=== PATIENT | male | born 1935 | race Caucasian/White ===

== ENCOUNTER 2015-12-16 10:50 | Inpatient (IN) | payer MEDICAID, OTHER ==
[~2015-12-16] VITALS: Ht 180.3 cm; Wt 59.9 kg
[~2015-12-16 10:50] MED LIST: CLIN1CAP5 PO
[2015-12-16 10:58] VITALS: BP 134/89; PULSE 86; RESP 24; O2SAT 100
[2015-12-16 11:06] VITALS: BP 144/80; PULSE 86; RESP 24; O2SAT 100
--- NOTE | 2015-12-16 11:24 | PD ---
HPI Chief Complaint: General Weakness Time Seen by Provider: 11:24 Travel History International Travel<30 days: No Contact w/Intl Traveler<30days: No Traveled to known affect area: No History of Present Illness HPI 80-year-old male coming in by EMS from his home. Patient was found covered in urine and feces reportedly sitting his home for the last 5 days. Patient is known to live on his own. He appears extremely cachectic and has obviously been malnourished for some time. Patient complains of no pain, nausea , vomiting, or headache. Patient is alert and oriented, although lethargic. Patient is allergic to ibuprofen, lidocaine, Novocain, and sodium pentothal. PFSH Past Medical History Medical History: Denies Significant Hx Past Surgical History Abdominal Surgery: Yes (ABD - SHRAPNEL) Social History Alcohol Use: No Tobacco Use: No Substance Use: No Allergies-Medications (Allergen,Severity, Reaction): Coded Allergies: Ibuprofen (Verified Allergy, Mild, 12/16/15) Lidocaine (Verified Allergy, Mild, 12/16/15) Novocain (Verified Allergy, Mild, 12/16/15) Uncoded Allergies: SODIUM PENTATHAL (Allergy, Severe, 11/19/09) Reported Meds & Prescriptions Reported Meds & Active Scripts Active No Active Prescriptions or Reported Medications Review of Systems ROS negative x 10: except as stated in HPI General / Constitutional: No: Fever, Chills Eyes: No: Visual changes HENT: No: Headaches, Sore Throat, Congestion Cardiovascular: Positive: Dyspnea on exertion, Edema (patient has 2-3+ pitting edema bilaterally.), No: Chest Pain or Discomfort, Palpitations, Irregular Rhythm, Tachycardia, Diaphoresis Respiratory: No: Cough, Shortness of Breath Gastrointestinal: No: Nausea, Vomiting, Diarrhea, Abdominal Pain Genitourinary: Positive: Dysuria, Incontinence Musculoskeletal: No: Pain Skin: No Rash Neurologic: No: Weakness Psychiatric: No: Depression Endocrine: No: Polydipsia Hematologic/Lymphatic: No: Easy Bruising Physical Exam Narrative GENERAL: Patient appears weak, cachectic, but in no acute distress. SKIN: Warm and dry. Normal color, atrophic with poor turgor HEAD: Atraumatic. Normocephalic. EYES: Pupils equal and round. No scleral icterus. No injection or drainage. ENT: No nasal bleeding or discharge. Mucous membranes pink. Dry. Pharynx is clear. Airway is patent. Patient has a hoarse voice. NECK: Trachea midline. Supple and nontender. CARDIOVASCULAR: Regular rate and rhythm. No murmurs gallops or rubs. RESPIRATORY: No accessory muscle use. Clear to auscultation. Breath sounds equal bilaterally. GASTROINTESTINAL: Abdomen soft, non-tender, nondistended. Hepatic and splenic margins not palpable. MUSCULOSKELETAL: Extremities without clubbing, cyanosis, 2-3+ pitting edema bilaterally in the lower extremities. No obvious deformities. NEUROLOGICAL: Awake and alert. No obvious cranial nerve deficits. Motor grossly within normal limits. 4 out of 5 muscle strength in the arms and legs. Normal speech. PSYCHIATRIC: Appropriate mood and affect; insight and judgment normal. Data Data Last Documented VS Vital Signs Date Time Temp Pulse Resp B/P Pulse Ox O2 Delivery O2 Flow Rate FiO2 12/16/15 12:29 98 12/16/15 12:29 86 24 143/63 Orders Electrocardiogram (12/16/15 11:24) Complete Blood Count With Diff (12/16/15 11:24) Comprehensive Metabolic Panel (12/16/15 11:24) Magnesium (Mg) (12/16/15 11:24) Ckmb (Isoenzyme) Profile (12/16/15 11:24) Troponin I (12/16/15 11:24) Act Partial Throm Time (Ptt) (12/16/15 11:24) Prothrombin Time / Inr (Pt) (12/16/15 11:24) Urinalysis - C+S If Indicated (12/16/15 11:24) Chest, Single Ap (12/16/15 11:24) Ecg Monitoring (12/16/15 11:24) Iv Access Insert/Monitor (12/16/15 11:24) Oximetry (12/16/15 11:24) Sodium Chloride 0.9% Flush (Ns Flush) (12/16/15 11:30) Sodium Chlorid 0.9% 500 Ml Inj (Ns 500 M (12/16/15 11:30) Urinary Catheter Insert/Apply (12/16/15 11:24) Ct Brain W/O Iv Contrast(Rout) (12/16/15 11:45) Place In Observation (12/16/15 ) Vital Signs (Adult) Q4H (12/16/15 14:06) Activity Oob With Assistance (12/16/15 14:06) Diet Regular Basic (12/16/15 Dinner) Sodium Chloride 0.9% Flush (Ns Flush) (12/16/15 14:15) Sodium Chloride 0.9% Flush (Ns Flush) (12/16/15 21:00) Ondansetron Inj (Zofran Inj) (12/16/15 14:15) Basic Metabolic Panel (Bmp) (12/17/15 06:00) Comprehensive Metabolic Panel (12/17/15 06:00) Scd Bilateral/Knee High BROOKE.QSHIFT (12/16/15 14:06) Enrrique Bilateral/Knee High BROOKE.QSHIFT (12/16/15 14:06) Naloxone Inj (Narcan Inj) (12/16/15 14:15) Chest, Pa & Lat (12/16/15 ) Admit Order (Ed Use Only) (12/16/15 14:12) Labs Laboratory Tests Test 12/16/15 12/16/15 11:44 12:17 White Blood Count 15.3 TH/MM3 Red Blood Count 3.94 MIL/MM3 Hemoglobin 13.1 GM/DL Hematocrit 37.8 % Mean Corpuscular Volume 95.9 FL Mean Corpuscular Hemoglobin 33.4 PG Mean Corpuscular Hemoglobin 34.8 % Concent Red Cell Distribution Width 14.2 % Platelet Count 162 TH/MM3 Mean Platelet Volume 10.9 FL Neutrophils (%) (Auto) 93.7 % Lymphocytes (%) (Auto) 2.3 % Monocytes (%) (Auto) 3.9 % Eosinophils (%) (Auto) 0.0 % Basophils (%) (Auto) 0.1 % Neutrophils # (Auto) 14.3 TH/MM3 Lymphocytes # (Auto) 0.3 TH/MM3 Monocytes # (Auto) 0.6 TH/MM3 Eosinophils # (Auto) 0.0 TH/MM3 Basophils # (Auto) 0.0 TH/MM3 CBC Comment DIFF FINAL Differential Comment Prothrombin Time 12.2 SEC Prothromb Time International 1.2 RATIO Ratio Activated Partial 24.1 SEC Thromboplast Time Sodium Level 130 MEQ/L Potassium Level 5.0 MEQ/L Chloride Level 92 MEQ/L Carbon Dioxide Level 26.5 MEQ/L Anion Gap 12 MEQ/L Blood Urea Nitrogen 59 MG/DL Creatinine 1.17 MG/DL Estimat Glomerular Filtration 60 ML/MIN Rate Random Glucose 116 MG/DL Calcium Level 8.6 MG/DL Magnesium Level 2.5 MG/DL Total Bilirubin 0.8 MG/DL Aspartate Amino Transf 15 U/L (AST/SGOT) Alanine Aminotransferase 15 U/L (ALT/SGPT) Alkaline Phosphatase 83 U/L Total Creatine Kinase 33 U/L Troponin I LESS THAN 0.02 NG/ML Total Protein 6.5 GM/DL Albumin 3.0 GM/DL Urine Color YELLOW Urine Turbidity HAZY Urine pH 5.0 Urine Specific [place] 1.022 Urine Protein TRACE mg/dL Urine Glucose (UA) NEG mg/dL Urine Ketones NEG mg/dL Urine Occult Blood LARGE Urine Nitrite NEG Urine Bilirubin NEG Urine Urobilinogen 2.0 MG/DL Urine Leukocyte Esterase NEG Urine RBC 38 /hpf Urine WBC 5 /hpf Urine Squamous Epithelial <1 /hpf Cells Urine Hyaline Casts 13 /lpf Urine Mucus FEW /lpf Microscopic Urinalysis Comment CULT NOT INDICATED MDM Medical Decision Making Medical Screen Exam Complete: Yes Emergency Medical Condition: Yes Differential Diagnosis Severe malnutrition. Dehydration. Possible stroke. Narrative Course Patient is evaluated felt to be medically stable at time of exam. Labs ordered including CBC, CMP, magnesium, cardiac panel, urinalysis. CT of the head and chest x-ray is ordered. Mena catheter is placed. Labs come back showing mild leukocytosis, dehydration, hyponatremia, and low albumin. Patient is given 1000 mL normal saline IV. Patient is discussed with Dr. Flores who recommends admission for dehydration and failure to thrive. Call placed to the hospitalist. Patient discussed with Dr. Zambrano for admission. Diagnosis Primary Impression: DEHYDRATION Additional Impression: Failure to thrive in adult Admitting Information Admitting Physician Requests: Admit Scripts No Active Prescriptions or Reported Meds Condition: Stable Nura Orr Dec 16, 2015 11:24
[2015-12-16] MEDS ORDERED: SODIUM CHLORID 0.9% 500 ML INJ 500 ML IV ONE (11:30)
[2015-12-16] MEDS ORDERED: SODIUM CHLORIDE 0.9% FLUSH 5 ML FLUSH IVF PRN (11:30)
[2015-12-16 12:02] LABS: AUTOMATED NEUTROPHIL # 14.3 TH/MM3 (1.8-7.7); BASOPHIL % 0.1 % (0.0-2.0); HEMATOCRIT 37.8 % (39.0-51.0); HEMO FLAGS DIFF FINAL; LYMPH % 2.3 % (9.0-44.0); LYMPHOCYTE # 0.3 TH/MM3 (1.0-4.8); MEAN CELL VOLUME 95.9 FL (80.0-100.0); MEAN CORPUSCULAR HEMOGLOBIN 33.4 PG (27.0-34.0); MEAN CORPUSCULAR HGB CONC 34.8 % (32.0-36.0); MONO % 3.9 % (0.0-8.0); NEUT % 93.7 % (16.0-70.0); PLATELET COUNT 162 TH/MM3 (150-450); RED BLOOD COUNT 3.94 MIL/MM3 (4.50-5.90); RED CELL DISTRIBUTION WIDTH 14.2 % (11.6-17.2); WHITE BLOOD COUNT 15.3 TH/MM3 (4.0-11.0)
[2015-12-16 12:12] LABS: INTERNATIONAL NORMALIZED RATIO 1.2 RATIO; PROTHROMBIN TIME - PATIENT 12.2 SEC (9.8-11.4)
[2015-12-16 12:13] LABS: APTT (PATIENT) 24.1 SEC (22.6-28.8)
--- NOTE | 2015-12-16 12:18 | RADRPT ---
EXAM DATE/TIME: 12/16/2015 11:54 [facility] COMPARISON: No previous studies available for comparison. INDICATIONS : Palpitations, short of breath MEDICAL HISTORY : unobtainable SURGICAL HISTORY : unobtainable ENCOUNTER: Initial ACUITY: 1 day PAIN SCORE: Non-responsive. LOCATION: Bilateral chest FINDINGS: A single view of the chest demonstrates hyperinflation which can be seen with COPD. No infiltrates a re seen, however there is right apical density. Heart is normal in size. The mediastinal contours are unremarkable. Osseous structures are intact. CONCLUSION: Hyperinflation which can be seen with COPD. Right apical density, PA and lateral views are recommende d when patient is stable. Lam Tucker MD on December 16, 2015 at 12:13 Board Certified Radiologist. This report was verified electronically.
[2015-12-16 12:29] VITALS: BP 143/63; PULSE 86; RESP 24; O2SAT 98
[2015-12-16 12:39] LABS: ALKALINE PHOSPHATASE 83 U/L (45-117); ALT (GPT) 15 U/L (12-78); ANION GAP 12 MEQ/L (5-15); AST (GOT) 15 U/L (15-37); BICARBONATE 26.5 MEQ/L (21.0-32.0); BLOOD UREA NITROGEN 59 MG/DL (7-18); CHLORIDE 92 MEQ/L (98-107); GLOMERULAR FILTRATION RATE 60 ML/MIN (>89); MAGNESIUM 2.5 MG/DL (1.5-2.5); SODIUM (NA) 130 MEQ/L (136-145); TOTAL BILIRUBIN ADULT 0.8 MG/DL (0.2-1.0)
[2015-12-16 12:46] LABS: CREATINE KINASE 33 U/L (39-308)
[2015-12-16 12:57] LABS: BLOOD, URINE LARGE (NEG); COMMENT (UR) CULT NOT INDICATED; CULTURE IF INDICATED CULT NOT INDICATED; GLUCOSE,URINE NEG (NEG); HYALINE CAST, URINE 13 /lpf (RARE); KETONE, URINE NEG (NEG); MUCUS URINE FEW /lpf (OCC); NITRITE,URINE NEG (NEG); SQUAMOUS EPITHELIAL CELL URINE <1 /hpf (0-5); URINE COLOR YELLOW (YELLW/STRAW)
--- NOTE | 2015-12-16 13:20 | RADRPT ---
EXAM DATE/TIME: 12/16/2015 12:45 [facility] COMPARISON: No previous studies available for comparison. INDICATIONS : Found lethargic today,severe weakness. RADIATION DOSE: 56.35 CTDIvol (mGy) MEDICAL HISTORY : None SURGICAL HISTORY : Shrapnel removed from abdomen ENCOUNTER: Initial ACUITY: 1 day PAIN SCALE: Non-responsive LOCATION: cranial TECHNIQUE: Multiple contiguous axial images were obtained of the head. Using automated exposure control and adj ustment of the mA and/or kV according to patient size, radiation dose was kept as low as reasonably a chievable to obtain optimal diagnostic quality images. FINDINGS: CEREBRUM: Scattered areas of low attenuation seen throughout the white matter. The ventricles are normal for ag e. No evidence of midline shift, mass lesion, hemorrhage or acute infarction. No extra-axial fluid collections are seen. POSTERIOR FOSSA: The cerebellum and brainstem are intact. The 4th ventricle is midline. The cerebellopontine angle i s unremarkable. EXTRACRANIAL: The visualized portion of the orbits is intact. SKULL: The calvaria is intact. No evidence of skull fracture. CONCLUSION: Nonspecific white matter changes. No acute intracranial abnormality. Lam Tucker MD on December 16, 2015 at 13:14 Board Certified Radiologist. This report was verified electronically.
[2015-12-16] MEDS ORDERED: NALOXONE HCL 0.4 MG/ML AMP IV PRN (14:15)
[2015-12-16] MEDS ORDERED: SODIUM CHLORIDE 0.9% FLUSH 5 ML FLUSH FLUSH PRN (14:15)
[2015-12-16] MEDS ORDERED: ACETAMINOPHEN/HYDROcodone 325 MG/5 MG TAB PO PRN (15:15)
[2015-12-16] MEDS ORDERED: BISACODYL 10 MG SUPP PR PRN (15:15)
[2015-12-16] MEDS ORDERED: ACETAMINOPHEN 325 MG TAB PO PRN (15:15)
--- NOTE | 2015-12-16 15:36 | HHI.HP ---
HPI Service [facility] Primary Care Physician No Primary Care Physician Admission Diagnosis Dehydration/Failure to thrive Diagnoses: Chief Complaint: dehydration, failure to thrive Travel History International Travel<30 Days: No Contact w/Intl Traveler <30 Da: No Traveled to Known Affected Are: No History of Present Illness 80-year-old male with no known past medical history presents via EMS after being found covered in urine/feces, complaining of generalized weakness and dysphagia. The patient is very soft spoken, difficult to understand, however is awake, alert, oriented. The patient states that he has felt very weak and has not been able to get out of his chair for several days. He was found covered in urine/feces. Patient reports he has had difficulty swallowing, states it has been going on for "quite a while". He reports very minimal oral intake. Denies abdominal pain, nausea, vomiting. He has not seen a doctor in several years, and has never seen a buttonhole maker for his dysphagia. He lives alone. He states he does have a living brother named Perfecto Dixon however he has not spoken to him in over 2 weeks. Other than feeling weak and with dysphagia, the patient denies any other medical complaints. He denies any fever/chills, lightheadedness, dizziness, chest pain, shortness of breath, or urinary complaints. Review of Systems Constitutional: DENIES: Diaphoretic episodes, Fever, Chills, Dizziness Endocrine: DENIES: Polydipsia, Polyuria, Polyphagia Eyes: DENIES: Blurred vision, Vision loss, Double Vision Ears, nose, mouth, throat: DENIES: Throat pain, Hoarseness, Odynophagia Respiratory: DENIES: Cough, Shortness of breath Gastrointestinal: COMPLAINS OF: Difficulty Swallowing, DENIES: Abdominal pain , Constipation, Diarrhea, Nausea, Vomiting Genitourinary: DENIES: Urinary frequency, Urgency, Dysuria Musculoskeletal: DENIES: Back pain, Neck pain Integumentary: DENIES: Abnormal pigmentation, Pruritus, Rash Hematologic/lymphatic: DENIES: Bruising, Lymphadenopathy Immunologic/allergic: DENIES: Eczema, Urticaria Neurologic: DENIES: Abnormal gait, Headache, Localized weakness Psychiatric: DENIES: Anxiety, Confusion, Depression Past Family Social History Past Medical History No known past medical history Past Surgical History 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 Allergies: Coded Allergies: Ibuprofen (Verified Allergy, Mild, 12/16/15) Lidocaine (Verified Allergy, Mild, 12/16/15) Novocain (Verified Allergy, Mild, 12/16/15) Uncoded Allergies: SODIUM PENTATHAL (Allergy, Severe, 11/19/09) Active Ordered Medications Current Medications Medications (Trade) Dose Ordered Sig/Atul Route Start Time Stop Time Status Last Admin (NS Flush) 2 ml UNSCH PRN FLUSH 12/16/15 14:15 (NS Flush) 2 ml BID FLUSH 12/16/15 21:00 (Zofran Inj) 4 mg Q6H PRN IVP 12/16/15 14:15 (Narcan Inj) 0.4 mg UNSCH PRN IV 12/16/15 14:15 Family History Review, patient unaware of any significant family history Social History Lives alone Denies tobacco, alcohol, or illicit drug use Has 2 brothers, one , one living named Perfecto Dixon Physical Exam Vital Signs Vital Signs Date Time Temp Pulse Resp B/P Pulse Ox O2 Delivery O2 Flow Rate FiO2 12/16/15 12:29 98 12/16/15 12:29 86 24 143/63 98 12/16/15 11:06 86 24 144/80 100 12/16/15 10:58 86 24 134/89 100 Physical Exam GENERAL: Severely cachectic unkempt bearded elderly male patient in [facility]. Very soft spoken, difficult to understand. SKIN: Warm and dry. No rash. HEAD: Normocephalic. Atraumatic. Bitemporal wasting noted. EYES: Pupils equal and round. No scleral icterus. No injection or drainage. ENT: No nasal bleeding or discharge. Mucous membranes pink and moist. NECK: Supple. Trachea midline. No JVD. CARDIOVASCULAR: Regular rate and rhythm. S1, S2 noted. No murmur appreciated. RESPIRATORY: No accessory muscle use. Clear to auscultation. Breath sounds equal bilaterally. GASTROINTESTINAL: Abdomen soft, non-tender, nondistended. Normoactive bowel sounds x4. MUSCULOSKELETAL: No obvious deformities. Bilateral lower extremities with 3+ pitting edema and overlying erythema bilaterally. NEUROLOGICAL: Awake and alert. No obvious cranial nerve deficits. Motor grossly within normal limits. Generalized weakness. Normal speech. PSYCHIATRIC: Appropriate mood and affect; insight and judgment normal. Laboratory Laboratory Tests Test 12/16/15 12/16/15 11:44 12:17 White Blood Count 15.3 Red Blood Count 3.94 Hemoglobin 13.1 Hematocrit 37.8 Mean Corpuscular Volume 95.9 Mean Corpuscular Hemoglobin 33.4 Mean Corpuscular Hemoglobin 34.8 Concent Red Cell Distribution Width 14.2 Platelet Count 162 Mean Platelet Volume 10.9 Neutrophils (%) (Auto) 93.7 Lymphocytes (%) (Auto) 2.3 Monocytes (%) (Auto) 3.9 Eosinophils (%) (Auto) 0.0 Basophils (%) (Auto) 0.1 Neutrophils # (Auto) 14.3 Lymphocytes # (Auto) 0.3 Monocytes # (Auto) 0.6 Eosinophils # (Auto) 0.0 Basophils # (Auto) 0.0 CBC Comment DIFF FINAL Differential Comment Prothrombin Time 12.2 Prothromb Time International 1.2 Ratio Activated Partial 24.1 Thromboplast Time Sodium Level 130 Potassium Level 5.0 Chloride Level 92 Carbon Dioxide Level 26.5 Anion Gap 12 Blood Urea Nitrogen 59 Creatinine 1.17 Estimat Glomerular Filtration 60 Rate Random Glucose 116 Calcium Level 8.6 Magnesium Level 2.5 Total Bilirubin 0.8 Aspartate Amino Transf 15 (AST/SGOT) Alanine Aminotransferase 15 (ALT/SGPT) Alkaline Phosphatase 83 Total Creatine Kinase 33 Troponin I LESS THAN 0.02 Total Protein 6.5 Albumin 3.0 Urine Color YELLOW Urine Turbidity HAZY Urine pH 5.0 Urine Specific [place] 1.022 Urine Protein TRACE Urine Glucose (UA) NEG Urine Ketones NEG Urine Occult Blood LARGE Urine Nitrite NEG Urine Bilirubin NEG Urine Urobilinogen 2.0 Urine Leukocyte Esterase NEG Urine RBC 38 Urine WBC 5 Urine Squamous Epithelial <1 Cells Urine Hyaline Casts 13 Urine Mucus FEW Microscopic Urinalysis Comment CULT NOT INDICATED Result Diagram: 12/16/15 1144 12/16/15 1144 Imaging Last Impressions Head CT 12/16/15 1145 Signed Impressions: Service Date/Time: Wednesday, December 16, 2015 12:45 - CONCLUSION: Nonspecific white matter changes. No acute intracranial abnormality. Lam Tucker MD Chest X-Ray 12/16/15 1124 Signed Impressions: Service Date/Time: Wednesday, December 16, 2015 11:54 - CONCLUSION: Hyperinflation which can be seen with COPD. Right apical density, PA and lateral views are recommended when patient is stable. Lam Tucker MD Assessment and Plan Problem List: (1) Failure to thrive in adult ICD Code: R62.7 Status: Acute (2) Malnutrition ICD Code: E46 Status: Acute (3) Bilateral lower leg cellulitis ICD Code: L03.116 Status: Acute (4) Hyponatremia ICD Code: E87.1 Status: Acute Assessment and Plan 80-year-old male with no known past medical history presents via EMS after being found covered in urine/feces, complaining of generalized weakness and dysphagia. Dysphagia: resulting in severe malnutrition and weight loss (previously documented weight 73kg in June 2014, now 37kg). Swallow eval with ST. Consult GI. Supportive treatment with IVF with D5 1/2 NS +KCl. Severe Protein Calorie Malnutrition/Failure to Thrive: possibly worsened by dysphagia above. BMI 11. Swallow Eval with ST. Consulted GI and Bead Inspector. Generalized Weakness: likely secondary to severe malnutrition and chronic deconditioning. Consult PT/OT. Bilateral Lower Extremity Cellulitis/Edema: + leukocytosis, WBC 15K, afebrile, not septic, however b/l lower extremities with edema/erythema. Start on IV Rocephin. Monitor for improvement. Elevate lower extremities. Hyponatremia: Na 130. Likely secondary to dehydration/malnutrition. Continue on IVF. Monitor BMP. Right Apical Density: seen on AP CXR. Check PA/Lateral CXR. DVT Prophylaxis: Lovenox Case management to assist with discharge planning. The patient reports he has a living brother named "Perfecto Dixon". Code Status DNR Discussed Condition With Patient, [employer]ECT[employer]ER Written by Jalyn Sargent, acting as scribe for Dr. Wright on 12/16/15 at 15: 34. Physician Certification 2 Midnight Certification Type: Admission for Inpatient Services Order for Inpatient Services The services are ordered in accordance with Medicare regulations or non- Medicare payer requirements, as applicable. In the case of services not specified as inpatient-only, they are appropriately provided as inpatient services in accordance with the 2-midnight benchmark. Estimated LOS (days): 3 days is the estimated time the patient will need to remain in the hospital, assuming treatment plan goals are met and no additional complications. Post-Hospital Plan: SNF Medical Decision Making MDM Remarks The documentation accurately reflects the work performed [id number] by me on 12/16/15 at 15:43. Jalyn Sargent PA-C Dec 16, 2015 15:36 Kendra Wright MD Dec 16, 2015 15:43
[2015-12-16] MEDS ORDERED: D5-1/2 NS + KCL 20 MEQ INJ 1,000 ML IV SCH (16:00)
--- NOTE | 2015-12-16 16:02 | RADRPT ---
EXAM DATE/TIME: 12/16/2015 14:54 [facility] COMPARISON: No previous studies available for comparison. INDICATIONS : Evaluate for infiltrates. MEDICAL HISTORY : Unobtainable. SURGICAL HISTORY : Unobtainable. ENCOUNTER: Subsequent ACUITY: 1 day PAIN SCORE: Non-responsive. LOCATION: chest FINDINGS: The cardiac silhouette is normal in transverse diameter. There is prominence of the aortic knob is wi th calcification characteristic of atherosclerotic vascular disease. The lungs are hyperinflated. The lungs are free of acute parenchymal opacity. No effusions are identified. 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 CONCLUSION: 1. Findings of COPD. No acute cardiopulmonary disease. Bryant Damon MD on December 16, 2015 at 15:57 Board Certified Radiologist. This report was verified electronically.
[2015-12-16 16:12] VITALS: BP 135/60; PULSE 84; RESP 18; TEMP 97.6; O2SAT 100
[2015-12-16] MEDS: cefTRIAXone INJ 1,000 MG in SODIUM CHLORIDE 0.9% INJ 100 ML IV SCH (17:01)
[2015-12-16] MEDS: ENOXAPARIN SODIUM 40 MG/0.4 ML SYRINGE SQ SCH (17:01)
[2015-12-16] MEDS: DEXT 5%-NACL 0.9% 1000 ML INJ 1,000 ML IV SCH (17:01)
[2015-12-16] MEDS: DOCUSATE SODIUM 100 MG CAP PO SCH (20:30)
[2015-12-16] MEDS: SODIUM CHLORIDE 0.9% FLUSH 5 ML FLUSH FLUSH SCH (21:00)
[2015-12-16] MEDS ORDERED: SODIUM CHLORIDE 0.9% FLUSH 5 ML FLUSH FLUSH SCH (21:00)
[2015-12-16 21:13] VITALS: BP 107/60; PULSE 94; RESP 20; TEMP 97.9; O2SAT 94
[2015-12-16 23:31] VITALS: BP 102/54; PULSE 97; RESP 18; TEMP 97.9; O2SAT 94
[2015-12-17] MEDS: DEXT 5%-NACL 0.9% 1000 ML INJ 1,000 ML IV SCH ×2 (03:18→11:53)
[2015-12-17] MEDS: SODIUM CHLORIDE 0.9% FLUSH 5 ML FLUSH FLUSH SCH ×2 (08:23→21:00)
[2015-12-17] MEDS: DOCUSATE SODIUM 100 MG CAP PO SCH ×2 (08:24→21:00)
[2015-12-17 08:48] VITALS: BP 103/60; PULSE 69; RESP 18; TEMP 97.8; O2SAT 95
--- NOTE | 2015-12-17 11:07 | HHI.PR ---
Subjective Remarks Follow-up for failure to thrive and dysphagia. The patient complains of feeling cold. He has some pain in his swollen ankles. He states he wants some water to drink because his mouth is dry. He continues to complain of generalized weakness. Per RN, speech therapy states the patient should remain nothing by mouth. The patient wants to get stronger so that he can go home. He understands that if he does not eat he could . However, he does not want any GI procedures at this time, but states he will think about it. He is agreeable to talk with palliative care. He denies any low mood. Objective Vitals Vital Signs Date Time Temp Pulse Resp B/P Pulse Ox O2 Delivery O2 Flow Rate FiO2 12/17/15 08:48 97.8 69 18 103/60 95 12/17/15 00:26 Nasal Cannula 2.00 12/16/15 23:31 97.9 97 18 102/54 94 12/16/15 21:13 97.9 94 20 107/60 94 12/16/15 20:15 Nasal Cannula 2.00 12/16/15 16:15 Nasal Cannula 2.00 12/16/15 16:12 97.6 84 18 135/60 100 12/16/15 12:29 98 12/16/15 12:29 86 24 143/63 98 12/16/15 11:06 86 24 144/80 100 Result Diagram: 12/16/15 1144 12/16/15 1144 Imaging Last Impressions Head CT 12/16/15 1145 Signed Impressions: Service Date/Time: Wednesday, December 16, 2015 12:45 - CONCLUSION: Nonspecific white matter changes. No acute intracranial abnormality. Lam Tucker MD Chest X-Ray 12/16/15 1124 Signed Impressions: Service Date/Time: Wednesday, December 16, 2015 11:54 - CONCLUSION: Hyperinflation which can be seen with COPD. Right apical density, PA and lateral views are recommended when patient is stable. Lam Tucker MD Objective Remarks GENERAL: Well-developed poorly nourished cachectic, unkempt appearing elderly male. In no acute distress. SKIN: Warm and dry. No lesions noted. HEENT: Normocephalic. Bitemporal wasting. Pupils equal and round. Mucous membranes dry. CARDIOVASCULAR: Regular rate and rhythm. No murmur appreciated. RESPIRATORY: No accessory muscle use. Clear to auscultation. Breath sounds equal bilaterally. GASTROINTESTINAL: Abdomen soft, non-tender, nondistended. Bowel sounds x4. MUSCULOSKELETAL: No obvious deformities. No clubbing or cyanosis. 3+ pitting edema bilaterally with some mild overlying erythema. NEUROLOGICAL: Awake and alert. No focal neurological deficits. Moves upper and lower extremities spontaneously. Quiet but normal speech. PSYCHIATRIC: Appropriate mood and affect; insight and judgment normal. A/P Problem List: (1) Failure to thrive in adult ICD Code: R62.7 Status: Acute (2) Malnutrition ICD Code: E46 Status: Acute (3) Bilateral lower leg cellulitis ICD Code: L03.116 Status: Acute (4) Hyponatremia ICD Code: E87.1 Status: Acute Assessment and Plan 80-year-old male with no known past medical history presents via EMS after being found covered in urine/feces, complaining of generalized weakness and dysphagia. Dysphagia: resulting in severe malnutrition and weight loss (previously documented weight 73kg in June 2014, now 37kg). Nothing by mouth. Swallow eval with ST. Consulted GI. Supportive treatment with IVF with D5 1/2 NS +KCl. Severe Protein Calorie Malnutrition/Failure to Thrive: possibly worsened by dysphagia above. BMI 11. Swallow Eval with ST. Consulted GI and Water [employer] Systems Supervisor. Patient wants to improve but refusing any GI procedures, agreeable for palliative care consultation to assist with goals of care. Generalized Weakness: likely secondary to severe malnutrition and chronic deconditioning. Consulted PT/OT. Bilateral Lower Extremity Cellulitis/Edema: + leukocytosis, WBC 15K. Afebrile overnight. Vital signs not indicative of sepsis. Bilateral lower extremities with edema/erythema. Started on IV Rocephin. Monitor for improvement. Follow- up CBC. Elevate lower extremities. Hyponatremia: Na 130. Likely secondary to dehydration/malnutrition. Continue on IVF. Follow-up BMP. Right Apical Density: seen on AP CXR with PA lateral chest x-ray recommended by radiology. Checked PA/Lateral CXR which showed findings of COPD with no acute cardiopulmonary disease. DVT Prophylaxis: Lovenox Written by Joey De Guzman, acting as scribe for Dr. Wright on 12/17/15 at 11:07. Discharge Planning Disposition pending clinical course. Case management to assist with discharge planning. The patient reports he has a living brother named "Perfecto Dixon". Attending Statement The documentation accurately reflects the work performed [id number] by me on 12/17/15 at 11:07. Joey De Guzman Dec 17, 2015 11:07 Kendra Wright MD Dec 17, 2015 16:14
[2015-12-17 13:11] LABS: AUTOMATED NEUTROPHIL # 13.7 TH/MM3 (1.8-7.7); BASOPHIL % 0.1 % (0.0-2.0); HEMATOCRIT 39.7 % (39.0-51.0); HEMO FLAGS DIFF FINAL; LYMPH % 2.6 % (9.0-44.0); LYMPHOCYTE # 0.4 TH/MM3 (1.0-4.8); MEAN CELL VOLUME 96.6 FL (80.0-100.0); MEAN CORPUSCULAR HEMOGLOBIN 32.3 PG (27.0-34.0); MEAN CORPUSCULAR HGB CONC 33.4 % (32.0-36.0); MONO % 3.3 % (0.0-8.0); PLATELET COUNT 102 TH/MM3 (150-450); RED CELL DISTRIBUTION WIDTH 13.7 % (11.6-17.2); WHITE BLOOD COUNT 14.6 TH/MM3 (4.0-11.0)
[2015-12-17 13:27] VITALS: BP 107/54; PULSE 68; RESP 20; TEMP 97.5; O2SAT 95
[2015-12-17 13:45] LABS: ALKALINE PHOSPHATASE 66 U/L (45-117); ALT (GPT) 11 U/L (12-78); ANION GAP 4 MEQ/L (5-15); AST (GOT) 20 U/L (15-37); BLOOD UREA NITROGEN 34 MG/DL (7-18); CHLORIDE 100 MEQ/L (98-107); GLOMERULAR FILTRATION RATE 125 ML/MIN (>89); POTASSIUM 4.2 MEQ/L (3.5-5.1); SODIUM (NA) 136 MEQ/L (136-145); TOTAL BILIRUBIN ADULT 0.5 MG/DL (0.2-1.0)
--- NOTE | 2015-12-17 13:57 | EKG ---
Date Performed: 12/16/2015 Time Performed: 14:57:46 PTAGE: 80 years EKG: Baseline artifact present Sinus rhythm POSSIBLE LEFT ATRIAL ENLARGEMENT NONSPECIFIC T-WAVE ABNORMALITY BORDERLINE ECG No significant change from prior electrocardiogram. PREVIOUS TRACING : 11/18/2009 23.39 DOCTOR: Kenroy Bee Interpretating Date/Time 12/17/2015 13:56:40
--- NOTE | 2015-12-17 13:58 | PD.CONS ---
HPI History of Present Illness This is a 80 year old who was brought to the ER for severe generalized weakness and dysphagia after being found in feces/urine. The patient is a poor historian , but states that he has been having eating for several months. He reports that this is both with liquids and solids. He is not able to say if they are getting caught in a particular area, but states that they will just not go down. He occasional has nausea, but no vomiting or abdominal pain. He reports that this has been going on for several months and has progressively been getting worse- to the point that he is only getting a small amount of liquids down. He has lost a significant amount of weight, but is not able to quantify this. He has never had this evaluated and has never had an EGD. He was evaluated by Speech Therapy, but was unable to complete swallow sequence. He did have laryngeal elevation, but did not complete a swallow. They recommended that he remain NPO with GI Consult for possible achalasia. 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 (Lelia Walsh) Coded Allergies: Ibuprofen (Verified Allergy, Mild, 12/16/15) Lidocaine (Verified Allergy, Mild, 12/16/15) Novocain (Verified Allergy, Mild, 12/16/15) Uncoded Allergies: SODIUM PENTATHAL (Allergy, Severe, 11/19/09) Medications Allergies Coded Allergies Type Severity Reaction Last Updated Verified Ibuprofen Allergy Mild 12/16/15 Yes Lidocaine Allergy Mild 12/16/15 Yes Novocain Allergy Mild 12/16/15 Yes Uncoded Allergies Type Severity Reaction Last Updated Verified SODIUM PENTATHAL Allergy Severe 11/19/09 Active Scripts Medications Dose Route/Sig Days Date Category No Active Prescriptions or Reported Medications Rx Family History Patient unaware of any significant family history Social History Lives alone Denies tobacco, alcohol, or illicit drug use Has 2 brothers, one , one living named Perfecto Dixon (Lelia Walsh) Review of Systems Constitutional: COMPLAINS OF: Fatigue, Weight loss, Change in appetite Cardiovascular: COMPLAINS OF: Lower Extremity Edema, DENIES: Chest pain Gastrointestinal: COMPLAINS OF: Nausea, Difficulty Swallowing, Anorexia, DENIES: Abdominal pain, Black stools, Bloody stools, Constipation, Diarrhea, Vomiting, Heartburn, Hematemesis Integumentary: DENIES: Rash Hematologic/lymphatic: DENIES: Bruising Neurologic: DENIES: Headache Psychiatric: DENIES: Confusion (JillianLelia Ha MARIA ISABEL) GI Exam Vitals I&O Vital Signs Date Time Temp Pulse Resp B/P Pulse Ox O2 Delivery O2 Flow Rate FiO2 12/17/15 13:27 97.5 68 20 107/54 95 12/17/15 08:48 97.8 69 18 103/60 95 12/17/15 08:40 Nasal Cannula 2.00 12/17/15 00:26 Nasal Cannula 2.00 12/16/15 23:31 97.9 97 18 102/54 94 12/16/15 21:13 97.9 94 20 107/60 94 12/16/15 20:15 Nasal Cannula 2.00 12/16/15 16:15 Nasal Cannula 2.00 12/16/15 16:12 97.6 84 18 135/60 100 I/O 12/16/15 12/16/15 12/16/15 12/17/15 12/17/15 12/17/15 07:00 15:00 23:00 07:00 15:00 23:00 Output Total 275 ml Balance -275 ml Output Urine Total 275 ml Imaging Last Impressions Head CT 12/16/15 1145 Signed Impressions: Service Date/Time: Wednesday, December 16, 2015 12:45 - CONCLUSION: Nonspecific white matter changes. No acute intracranial abnormality. Lam Tucker MD Chest X-Ray 12/16/15 1124 Signed Impressions: Service Date/Time: Wednesday, December 16, 2015 11:54 - CONCLUSION: Hyperinflation which can be seen with COPD. Right apical density, PA and lateral views are recommended when patient is stable. Lam Tucker MD Laboratory Test 12/17/15 12:55 White Blood Count 14.6 TH/MM3 Red Blood Count 4.10 MIL/MM3 Hemoglobin 13.2 GM/DL Hematocrit 39.7 % Mean Corpuscular Volume 96.6 FL Mean Corpuscular Hemoglobin 32.3 PG Mean Corpuscular Hemoglobin 33.4 % Concent Red Cell Distribution Width 13.7 % Platelet Count 102 TH/MM3 Mean Platelet Volume 9.5 FL Neutrophils (%) (Auto) 94.0 % Lymphocytes (%) (Auto) 2.6 % Monocytes (%) (Auto) 3.3 % Eosinophils (%) (Auto) 0.0 % Basophils (%) (Auto) 0.1 % Neutrophils # (Auto) 13.7 TH/MM3 Lymphocytes # (Auto) 0.4 TH/MM3 Monocytes # (Auto) 0.5 TH/MM3 Eosinophils # (Auto) 0.0 TH/MM3 Basophils # (Auto) 0.0 TH/MM3 CBC Comment DIFF FINAL Differential Comment Physical Examination GEN: Cachectic, malnourished appearing HEENT: Normocephalic; atraumatic; no jaundice. CHEST: CTA CARDIAC: RRR ABDOMEN: Soft, nondistended, nontender; no hepatosplenomegaly; bowel sounds are present in all four quadrants. EXTREMITIES: BLE 2-3+ edema with erythema SKIN: Normal; no rash; no jaundice. DRILL HAND: Lethargic, follows commands (Lelia Walsh) Assessment and Plan Plan ASSESSMENT: - Dysphagia, FTT, Dehydration. Pt reports difficulty swallowing both liquids/ solids for several months and reports significant weight loss, although he is poor historian and cannot quantify amount of weight lost. He has never had this evaluated and has never had an EGD. S/P evaluation by Speech Therapy, but was unable to complete swallow sequence. He did have laryngeal elevation, but did not complete a swallow. They recommended that he remain NPO with GI Consult for possible achalasia. Will get Barium Swallow today and then decide if he needs EGD with Botox vs. EGD with PEG tube placement- d/w patient. - Malnutrition. NPO for now, ? need for PEG - BLE edema/erythema, ? COPD, hyponatremia per primary - Leukocytosis, WBC 14.6. CXR right apical density per primary. PLAN: - NPO - Barium Swallow today - Cont. ST - Cont. IVF - Supportive care - Further recommendations to follow based on results of barium swallow- Likely will need EGD ? PEG, ? Botox injections - Pt seen and examined by Dr. Allen and myself and this note is written on his behalf (Lelia Walsh) Physician Comments Pt was seen and examined. He can not swallow so we can not do barium swallow He is severely malnourished He needs EGD with PEG tube placement (Jessy Allen MD) Lelai Walsh DECKHAND CLAM DREDGE Dec 17, 2015 13:58 Jessy Allen MD Dec 17, 2015 18:24
[2015-12-17 15:00] VITALS: BP 103/52; PULSE 82; RESP 12; TEMP 98.4; O2SAT 100
--- NOTE | 2015-12-17 15:24 | PD.CONS ---
Consult Service Palliative Care Consult Requested By Radha SETHI . Primary Care Physician No Primary Care Physician Reason for Consultation a. To assist with evaluation and management of symptoms including: Swallowing dysfunction, weakness b. To assist medical decision maker(s) with: better understanding of current medical conditions; weighing benefits/burdens of medical treatment options; making medical treatment decisions. HPI History of Present Illness Mr. Dixon is an 80-year-old male who presented to [place] ED on 12/16/15 via EMS from his home after being found covered in urine and feces. The patient was lethargic, oriented to person and place. Very soft spoken and difficult to understand. He complained of generalized weakness and dysphasia. Complained of general weakness and dysphasia stating he had been very weak and was unable to get out of his chair for several days. The patient also reported the he had been having difficulty swallowing for "quite a while" which made it difficult to eat/drink. Patient reported he had not seen a doctor in several years and had never been evaluated by gastroenterology for his dysphasia. Denied abdominal pain, nausea, vomiting. The patient had no other medical complaints other than weakness and dysphasia. He denied any recent history of fever, chills, lightheadedness, chest pain, shortness of breath or urinary complaints. Additional diagnostic findings in the ED include: * Vital signs: Pulse 86, respirations 24, BP 134/89, oxygen saturation 100% on room air, temperature 97.6 * WBC: 15.3, hemoglobin 13.1, hematocrit 37.8, platelets 162, neutrophils 93.7% * PT: 12.2, INR 1.2, APTT 24.1 * Sodium: 1:30, potassium 5.0, chloride 92, carbon dioxide 26.5, glucose 116, calcium 8.6, magnesium 2.5 * BUN: 59, creatinine 1.17, GFR 60 * Total bilirubin: 0.8, AST 15, ALT 15 * Alkaline phosphatase: 83 * Total creatine kinase: 33 * Troponin: <0.02 * Total protein: 6.5, albumin 3.0 * Urinalysis: Hazy urine with large amount of occult blood, urine RBC and mucus. Culture not indicated. * Chest x-ray PA & LAT: Findings of COPD, no acute cardiopulmonary disease * Head CT: Nonspecific white matter changes, no acute intracranial abnormality * EKG: Sinus rhythm, possible left atrial enlargement, nonspecific T-wave abnormality. Mr. Dixon was admitted for further evaluation and medical management of dysphasia, adult failure to thrive, leukocytosis and dehydration. The patient was seen for swallow evaluation but was unable to complete the swallow sequence. Per speech, patient has laryngeal elevation but does not complete a swallow. Patient will remain NPO at this time. Gastroenterology was consulted for possible achalasia. The patient reported having progressively worsening dysphasia, both liquids and solids, for several months. He stated he had lost a significant amount of weight is unable to quantify. Gastroenterology made recommendations for a barium swallow. Further recommendations to follow pending barium swallow, possibly EGD with Botox versus EGD with PEG tube placement. Palliative Care was consulted to assist with symptom management and to discuss with the patient/family the benefits and burdens of his current illnesses and the options regarding future care. . Function/Cognitive Trajectory Mr. Dixon awake, alert and oriented but very soft spoken and difficult to understand. He is a poor historian. The patient is not and has no children. He states he has 1 brother, Pablo Dixon. but was unable to provide any contact information. The patient states he began to have difficulty swallowing several months ago and has lost a great deal of weight because of that. He was unable to quantify his weight loss. He states he has been very weak, but has no other complaints. . Review of Systems ROS Limitations: Clinical Condition (weak, lethargic), Poor Historian Constitutional: COMPLAINS OF: Fatigue, Weight loss (Previously documented weight 73kg in June 2014, now 37kg.), Chills, Dizziness, Change in appetite ( Decreased appetite), Night Sweats, Pain (BLE), Generalized weakness, Sleep problems Endocrine: COMPLAINS OF: Heat/cold intolerance Eyes: DENIES: Eye inflammation Ears, nose, mouth, throat: DENIES: Vertigo, Epistaxis Respiratory: DENIES: Cough Cardiovascular: COMPLAINS OF: Lower Extremity Edema (BLE) Gastrointestinal: COMPLAINS OF: Nausea, Difficulty Swallowing, Anorexia Genitourinary: DENIES: Hematuria Musculoskeletal: COMPLAINS OF: Back pain (chronic back pain) Neurologic: DENIES: Headache, Seizures Psychiatric: DENIES: Hallucinations, Suicidal Ideation, Homicidal Ideation Past Family Social History Coded Allergies: Ibuprofen (Verified Allergy, Mild, 12/16/15) Lidocaine (Verified Allergy, Mild, 12/16/15) Novocain (Verified Allergy, Mild, 12/16/15) Uncoded Allergies: SODIUM PENTATHAL (Allergy, Severe, 11/19/09) Past Medical History Questionable TIA in 2009 Chronic back pain History of asthma . . 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 Current Medications Medications (Trade) Dose Ordered Sig/Atul Route Start Time Stop Time Status Last Admin (Zofran Inj) 4 mg Q6H PRN IVP 12/16/15 14:15 (Narcan Inj) 0.4 mg UNSCH PRN IV 12/16/15 14:15 (NS Flush) 2 ml UNSCH PRN FLUSH 12/16/15 15:15 (NS Flush) 2 ml BID FLUSH 12/16/15 21:00 (Dulcolax Supp) 10 mg DAILY PRN [place] 12/16/15 15:15 (Colace) 100 mg Q12H PO 12/16/15 21:00 (Milk Of Magnesia Liq) 30 ml Q12H PRN PO 12/16/15 15:15 (Lovenox Inj) 40 mg Q24H SQ 12/16/15 16:00 12/16/15 17:01 (Tylenol) 650 mg Q6H PRN PO 12/16/15 15:15 ([place] 5-325 Mg) 1 tab Q4H PRN PO 12/16/15 15:15 Morphine Sulfate 2 mg 2 mg Q3H PRN IV 12/16/15 15:15 Dextrose/Sodium Chloride 1,000 ml @ 100 mls/hr Q10H IV 12/16/15 15:15 12/17/15 11:53 (Rocephin Inj/NS Inj) 100 ml @ 200 mls/hr Q24H IV 12/16/15 16:00 12/16/15 17:01 Family History Patient is unaware of any significant family history, no known familial history of stroke or heart disease. Substance Use Tobacco: Patient denies Alcohol:Patient denies Prescription med abuse:Patient denies Illicits:Patient denies . Psychosocial History Patient lives alone. He has 2 brothersone brother is and 1 brother, named Perfecto Dixon, is living. The patient is not and has no children. He was involved in the [employer] business. . . Spiritual/Cultural Factors None Living Will: Never completed Health Care Surrogate: Never completed Durable Power of Slasher Tender Helper: Never completed Health Care Surrogate(s): NA . Documented care wishes: No documented care wished have been completed. . Today's verbally stated goals: Patient's goals are unclear at this time. He verbalizes understanding that he needs to be able to tolerate oral nutrition to sustain life, but he states he does not want to have any procedures done. Patient will consider medical treatment options. . Family/friends goals: No family present, contact information unavailable. . Ethical and Legal Issues Per [place] statutes, in the absence of written advanced directives healthcare proxy decision making would fall to the patient's brother Pablo Dixon. Pablo Dixon's contact information is not available, patient unable to provide. Patient states he does not have any one else he wishes to designate as his healthcare surrogate. Physical Exam Vital Signs Date Time Temp Pulse Resp B/P Pulse Ox O2 Delivery O2 Flow Rate FiO2 12/17/15 13:27 97.5 68 20 107/54 95 12/17/15 08:48 97.8 69 18 103/60 95 12/17/15 08:40 Nasal Cannula 2.00 12/17/15 00:26 Nasal Cannula 2.00 12/16/15 23:31 97.9 97 18 102/54 94 12/16/15 21:13 97.9 94 20 107/60 94 12/16/15 20:15 Nasal Cannula 2.00 12/16/15 16:15 Nasal Cannula 2.00 12/16/15 16:12 97.6 84 18 135/60 100 . Exam CONSTITUTIONAL/GENERAL: This is a cachectic elderly male patient, in no apparent distress. TUBES/LINES/DRAINS: PIV 1, Mena SKIN: No jaundice, rashes, or lesions. Skin temperature appropriate. Not diaphoretic. HEAD: Atraumatic. Normocephalic. EYES: Pupils equal and round and reactive. Extraocular motions intact. No scleral icterus. No injection or drainage. Fundi not examined. ENT: Hearing grossly normal. Nose without bleeding or purulent drainage. Poor dentition NECK: Trachea midline. Supple, nontender. No palpable thyroid enlargement or nodularity. CARDIOVASCULAR: Regular rate and rhythm.. No JVD. Peripheral pulses symmetric. RESPIRATORY/CHEST: Symmetric, unlabored respirations. Breath sounds diminished bilaterally. No wheezes, rales, or rhonchi. GASTROINTESTINAL: Abdomen soft, non-tender, nondistended. No hepato-splenomegaly , or palpable masses. No guarding. Bowel sounds present. GENITOURINARY: Without palpable bladder distension. Mena catheter in place, draining nga urine MUSCULOSKELETAL: Extremities without clubbing or cyanosis. BLE with erythema, 2 3+ edema. LYMPHATICS: No palpable cervical or supraclavicular adenopathy. NEUROLOGICAL: Awake, lethargic. Answering questions. Oriented to person and place. Moves all extremities. PSYCHIATRIC: No obvious anxiety/depression. no apparent hallucinations or other psychotic thought process. . Diagnostic Tests Laboratory Laboratory Tests Test 12/16/15 12/16/15 12/17/15 11:44 12:17 12:55 White Blood Count 15.3 TH/MM3 14.6 TH/MM3 (4.0-11.0) (4.0-11.0) Red Blood Count 3.94 MIL/MM3 4.10 MIL/MM3 (4.50-5.90) (4.50-5.90) Hemoglobin 13.1 GM/DL 13.2 GM/DL (13.0-17.0) (13.0-17.0) Hematocrit 37.8 % 39.7 % (39.0-51.0) (39.0-51.0) Mean Corpuscular Volume 95.9 FL 96.6 FL (80.0-100.0) (80.0-100.0) Mean Corpuscular Hemoglobin 33.4 PG 32.3 PG (27.0-34.0) (27.0-34.0) Mean Corpuscular Hemoglobin 34.8 % 33.4 % Concent (32.0-36.0) (32.0-36.0) Red Cell Distribution Width 14.2 % 13.7 % (11.6-17.2) (11.6-17.2) Platelet Count 162 TH/MM3 102 TH/MM3 (150-450) (150-450) Mean Platelet Volume 10.9 FL 9.5 FL (7.0-11.0) (7.0-11.0) Neutrophils (%) (Auto) 93.7 % 94.0 % (16.0-70.0) (16.0-70.0) Lymphocytes (%) (Auto) 2.3 % 2.6 % (9.0-44.0) (9.0-44.0) Monocytes (%) (Auto) 3.9 % (0.0-8.0) 3.3 % (0.0-8.0) Eosinophils (%) (Auto) 0.0 % (0.0-4.0) 0.0 % (0.0-4.0) Basophils (%) (Auto) 0.1 % (0.0-2.0) 0.1 % (0.0-2.0) Neutrophils # (Auto) 14.3 TH/MM3 13.7 TH/MM3 (1.8-7.7) (1.8-7.7) Lymphocytes # (Auto) 0.3 TH/MM3 0.4 TH/MM3 (1.0-4.8) (1.0-4.8) Monocytes # (Auto) 0.6 TH/MM3 0.5 TH/MM3 (0-0.9) (0-0.9) Eosinophils # (Auto) 0.0 TH/MM3 0.0 TH/MM3 (0-0.4) (0-0.4) Basophils # (Auto) 0.0 TH/MM3 0.0 TH/MM3 (0-0.2) (0-0.2) CBC Comment DIFF FINAL DIFF FINAL Differential Comment Prothrombin Time 12.2 SEC (9.8-11.4) Prothromb Time International 1.2 RATIO Ratio Activated Partial 24.1 SEC Thromboplast Time (22.6-28.8) Sodium Level 130 MEQ/L 136 MEQ/L (136-145) (136-145) Potassium Level 5.0 MEQ/L 4.2 MEQ/L (3.5-5.1) (3.5-5.1) Chloride Level 92 MEQ/L 100 MEQ/L (98-107) (98-107) Carbon Dioxide Level 26.5 MEQ/L 32.0 MEQ/L (21.0-32.0) (21.0-32.0) Anion Gap 12 MEQ/L (5-15) 4 MEQ/L (5-15) Blood Urea Nitrogen 59 MG/DL (7-18) 34 MG/DL (7-18) Creatinine 1.17 MG/DL 0.62 MG/DL (0.60-1.30) (0.60-1.30) Estimat Glomerular Filtration 60 ML/MIN (>89) 125 ML/MIN Rate (>89) Random Glucose 116 MG/DL 112 MG/DL (74-106) (74-106) Calcium Level 8.6 MG/DL 8.4 MG/DL (8.5-10.1) (8.5-10.1) Magnesium Level 2.5 MG/DL (1.5-2.5) Total Bilirubin 0.8 MG/DL 0.5 MG/DL (0.2-1.0) (0.2-1.0) Aspartate Amino Transf 15 U/L (15-37) 20 U/L (15-37) (AST/SGOT) Alanine Aminotransferase 15 U/L (12-78) 11 U/L (12-78) (ALT/SGPT) Alkaline Phosphatase 83 U/L (45-117) 66 U/L (45-117) Total Creatine Kinase 33 U/L (39-308) Troponin I LESS THAN 0.02 NG/ML (0.02-0.05) Total Protein 6.5 GM/DL 5.3 GM/DL (6.4-8.2) (6.4-8.2) Albumin 3.0 GM/DL 2.2 GM/DL (3.4-5.0) (3.4-5.0) Urine Color YELLOW (YELLW/STRAW) Urine Turbidity HAZY (CLEAR) Urine pH 5.0 (5.0-8.5) Urine Specific [place] 1.022 (1.002-1.035) Urine Protein TRACE mg/dL (NEG-TRACE) Urine Glucose (UA) NEG mg/dL (NEG) Urine Ketones NEG mg/dL (NEG) Urine Occult Blood LARGE (NEG) Urine Nitrite NEG (NEG) Urine Bilirubin NEG (NEG) Urine Urobilinogen 2.0 MG/DL (LESS THAN 2.0) Urine Leukocyte Esterase NEG (NEG) Urine RBC 38 /hpf (0-3) Urine WBC 5 /hpf (0-5) Urine Squamous Epithelial <1 /hpf (0-5) Cells Urine Hyaline Casts 13 /lpf (RARE) Urine Mucus FEW /lpf (OCC) Microscopic Urinalysis Comment CULT NOT INDICATED . Result Diagram: 12/17/15 1255 12/17/15 1255 Patient/Family Conference Present at Family Conference: Met with patient in room F69. No family present, no contact information available at this time. . . Family Conference Location: Bedside Issues Discussed: * Palliative care role, purpose, approach * Additional medical, psychosocial, and spiritual history * Patients general health, functional status, and cognitive changes in the months leading up to the current hospitalization * Patient/family understanding of the current medical problems * Patient/family understanding of prognosis * Patients goals of care as best understood from advance directives and/or conversations and/or values * Current medical treatment options and benefits/burdens of those options * Likely scenarios comparing ongoing aggressive care with a transition to comfort measures only * Questions answered to the best of my ability * Palliative care contact information provided . Assessment and Plan Disease Oriented Problem List: (1) Failure to thrive in adult (2) Hyponatremia (3) Malnutrition (4) Bilateral lower leg cellulitis Symptom Scale: (1) Swallowing dysfunction 0-10 Scale: Unable to quantify Comment: Barium swallow ordered for today. (2) Weakness Comment: Physical therapy has been consulted. Pertinent Non-Medical Issues Psychosocial: Information obtained from patient who is a poor historian. Patient lives alone. He has 2 brothersone brother is and 1 brother, named Perfecto Dixon, is living. The patient is not and has no children. He was involved in the [employer] business. Spiritual: None Legal: Per [place] statutes, in the absence of written advanced directives healthcare proxy decision making would fall to the patient's brother Pablo Dixon. Pablo Dixon's contact information is not available, patient unable to provide. Patient states he does not have any one else he wishes to designate as his healthcare surrogate and his brother can serve as his HCP if necessary. Ethical issues impacting care: None at this time. . Important Contacts Perfecto Dixon, brother: No contact information available at this time. . Prognosis Patient is an 80-year-old male patient who presented to [place] after being found in his home covered in urine and feces. He was admitted with dehydration , failure to thrive, dysphasia and bilateral lower extremity cellulitis. The patient reports he has had progressively worsening dysphagia which has impaired his ability to eat/drink, resulting in severe weakness and weight loss. Previously documented weight 73kg in June 2014, now 37kg. Current BMI: 11.4. Patient is a poor historian and unable to provide a complete medical history. No family is present, no contact information available. Patient's goals are unclear at this time. He verbalizes understanding that he needs to be able to tolerate oral nutrition to sustain life, but he states he does not want to have any procedures done. Given the patient's current medical conditions in conjunction with his advanced age and nonexistent support network, his overall prognosis is likely poor. . Code Status: No Code Plan * NO CODEDNR * Decision-making: Per [place] statutes, in the absence of written advanced directives healthcare proxy decision making would fall to the patient's brother Pablo Dixon. Pablo Dixon's contact information is not available, patient unable to provide. Patient states he does not have any one else he wishes to designate as his healthcare surrogate and his brother can serve as his HCP if necessary. * Goals: Patient's goals are unclear at this time. He verbalizes understanding that he needs to be able to tolerate oral nutrition to sustain life, but he states he does not want to have any procedures done. Patient will consider medical treatment options. Other than NO CODEDNR, goals remain aggressive at this time. * WILL ATTEMPT TO LOCATE PATIENT'S BROTHER, PABLO DIXON. The patient states his brother lives somewhere in [place] but was unable to say where. He states he and his brother don't get along well, they see each other once yearly. * Symptom managementswallowing dysfunction: Patient was seen by ST for swallow evaluation, but he was unable to complete the swallow sequence. Per speech, patient has laryngeal elevation but does not complete a swallow. Patient will remain NPO at this time. Gastroenterology was consulted for possible achalasia. Gastroenterology made recommendations for a barium swallow. Further recommendations to follow pending barium swallow, possibly EGD with Botox versus EGD with PEG tube placement. No further recommendations at this time. * Palliative care contact information left with patient on his bedside table. * Palliative care will continue to follow this patient throughout his hospitalization to establish trust, assist with symptom management and clarification of medical treatment goals. . Thank you for the opportunity to participate in the care of Mr. Dixon. Klaudia Mario Dec 17, 2015 15:24
[2015-12-17] MEDS: ENOXAPARIN SODIUM 40 MG/0.4 ML SYRINGE SQ SCH (16:46)
[2015-12-17] MEDS: cefTRIAXone INJ 1,000 MG in SODIUM CHLORIDE 0.9% INJ 100 ML IV SCH (16:46)
[2015-12-17 19:45] VITALS: BP 100/58; PULSE 83; RESP 18; TEMP 96.2; O2SAT 100
[2015-12-18] VITALS (7 sets, daily range): BP systolic 83–105; BP diastolic 47–57; PULSE 60–92; RESP 12–20; TEMP 96.1–98.7; O2SAT 96–100
[2015-12-18] MEDS: DEXT 5%-NACL 0.9% 1000 ML INJ 1,000 ML IV SCH ×3 (04:37→20:30)
[2015-12-18] MEDS: SODIUM CHLORIDE 0.9% FLUSH 5 ML FLUSH FLUSH SCH ×2 (09:00→20:30)
[2015-12-18] MEDS: DOCUSATE SODIUM 100 MG CAP PO SCH ×2 (09:00→20:30)
--- NOTE | 2015-12-18 10:09 | HHI.HCSW ---
Director Call Center Sales Visit [place] Service Issues Mr. Dixon current has capacity to make his own decisions, however he has no other friends/family to designate as a health care decision maker for if/when he loses capacity to make his own decisions. He DOES NOT have contact information for only brother. Requested accurints report to attempt to locate brother and obtain contact information; looking for brother, Perfecto Dixon, last known in the [place] area, possibly around age 70-80. . Follow Up Visit Palliative care will continue to follow throughout hospitalization. SW will follow as needed for emotional and social support. Lizett Sneed, TUBE MILL OPERATOR Dec 18, 2015 10:09
--- NOTE | 2015-12-18 12:45 | HHI.HCPN ---
Reason for visit a. To assist with evaluation and management of symptoms including: Swallowing dysfunction, weakness, pain b. To assist medical decision maker(s) with: better understanding of current medical conditions; weighing benefits/burdens of medical treatment options; making medical treatment decisions. (Klaudia Mario) Subjective/Interval History Mr. Dixon was seen and assessed in room F69. He is more awake and alert today, oriented to person and place. He remains lethargic and extremely weak - requiring assistance to reposition his left leg. He is answering questions and following commands at this time. Mr. Dixon c/o pain in his buttocks and heals rated "10 out of 10" but was unable/unwilling to describe pain. [place] and morphine are available PRN for pain, but the patient is refusing. Patient remains on IV antibiotics, ceftriaxone, for BLE cellulitis. Bilateral lower extremities with +2 to +3 pitting edema and erythema. WBC trending downward, 14.6 yesterday 12/17/15. Afebrile. Patient remains NPO due to his dysphagia. Oral mucous membranes dry. Patient complaining that no one will give him a drink. He remembered and referenced our conversation yesterday regarding gastroenterology's recommendations for diagnostic testing (barium swallow vs. EGD with Botox vs. EGD with PEG placement ) and the need for fluids/nutrition to sustain life. After discussing each procedure with the patient and the risks/benefit, the patient reluctantly states "I guess I gotta do that or , huh." He then states he just wants to be able to have a drink and eat. Collaborated with nurse, Ann Marie, consents were signed. Forwarded from initial Palliative consultation completed on 12/17/15 by Klaudia NICOLAS Mr. Dixon is an 80-year-old male who presented to [place] ED on 12/16/15 via EMS from his home after being found covered in urine and feces. The patient was lethargic, oriented to person and place. Very soft spoken and difficult to understand. He complained of general weakness and dysphasia stating he had been very weak and was unable to get out of his chair for several days. The patient also reported the he had been having difficulty swallowing for "quite a while" which made it difficult to eat/drink. Patient reported he had not seen a doctor in several years and had never been evaluated by gastroenterology for his dysphasia. Denied abdominal pain, nausea, vomiting. The patient had no other medical complaints other than weakness and dysphasia. He denied any recent history of fever, chills, lightheadedness, chest pain, shortness of breath or urinary complaints. Additional diagnostic findings in the ED include: * Vital signs: Pulse 86, respirations 24, BP 134/89, oxygen saturation 100% on room air, temperature 97.6 * WBC: 15.3, hemoglobin 13.1, hematocrit 37.8, platelets 162, neutrophils 93.7% * PT: 12.2, INR 1.2, APTT 24.1 * Sodium: 1:30, potassium 5.0, chloride 92, carbon dioxide 26.5, glucose 116, calcium 8.6, magnesium 2.5 * BUN: 59, creatinine 1.17, GFR 60 * Total bilirubin: 0.8, AST 15, ALT 15 * Alkaline phosphatase: 83 * Total creatine kinase: 33 * Troponin: <0.02 * Total protein: 6.5, albumin 3.0 * Urinalysis: Hazy urine with large amount of occult blood, urine RBC and mucus. Culture not indicated. * Chest x-ray PA & LAT: Findings of COPD, no acute cardiopulmonary disease * Head CT: Nonspecific white matter changes, no acute intracranial abnormality * EKG: Sinus rhythm, possible left atrial enlargement, nonspecific T-wave abnormality. Mr. Dixon was admitted for further evaluation and medical management of dysphasia, adult failure to thrive, leukocytosis and dehydration. The patient was seen for swallow evaluation but was unable to complete the swallow sequence. Per speech, patient has laryngeal elevation but does not complete a swallow. Patient will remain NPO at this time. Gastroenterology was consulted for possible achalasia. The patient reported having progressively worsening dysphasia, both liquids and solids, for several months. He stated he had lost a significant amount of weight is unable to quantify. Gastroenterology made recommendations for a barium swallow. Further recommendations to follow pending barium swallow, possibly EGD with Botox versus EGD with PEG tube placement. Palliative Care was consulted to assist with symptom management and to discuss with the patient/family the benefits and burdens of his current illnesses and the options regarding future care. . Family/friend interactions No family/friend present. No contact information available. . (Klaudia Mario) Advance Directives Living Will: Never completed Health Care Surrogate: Never completed Durable Power of Vice President Of Academic Affairs: Never completed (Klaudia Mario) Advance Directive Specifics Health Care Surrogate(s): NA . Documented care wishes: No documented care wished have been completed. . Significant change in goals: He remembered and referenced our conversation yesterday regarding gastroenterology's recommendations for diagnostic testing (barium swallow vs. EGD with Botox vs. EGD with PEG placement) and the need for fluids/nutrition to sustain life. After discussing each procedure with the patient and the risks/ benefit, the patient reluctantly states "I guess I gotta do that or , huh." He then states he just wants to be able to have a drink and eat. Collaborated with nurse, Ann Marie, consents were signed. . (Klaudia Mario) Objective Vital Signs Date Time Temp Pulse Resp B/P Pulse Ox O2 Delivery O2 Flow Rate FiO2 12/18/15 07:25 97.5 87 18 95/53 99 12/18/15 05:30 96.1 92 20 100/56 100 12/18/15 00:10 96.5 92 18 92/51 100 12/17/15 20:00 Nasal Cannula 2.00 12/17/15 20:00 Nasal Cannula 2.00 12/17/15 19:45 96.2 83 18 100/58 100 12/17/15 15:00 98.4 82 12 103/52 100 12/17/15 13:27 97.5 68 20 107/54 95 . Physical Exam CONSTITUTIONAL/GENERAL: This is a cachectic elderly male patient, in no apparent distress. TUBES/LINES/DRAINS: PIV 1, Mena SKIN: No jaundice, rashes, or lesions. Skin temperature appropriate. Not diaphoretic. HEAD: Atraumatic. Normocephalic. EYES: Pupils equal and round and reactive. No scleral icterus. No injection or drainage. Fundi not examined. ENT: Mucous membranes dry. Hearing grossly normal. Nose without bleeding or purulent drainage. Poor dentition NECK: Trachea midline. Supple, nontender. No palpable thyroid enlargement or nodularity. CARDIOVASCULAR: Regular rate and rhythm.. No JVD. Peripheral pulses symmetric. RESPIRATORY/CHEST: Symmetric, unlabored respirations. Breath sounds diminished bilaterally. No wheezes, rales, or rhonchi. GASTROINTESTINAL: Abdomen soft, non-tender, nondistended. No hepato-splenomegaly , or palpable masses. No guarding. Bowel sounds present. GENITOURINARY: Without palpable bladder distension. Mena catheter in place, draining nga urine MUSCULOSKELETAL: Extremities without clubbing or cyanosis. Bilateral lower extremities with +2 to +3 pitting edema and erythema. LYMPHATICS: No palpable cervical or supraclavicular adenopathy. NEUROLOGICAL: Awake, lethargic. Answering questions. Oriented to person and place. Moves all extremities. PSYCHIATRIC: Flat affect. No obvious anxiety/depression. No apparent hallucinations or other psychotic thought process. . (Klaudia Mario) Diagnostic Tests Laboratory Laboratory Tests Test 12/16/15 12/16/15 12/17/15 11:44 12:17 12:55 White Blood Count 15.3 TH/MM3 14.6 TH/MM3 (4.0-11.0) (4.0-11.0) Red Blood Count 3.94 MIL/MM3 4.10 MIL/MM3 (4.50-5.90) (4.50-5.90) Hemoglobin 13.1 GM/DL 13.2 GM/DL (13.0-17.0) (13.0-17.0) Hematocrit 37.8 % 39.7 % (39.0-51.0) (39.0-51.0) Mean Corpuscular Volume 95.9 FL 96.6 FL (80.0-100.0) (80.0-100.0) Mean Corpuscular Hemoglobin 33.4 PG 32.3 PG (27.0-34.0) (27.0-34.0) Mean Corpuscular Hemoglobin 34.8 % 33.4 % Concent (32.0-36.0) (32.0-36.0) Red Cell Distribution Width 14.2 % 13.7 % (11.6-17.2) (11.6-17.2) Platelet Count 162 TH/MM3 102 TH/MM3 (150-450) (150-450) Mean Platelet Volume 10.9 FL 9.5 FL (7.0-11.0) (7.0-11.0) Neutrophils (%) (Auto) 93.7 % 94.0 % (16.0-70.0) (16.0-70.0) Lymphocytes (%) (Auto) 2.3 % 2.6 % (9.0-44.0) (9.0-44.0) Monocytes (%) (Auto) 3.9 % (0.0-8.0) 3.3 % (0.0-8.0) Eosinophils (%) (Auto) 0.0 % (0.0-4.0) 0.0 % (0.0-4.0) Basophils (%) (Auto) 0.1 % (0.0-2.0) 0.1 % (0.0-2.0) Neutrophils # (Auto) 14.3 TH/MM3 13.7 TH/MM3 (1.8-7.7) (1.8-7.7) Lymphocytes # (Auto) 0.3 TH/MM3 0.4 TH/MM3 (1.0-4.8) (1.0-4.8) Monocytes # (Auto) 0.6 TH/MM3 0.5 TH/MM3 (0-0.9) (0-0.9) Eosinophils # (Auto) 0.0 TH/MM3 0.0 TH/MM3 (0-0.4) (0-0.4) Basophils # (Auto) 0.0 TH/MM3 0.0 TH/MM3 (0-0.2) (0-0.2) CBC Comment DIFF FINAL DIFF FINAL Differential Comment Prothrombin Time 12.2 SEC (9.8-11.4) Prothromb Time International 1.2 RATIO Ratio Activated Partial 24.1 SEC Thromboplast Time (22.6-28.8) Sodium Level 130 MEQ/L 136 MEQ/L (136-145) (136-145) Potassium Level 5.0 MEQ/L 4.2 MEQ/L (3.5-5.1) (3.5-5.1) Chloride Level 92 MEQ/L 100 MEQ/L (98-107) (98-107) Carbon Dioxide Level 26.5 MEQ/L 32.0 MEQ/L (21.0-32.0) (21.0-32.0) Anion Gap 12 MEQ/L (5-15) 4 MEQ/L (5-15) Blood Urea Nitrogen 59 MG/DL (7-18) 34 MG/DL (7-18) Creatinine 1.17 MG/DL 0.62 MG/DL (0.60-1.30) (0.60-1.30) Estimat Glomerular Filtration 60 ML/MIN (>89) 125 ML/MIN Rate (>89) Random Glucose 116 MG/DL 112 MG/DL (74-106) (74-106) Calcium Level 8.6 MG/DL 8.4 MG/DL (8.5-10.1) (8.5-10.1) Magnesium Level 2.5 MG/DL (1.5-2.5) Total Bilirubin 0.8 MG/DL 0.5 MG/DL (0.2-1.0) (0.2-1.0) Aspartate Amino Transf 15 U/L (15-37) 20 U/L (15-37) (AST/SGOT) Alanine Aminotransferase 15 U/L (12-78) 11 U/L (12-78) (ALT/SGPT) Alkaline Phosphatase 83 U/L (45-117) 66 U/L (45-117) Total Creatine Kinase 33 U/L (39-308) Troponin I LESS THAN 0.02 NG/ML (0.02-0.05) Total Protein 6.5 GM/DL 5.3 GM/DL (6.4-8.2) (6.4-8.2) Albumin 3.0 GM/DL 2.2 GM/DL (3.4-5.0) (3.4-5.0) Urine Color YELLOW (YELLW/STRAW) Urine Turbidity HAZY (CLEAR) Urine pH 5.0 (5.0-8.5) Urine Specific [place] 1.022 (1.002-1.035) Urine Protein TRACE mg/dL (NEG-TRACE) Urine Glucose (UA) NEG mg/dL (NEG) Urine Ketones NEG mg/dL (NEG) Urine Occult Blood LARGE (NEG) Urine Nitrite NEG (NEG) Urine Bilirubin NEG (NEG) Urine Urobilinogen 2.0 MG/DL (LESS THAN 2.0) Urine Leukocyte Esterase NEG (NEG) Urine RBC 38 /hpf (0-3) Urine WBC 5 /hpf (0-5) Urine Squamous Epithelial <1 /hpf (0-5) Cells Urine Hyaline Casts 13 /lpf (RARE) Urine Mucus FEW /lpf (OCC) Microscopic Urinalysis Comment CULT NOT INDICATED . (Klaudia aMrio) Result Diagram: 12/17/15 1255 12/17/15 1255 Imaging Last Impressions Head CT 12/16/15 1145 Signed Impressions: Service Date/Time: Wednesday, December 16, 2015 12:45 - CONCLUSION: Nonspecific white matter changes. No acute intracranial abnormality. Lam Tucker MD Chest X-Ray 12/16/15 1124 Signed Impressions: Service Date/Time: Wednesday, December 16, 2015 11:54 - CONCLUSION: Hyperinflation which can be seen with COPD. Right apical density, PA and lateral views are recommended when patient is stable. Lam Tucker MD . (Klaudia Mario) Assessment and Plan Disease Oriented Problem List: (1) Failure to thrive in adult (2) Hyponatremia (3) Malnutrition (4) Bilateral lower leg cellulitis Symptom Scale: (1) Swallowing dysfunction 0-10 Scale: Unable to quantify Comment: Patient remains NPO due to his continued dysphagia.gastroenterology was consulted and recommendations were made for diagnostic testing (barium swallow vs. EGD with Botox vs. EGD with PEG placement). . (2) Weakness Comment: Physical therapy has been consulted. (3) Pain Comment: Patient complaining of pain in his buttocks and heals rated "10 out of 10" but was unable/unwilling to describe pain. [place] and morphine are available PRN for pain, but the patient is refusing. Pertinent Non-Medical Issues Psychosocial: Information obtained from patient who is a poor historian. Patient was born in [place], he lives alone. He has 2 brothersone brother is and 1 brother, named Perfecto Dixon, is living. The patient is not and has no children. He was involved in the [employer] business. Spiritual: None Legal: Per [place] statutes, in the absence of written advanced directives healthcare proxy decision making would fall to the patient's brother Pablo Dixon. Pablo Dixon's contact information is not available, patient unable to provide. Patient states he does not have any one else he wishes to designate as his healthcare surrogate and his brother can serve as his HCP if necessary. Ethical issues impacting care: None at this time. . Important Contacts Perfecto Dixon (Theo), brother: No contact information available at this time. . Prognosis Patient is an 80-year-old male patient who presented to [place] after being found in his home covered in urine and feces. He was admitted with dehydration , failure to thrive, dysphasia and bilateral lower extremity cellulitis. The patient reports he has had progressively worsening dysphagia which has impaired his ability to eat/drink, resulting in severe weakness and weight loss. Previously documented weight 73kg in June 2014, now 37kg. Current BMI: 11.4. Patient is a poor historian and unable to provide a complete medical history. No family is present, no contact information available. Patient's goals are unclear at this time. He verbalizes understanding that he needs to be able to tolerate oral nutrition to sustain life, but he states he does not want to have any procedures done. Given the patient's current medical conditions in conjunction with his advanced age and nonexistent support network, his overall prognosis is likely poor. . Code Status: No Code Plan * NO CODEDNR * Decision-making: Per [place] statutes, in the absence of written advanced directives healthcare proxy decision making would fall to the patient's brother Perfecto Dixon (Theo). Pablo Dixon's contact information is not available, patient unable to provide. Patient states he does not have any one else he wishes to designate as his healthcare surrogate and his brother can serve as his HCP if necessary. * Goals: Other than NO CODEDNR, goals remain aggressive at this time. Pt. remembered and referenced our conversation yesterday r/t GI's recommendations for diagnostic testing (barium swallow vs. EGD with Botox vs. EGD with PEG placement) and the need for fluids/nutrition to sustain life. After discussing each procedure with the patient and the risks/benefit, the patient reluctantly states "I guess I gotta do that or , huh." He then states he just wants to be able to have a drink and eat. * [facility] report requested on patient's brother, Otf Dixon (Theo). The patient states his brother lives somewhere in [place] but was unable to say where. He states he and his brother don't get along well, they see each other once yearly. * Patient states he has a friend locally who found him and called EMS, but he couldn't/wouldn't provide his friends name or contact information. * Symptom managementswallowing dysfunction: Patient was seen by ST for swallow evaluation, but he was unable to complete the swallow sequence. Per speech, patient has laryngeal elevation but does not complete a swallow. Patient will remain NPO at this time. Gastroenterology was consulted for possible achalasia. Gastroenterology made recommendations for a barium swallow. Further recommendations to follow pending barium swallow, possibly EGD with Botox versus EGD with PEG tube placement. No further recommendations at this time. * Symptom managementpain: c/o pain in his buttocks and heals rated "10 out of 10" but was unable/unwilling to describe pain. [place] and morphine are available PRN for pain, but the patient is refusing. Encouraged patient to move in bed, lie on his side. Position changes q 2 hours. Palliative care will continue to monitor PRN requirements and make recommendations as appropriate. * Palliative care contact information left with patient on his bedside table. * Palliative care will continue to follow this patient throughout his hospitalization to establish trust, assist with symptom management and clarification of medical treatment goals. . . (Klaudia Mario) Attestation To help prompt me to consider important information that might be impacting today's encounter and assessment, information from prior notes written by myself or my colleagues may have been "brought forward" into today's note. My signature on this note, however, is an attestation that I personally performed the exam, history, and/or decision-making noted today, and, unless otherwise indicated, the interactions with patient, family, and staff as well as the review of records all occurred today. I also attest that the listed assessment and stated plan reflect my best clinical judgment today based on the combination of historical information, prior notes, and today's exam/ interactions. When time spent is documented, it refers only to time spent today by the signer, or if indicated, combined time spent today by collaborating physician/nurse practitioner. . (Klaudia Mario) Collaborating MD Comments Chart reviewed. Patient discussed with palliative care LEAD SECTION SUPERVISOR. Above note reviewed and I concur. . (Winston Velazquez MD) Klaudia Mario Dec 18, 2015 12:41 Winston Velazquez MD Jan 28, 2016 14:35
--- NOTE | 2015-12-18 13:12 | HHI.PR ---
Subjective Remarks Follow-up for failure to thrive and dysphasia. The patient complains of pain in his back side and bilateral lower extremities. He doesn't really like pain medicine, but does want to try some. He continues to say that his ultimate goal is to get stronger so that one day he can go back home. He is willing to have an EGD so that he can possibly swallow again to get some nutrition. He will be agreeable for a PEG tube as long as it is not a permanent thing. Objective Vitals Vital Signs Date Time Temp Pulse Resp B/P Pulse Ox O2 Delivery O2 Flow Rate FiO2 12/18/15 12:32 98.7 60 12 83/47 100 12/18/15 07:25 97.5 87 18 95/53 99 12/18/15 05:30 96.1 92 20 100/56 100 12/18/15 00:10 96.5 92 18 92/51 100 12/17/15 20:00 Nasal Cannula 2.00 12/17/15 20:00 Nasal Cannula 2.00 12/17/15 19:45 96.2 83 18 100/58 100 12/17/15 15:00 98.4 82 12 103/52 100 12/17/15 13:27 97.5 68 20 107/54 95 I/O 12/17/15 12/17/15 12/17/15 12/18/15 12/18/15 12/18/15 07:00 15:00 23:00 07:00 15:00 23:00 Intake Total 630 ml Output Total 275 ml Balance -275 ml 630 ml Intake IV Total 630 ml Output Urine Total 275 ml Result Diagram: 12/17/15 1255 12/17/15 1255 Imaging Last Impressions Head CT 12/16/15 1145 Signed Impressions: Service Date/Time: Wednesday, December 16, 2015 12:45 - CONCLUSION: Nonspecific white matter changes. No acute intracranial abnormality. Lam Tucker MD Chest X-Ray 12/16/15 1124 Signed Impressions: Service Date/Time: Wednesday, December 16, 2015 11:54 - CONCLUSION: Hyperinflation which can be seen with COPD. Right apical density, PA and lateral views are recommended when patient is stable. Lam Tucker MD Objective Remarks GENERAL: Well-developed poorly nourished cachectic, unkempt appearing elderly male. In no acute distress. SKIN: Warm and dry. No lesions noted. HEENT: Normocephalic. Bitemporal wasting. Pupils equal and round. Mucous membranes dry. CARDIOVASCULAR: Regular rate and rhythm. No murmur appreciated. RESPIRATORY: No accessory muscle use. Clear to auscultation. Breath sounds equal bilaterally. GASTROINTESTINAL: Abdomen soft, non-tender, nondistended. Bowel sounds x4. Scaphoid abdomen. MUSCULOSKELETAL: No obvious deformities. No clubbing or cyanosis. 3+ pitting edema bilaterally with some mild overlying erythema. NEUROLOGICAL: Awake and alert. No focal neurological deficits. Moves upper and lower extremities spontaneously. Normal speech. PSYCHIATRIC: Appropriate mood and affect; insight and judgment normal. A/P Problem List: (1) Failure to thrive in adult ICD Code: R62.7 Status: Acute (2) Malnutrition ICD Code: E46 Status: Acute (3) Bilateral lower leg cellulitis ICD Code: L03.116 Status: Acute (4) Hyponatremia ICD Code: E87.1 Status: Acute Assessment and Plan 80-year-old male with no known past medical history presents via EMS after being found covered in urine/feces, complaining of generalized weakness and dysphagia. Dysphagia: resulting in severe malnutrition and weight loss (previously documented weight 73kg in June 2014, now 37kg). Evaluated by speech therapy, Nothing by mouth. Consulted GI, EGD with PEG tube if patient consents. Supportive treatment with IVF with D5 1/2 NS +KCl. Severe Protein Calorie Malnutrition/Failure to Thrive: Secondary to dysphagia above. BMI 11. Consulted GI and Punch Molder, recommends PEG. Patient wants to improve but apprehensive about any GI procedures. Palliative care consulted to assist with goals of care. IV MVI. Generalized Weakness: likely secondary to severe malnutrition and chronic deconditioning. Consulted PT/OT. Case management consulted. Bilateral Lower Extremity Cellulitis/Edema: + leukocytosis, WBC 15K. Afebrile. Vital signs not indicative of sepsis. Bilateral lower extremities with edema/ erythema. Started on IV Rocephin. Monitor for improvement. Follow-up CBC. Elevate lower extremities. I morphine as needed for pain control. Hyponatremia: Na 130. Improved 136 with IVF. Likely secondary to dehydration/ malnutrition. Resolved, monitor BMP. Right Apical Density: seen on AP CXR with PA lateral chest x-ray recommended by radiology. Checked PA/Lateral CXR which showed findings of COPD with no acute cardiopulmonary disease. DVT Prophylaxis: Lovenox Written by Joey De Guzman, acting as scribe for Dr. Breaux on 12/18/15 at 13:12. Discharge Planning Disposition pending clinical course. Case management to assist with discharge planning. The patient reports he has a living brother named "Perfecto Dixon". Attending Statement The documentation accurately reflects the work performed [id number] by me on 12/18/15 at 13:12. Joey De Guzman Dec 18, 2015 1:12 pm Allyson Breaux DO Dec 18, 2015 3:27 pm
[2015-12-18] MEDS ORDERED: ePHEDrine/NS 50 MG/5 ML SYR IV ONE (14:52)
[2015-12-18] MEDS ORDERED: PROPOFOL 200 MG/20 ML AMP IV ONE (14:52)
[2015-12-18] MEDS ORDERED: PHENYLEPH/NS 1000 MCG/10 ML SYR IV ONE (14:52)
[2015-12-18] MEDS ORDERED: MULTIVITAMIN INJ 10 ML, FOLIC ACID INJ 1 MG in SODIUM CHLORID 0.9% 500 ML INJ 500 ML IV SCH (15:00)
[2015-12-18] MEDS: ENOXAPARIN SODIUM 40 MG/0.4 ML SYRINGE SQ SCH (16:51)
[2015-12-18] MEDS: cefTRIAXone INJ 1,000 MG in SODIUM CHLORIDE 0.9% INJ 100 ML IV SCH (20:25)
[2015-12-18] MEDS: MORPHINE SULFATE 4 MG/ML INJ IV PRN (20:51)
[2015-12-19] VITALS (8 sets, daily range): BP systolic 94–113; BP diastolic 50–77; PULSE 72–84; RESP 12–20; TEMP 95.4–97.8; O2SAT 93–100
[2015-12-19] MEDS: DEXT 5%-NACL 0.9% 1000 ML INJ 1,000 ML IV SCH ×2 (02:33→15:59)
[2015-12-19 06:29] LABS: AUTOMATED NEUTROPHIL # 8.3 TH/MM3 (1.8-7.7); BASOPHIL % 0.1 % (0.0-2.0); EOSINOPHIL % 0.1 % (0.0-4.0); HEMATOCRIT 34.1 % (39.0-51.0); LYMPH % 4.8 % (9.0-44.0); LYMPHOCYTE # 0.4 TH/MM3 (1.0-4.8); MEAN CELL VOLUME 96.9 FL (80.0-100.0); MEAN CORPUSCULAR HEMOGLOBIN 33.1 PG (27.0-34.0); MEAN CORPUSCULAR HGB CONC 34.1 % (32.0-36.0); MONO % 4.2 % (0.0-8.0); NEUT % 90.8 % (16.0-70.0); PLATELET COUNT 78 TH/MM3 (150-450); RED BLOOD COUNT 3.52 MIL/MM3 (4.50-5.90); RED CELL DISTRIBUTION WIDTH 14.1 % (11.6-17.2); WHITE BLOOD COUNT 9.1 TH/MM3 (4.0-11.0)
[2015-12-19 06:31] LABS: HEMO FLAGS AUTO DIFF
[2015-12-19 06:52] LABS: BICARBONATE 31.2 MEQ/L (21.0-32.0); POTASSIUM 3.4 MEQ/L (3.5-5.1)
[2015-12-19 07:06] LABS: SCAN/DIFF AUTO DIFF CONFIRMED
--- NOTE | 2015-12-19 08:39 | HHI.PR ---
Subjective Remarks Follow-up for failure to thrive and dysphasia. The patient had an EGD with PEG tube placement yesterday. He complains of some abdominal discomfort since having PEG tube placed, 10/14 in severity. He states that he hasn't tried anything for pain yet. Objective Vitals Vital Signs Date Time Temp Pulse Resp B/P Pulse Ox O2 Delivery O2 Flow Rate FiO2 12/19/15 07:46 97.5 72 18 106/77 98 12/19/15 07:00 Nasal Cannula 2.00 12/19/15 04:02 97.6 84 18 102/59 100 12/19/15 00:27 97.8 78 18 100/56 93 12/18/15 20:15 97.6 85 18 105/57 96 12/18/15 20:00 Nasal Cannula 2.00 12/18/15 16:51 97.6 80 17 96/55 99 12/18/15 15:27 81 16 98/54 100 12/18/15 15:20 80 16 97/56 100 12/18/15 15:15 97.4 81 16 102/58 100 12/18/15 13:38 98.7 60 16 83/47 100 12/18/15 13:37 Nasal Cannula 2.00 12/18/15 12:32 98.7 60 12 83/47 100 I/O 12/18/15 12/18/15 12/18/15 12/19/15 12/19/15 12/19/15 07:00 15:00 23:00 07:00 15:00 23:00 Intake Total 630 ml 600 ml 2409 ml Output Total 800 ml 250 ml Balance 630 ml -200 ml 2409 ml -250 ml Intake IV Total 630 ml 600 ml 1909 ml Other 500 ml Output Urine Total 800 ml 250 ml Result Diagram: 12/19/15 0554 12/19/15 0554 Imaging Last Impressions Head CT 12/16/15 1145 Signed Impressions: Service Date/Time: Wednesday, December 16, 2015 12:45 - CONCLUSION: Nonspecific white matter changes. No acute intracranial abnormality. Lam Tucker MD Chest X-Ray 12/16/15 1124 Signed Impressions: Service Date/Time: Wednesday, December 16, 2015 11:54 - CONCLUSION: Hyperinflation which can be seen with COPD. Right apical density, PA and lateral views are recommended when patient is stable. Lam Tucker MD Objective Remarks GENERAL: Well-developed poorly nourished cachectic, unkempt appearing elderly male. In no acute distress. SKIN: Warm and dry. No lesions noted. HEENT: Normocephalic. Bitemporal wasting. Pupils equal and round. Mucous membranes dry. CARDIOVASCULAR: Regular rate and rhythm. No murmur appreciated. RESPIRATORY: No accessory muscle use. Clear to auscultation. Breath sounds equal bilaterally. GASTROINTESTINAL: Abdomen soft, non-tender, nondistended. Bowel sounds x4. Scaphoid abdomen. MUSCULOSKELETAL: No obvious deformities. No clubbing or cyanosis. 3+ pitting edema bilaterally with some mild overlying erythema. NEUROLOGICAL: Awake and alert. No focal neurological deficits. Moves upper and lower extremities spontaneously. Normal speech. PSYCHIATRIC: Appropriate mood and affect; insight and judgment normal. Procedures 12/18/15 EGD with dilation and PEG tube placement A/P Problem List: (1) Failure to thrive in adult ICD Code: R62.7 Status: Acute (2) Malnutrition ICD Code: E46 Status: Acute (3) Bilateral lower leg cellulitis ICD Code: L03.116 Status: Acute (4) Hyponatremia ICD Code: E87.1 Status: Acute Assessment and Plan 80-year-old male with no known past medical history presents via EMS after being found covered in urine/feces, complaining of generalized weakness and dysphagia. Dysphagia: resulting in severe malnutrition and weight loss (previously documented weight 73kg in June 2014, now 37kg). Evaluated by speech therapy, Nothing by mouth, await reevaluation after EGD with dilation. Consulted GI, performed EGD with PEG tube placement. Supportive treatment with IVF with D5 1/ 2 NS +KCl. MVI and B complex. Start tube feedings per dietitian and GI recommendations. Severe Protein Calorie Malnutrition/Failure to Thrive: Secondary to dysphagia above. BMI 11. Palliative care consulted to assist with goals of care. Replace electrolytes as needed, potassium replacement today. Generalized Weakness: likely secondary to severe malnutrition and chronic deconditioning. Consulted PT/OT, recommends SNF. Case management consulted. Bilateral Lower Extremity Cellulitis/Edema: Bilateral lower extremities with edema/erythema. Started on empiric IV Rocephin. Leukocytosis has resolved. Patient has remained afebrile. Vital signs not indicative of sepsis. Monitor for improvement. Elevate lower extremities. IV morphine as needed for pain control. Hyponatremia: Na 130. Improved to 136 with IVF. Likely secondary to dehydration/malnutrition. Resolved, monitor BMP. Right Apical Density: seen on AP CXR with PA lateral chest x-ray recommended by radiology. Checked PA/Lateral CXR which showed findings of COPD with no acute cardiopulmonary disease. DVT Prophylaxis: Lovenox Written by Joey De Guzman, acting as scribe for Dr. Breaux on 12/19/15 at 8:30. Discharge Planning Disposition pending clinical course. Case management to assist with discharge planning. The patient would benefit from SNF for DC. Attending Statement The documentation accurately reflects the work performed [id number] by me on 12/19/15 at 08:30. Joey De Guzman Dec 19, 2015 8:39 am Allyson Breaux DO Dec 19, 2015 1:33 pm
[2015-12-19] MEDS: DOCUSATE SODIUM 100 MG CAP PO SCH ×2 (09:00→21:11)
[2015-12-19] MEDS: SODIUM CHLORIDE 0.9% FLUSH 5 ML FLUSH FLUSH SCH ×2 (09:00→21:00)
[2015-12-19] MEDS ORDERED: POTASSIUM CHLORIDE 20 MEQ PWD PACKET TUBE ONE (10:00)
[2015-12-19] MEDS: MORPHINE SULFATE 4 MG/ML INJ IV PRN (10:10)
[2015-12-19] MEDS: VITAMIN B CMPLX/VITC/FOLIC AC CAP TUBE SCH (10:10)
--- NOTE | 2015-12-19 10:24 | HHI.GIFU ---
Subjective Remarks Resting in bed. C/O vague abdominal pain, states he has had for quite some time. No n/v. Objective Vitals I&O Vital Signs Date Time Temp Pulse Resp B/P Pulse Ox O2 Delivery O2 Flow Rate FiO2 12/19/15 07:46 97.5 72 18 106/77 98 12/19/15 07:00 Nasal Cannula 2.00 12/19/15 04:02 97.6 84 18 102/59 100 12/19/15 00:27 97.8 78 18 100/56 93 12/18/15 20:15 97.6 85 18 105/57 96 12/18/15 20:00 Nasal Cannula 2.00 12/18/15 16:51 97.6 80 17 96/55 99 12/18/15 15:27 81 16 98/54 100 12/18/15 15:20 80 16 97/56 100 12/18/15 15:15 97.4 81 16 102/58 100 12/18/15 13:38 98.7 60 16 83/47 100 12/18/15 13:37 Nasal Cannula 2.00 12/18/15 12:32 98.7 60 12 83/47 100 I/O 12/18/15 12/18/15 12/18/15 12/19/15 12/19/15 12/19/15 07:00 15:00 23:00 07:00 15:00 23:00 Intake Total 630 ml 600 ml 2409 ml Output Total 800 ml 250 ml Balance 630 ml -200 ml 2409 ml -250 ml Intake IV Total 630 ml 600 ml 1909 ml Other 500 ml Output Urine Total 800 ml 250 ml Laboratory Laboratory Tests Test 12/19/15 05:54 White Blood Count 9.1 Red Blood Count 3.52 Hemoglobin 11.6 Hematocrit 34.1 Mean Corpuscular Volume 96.9 Mean Corpuscular Hemoglobin 33.1 Mean Corpuscular Hemoglobin 34.1 Concent Red Cell Distribution Width 14.1 Platelet Count 78 Mean Platelet Volume 9.2 Neutrophils (%) (Auto) 90.8 Lymphocytes (%) (Auto) 4.8 Monocytes (%) (Auto) 4.2 Eosinophils (%) (Auto) 0.1 Basophils (%) (Auto) 0.1 Neutrophils # (Auto) 8.3 Lymphocytes # (Auto) 0.4 Monocytes # (Auto) 0.4 Eosinophils # (Auto) 0.0 Basophils # (Auto) 0.0 CBC Comment AUTO DIFF Differential Comment AUTO DIFF CONFIRMED Sodium Level 145 Potassium Level 3.4 Chloride Level 110 Carbon Dioxide Level 31.2 Anion Gap 4 Blood Urea Nitrogen 14 Creatinine 0.41 Estimat Glomerular Filtration 201 Rate Random Glucose 100 Calcium Level 8.2 Imaging Last Impressions Head CT 12/16/15 1145 Signed Impressions: Service Date/Time: Wednesday, December 16, 2015 12:45 - CONCLUSION: Nonspecific white matter changes. No acute intracranial abnormality. Lam Tucker MD Chest X-Ray 12/16/15 1124 Signed Impressions: Service Date/Time: Wednesday, December 16, 2015 11:54 - CONCLUSION: Hyperinflation which can be seen with COPD. Right apical density, PA and lateral views are recommended when patient is stable. Lam Tucker MD Physical Exam GEN: Cachectic, malnourished appearing HEENT: Normocephalic; atraumatic; no jaundice. CHEST: CTA CARDIAC: RRR ABDOMEN: Soft, nondistended, mild diffuse tenderness, no hepatosplenomegaly; bowel sounds are present in all four quadrants. EXTREMITIES: BLE 2-3+ edema with erythema SKIN: Normal; no rash; no jaundice. PSYCHOPAEDIC NURSE: Lethargic, follows commands Assessment and Plan Plan ASSESSMENT: - Dysphagia, FTT, Dehydration. Pt reports difficulty swallowing both liquids/ solids for several months and reports significant weight loss, although he is poor historian and cannot quantify amount of weight lost. He has never had this evaluated and has never had an EGD. evaluation by Speech Therapy, but was unable to complete swallow sequence. He did have laryngeal elevation, but did not complete a swallow. They recommended that he remain NPO with GI Consult for possible achalasia. Unable to do Barium swallow secondary to pt not swallowing. S/P EGD with PEG tube placement (12/18/15). ST just evaluated pt- puree diet with nectar thick liquids. - Malnutrition. Transmission Rebuilder states high risk for refeeding syndrome, recommends Theragran M daily, Vitamin B complex, Jevity 1.5 at 20cc/hr x 24 hours then increase by 10cc/hr q8h to GR 45cc/hr. - Abdominal pain. Pt c/o vague abdominal pain for some time. Given his weight loss/FTT, will get CT scan to rule out obvious malignancy - Density right lung, copd. - BLE edema/erythema, ? COPD, hyponatremia per primary - Leukocytosis, WBC 14.6. CXR right apical density per primary. PLAN: - Jevity 1.5 at 20cc/hr x 24 hours, then increase by 10cc/hr q8h to GR 45cc/hr - Puree diet with nectar thick liquids - Theragran M - CT scan abdomen and pelvis/thorax with contrast - Cont. IVF - Supportive care - Further recommendations to follow based on results of above - Pt seen and examined by Dr. Allen and myself and this note is written on his behalf Lelia Walsh Dec 19, 2015 10:24
[2015-12-19] MEDS ORDERED: DIATRIZOATE MEGLUM/DIATRIZOATE SOD 9 ML CUP PO ONE (11:00)
[2015-12-19] MEDS: MULTIVITAMIN INJ 10 ML, FOLIC ACID INJ 1 MG in SODIUM CHLORID 0.9% 500 ML INJ 500 ML IV SCH (12:16)
[2015-12-19] MEDS: MULTIVITAMINS/MINERALS THERAPEUTIC TAB GT SCH (12:16)
[2015-12-19] MEDS ORDERED: IOHEXOL 350 MG/ML 10 ML VIAL (for RAD DIAG) IV ONE (15:27)
[2015-12-19] MEDS: ENOXAPARIN SODIUM 40 MG/0.4 ML SYRINGE SQ SCH (15:59)
[2015-12-19] MEDS: cefTRIAXone INJ 1,000 MG in SODIUM CHLORIDE 0.9% INJ 100 ML IV SCH (15:59)
--- NOTE | 2015-12-19 15:59 | RADRPT ---
EXAM DATE/TIME: 12/19/2015 15:10 [facility] COMPARISON: No previous studies available for comparison. INDICATIONS : Abnormal weight loss IV CONTRAST: 77 cc Omnipaque 350 (iohexol) IV ; Cumulative dose for multiple exams. ORAL CONTRAST: Prescribed oral contrast ingested. RADIATION DOSE: 6.61 CTDIvol (mGy) ; Combined studies - Thorax/Abdomen/Pelvis MEDICAL HISTORY : None SURGICAL HISTORY : None. ENCOUNTER: Initial ACUITY: 3 days PAIN SCALE: 0/10 LOCATION: Bilateral abdomen TECHNIQUE: Volumetric scanning of the abdomen and pelvis was performed. Using automated exposure control and ad justment of the mA and/or kV according to patient size, radiation dose was kept as low as reasonably achievable to obtain optimal diagnostic quality images. FINDINGS: LOWER LUNGS: Moderate-sized bilateral pleural effusions with concomitant atelectatic changes. LIVER: Homogeneous density without lesion. There is no dilation of the biliary tree. No calcified gallston es. SPLEEN: Normal size without lesion. PANCREAS: Within normal limits. KIDNEYS: Normal in size and shape. There is no mass, stone or hydronephrosis. ADRENAL GLANDS: Within normal limits. VASCULAR: There is no aortic aneurysm. BOWEL/MESENTERY: Mild air and fluid distention of the small bowel and colon characteristic of a hypodynamic ileus. The re is a small amount of abdominal ascites and generalized edema throughout the mesentery. Gastrostomy tube is seen in the gastric lumen. ABDOMINAL WALL: Generalized anasarca in the visualized subcutaneous soft tissues of the abdomen and pelvis. RETROPERITONEUM: There is no lymphadenopathy. BLADDER: Decompressed with a Mena catheter. REPRODUCTIVE: Benign-appearing prostatic calcifications.. INGUINAL: There is no lymphadenopathy or hernia. MUSCULOSKELETAL: Degenerative changes in the thoracolumbar spine. Otherwise intact. CONCLUSION: 1. Bilateral pleural effusions with a small amount of abdominal ascites, generalized anasarca and vicente ma in the mesenteric leaves characteristic of right heart insufficiency. 2. Mild air and fluid distention of the small bowel and colon characteristic of a hypodynamic ileus. No obstruction. Dandy Jett MD on December 19, 2015 at 15:47 Board Certified Radiologist. This report was verified electronically.
--- NOTE | 2015-12-19 16:03 | RADRPT ---
EXAM DATE/TIME: 12/19/2015 15:10 [facility] COMPARISON: CHEST PA & LAT, December 16, 2015, 14:54. INDICATIONS : Abnormal weight loss and abnormal chest x-ray IV CONTRAST: 77 cc Omnipaque 350 (iohexol) IV ; Cumulative dose for multiple exams. RADIATION DOSE: 6.61 CTDIvol (mGy) ; Combined studies - Thorax/Abdomen/Pelvis MEDICAL HISTORY : None SURGICAL HISTORY : None. ENCOUNTER: Initial ACUITY: 3 days PAIN SCALE: 0/10 LOCATION: Bilateral chest TECHNIQUE: Volumetric scanning of the chest was performed. Using automated exposure control and adjustment of t he mA and/or kV according to patient size, radiation dose was kept as low as reasonably achievable to obtain optimal diagnostic quality images. FINDINGS: LUNGS: Bibasilar atelectatic changes PLEURA: Moderate-sized bilateral pleural effusions. MEDIASTINUM: The heart and great vessels demonstrate no acute abnormality. There is no mediastinal or hilar lymph adenopathy. Dense atherosclerotic calcification of the coronary arteries. Some calcification of the a ortic root. AXILLAE: Within normal limits. No lymphadenopathy. SKELETAL: Degenerative changes of the dorsal spine. MISCELLANEOUS: Small amount of abdominal ascites and generalized anasarca/mesenteric edema. CONCLUSION: 1. Bilateral pleural effusions with common atelectatic changes, small amount of abdominal ascites and mesenteric edema characteristic of right heart insufficiency/volume overload. 2. Atherosclerotic calcification of the coronary arteries. Dandy Jett MD on December 19, 2015 at 15:54 Board Certified Radiologist. This report was verified electronically.
[2015-12-20 04:22] VITALS: BP 95/51; PULSE 85; RESP 16; TEMP 95.9; O2SAT 98
[2015-12-20 08:00] VITALS: BP 99/54; PULSE 84; RESP 18; TEMP 97; O2SAT 99
[2015-12-20 08:30] VITALS: O2SAT 96
[2015-12-20] MEDS: SODIUM CHLORIDE 0.9% FLUSH 5 ML FLUSH FLUSH SCH ×2 (09:12→20:40)
[2015-12-20] MEDS: VITAMIN B CMPLX/VITC/FOLIC AC CAP TUBE SCH (09:13)
[2015-12-20] MEDS: DOCUSATE SODIUM 100 MG CAP PO SCH (09:13)
[2015-12-20] MEDS: MULTIVITAMINS/MINERALS THERAPEUTIC TAB GT SCH (09:13)
--- NOTE | 2015-12-20 11:24 | HHI.PR ---
Subjective Remarks Follow up for failure to thrive and dysphagia. Patient is status post EGD with PEG placement. He is currently tolerating tube feed well. He is also tolerating some oral feeding. Denies any fever or chills. He does complain of pain but does not use morphine much. Objective Vitals Vital Signs Date Time Temp Pulse Resp B/P Pulse Ox O2 Delivery O2 Flow Rate FiO2 12/20/15 08:30 96 Nasal Cannula 2.00 12/20/15 08:00 97.0 84 18 99/54 99 12/20/15 04:22 95.9 85 16 95/51 98 12/20/15 00:45 Nasal Cannula 2.00 12/19/15 23:44 95.4 81 16 113/59 99 12/19/15 20:17 95.6 83 16 110/57 98 12/19/15 18:30 Nasal Cannula 2.00 12/19/15 15:00 97.5 83 20 95/52 100 12/19/15 14:14 96.5 78 12 94/50 100 12/19/15 12:00 97.5 78 20 105/71 97 I/O 12/19/15 12/19/15 12/19/15 12/20/15 12/20/15 12/20/15 06:59 14:59 22:59 06:59 14:59 22:59 Intake Total 1150 ml 1080 ml 0 ml Output Total 250 ml 800 ml 200 ml 450 ml Balance -250 ml 350 ml 880 ml -450 ml Intake Oral 10 ml 0 ml 0 ml IV Total 600 ml 871 ml Tube Feeding 20 ml 209 ml Tube Irrigant 40 ml Other 480 ml Output Urine Total 250 ml 800 ml 200 ml 450 ml # Bowel Movements 0 0 Result Diagram: 12/19/15 0554 12/19/15 0554 Imaging Last Impressions Chest CT 12/19/15 0000 Signed Impressions: Service Date/Time: Saturday, December 19, 2015 15:10 - CONCLUSION: 1. 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 2. Atherosclerotic calcification of the coronary arteries. Dandy Jett MD Abdomen/Pelvis CT 12/19/15 0000 Signed Impressions: Service Date/Time: Saturday, December 19, 2015 15:10 - CONCLUSION: 1. Bilateral pleural effusions with a small amount of abdominal ascites, generalized anasarca and edema in the mesenteric leaves characteristic of right heart insufficiency. 2. Mild air and fluid distention of the small bowel and colon characteristic of a hypodynamic ileus. No obstruction. Dandy Jett MD Head CT 12/16/15 1145 Signed Impressions: Service Date/Time: Wednesday, December 16, 2015 12:45 - CONCLUSION: Nonspecific white matter changes. No acute intracranial abnormality. Lam Tucker MD Chest X-Ray 12/16/15 1124 Signed Impressions: Service Date/Time: Wednesday, December 16, 2015 11:54 - CONCLUSION: Hyperinflation which can be seen with COPD. Right apical density, PA and lateral views are recommended when patient is stable. Lam Tukcer MD Objective Remarks GENERAL: Alert, appears lethargic, NAD. SKIN: Warm and dry. HEAD: Normocephalic. EYES: No scleral icterus. No injection or drainage. NECK: Supple, trachea midline. No JVD or lymphadenopathy. CARDIOVASCULAR: Regular rate and rhythm without murmurs, gallops, or rubs. RESPIRATORY: Breath sounds equal bilaterally. No accessory muscle use. GASTROINTESTINAL: Abdomen soft, non-tender, nondistended. MUSCULOSKELETAL: No cyanosis, or edema. BACK: Nontender without obvious deformity. No CVA tenderness. Procedures 12/18/15 EGD with dilation and PEG tube placement A/P Problem List: (1) Failure to thrive in adult ICD Code: R62.7 Status: Acute (2) Malnutrition ICD Code: E46 Status: Acute (3) Bilateral lower leg cellulitis ICD Code: L03.116 Status: Acute (4) Hyponatremia ICD Code: E87.1 Status: Acute Assessment and Plan 80-year-old male with no known past medical history presents via EMS after being found covered in urine/feces, complaining of generalized weakness and dysphagia. Dysphagia: resulting in severe malnutrition and weight loss (previously documented weight 73kg in June 2014, now 37kg). Evaluated by speech therapy, Nothing by mouth, await reevaluation after EGD with dilation. Consulted GI, performed EGD with PEG tube placement. Supportive treatment with IVF with D5 1/ 2 NS +KCl. MVI and B complex. Continue tube feedings per dietitian and GI recommendations. Severe Protein Calorie Malnutrition/Failure to Thrive: Secondary to dysphagia above. BMI 11. Palliative care consulted to assist with goals of care. Replace electrolytes as needed, potassium replaced on 12/19/2015. Generalized Weakness: likely secondary to severe malnutrition and chronic deconditioning. Consulted PT/OT, recommends SNF. Case management consulted. Bilateral Lower Extremity Cellulitis/Edema: Bilateral lower extremities with edema/erythema. Started on empiric IV Rocephin. Leukocytosis has resolved. Patient has remained afebrile. Vital signs not indicative of sepsis. Monitor for improvement. Elevate lower extremities. IV morphine as needed for pain control. Hyponatremia: Na 130. Improved to 136 with IVF. Likely secondary to dehydration/malnutrition. Resolved, monitor BMP. Right Apical Density: seen on AP CXR with PA lateral chest x-ray recommended by radiology. Checked PA/Lateral CXR which showed findings of COPD with no acute cardiopulmonary disease. DVT Prophylaxis: LoveAllyson Sykes DO Dec 20, 2015 11:24 am
[2015-12-20 12:00] VITALS: BP 107/56; PULSE 89; RESP 18; TEMP 98.9; O2SAT 99
[2015-12-20] MEDS: MULTIVITAMIN INJ 10 ML, FOLIC ACID INJ 1 MG in SODIUM CHLORID 0.9% 500 ML INJ 500 ML IV SCH (12:13)
[2015-12-20] MEDS: ENOXAPARIN SODIUM 40 MG/0.4 ML SYRINGE SQ SCH (14:50)
[2015-12-20] MEDS: cefTRIAXone INJ 1,000 MG in SODIUM CHLORIDE 0.9% INJ 100 ML IV SCH (14:50)
[2015-12-20] MEDS: MAGNESIUM HYDROXIDE SUSP 30 ML CUP PO PRN (14:50)
[2015-12-20 16:00] VITALS: BP 116/66; PULSE 91; RESP 18; TEMP 96.6; O2SAT 100
[2015-12-20 20:00] VITALS: BP 117/57; PULSE 95; RESP 18; TEMP 97.3; O2SAT 99
[2015-12-21] VITALS (7 sets, daily range): BP systolic 100–130; BP diastolic 56–69; PULSE 88–98; RESP 18; TEMP 95.6–98.4; O2SAT 96–98
[2015-12-21] MEDS: VITAMIN B CMPLX/VITC/FOLIC AC CAP TUBE SCH (08:27)
[2015-12-21] MEDS: SODIUM CHLORIDE 0.9% FLUSH 5 ML FLUSH FLUSH SCH ×2 (08:27→20:15)
[2015-12-21] MEDS: MULTIVITAMINS LIQUID 5 ML UDC PO SCH (08:27)
--- NOTE | 2015-12-21 11:55 | HHI.PR ---
Subjective Remarks Follow up for failure to thrive and dysphagia. Patient is doing better. He was able to eat scrambled eggs and grits today. He is tolerating tube feed through PEG tube well. No fever, chills, diarrhea. Clinical Research Physician's is at bedside. Objective Vitals Vital Signs Date Time Temp Pulse Resp B/P Pulse Ox O2 Delivery O2 Flow Rate FiO2 12/21/15 09:51 Nasal Cannula 2.00 21 12/21/15 09:11 97 21 12/21/15 04:00 96.7 88 18 109/58 98 12/21/15 00:00 95.6 91 18 100/56 98 12/20/15 20:00 97.3 95 18 117/57 99 12/20/15 20:00 Nasal Cannula 2.00 12/20/15 16:50 Nasal Cannula 2.00 12/20/15 16:00 96.6 91 18 116/66 100 12/20/15 12:00 98.9 89 18 107/56 99 I/O 12/20/15 12/20/15 12/20/15 12/21/15 12/21/15 12/21/15 07:00 15:00 23:00 07:00 15:00 23:00 Intake Total 0 ml 1178 ml 260 ml 281 ml Output Total 450 ml 275 ml 0 ml 375 ml Balance -450 ml 903 ml 260 ml -94 ml Intake Oral 0 ml 600 ml IV Total 290 ml Tube Feeding 288 ml 160 ml 181 ml Other 100 ml 100 ml Output Urine Total 450 ml 275 ml 375 ml Tube Feeding Residual Discard 0 ml # Bowel Movements 0 1 2 3 Result Diagram: 12/19/15 0554 12/19/15 0554 Imaging Last Impressions Chest CT 12/19/15 0000 Signed Impressions: Service Date/Time: Saturday, December 19, 2015 15:10 - CONCLUSION: 1. 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 2. Atherosclerotic calcification of the coronary arteries. Dandy Jett MD Abdomen/Pelvis CT 12/19/15 0000 Signed Impressions: Service Date/Time: Saturday, December 19, 2015 15:10 - CONCLUSION: 1. Bilateral pleural effusions with a small amount of abdominal ascites, generalized anasarca and edema in the mesenteric leaves characteristic of right heart insufficiency. 2. Mild air and fluid distention of the small bowel and colon characteristic of a hypodynamic ileus. No obstruction. Dandy Jett MD Head CT 12/16/15 1145 Signed Impressions: Service Date/Time: Wednesday, December 16, 2015 12:45 - CONCLUSION: Nonspecific white matter changes. No acute intracranial abnormality. Lam Tucker MD Chest X-Ray 12/16/15 1124 Signed Impressions: Service Date/Time: Wednesday, December 16, 2015 11:54 - CONCLUSION: Hyperinflation which can be seen with COPD. Right apical density, PA and lateral views are recommended when patient is stable. Lam Tucker MD Objective Remarks GENERAL: Alert, appears lethargic, NAD. SKIN: Warm and dry. HEAD: Normocephalic. EYES: No scleral icterus. No injection or drainage. NECK: Supple, trachea midline. No JVD or lymphadenopathy. CARDIOVASCULAR: Regular rate and rhythm without murmurs, gallops, or rubs. RESPIRATORY: Breath sounds equal bilaterally. No accessory muscle use. GASTROINTESTINAL: Abdomen soft, non-tender, nondistended. MUSCULOSKELETAL: No cyanosis, or edema. BACK: Nontender without obvious deformity. No CVA tenderness. Procedures 12/18/15 EGD with dilation and PEG tube placement A/P Problem List: (1) Failure to thrive in adult ICD Code: R62.7 Status: Acute (2) Malnutrition ICD Code: E46 Status: Acute (3) Bilateral lower leg cellulitis ICD Code: L03.116 Status: Acute (4) Hyponatremia ICD Code: E87.1 Status: Acute Assessment and Plan 80-year-old male with no known past medical history presents via EMS after being found covered in urine/feces, complaining of generalized weakness and dysphagia. Dysphagia: resulting in severe malnutrition and weight loss (previously documented weight 73kg in June 2014, now 37kg). Evaluated by speech therapy, Nothing by mouth, await reevaluation after EGD with dilation. Consulted GI, performed EGD with PEG tube placement. Supportive treatment with IVF with D5 1/ 2 NS +KCl. MVI and B complex. Continue tube feedings per dietitian and GI recommendations. - Will ask speech therapy to evaluate and possibly recommend slightly advanced diet. Severe Protein Calorie Malnutrition/Failure to Thrive: Secondary to dysphagia above. BMI 11. Palliative care consulted to assist with goals of care. Replace electrolytes as needed, potassium replaced on 12/19/2015. Generalized Weakness: likely secondary to severe malnutrition and chronic deconditioning. Consulted PT/OT, recommends SNF. Case management consulted. Bilateral Lower Extremity Cellulitis/Edema: Bilateral lower extremities with edema/erythema. Started on empiric IV Rocephin. Leukocytosis has resolved. Patient has remained afebrile. Vital signs not indicative of sepsis. Monitor for improvement. Elevate lower extremities. IV morphine as needed for pain control. Hyponatremia: Na 130. Improved to 136 --> 145 with IVF. Likely secondary to dehydration/malnutrition. Resolved, monitor BMP. Right Apical Density: seen on AP CXR with PA lateral chest x-ray recommended by radiology. Checked PA/Lateral CXR which showed findings of COPD with no acute cardiopulmonary disease. DVT Prophylaxis: LoveAllyson Sykes DO Dec 21, 2015 11:55 am
[2015-12-21] MEDS: MULTIVITAMIN INJ 10 ML, FOLIC ACID INJ 1 MG in SODIUM CHLORID 0.9% 500 ML INJ 500 ML IV SCH (12:40)
[2015-12-21] MEDS: ENOXAPARIN SODIUM 40 MG/0.4 ML SYRINGE SQ SCH (16:15)
[2015-12-21] MEDS: cefTRIAXone INJ 1,000 MG in SODIUM CHLORIDE 0.9% INJ 100 ML IV SCH (16:15)
[2015-12-22 00:38] VITALS: BP 106/54; PULSE 91; RESP 18; TEMP 98.6; O2SAT 94
[2015-12-22 04:15] VITALS: BP 105/57; PULSE 83; RESP 18; TEMP 97.5; O2SAT 95
[2015-12-22 08:00] VITALS: BP 123/62; PULSE 91; RESP 16; TEMP 96.4; O2SAT 95
[2015-12-22] MEDS: MULTIVITAMINS LIQUID 5 ML UDC PO SCH (08:57)
[2015-12-22] MEDS: VITAMIN B CMPLX/VITC/FOLIC AC CAP TUBE SCH (08:57)
[2015-12-22] MEDS: SODIUM CHLORIDE 0.9% FLUSH 5 ML FLUSH FLUSH SCH ×2 (09:00→20:25)
--- NOTE | 2015-12-22 10:47 | HHI.HCPN ---
[employer] report found potential match for patient's brother, Perfecto Dixon [phone]. I was able to speak with Perfecto and he reports he will be at the hospital within an hour or so. Requests to speak with palliative care SW and palliative care MACHINE FEATHEREDGER AND REDUCER if able for medical update. Lizett Sneed [employer]AL WORK[employer], [employer] BU[employer]ER Dec 22, 2015 10:47
[2015-12-22 12:00] VITALS: BP 128/63; PULSE 95; RESP 20; TEMP 97.5; O2SAT 97
--- NOTE | 2015-12-22 12:03 | HHI.GIFU ---
Subjective Remarks Resting in bed. States MVI makes him nauseous, but no vomiting or abdominal pain. Still with poor appetite, although tolerating TF and diet. Objective Vitals I&O Vital Signs Date Time Temp Pulse Resp B/P Pulse Ox O2 Delivery O2 Flow Rate FiO2 12/22/15 08:00 96.4 91 16 123/62 95 12/22/15 04:15 97.5 83 18 105/57 95 12/22/15 00:38 98.6 91 18 106/54 94 12/21/15 20:03 98.4 95 18 130/56 98 12/21/15 20:00 Room Air 12/21/15 16:00 97.5 98 18 126/58 96 12/21/15 12:00 97.5 91 18 128/69 97 I/O 12/21/15 12/21/15 12/21/15 12/22/15 12/22/15 12/22/15 06:59 14:59 22:59 06:59 14:59 22:59 Intake Total 541 ml 864 ml 250 ml 856 ml Output Total 375 ml 350 ml Balance 166 ml 514 ml 250 ml 856 ml Intake Oral 600 ml 250 ml IV Total 75 ml Tube Feeding 341 ml 189 ml 656 ml Other 200 ml 200 ml Output Urine Total 375 ml 350 ml # Voids 3 # Bowel Movements 3 2 0 Imaging Last Impressions Chest CT 12/19/15 0000 Signed Impressions: Service Date/Time: Saturday, December 19, 2015 15:10 - CONCLUSION: 1. 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 2. Atherosclerotic calcification of the coronary arteries. Dandy Jett MD Abdomen/Pelvis CT 12/19/15 0000 Signed Impressions: Service Date/Time: Saturday, December 19, 2015 15:10 - CONCLUSION: 1. Bilateral pleural effusions with a small amount of abdominal ascites, generalized anasarca and edema in the mesenteric leaves characteristic of right heart insufficiency. 2. Mild air and fluid distention of the small bowel and colon characteristic of a hypodynamic ileus. No obstruction. Dandy Jett MD Head CT 12/16/15 1145 Signed Impressions: Service Date/Time: Wednesday, December 16, 2015 12:45 - CONCLUSION: Nonspecific white matter changes. No acute intracranial abnormality. Lam Tucker MD Chest X-Ray 12/16/15 1124 Signed Impressions: Service Date/Time: Wednesday, December 16, 2015 11:54 - CONCLUSION: Hyperinflation which can be seen with COPD. Right apical density, PA and lateral views are recommended when patient is stable. Lam Tucker MD Physical Exam GEN: Cachectic, malnourished appearing HEENT: Normocephalic; atraumatic; no jaundice. CHEST: CTA CARDIAC: RRR ABDOMEN: Soft, nondistended, mild diffuse tenderness, no hepatosplenomegaly; bowel sounds are present in all four quadrants. Mild ascites EXTREMITIES: BLE 2-3+ edema with erythema SKIN: Normal; no rash; no jaundice. ETL INFORMATICA ARCHITECT: Lethargic, follows commands Assessment and Plan Plan ASSESSMENT: - Dysphagia, FTT, Dehydration. Pt reports difficulty swallowing both liquids/ solids for several months and reports significant weight loss, although he is poor historian and cannot quantify amount of weight lost. S/P EGD with PEG tube placement (12/18/15). ST just evaluated pt- puree diet with nectar thick liquids- tolerating this, although still with poor appetite.. - Malnutrition. Jevity 1.5 GR 45cc/hr. - Abdominal pain. Pt c/o vague abdominal pain for some time. Given his weight loss/FTT, CT unremarkable. No abdominal pain. - Density right lung, copd. BLE edema/erythema, per primary PLAN: - Jevity 1.5 at 45cc/hr - Puree diet with nectar thick liquids - Cont. ST - D/C Theragran M - GI will sign off, please reconsult as needed - Pt seen and examined by Dr. Varghese and myself and this note is written on his behalf Lelia Walsh Dec 22, 2015 12:03 Lelia Walsh Dec 22, 2015 12:03
[2015-12-22] MEDS: MULTIVITAMIN INJ 10 ML, FOLIC ACID INJ 1 MG in SODIUM CHLORID 0.9% 500 ML INJ 500 ML IV SCH (12:51)
--- NOTE | 2015-12-22 14:53 | HHI.PR ---
Subjective Remarks Follow up visit for dysphagia and failure to thrive. Pt. continues to have poor PO intake. States he has n/v with multivitamins. Currently on Jevity 1.5 continues rate of 45ml/hr. Minimal mobility, c/o pain and back discomfort. Denies fevers, chills, SOB/ Dyspnea. Objective Vitals Vital Signs Date Time Temp Pulse Resp B/P Pulse Ox O2 Delivery O2 Flow Rate FiO2 12/22/15 12:00 97.5 95 20 128/63 97 12/22/15 08:00 96.4 91 16 123/62 95 12/22/15 04:15 97.5 83 18 105/57 95 12/22/15 00:38 98.6 91 18 106/54 94 12/21/15 20:03 98.4 95 18 130/56 98 12/21/15 20:00 Room Air 12/21/15 16:00 97.5 98 18 126/58 96 I/O 12/21/15 12/21/15 12/21/15 12/22/15 12/22/15 12/22/15 07:00 15:00 23:00 07:00 15:00 23:00 Intake Total 281 ml 864 ml 250 ml 856 ml Output Total 375 ml 350 ml Balance -94 ml 514 ml 250 ml 856 ml Intake Oral 600 ml 250 ml IV Total 75 ml Tube Feeding 181 ml 189 ml 656 ml Other 100 ml 200 ml Output Urine Total 375 ml 350 ml # Voids 3 # Bowel Movements 3 2 0 Result Diagram: 12/19/15 0554 12/19/15 0554 Imaging Last Impressions Chest CT 12/19/15 0000 Signed Impressions: Service Date/Time: Saturday, December 19, 2015 15:10 - CONCLUSION: 1. 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 2. Atherosclerotic calcification of the coronary arteries. Dandy Jett MD Abdomen/Pelvis CT 12/19/15 0000 Signed Impressions: Service Date/Time: Saturday, December 19, 2015 15:10 - CONCLUSION: 1. Bilateral pleural effusions with a small amount of abdominal ascites, generalized anasarca and edema in the mesenteric leaves characteristic of right heart insufficiency. 2. Mild air and fluid distention of the small bowel and colon characteristic of a hypodynamic ileus. No obstruction. Dandy Jett MD Head CT 12/16/15 1145 Signed Impressions: Service Date/Time: Wednesday, December 16, 2015 12:45 - CONCLUSION: Nonspecific white matter changes. No acute intracranial abnormality. Lam Tucker MD Chest X-Ray 12/16/15 1124 Signed Impressions: Service Date/Time: Wednesday, December 16, 2015 11:54 - CONCLUSION: Hyperinflation which can be seen with COPD. Right apical density, PA and lateral views are recommended when patient is stable. Lam Tucker MD Objective Remarks GENERAL: Alert, cachectic, NAD. SKIN: Warm and dry. HEAD: Normocephalic. EYES: No scleral icterus. No injection or drainage. NECK: Supple, trachea midline. No JVD or lymphadenopathy. CARDIOVASCULAR: Regular rate and rhythm without murmurs, gallops, or rubs. RESPIRATORY: Breath sounds equal bilaterally. No accessory muscle use. Diminished bases. Fair-good effort. GASTROINTESTINAL: Abdomen soft, non-tender, nondistended. PEG in place. Mena draining nga yellow clear urine. MUSCULOSKELETAL: No cyanosis, or edema. BACK: Nontender without obvious deformity. No CVA tenderness. NEUROLOGICAL: Awake, alert. BARBER weakly. Follow commands. No focal deficit. Procedures 12/18/15 EGD with dilation and PEG tube placement Urinary Catheter: Yes Assessment to: Continue Mena insert reason: Prolonged Immobilization A/P Problem List: (1) Failure to thrive in adult ICD Code: R62.7 Status: Acute (2) Malnutrition ICD Code: E46 Status: Acute (3) Bilateral lower leg cellulitis ICD Code: L03.116 Status: Acute (4) Hyponatremia ICD Code: E87.1 Status: Acute Assessment and Plan 80-year-old male with no known past medical history presents via EMS after being found covered in urine/feces, complaining of generalized weakness and dysphagia. Dysphagia: resulting in severe malnutrition and weight loss (previously documented weight 73kg in June 2014, now 37kg). Evaluated by speech therapy, Nothing by mouth, await reevaluation after EGD with dilation. Consulted GI, performed EGD with PEG tube placement. Supportive treatment with IVF with D5 1/ 2 NS +KCl. MVI and B complex. Continue tube feedings per dietitian and GI recommendations. 12/22/15 - speech therapy following. Diet puree with nectar thickened liquids. GI recommends DC multivit as pt. is not tolerating. Cont with TF Jevity 1.5 45ml/hr. Severe Protein Calorie Malnutrition/Failure to Thrive: Secondary to dysphagia above. BMI 11. Palliative care consulted to assist with goals of care. Replace electrolytes as needed, potassium replaced on 12/19/2015. Palliative with have family meeting with next of kin - brother? Generalized Weakness: likely secondary to severe malnutrition and chronic deconditioning. Consulted PT/OT, recommends SNF. Case management consulted. Awaiting placement. Bilateral Lower Extremity Cellulitis/Edema: Bilateral lower extremities with edema/erythema. Started on empiric IV Rocephin. Leukocytosis has resolved. Patient has remained afebrile. Vital signs not indicative of sepsis. Monitor for improvement. Elevate lower extremities. IV morphine as needed for pain control. Hyponatremia: Na 130. Improved to 136 --> 145 with IVF. Likely secondary to dehydration/malnutrition. Resolved, monitor BMP. Right Apical Density: seen on AP CXR with PA lateral chest x-ray recommended by radiology. Checked PA/Lateral CXR which showed findings of COPD with no acute cardiopulmonary disease. DVT Prophylaxis: Allyson Le DO Dec 22, 2015 14:53
[2015-12-22 16:00] VITALS: BP 116/61; PULSE 94; RESP 20; TEMP 96.4; O2SAT 96
[2015-12-22] MEDS: ENOXAPARIN SODIUM 40 MG/0.4 ML SYRINGE SQ SCH (17:28)
[2015-12-22] MEDS: cefTRIAXone INJ 1,000 MG in SODIUM CHLORIDE 0.9% INJ 100 ML IV SCH (17:29)
--- NOTE | 2015-12-22 17:37 | HHI.HCPN ---
Reason for visit a. To assist with evaluation and management of symptoms including: Malnutrition, weakness, pain b. To assist medical decision maker(s) with: better understanding of current medical conditions; weighing benefits/burdens of medical treatment options; making medical treatment decisions. . (Klaudia Mario) Subjective/Interval History Patient seen and assessed and 1414. Alert and oriented 3. Appears more alert today than on previous visit. Continues to have poor nutritional intake s/p EGD with dilatation and PEG tube placement on 12/18/15. Pathology pending. Speech continues to follow this patient and recommendations have been made for pured diet and nectar consistency thickened liquids. Patient tolerating artificial nutrition via tube feeding, Jevity 1.5 at 40 mL's per hour. Patient reporting MVI make him nauseated and the food is "no good." Denies vomiting/ abdominal pain. Forwarded from initial Palliative consultation completed on 12/17/15 by Klaudia NICOLAS Mr. Dixon is an 80-year-old male who presented to [place] ED on 12/16/15 via EMS from his home after being found covered in urine and feces. The patient was lethargic, oriented to person and place. Very soft spoken and difficult to understand. He complained of general weakness and dysphasia stating he had been very weak and was unable to get out of his chair for several days. The patient also reported the he had been having difficulty swallowing for "quite a while" which made it difficult to eat/drink. Patient reported he had not seen a doctor in several years and had never been evaluated by gastroenterology for his dysphasia. Denied abdominal pain, nausea, vomiting. The patient had no other medical complaints other than weakness and dysphasia. He denied any recent history of fever, chills, lightheadedness, chest pain, shortness of breath or urinary complaints. Additional diagnostic findings in the ED include: * Vital signs: Pulse 86, respirations 24, BP 134/89, oxygen saturation 100% on room air, temperature 97.6 * WBC: 15.3, hemoglobin 13.1, hematocrit 37.8, platelets 162, neutrophils 93.7% * PT: 12.2, INR 1.2, APTT 24.1 * Sodium: 1:30, potassium 5.0, chloride 92, carbon dioxide 26.5, glucose 116, calcium 8.6, magnesium 2.5 * BUN: 59, creatinine 1.17, GFR 60 * Total bilirubin: 0.8, AST 15, ALT 15 * Alkaline phosphatase: 83 * Total creatine kinase: 33 * Troponin: <0.02 * Total protein: 6.5, albumin 3.0 * Urinalysis: Hazy urine with large amount of occult blood, urine RBC and mucus. Culture not indicated. * Chest x-ray PA & LAT: Findings of COPD, no acute cardiopulmonary disease * Head CT: Nonspecific white matter changes, no acute intracranial abnormality * EKG: Sinus rhythm, possible left atrial enlargement, nonspecific T-wave abnormality. Mr. Dixon was admitted for further evaluation and medical management of dysphasia, adult failure to thrive, leukocytosis and dehydration. The patient was seen for swallow evaluation but was unable to complete the swallow sequence. Per speech, patient has laryngeal elevation but does not complete a swallow. Patient will remain NPO at this time. Gastroenterology was consulted for possible achalasia. The patient reported having progressively worsening dysphasia, both liquids and solids, for several months. He stated he had lost a significant amount of weight is unable to quantify. Gastroenterology made recommendations for a barium swallow. Further recommendations to follow pending barium swallow, possibly EGD with Botox versus EGD with PEG tube placement. Palliative Care was consulted to assist with symptom management and to discuss with the patient/family the benefits and burdens of his current illnesses and the options regarding future care. . Family/friend interactions Met with patient's brother Otf Dixon who is able to provide additional psychosocial history. Also, present Palliative Care COMMUNICATIONS EXECUTIVE. The patient has completed the health care surrogate form identifying his brother, Otf Dixon , as his healthcare surrogate decision maker. Patient's brother verbalizes willingness to act in this role if/when necessary. . (Klaudia Mario) Advance Directives Living Will: Never completed Health Care Surrogate: Copy in medical record Durable Power of Manager Strategic Sourcing: Never completed (Klaudia Mario) Advance Directive Specifics Date completed: 12/22/15 . Health Care Surrogate(s): The patient has completed the health care surrogate form identifying his brother , Otf Dixon, as his healthcare surrogate decision maker. Patient's brother verbalizes willingness to act in this role if/when necessary. . Documented care wishes: No documented care wished have been completed. . (Klaudai Mario) Objective Vital Signs Date Time Temp Pulse Resp B/P Pulse Ox O2 Delivery O2 Flow Rate FiO2 12/22/15 15:10 Room Air 12/22/15 12:00 97.5 95 20 128/63 97 12/22/15 08:00 96.4 91 16 123/62 95 12/22/15 04:15 97.5 83 18 105/57 95 12/22/15 00:38 98.6 91 18 106/54 94 12/21/15 20:03 98.4 95 18 130/56 98 12/21/15 20:00 Room Air Intake & Output 12/22/15 12/22/15 07:00 19:00 Intake Total 1106 ml Balance 1106 ml Intake Oral 250 ml Tube Feeding 656 ml Other 200 ml # Voids 3 # Bowel Movements 0 . Physical Exam CONSTITUTIONAL/GENERAL: This is a cachectic elderly male patient, in no apparent distress. TUBES/LINES/DRAINS: PIV 1, Mena SKIN: No jaundice, rashes, or lesions. Skin temperature appropriate. Not diaphoretic. HEAD: Atraumatic. Normocephalic. EYES: Pupils equal and round and reactive. No scleral icterus. No injection or drainage. Fundi not examined. ENT: Mucous membranes dry. Hearing grossly normal. Nose without bleeding or purulent drainage. Poor dentition NECK: Trachea midline. Supple, nontender. No palpable thyroid enlargement or nodularity. CARDIOVASCULAR: Regular rate and rhythm.. No JVD. Peripheral pulses symmetric. RESPIRATORY/CHEST: Symmetric, unlabored respirations. Breath sounds diminished bilaterally. No wheezes, rales, or rhonchi. GASTROINTESTINAL: Abdomen soft, non-tender, nondistended. No hepato-splenomegaly , or palpable masses. No guarding. Bowel sounds present. GENITOURINARY: Without palpable bladder distension. Mena catheter in place, cloudy tea colored urine MUSCULOSKELETAL: Extremities without clubbing or cyanosis. Bilateral lower extremities with +2 to +3 pitting edema. LYMPHATICS: No palpable cervical or supraclavicular adenopathy. NEUROLOGICAL: Awake. Alert and oriented 3. Answering questions, following commands. Cognitively sharp. Moves all extremities. PSYCHIATRIC: No obvious anxiety/depression. No apparent hallucinations or other psychotic thought process. . (Klaudia Mario) Diagnostic Tests Result Diagram: 12/19/15 0554 12/19/15 0554 Imaging Last Impressions Chest CT 12/19/15 0000 Signed Impressions: Service Date/Time: Saturday, December 19, 2015 15:10 - CONCLUSION: 1. 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 2. Atherosclerotic calcification of the coronary arteries. Dandy Jett MD Abdomen/Pelvis CT 12/19/15 0000 Signed Impressions: Service Date/Time: Saturday, December 19, 2015 15:10 - CONCLUSION: 1. Bilateral pleural effusions with a small amount of abdominal ascites, generalized anasarca and edema in the mesenteric leaves characteristic of right heart insufficiency. 2. Mild air and fluid distention of the small bowel and colon characteristic of a hypodynamic ileus. No obstruction. Dandy Jett MD Head CT 12/16/15 1145 Signed Impressions: Service Date/Time: Wednesday, December 16, 2015 12:45 - CONCLUSION: Nonspecific white matter changes. No acute intracranial abnormality. Lam Tucker MD Chest X-Ray 12/16/15 1124 Signed Impressions: Service Date/Time: Wednesday, December 16, 2015 11:54 - CONCLUSION: Hyperinflation which can be seen with COPD. Right apical density, PA and lateral views are recommended when patient is stable. Lam Tucker MD . Procedures 12/19/15: EGD with dilatation and PEG tube placement . (Klaudia Mario) Assessment and Plan Disease Oriented Problem List: (1) Failure to thrive in adult (2) Hyponatremia (3) Malnutrition (4) Bilateral lower leg cellulitis Symptom Scale: (1) Swallowing dysfunction 0-10 Scale: Unable to quantify Comment: Patient remains NPO due to his continued dysphagia.gastroenterology was consulted and recommendations were made for diagnostic testing (barium swallow vs. EGD with Botox vs. EGD with PEG placement). . (2) Weakness Comment: Physical therapy has been consulted. (3) Pain Comment: Patient complaining of pain in his buttocks and heals rated "10 out of 10" but was unable/unwilling to describe pain. [place] and morphine are available PRN for pain, but the patient is refusing. Pertinent Non-Medical Issues Psychosocial: Information obtained from patient who is a poor historian. Patient was born in [place], he lives alone. He has 2 brothersone brother is and 1 brother, named Perfecto Dixon, is living. The patient is not and has no children. He was involved in the [employer] business. Spiritual: None Legal: Per [place] statutes, in the absence of written advanced directives healthcare proxy decision making would fall to the patient's brother Pablo Dixon. Pablo Dixon's contact information is not available, patient unable to provide. Patient states he does not have any one else he wishes to designate as his healthcare surrogate and his brother can serve as his HCP if necessary. Ethical issues impacting care: None at this time. . Important Contacts Perfecto Dixon (Theo), brother: No contact information available at this time. . Prognosis Patient is an 80-year-old male patient who presented to [place] after being found in his home covered in urine and feces. He was admitted with dehydration , failure to thrive, dysphasia and bilateral lower extremity cellulitis. The patient reports he has had progressively worsening dysphagia which has impaired his ability to eat/drink, resulting in severe weakness and weight loss. Previously documented weight 73kg in June 2014, now 37kg. Current BMI: 11.4. Patient is a poor historian and unable to provide a complete medical history. No family is present, no contact information available. Patient's goals are unclear at this time. He verbalizes understanding that he needs to be able to tolerate oral nutrition to sustain life, but he states he does not want to have any procedures done. Given the patient's current medical conditions in conjunction with his advanced age and nonexistent support network, his overall prognosis is likely poor. . Code Status: No Code Plan * NO CODEDNR * Decision-making: Patient is currently capacitated The patient has completed the health care surrogate form identifying his brother, Otf Dixon, as his healthcare surrogate decision maker on 12/22/15. Patient's brother verbalizes willingness to act in this role if/when necessary. Copy of HCS form placed in patient's chart and faxed to HIM to be scanned into the patient's EMR. * Goals: Other than NO CODEDNR, goals remain aggressive at this time. * Symptom managementmalnutrition: Continues to have poor nutritional intake s/ p EGD with dilatation and PEG tube placement on 12/18/15. Pathology pending. Speech continues to follow this patient and recommendations have been made for pured diet and nectar consistency thickened liquids. Patient tolerating artificial nutrition via tube feeding, Jevity 1.5 at 40 mL's per hour. Patient reporting MVI make him nauseated and the food is "no good." Recent albumin of 2.2. BMI: 15.8 * Symptom managementpain: c/o pain in his buttocks and heals rated "10 out of 10" but was unable/unwilling to describe pain. Morphine available PRN for pain, but the patient is refusing. Encouraged patient to move in bed, lie on his side. Position changes q 2 hours. Palliative care will continue to monitor PRN requirements and make recommendations as appropriate. * Palliative care contact information left with patient on his bedside table. * Palliative care will continue to follow this patient throughout his hospitalization to establish trust, assist with symptom management and clarification of medical treatment goals. . . (Klaudia Mario) Collaborating MD Comments Patient was discussed with DRESSMAKER OR TAILOR. Agreeable to assessment and plan. (Josiah Rowan MD) Klaudia Mario Dec 22, 2015 17:36 Josiah Rowan MD Dec 24, 2015 09:54
[2015-12-22] MEDS: ONDANSETRON HCL 4 MG/2 ML VIAL IVP PRN (20:24)
[2015-12-22 20:47] VITALS: BP 115/56; PULSE 91; RESP 18; TEMP 99; O2SAT 94
[2015-12-23] VITALS (8 sets, daily range): BP systolic 101–117; BP diastolic 55–60; PULSE 82–95; RESP 12–20; TEMP 96.1–97.2; O2SAT 95–97
[2015-12-23] MEDS: VITAMIN B CMPLX/VITC/FOLIC AC CAP TUBE SCH (08:03)
[2015-12-23] MEDS: SODIUM CHLORIDE 0.9% FLUSH 5 ML FLUSH FLUSH SCH ×2 (08:03→21:00)
[2015-12-23] MEDS: MULTIVITAMIN INJ 10 ML, FOLIC ACID INJ 1 MG in SODIUM CHLORID 0.9% 500 ML INJ 500 ML IV SCH (10:49)
[2015-12-23] MEDS: cefTRIAXone INJ 1,000 MG in SODIUM CHLORIDE 0.9% INJ 100 ML IV SCH (15:23)
[2015-12-23] MEDS: ENOXAPARIN SODIUM 40 MG/0.4 ML SYRINGE SQ SCH (15:23)
--- NOTE | 2015-12-23 16:40 | HHI.PR ---
Subjective Remarks Follow up visit for dysphagia and failure to thrive. Pt. have have poor PO intake. States he is unable to eat solid food. Currently on Jevity 1.5 continues rate of 45ml/hr. Minimal mobility, c/o pain and back discomfort due to immobility. Denies fevers, chills, SOB/ Dyspnea, n/v/d. Objective Vitals Vital Signs Date Time Temp Pulse Resp B/P Pulse Ox O2 Delivery O2 Flow Rate FiO2 12/23/15 10:06 96.4 95 12 101/58 95 12/23/15 07:34 96.1 88 12 107/58 95 12/23/15 04:23 Room Air 12/23/15 04:23 96.1 89 18 117/60 97 12/23/15 00:13 96.4 82 16 114/59 95 12/23/15 00:13 Room Air 12/22/15 20:47 Room Air 12/22/15 20:47 99.0 91 18 115/56 94 I/O 12/22/15 12/22/15 12/22/15 12/23/15 12/23/15 12/23/15 07:00 15:00 23:00 07:00 15:00 23:00 Intake Total 856 ml 600 ml 656 ml 321 ml Output Total 650 ml 2 ml Balance 856 ml -50 ml 654 ml 321 ml Intake Oral 600 ml 240 ml Tube Feeding 656 ml 366 ml 321 ml Tube Irrigant 50 ml Other 200 ml Output Urine Total 650 ml 2 ml # Bowel Movements 0 0 Result Diagram: 12/19/15 0554 12/19/15 0554 Objective Remarks GENERAL: Alert, cachectic, NAD. SKIN: Warm and dry. HEAD: Normocephalic. EYES: No scleral icterus. No injection or drainage. NECK: Supple, trachea midline. No JVD or lymphadenopathy. CARDIOVASCULAR: Regular rate and rhythm without murmurs, gallops, or rubs. RESPIRATORY: Breath sounds equal bilaterally. No accessory muscle use. Diminished bases. Fair-good effort. GASTROINTESTINAL: Abdomen soft, non-tender, nondistended. PEG in place. Mena draining nga yellow clear urine. MUSCULOSKELETAL: No cyanosis, or edema. BACK: Nontender without obvious deformity. No CVA tenderness. NEUROLOGICAL: Awake, alert. BARBER weakly. Follow commands. No focal deficit. Procedures 12/18/15 EGD with dilation and PEG tube placement Urinary Catheter: Yes Mena insert reason: Prolonged Immobilization A/P Problem List: (1) Failure to thrive in adult ICD Code: R62.7 Status: Acute (2) Malnutrition ICD Code: E46 Status: Acute (3) Bilateral lower leg cellulitis ICD Code: L03.116 Status: Acute (4) Hyponatremia ICD Code: E87.1 Status: Resolved Assessment and Plan 80-year-old male with no known past medical history presents via EMS after being found covered in urine/feces, complaining of generalized weakness and dysphagia. Dysphagia: resulting in severe malnutrition and weight loss (previously documented weight 73kg in June 2014, now 37kg). Evaluated by speech therapy, Nothing by mouth, await reevaluation after EGD with dilation. Consulted GI, performed EGD with PEG tube placement. Supportive treatment with IVF with D5 1/ 2 NS +KCl. MVI and B complex. Continue tube feedings per dietitian and GI recommendations. - speech therapy following. Diet puree with nectar thickened liquids. GI recommends DC multivit as pt. is not tolerating. Cont with TF Jevity 1.5 45ml/ hr. Enc PO intake. Severe Protein Calorie Malnutrition/Failure to Thrive: Secondary to dysphagia above. BMI 11. Palliative care consulted to assist with goals of care. Replace electrolytes as needed, potassium replaced on 12/19/2015. Palliative with have family meeting with next of kin - brother? Generalized Weakness: likely secondary to severe malnutrition and chronic deconditioning. Consulted PT/OT, recommends SNF. Case management consulted. Awaiting placement. Bilateral Lower Extremity Cellulitis/Edema: Bilateral lower extremities with edema/erythema. Started on empiric IV Rocephin. Leukocytosis has resolved. Patient has remained afebrile. Vital signs not indicative of sepsis. Monitor for improvement. Elevate lower extremities. IV morphine as needed for pain control. Hyponatremia: Na 130. Improved to 136 --> 145 with IVF. Likely secondary to dehydration/malnutrition. Resolved, monitor BMP. Right Apical Density: seen on AP CXR with PA lateral chest x-ray recommended by radiology. Checked PA/Lateral CXR which showed findings of COPD with no acute cardiopulmonary disease. DVT Prophylaxis: Allyson Le DO Dec 23, 2015 16:40
[2015-12-24] VITALS: BP 107/58; PULSE 89; RESP 20; TEMP 97.7; O2SAT 94
[2015-12-24 08:00] VITALS: BP_SYST 109; BP_SYST 128; BP_DIAS 54; BP_DIAS 72; PULSE 89; PULSE 92; RESP 14; RESP 20; TEMP 97; TEMP 97.4; O2SAT 94; O2SAT 96
[2015-12-24] MEDS: VITAMIN B CMPLX/VITC/FOLIC AC CAP TUBE SCH (08:32)
[2015-12-24] MEDS: SODIUM CHLORIDE 0.9% FLUSH 5 ML FLUSH FLUSH SCH ×2 (08:32→20:13)
--- NOTE | 2015-12-24 09:19 | HHI.PR ---
Subjective Remarks Follow up for Failure to thrive, dysphagia. Mr. Dixon complains of back pain. He also does not like it when medications are mixed in his food. Objective Vitals Vital Signs Date Time Temp Pulse Resp B/P Pulse Ox O2 Delivery O2 Flow Rate FiO2 12/24/15 08:00 97.4 92 14 128/72 96 12/24/15 08:00 97.0 89 20 109/54 94 12/24/15 00:00 97.7 89 20 107/58 94 12/24/15 00:00 Room Air 12/23/15 20:10 97.2 84 20 107/55 95 12/23/15 20:10 Room Air 12/23/15 18:00 96.3 104/58 12/23/15 17:00 Room Air 12/23/15 16:30 86 20 12/23/15 12:00 97.1 89 16 111/59 95 12/23/15 10:06 96.4 95 12 101/58 95 I/O 12/23/15 12/23/15 12/23/15 12/24/15 12/24/15 12/24/15 07:00 15:00 23:00 07:00 15:00 23:00 Intake Total 321 ml 539 ml 646 ml Balance 321 ml 539 ml 646 ml Tube Feeding 321 ml 489 ml 596 ml Tube Irrigant 50 ml 50 ml Objective Remarks GENERAL: Alert, cachectic, NAD. SKIN: Warm and dry. HEAD: Normocephalic. EYES: No scleral icterus. No injection or drainage. NECK: Supple, trachea midline. No JVD or lymphadenopathy. CARDIOVASCULAR: Regular rate and rhythm without murmurs, gallops, or rubs. RESPIRATORY: Breath sounds equal bilaterally. No accessory muscle use. Diminished bases. Fair-good effort. GASTROINTESTINAL: Abdomen soft, non-tender, nondistended. PEG in place. Mena draining nga yellow clear urine. MUSCULOSKELETAL: No cyanosis, or edema. BACK: Nontender without obvious deformity. No CVA tenderness. NEUROLOGICAL: Awake, alert. BRABER weakly. Follow commands. No focal deficit. Procedures 12/18/15 EGD with dilation and PEG tube placement A/P Problem List: (1) Failure to thrive in adult ICD Code: R62.7 Status: Acute (2) Malnutrition ICD Code: E46 Status: Acute (3) Bilateral lower leg cellulitis ICD Code: L03.116 Status: Acute (4) Hyponatremia ICD Code: E87.1 Status: Resolved Assessment and Plan 80-year-old male with no known past medical history presents via EMS after being found covered in urine/feces, complaining of generalized weakness and dysphagia. Dysphagia: resulting in severe malnutrition and weight loss (previously documented weight 73kg in June 2014, now 37kg). Evaluated by speech therapy, Nothing by mouth, await reevaluation after EGD with dilation. Consulted GI, performed EGD with PEG tube placement. Supportive treatment with IVF with D5 1/ 2 NS +KCl. MVI and B complex. Continue tube feedings per dietitian and GI recommendations. - speech therapy following. Diet puree with nectar thickened liquids. Cont with TF Jevity 1.5 45ml/hr. Enc PO intake. Severe Protein Calorie Malnutrition/Failure to Thrive: Secondary to dysphagia above. BMI 11. Palliative care consulted to assist with goals of care. Replace electrolytes as needed, potassium replaced on 12/19/2015. Palliative is following. Generalized Weakness: likely secondary to severe malnutrition and chronic deconditioning. Consulted PT/OT, recommends SNF. Case management consulted. Awaiting placement. Bilateral Lower Extremity Cellulitis/Edema: Bilateral lower extremities with edema/erythema. Started on empiric IV Rocephin. Leukocytosis has resolved. Patient has remained afebrile. Vital signs not indicative of sepsis. Monitor for improvement. Elevate lower extremities. IV morphine as needed for pain control. Hyponatremia: Na 130. Improved to 136 --> 145 with IVF. Likely secondary to dehydration/malnutrition. Resolved, monitor BMP. Right Apical Density: seen on AP CXR with PA lateral chest x-ray recommended by radiology. Checked PA/Lateral CXR which showed findings of COPD with no acute cardiopulmonary disease. DVT Prophylaxis: Allyson Le DO Dec 24, 2015 9:19 am
[2015-12-24] MEDS: ONDANSETRON HCL 4 MG/2 ML VIAL IVP PRN (09:56)
[2015-12-24] MEDS: ACETAMINOPHEN 650 MG/20.3 ML UDC PO SCH ×3 (11:09→23:00)
[2015-12-24 12:00] VITALS: BP_SYST 109; BP_SYST 94; BP_DIAS 53; BP_DIAS 56; PULSE 84; PULSE 90; RESP 15; RESP 20; TEMP 97.8; O2SAT 96; O2SAT 98
[2015-12-24 16:00] VITALS: BP 98/56; PULSE 91; RESP 20; TEMP 96.4; O2SAT 95
[2015-12-24] MEDS: ENOXAPARIN SODIUM 40 MG/0.4 ML SYRINGE SQ SCH (16:18)
[2015-12-24] MEDS: cefTRIAXone INJ 1,000 MG in SODIUM CHLORIDE 0.9% INJ 100 ML IV SCH (16:18)
[2015-12-24 17:00] VITALS: BP 98/56; PULSE 91; RESP 20; TEMP 96.4; O2SAT 95
[2015-12-24 18:45] VITALS: BP 96/50; PULSE 86; RESP 20; TEMP 97; O2SAT 95
[2015-12-24] MEDS ORDERED: SIMETHICONE SUSP DROPS 40 MG/0.6 ML 30 ML BTL PO PRN (19:00)
[2015-12-25 01:05] VITALS: BP 98/50; PULSE 81; RESP 18; TEMP 96; O2SAT 95
[2015-12-25] MEDS: ACETAMINOPHEN 650 MG/20.3 ML UDC PO SCH ×4 (05:00→23:00)
[2015-12-25 06:13] VITALS: BP 106/56; PULSE 88; RESP 18; TEMP 96.9; O2SAT 94
[2015-12-25 07:30] VITALS: BP 106/56; PULSE 84; RESP 20; TEMP 98; O2SAT 95
[2015-12-25] MEDS: SODIUM CHLORIDE 0.9% FLUSH 5 ML FLUSH FLUSH SCH ×2 (10:40→21:00)
[2015-12-25 12:45] VITALS: BP 132/82; PULSE 94; RESP 20; TEMP 99.2; O2SAT 98
[2015-12-25] MEDS: MORPHINE SULFATE 4 MG/ML INJ IV PRN (13:33)
--- NOTE | 2015-12-25 15:44 | HHI.HCPN ---
Reason for visit a. To assist with evaluation and management of symptoms including: Malnutrition, weakness, pain b. To assist medical decision maker(s) with: better understanding of current medical conditions; weighing benefits/burdens of medical treatment options; making medical treatment decisions. . Subjective/Interval History Patient seen and assessed and 1414. Alert and oriented 3. Reporting continued back pain. PRN morphine, 2 mg IV every 3 hours, is ordered for pain. Patient has utilized 1 dose in the past 24 hours. Patient refused scheduled acetaminophen earlier today. Continues to have poor nutritional intake s/p EGD with dilatation and PEG tube placement on 12/18/15, recent nutritional intake <30%. Speech continues to follow this patient and recommendations have been made for pured diet and honey consistency thickened liquids. The patient was encouraged to use ordered medication PRN for intermittent nausea. Verbalizing frustration that he remains so weak, realizing he will likely need to go to SNF/rehab upon discharge before returning home. Case management notes indicate there is no payor source for rehabilitation, [facility] has evaluated the patient for Medicaid which is pending. Forwarded from initial Palliative consultation completed on 12/17/15 by Klaudia NICOLAS Mr. Dixon is an 80-year-old male who presented to [place] ED on 12/16/15 via EMS from his home after being found covered in urine and feces. The patient was lethargic, oriented to person and place. Very soft spoken and difficult to understand. He complained of general weakness and dysphasia stating he had been very weak and was unable to get out of his chair for several days. The patient also reported the he had been having difficulty swallowing for "quite a while" which made it difficult to eat/drink. Patient reported he had not seen a doctor in several years and had never been evaluated by gastroenterology for his dysphasia. Denied abdominal pain, nausea, vomiting. The patient had no other medical complaints other than weakness and dysphasia. He denied any recent history of fever, chills, lightheadedness, chest pain, shortness of breath or urinary complaints. Additional diagnostic findings in the ED include: * Vital signs: Pulse 86, respirations 24, BP 134/89, oxygen saturation 100% on room air, temperature 97.6 * WBC: 15.3, hemoglobin 13.1, hematocrit 37.8, platelets 162, neutrophils 93.7% * PT: 12.2, INR 1.2, APTT 24.1 * Sodium: 1:30, potassium 5.0, chloride 92, carbon dioxide 26.5, glucose 116, calcium 8.6, magnesium 2.5 * BUN: 59, creatinine 1.17, GFR 60 * Total bilirubin: 0.8, AST 15, ALT 15 * Alkaline phosphatase: 83 * Total creatine kinase: 33 * Troponin: <0.02 * Total protein: 6.5, albumin 3.0 * Urinalysis: Hazy urine with large amount of occult blood, urine RBC and mucus. Culture not indicated. * Chest x-ray PA & LAT: Findings of COPD, no acute cardiopulmonary disease * Head CT: Nonspecific white matter changes, no acute intracranial abnormality * EKG: Sinus rhythm, possible left atrial enlargement, nonspecific T-wave abnormality. Mr. Dixon was admitted for further evaluation and medical management of dysphasia, adult failure to thrive, leukocytosis and dehydration. The patient was seen for swallow evaluation but was unable to complete the swallow sequence. Per speech, patient has laryngeal elevation but does not complete a swallow. Patient will remain NPO at this time. Gastroenterology was consulted for possible achalasia. The patient reported having progressively worsening dysphasia, both liquids and solids, for several months. He stated he had lost a significant amount of weight is unable to quantify. Gastroenterology made recommendations for a barium swallow. Further recommendations to follow pending barium swallow, possibly EGD with Botox versus EGD with PEG tube placement. Palliative Care was consulted to assist with symptom management and to discuss with the patient/family the benefits and burdens of his current illnesses and the options regarding future care. . Family/friend interactions No family/friends present. Advance Directives Living Will: Never completed Health Care Surrogate: Copy in medical record Durable Power of Proposal Editor: Never completed Advance Directive Specifics Date completed: 12/22/15 . Health Care Surrogate(s): The patient has completed the health care surrogate form identifying his brother , Otf Dixon, as his healthcare surrogate decision maker. Patient's brother verbalizes willingness to act in this role if/when necessary. . Documented care wishes: No documented care wished have been completed. . Significant change in goals: Patient verbalizing understanding he will need rehabilitation before being able to return home. Goals or aggressive. . Objective Vital Signs Date Time Temp Pulse Resp B/P Pulse Ox O2 Delivery O2 Flow Rate FiO2 12/25/15 12:45 99.2 94 20 132/82 98 12/25/15 08:00 Room Air 12/25/15 07:30 98.0 84 20 106/56 95 12/25/15 06:13 96.9 88 18 106/56 94 12/25/15 01:05 96.0 81 18 98/50 95 12/24/15 18:45 97.0 86 20 96/50 95 12/24/15 17:00 96.4 91 20 98/56 95 12/24/15 16:00 96.4 91 20 98/56 95 Intake & Output 12/25/15 12/25/15 07:00 19:00 Output Total 550 ml 300 ml Balance -550 ml -300 ml Output Urine Total 550 ml 300 ml # Bowel Movements 0 0 Physical Exam CONSTITUTIONAL/GENERAL: This is a cachectic elderly male patient, in no apparent distress. TUBES/LINES/DRAINS: PIV 1, Mena SKIN: No jaundice, rashes, or lesions. Skin temperature appropriate. Not diaphoretic. HEAD: Atraumatic. Normocephalic. EYES: Pupils equal and round and reactive. No scleral icterus. No injection or drainage. Fundi not examined. ENT: Mucous membranes dry. Hearing grossly normal. Nose without bleeding or purulent drainage. Poor dentition NECK: Trachea midline. Supple, nontender. No palpable thyroid enlargement or nodularity. CARDIOVASCULAR: Regular rate and rhythm.. No JVD. Peripheral pulses symmetric. RESPIRATORY/CHEST: Symmetric, unlabored respirations.. No wheezes, rales, or rhonchi. GASTROINTESTINAL: Abdomen soft, non-tender, nondistended. No hepato-splenomegaly , or palpable masses. No guarding. Bowel sounds present. GENITOURINARY: Without palpable bladder distension. Mena catheter in place, draining clear yellow urine MUSCULOSKELETAL: Extremities without clubbing or cyanosis. Decreased bilateral lower extremity edema, currently trace to +1. LYMPHATICS: No palpable cervical or supraclavicular adenopathy. NEUROLOGICAL: Awake. Alert and oriented 3. Answering questions, following commands. Cognitively sharp. Moves all extremities. PSYCHIATRIC: No obvious anxiety/depression. No apparent hallucinations or other psychotic thought process. . Diagnostic Tests Imaging Last Impressions Chest CT 12/19/15 0000 Signed Impressions: Service Date/Time: Saturday, December 19, 2015 15:10 - CONCLUSION: 1. 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 2. Atherosclerotic calcification of the coronary arteries. Dandy Jett MD Abdomen/Pelvis CT 12/19/15 0000 Signed Impressions: Service Date/Time: Saturday, December 19, 2015 15:10 - CONCLUSION: 1. Bilateral pleural effusions with a small amount of abdominal ascites, generalized anasarca and edema in the mesenteric leaves characteristic of right heart insufficiency. 2. Mild air and fluid distention of the small bowel and colon characteristic of a hypodynamic ileus. No obstruction. Dandy Jett MD Head CT 12/16/15 1145 Signed Impressions: Service Date/Time: Wednesday, December 16, 2015 12:45 - CONCLUSION: Nonspecific white matter changes. No acute intracranial abnormality. Lam Tucker MD Chest X-Ray 12/16/15 1124 Signed Impressions: Service Date/Time: Wednesday, December 16, 2015 11:54 - CONCLUSION: Hyperinflation which can be seen with COPD. Right apical density, PA and lateral views are recommended when patient is stable. Lam Tucker MD . Procedures 12/19/15: EGD with dilatation and PEG tube placement . Assessment and Plan Disease Oriented Problem List: (1) Failure to thrive in adult (2) Hyponatremia (3) Malnutrition (4) Bilateral lower leg cellulitis Symptom Scale: (1) Swallowing dysfunction 0-10 Scale: Unable to quantify Comment: Patient remains NPO due to his continued dysphagia.gastroenterology was consulted and recommendations were made for diagnostic testing (barium swallow vs. EGD with Botox vs. EGD with PEG placement). . (2) Weakness Comment: Physical therapy has been consulted. (3) Pain Comment: Patient complaining of pain in his buttocks and heals rated "10 out of 10" but was unable/unwilling to describe pain. [place] and morphine are available PRN for pain, but the patient is refusing. Pertinent Non-Medical Issues Psychosocial: Information obtained from patient who is a poor historian. Patient was born in [place], he lives alone. He has 2 brothersone brother is and 1 brother, named Perfecto Dixon, is living. The patient is not and has no children. He was involved in the [employer] business. Spiritual: None Legal: Per [place] statutes, in the absence of written advanced directives healthcare proxy decision making would fall to the patient's brother Pablo Dixon. Pablo Dixon's contact information is not available, patient unable to provide. Patient states he does not have any one else he wishes to designate as his healthcare surrogate and his brother can serve as his HCP if necessary. Ethical issues impacting care: None at this time. . Important Contacts Perfecto Dixon (Theo), brother: No contact information available at this time. . Prognosis Patient is an 80-year-old male patient who presented to [place] [facility] after being found in his home covered in urine and feces. He was admitted with dehydration , failure to thrive, dysphasia and bilateral lower extremity cellulitis. The patient reports he has had progressively worsening dysphagia which has impaired his ability to eat/drink, resulting in severe weakness and weight loss. Previously documented weight 73kg in June 2014, now 37kg. Current BMI: 11.4. Patient is a poor historian and unable to provide a complete medical history. No family is present, no contact information available. Patient's goals are unclear at this time. He verbalizes understanding that he needs to be able to tolerate oral nutrition to sustain life, but he states he does not want to have any procedures done. Given the patient's current medical conditions in conjunction with his advanced age and nonexistent support network, his overall prognosis is likely poor. . Code Status: No Code Plan * NO CODEDNR * Decision-making: Patient is currently capacitated The patient has completed the health care surrogate form identifying his brother, Otf Dixon, as his healthcare surrogate decision maker on 12/22/15. Patient's brother verbalizes willingness to act in this role if/when necessary. Copy of HCS form placed in patient's chart and faxed to HIM to be scanned into the patient's EMR. * Goals: Patient verbalizing understanding he will need to go to SNF/Rehab before returning home. Other than NO CODEDNR, goals remain aggressive at this time. * Symptom managementmalnutrition: Continues to have poor nutritional intake s/ p EGD with dilatation and PEG tube placement on 12/18/15, he sent nutritional intake <30%. Speech continues to follow this patient and recommendations have been made for pured diet and honey consistency thickened liquids. Pathology showing severe acute esophagitis; negative for intestinal metaplasia, dysplasia or malignancy; negative for fungal organisms * Symptom managementpain: c/o pain in his buttocks and heals rated "10 out of 10" but was unable/unwilling to describe pain. Morphine available PRN for pain, sparingly used. One dose in the past 24 hours. Encouraged patient to move in bed, lie on his side. Position changes q 2 hours. Palliative care will continue to monitor PRN requirements and make recommendations as appropriate. * Discharge to SNF pending education resource. Case management notes indicate [facility] has evaluated the patient for Medicaid, Medicaid pending. * Palliative care will continue to follow this patient throughout his hospitalization to establish trust, assist with symptom management and clarification of medical treatment goals. . . Attestation To help prompt me to consider important information that might be impacting today's encounter and assessment, information from prior notes written by myself or my colleagues may have been "brought forward" into today's note. My signature on this note, however, is an attestation that I personally performed the exam, history, and/or decision-making noted today, and, unless otherwise indicated, the interactions with patient, family, and staff as well as the review of records all occurred today. I also attest that the listed assessment and stated plan reflect my best clinical judgment today based on the combination of historical information, prior notes, and today's exam/ interactions. When time spent is documented, it refers only to time spent today by the signer, or if indicated, combined time spent today by collaborating physician/nurse practitioner. Klaudia Mario Dec 25, 2015 15:43
[2015-12-25 16:00] VITALS: BP 97/56; PULSE 94; RESP 20; TEMP 98.6; O2SAT 95
[2015-12-25] MEDS: ENOXAPARIN SODIUM 40 MG/0.4 ML SYRINGE SQ SCH (16:41)
[2015-12-25] MEDS: cefTRIAXone INJ 1,000 MG in SODIUM CHLORIDE 0.9% INJ 100 ML IV SCH (16:41)
[2015-12-25] MEDS: MAGNESIUM HYDROXIDE SUSP 30 ML CUP PO PRN (17:34)
--- NOTE | 2015-12-25 18:37 | HHI.PR ---
Subjective Remarks Follow up for failure to thrive, dysphagia. Mr. Dixon complains of pain around the buttock area. He is tolerating oral food little bit - but not enough to stop tube feed. No fever, chills. Objective Vitals Vital Signs Date Time Temp Pulse Resp B/P Pulse Ox O2 Delivery O2 Flow Rate FiO2 12/25/15 12:45 99.2 94 20 132/82 98 12/25/15 08:00 Room Air 12/25/15 07:30 98.0 84 20 106/56 95 12/25/15 06:13 96.9 88 18 106/56 94 12/25/15 01:05 96.0 81 18 98/50 95 12/24/15 18:45 97.0 86 20 96/50 95 I/O 12/24/15 12/24/15 12/24/15 12/25/15 12/25/15 12/25/15 07:00 15:00 23:00 07:00 15:00 23:00 Intake Total 646 ml 120 ml Output Total 900 ml 550 ml 300 ml Balance 646 ml -780 ml -550 ml -300 ml Intake Oral 120 ml Tube Feeding 596 ml Tube Irrigant 50 ml Output Urine Total 900 ml 550 ml 300 ml # Bowel Movements 0 0 0 Imaging Last Impressions Chest CT 12/19/15 0000 Signed Impressions: Service Date/Time: Saturday, December 19, 2015 15:10 - CONCLUSION: 1. 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 2. Atherosclerotic calcification of the coronary arteries. Dandy Jett MD Abdomen/Pelvis CT 12/19/15 0000 Signed Impressions: Service Date/Time: Saturday, December 19, 2015 15:10 - CONCLUSION: 1. Bilateral pleural effusions with a small amount of abdominal ascites, generalized anasarca and edema in the mesenteric leaves characteristic of right heart insufficiency. 2. Mild air and fluid distention of the small bowel and colon characteristic of a hypodynamic ileus. No obstruction. Dandy Jett MD Head CT 12/16/15 1145 Signed Impressions: Service Date/Time: Wednesday, December 16, 2015 12:45 - CONCLUSION: Nonspecific white matter changes. No acute intracranial abnormality. Lam Tucker MD Chest X-Ray 12/16/15 1124 Signed Impressions: Service Date/Time: Wednesday, December 16, 2015 11:54 - CONCLUSION: Hyperinflation which can be seen with COPD. Right apical density, PA and lateral views are recommended when patient is stable. Lam Tucker MD Objective Remarks GENERAL: Alert, cachectic, NAD. SKIN: Warm and dry. HEAD: Normocephalic. EYES: No scleral icterus. No injection or drainage. NECK: Supple, trachea midline. No JVD or lymphadenopathy. CARDIOVASCULAR: Regular rate and rhythm without murmurs, gallops, or rubs. RESPIRATORY: Breath sounds equal bilaterally. No accessory muscle use. Diminished bases. Fair-good effort. GASTROINTESTINAL: Abdomen soft, non-tender, nondistended. PEG in place. Mena draining nga yellow clear urine. MUSCULOSKELETAL: No cyanosis, or edema. BACK: Nontender without obvious deformity. No CVA tenderness. NEUROLOGICAL: Awake, alert. BARBER weakly. Follow commands. No focal deficit. Procedures 12/18/15 EGD with dilation and PEG tube placement A/P Problem List: (1) Failure to thrive in adult ICD Code: R62.7 Status: Acute (2) Malnutrition ICD Code: E46 Status: Acute (3) Bilateral lower leg cellulitis ICD Code: L03.116 Status: Acute (4) Hyponatremia ICD Code: E87.1 Status: Resolved Assessment and Plan 80-year-old male with no known past medical history presents via EMS after being found covered in urine/feces, complaining of generalized weakness and dysphagia. Dysphagia: resulting in severe malnutrition and weight loss (previously documented weight 73kg in June 2014, now 37kg). Evaluated by speech therapy, Nothing by mouth, await reevaluation after EGD with dilation. Consulted GI, performed EGD with PEG tube placement. Continue tube feedings per dietitian and GI recommendations. - speech therapy following. Diet puree with nectar thickened liquids. Cont with TF Jevity 1.5 45ml/hr. - 200cc free water flush TID. Severe Protein Calorie Malnutrition/Failure to Thrive: Secondary to dysphagia above. BMI 11. Palliative care consulted to assist with goals of care. Replace electrolytes as needed, potassium replaced on 12/19/2015. Palliative is following. Generalized Weakness: likely secondary to severe malnutrition and chronic deconditioning. Consulted PT/OT, recommends SNF. Case management consulted. Awaiting placement. Bilateral Lower Extremity Cellulitis/Edema: Bilateral lower extremities with edema/erythema. Started on empiric IV Rocephin. Leukocytosis has resolved. Patient has remained afebrile. Vital signs not indicative of sepsis. Monitor for improvement. Elevate lower extremities. IV morphine as needed for pain control. Hyponatremia: Na 130. Improved to 136 --> 145 with IVF. Likely secondary to dehydration/malnutrition. Resolved, monitor BMP. Right Apical Density: seen on AP CXR with PA lateral chest x-ray recommended by radiology. Checked PA/Lateral CXR which showed findings of COPD with no acute cardiopulmonary disease. DVT Prophylaxis: Lovenox Discharge: Due to lack of insurance (patient never applied for medicare), placement is difficult and not determined. Allyson Breaux DO Dec 25, 2015 6:37 pm
[2015-12-25 19:45] VITALS: BP 104/57; PULSE 89; RESP 20; TEMP 98.1; O2SAT 95
[2015-12-26] VITALS: BP 98/53; PULSE 87; RESP 18; TEMP 97.2; O2SAT 96
[2015-12-26 04:00] VITALS: BP 102/53; PULSE 80; RESP 18; TEMP 96.7; O2SAT 96
[2015-12-26] MEDS: ACETAMINOPHEN 650 MG/20.3 ML UDC PO SCH ×4 (04:19→23:00)
[2015-12-26 07:30] VITALS: BP 96/52; PULSE 86; RESP 20; TEMP 98.8; O2SAT 95
[2015-12-26 07:55] LABS: AUTOMATED NEUTROPHIL # 6.7 TH/MM3 (1.8-7.7); BASOPHIL # 0.1 TH/MM3 (0-0.2); BASOPHIL % 1.7 % (0.0-2.0); EOSINOPHIL # 0.2 TH/MM3 (0-0.4); EOSINOPHIL % 2.5 % (0.0-4.0); HEMATOCRIT 31.9 % (39.0-51.0); HEMO FLAGS DIFF FINAL; LYMPH % 6.3 % (9.0-44.0); LYMPHOCYTE # 0.5 TH/MM3 (1.0-4.8); MEAN CELL VOLUME 97.5 FL (80.0-100.0); MEAN CORPUSCULAR HEMOGLOBIN 32.8 PG (27.0-34.0); MEAN CORPUSCULAR HGB CONC 33.7 % (32.0-36.0); MONO % 4.3 % (0.0-8.0); NEUT % 85.2 % (16.0-70.0); PLATELET COUNT 179 TH/MM3 (150-450); RED BLOOD COUNT 3.27 MIL/MM3 (4.50-5.90); RED CELL DISTRIBUTION WIDTH 14.2 % (11.6-17.2); WHITE BLOOD COUNT 7.9 TH/MM3 (4.0-11.0)
[2015-12-26] MEDS: SODIUM CHLORIDE 0.9% FLUSH 5 ML FLUSH FLUSH SCH ×2 (07:55→21:00)
[2015-12-26 08:42] LABS: BICARBONATE 33.7 MEQ/L (21.0-32.0); POTASSIUM 4.4 MEQ/L (3.5-5.1)
--- NOTE | 2015-12-26 10:39 | HHI.PR ---
Subjective Remarks Frail male in bed, very pleasant. Says he was eating today but not much . Says he feels weak. Did not sit in the chair yet. No fever or chills. No pain. Has nausea on/off. no diarrhea. Tolerates feedings. Objective Vitals Vital Signs Date Time Temp Pulse Resp B/P Pulse Ox O2 Delivery O2 Flow Rate FiO2 12/26/15 07:30 98.8 86 20 96/52 95 12/26/15 04:00 96.7 80 18 102/53 96 12/26/15 00:00 97.2 87 18 98/53 96 12/25/15 20:10 Room Air 12/25/15 19:45 98.1 89 20 104/57 95 12/25/15 16:00 98.6 94 20 97/56 95 12/25/15 12:45 99.2 94 20 132/82 98 I/O 12/25/15 12/25/15 12/25/15 12/26/15 12/26/15 12/26/15 06:59 14:59 22:59 06:59 14:59 22:59 Intake Total 480 ml 180 ml Output Total 550 ml 1300 ml 250 ml 1300 ml Balance -550 ml -820 ml -70 ml -1300 ml Intake Oral 480 ml 180 ml Output Urine Total 550 ml 1300 ml 250 ml 1300 ml Stool Total 0 ml # Bowel Movements 0 0 Result Diagram: 12/26/15 0612 12/26/15 0612 Imaging Last Impressions Chest CT 12/19/15 0000 Signed Impressions: Service Date/Time: Saturday, December 19, 2015 15:10 - CONCLUSION: 1. 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 2. Atherosclerotic calcification of the coronary arteries. Dandy Jett MD Abdomen/Pelvis CT 12/19/15 0000 Signed Impressions: Service Date/Time: Saturday, December 19, 2015 15:10 - CONCLUSION: 1. Bilateral pleural effusions with a small amount of abdominal ascites, generalized anasarca and edema in the mesenteric leaves characteristic of right heart insufficiency. 2. Mild air and fluid distention of the small bowel and colon characteristic of a hypodynamic ileus. No obstruction. Dandy Jett MD Head CT 12/16/15 1145 Signed Impressions: Service Date/Time: Wednesday, December 16, 2015 12:45 - CONCLUSION: Nonspecific white matter changes. No acute intracranial abnormality. Lam Tucker MD Chest X-Ray 12/16/15 1124 Signed Impressions: Service Date/Time: Wednesday, December 16, 2015 11:54 - CONCLUSION: Hyperinflation which can be seen with COPD. Right apical density, PA and lateral views are recommended when patient is stable. Lam Tucker MD Objective Remarks GENERAL: Alert, elderly male, cachectic, NAD. SKIN: Warm and dry. HEAD: Bitemporal waisting. Normocephalic. EYES: No scleral icterus. No injection or drainage. NECK: Supple, trachea midline. No JVD or lymphadenopathy. CARDIOVASCULAR: Regular rate and rhythm without murmurs, gallops, or rubs. RESPIRATORY: Breath sounds equal bilaterally. No accessory muscle use. Diminished bases. Fair-good effort. GASTROINTESTINAL: Abdomen soft, non-tender, nondistended. PEG in place. Mena draining nga yellow clear urine. MUSCULOSKELETAL: No cyanosis, or edema. BACK: Nontender without obvious deformity. No CVA tenderness. NEUROLOGICAL: Awake, alert. BARBER weakly. Follow commands. No focal deficit. Procedures 12/18/15 EGD with dilation and PEG tube placement A/P Problem List: (1) Failure to thrive in adult ICD Code: R62.7 Status: Acute (2) Malnutrition ICD Code: E46 Status: Acute (3) Bilateral lower leg cellulitis ICD Code: L03.116 Status: Acute (4) Hyponatremia ICD Code: E87.1 Status: Resolved Assessment and Plan 80-year-old male with no known past medical history presents via EMS after being found covered in urine/feces, complaining of generalized weakness and dysphagia. Dysphagia: resulting in severe malnutrition and weight loss (previously documented weight 73kg in June 2014, now 37kg). Evaluated by speech therapy, Nothing by mouth, await reevaluation after EGD with dilation. Consulted GI, performed EGD with PEG tube placement. Continue tube feedings per dietitian and GI recommendations. - speech therapy following. Diet puree with nectar thickened liquids. Cont with TF Jevity 1.5 45ml/hr. - 200cc free water flush TID. Severe Protein Calorie Malnutrition/Failure to Thrive: Secondary to dysphagia above. BMI 11. Palliative care consulted to assist with goals of care. Replace electrolytes as needed, potassium replaced on 12/19/2015. Palliative is following. Generalized Weakness: likely secondary to severe malnutrition and chronic deconditioning. Consulted PT/OT, recommends SNF. Case management consulted. Awaiting placement. Bilateral Lower Extremity Cellulitis/Edema: Bilateral lower extremities with edema/erythema. Started on empiric IV Rocephin. Leukocytosis has resolved. Patient has remained afebrile. Vital signs not indicative of sepsis. Monitor for improvement. Elevate lower extremities. IV morphine as needed for pain control. Hyponatremia: Na 130. Improved to 136 --> 145 with IVF. Likely secondary to dehydration/malnutrition. Resolved, monitor BMP. Right Apical Density: seen on AP CXR with PA lateral chest x-ray recommended by radiology. Checked PA/Lateral CXR which showed findings of COPD with no acute cardiopulmonary disease. DVT Prophylaxis: Lovenox Discharge: Due to lack of insurance (patient never applied for medicare), placement is difficult and not determined. Pending Medicaid. DC to SNF when payor source, per CM arrangement. Loren Campbell MD Dec 26, 2015 10:39
[2015-12-26 13:15] VITALS: BP 115/57; PULSE 95; RESP 20; TEMP 99; O2SAT 95
[2015-12-26 16:00] VITALS: BP 125/65; PULSE 101; RESP 20; TEMP 99.6; O2SAT 95
[2015-12-26] MEDS: cefTRIAXone INJ 1,000 MG in SODIUM CHLORIDE 0.9% INJ 100 ML IV SCH (16:57)
[2015-12-26] MEDS: ENOXAPARIN SODIUM 40 MG/0.4 ML SYRINGE SQ SCH (16:57)
[2015-12-26 20:40] VITALS: BP 118/58; PULSE 95; RESP 18; TEMP 96.8; O2SAT 95
[2015-12-27] VITALS: BP 96/54; PULSE 88; RESP 18; TEMP 96.9; O2SAT 96
[2015-12-27 04:45] VITALS: BP 100/56; PULSE 87; RESP 18; TEMP 98; O2SAT 98
[2015-12-27] MEDS: ACETAMINOPHEN 650 MG/20.3 ML UDC PO SCH ×4 (05:00→23:00)
[2015-12-27] MEDS: MORPHINE SULFATE 4 MG/ML INJ IV PRN ×2 (05:10→16:43)
[2015-12-27 08:00] VITALS: BP 111/57; PULSE 78; RESP 18; TEMP 96; O2SAT 97
[2015-12-27] MEDS: SODIUM CHLORIDE 0.9% FLUSH 5 ML FLUSH FLUSH SCH ×2 (09:22→20:32)
[2015-12-27 12:00] VITALS: BP 113/56; PULSE 56; RESP 18; TEMP 97.8; O2SAT 96
--- NOTE | 2015-12-27 14:27 | HHI.PR ---
Subjective Remarks Patient complains of left shoulder pain, says he has chronic left shoulder pain on/off. He denies any cp, sob. He also complaints of hip pain. He is positioning in the bed. No fever or chills/ Says she is not much hungry. No n/v/d/c. Tolerates feedings. Objective Vitals Vital Signs Date Time Temp Pulse Resp B/P Pulse Ox O2 Delivery O2 Flow Rate FiO2 12/27/15 12:00 97.8 56 18 113/56 96 12/27/15 09:22 Room Air 12/27/15 08:00 96.0 78 18 111/57 97 12/27/15 04:45 98.0 87 18 100/56 98 12/27/15 00:00 Room Air 12/27/15 00:00 96.9 88 18 96/54 96 12/26/15 20:40 96.8 95 18 118/58 95 12/26/15 19:30 Room Air 12/26/15 16:00 99.6 101 20 125/65 95 I/O 12/26/15 12/26/15 12/26/15 12/27/15 12/27/15 12/27/15 07:00 15:00 23:00 07:00 15:00 23:00 Intake Total 720 ml 616 ml 343 ml Output Total 1300 ml 1000 ml 1000 ml 2000 ml Balance -1300 ml -280 ml -384 ml -1657 ml Intake Oral 720 ml 360 ml 0 ml Tube Feeding 136 ml 283 ml Tube Irrigant 120 ml 60 ml Output Urine Total 1300 ml 1000 ml 1000 ml 2000 ml # Bowel Movements 0 1 1 Result Diagram: 12/26/1512 12/26/1512 Imaging Last Impressions Chest CT 12/19/15 0000 Signed Impressions: Service Date/Time: Saturday, December 19, 2015 15:10 - CONCLUSION: 1. 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 2. Atherosclerotic calcification of the coronary arteries. Dandy Jett MD Abdomen/Pelvis CT 12/19/15 0000 Signed Impressions: Service Date/Time: Saturday, December 19, 2015 15:10 - CONCLUSION: 1. Bilateral pleural effusions with a small amount of abdominal ascites, generalized anasarca and edema in the mesenteric leaves characteristic of right heart insufficiency. 2. Mild air and fluid distention of the small bowel and colon characteristic of a hypodynamic ileus. No obstruction. Dandy Jett MD Head CT 12/16/15 1145 Signed Impressions: Service Date/Time: Wednesday, December 16, 2015 12:45 - CONCLUSION: Nonspecific white matter changes. No acute intracranial abnormality. Lam Tucker MD Chest X-Ray 12/16/15 1124 Signed Impressions: Service Date/Time: Wednesday, December 16, 2015 11:54 - CONCLUSION: Hyperinflation which can be seen with COPD. Right apical density, PA and lateral views are recommended when patient is stable. Lam Tucker MD Objective Remarks GENERAL: Alert, elderly male, cachectic, NAD. SKIN: Warm and dry. HEAD: Bitemporal waisting. Normocephalic. EYES: No scleral icterus. No injection or drainage. NECK: Supple, trachea midline. No JVD or lymphadenopathy. CARDIOVASCULAR: Regular rate and rhythm without murmurs, gallops, or rubs. RESPIRATORY: Breath sounds equal bilaterally. No accessory muscle use. Diminished bases. Fair-good effort. GASTROINTESTINAL: Abdomen soft, non-tender, nondistended. PEG in place. Mena draining nga yellow clear urine. MUSCULOSKELETAL: No cyanosis, or edema. BACK: Nontender without obvious deformity. No CVA tenderness. NEUROLOGICAL: Awake, alert. BARBER weakly. Follow commands. No focal deficit. Procedures 12/18/15 EGD with dilation and PEG tube placement A/P Problem List: (1) Failure to thrive in adult ICD Code: R62.7 Status: Acute (2) Malnutrition ICD Code: E46 Status: Acute (3) Bilateral lower leg cellulitis ICD Code: L03.116 Status: Acute (4) Hyponatremia ICD Code: E87.1 Status: Resolved Assessment and Plan 80-year-old male with no known past medical history presents via EMS after being found covered in urine/feces, complaining of generalized weakness and dysphagia. Dysphagia: resulting in severe malnutrition and weight loss (previously documented weight 73kg in June 2014, now 37kg). Evaluated by speech therapy, Nothing by mouth, await reevaluation after EGD with dilation. Consulted GI, performed EGD with PEG tube placement. Continue tube feedings per dietitian and GI recommendations. - speech therapy following. Diet puree with nectar thickened liquids. Cont with TF Jevity 1.5 45ml/hr. - 200cc free water flush TID. Severe Protein Calorie Malnutrition/Failure to Thrive: Secondary to dysphagia above. BMI 11. Palliative care consulted to assist with goals of care. Replace electrolytes as needed, potassium replaced on 12/19/2015. Palliative is following. Generalized Weakness: likely secondary to severe malnutrition and chronic deconditioning. Consulted PT/OT, recommends SNF. Case management consulted. Awaiting placement. Bilateral Lower Extremity Cellulitis/Edema: Bilateral lower extremities with edema/erythema. Started on empiric IV Rocephin. Leukocytosis has resolved. Patient has remained afebrile. Vital signs not indicative of sepsis. Monitor for improvement. Elevate lower extremities. IV morphine as needed for pain control. Hyponatremia: Na 130. Improved to 136 --> 145 with IVF. Likely secondary to dehydration/malnutrition. Resolved, monitor BMP. Right Apical Density: seen on AP CXR with PA lateral chest x-ray recommended by radiology. Checked PA/Lateral CXR which showed findings of COPD with no acute cardiopulmonary disease. Stage IV pressure ulcers, present on admission on coccyx and right ischium. Discussed with Reji from wound care. WAVE specialty bed. Wound care: wet to dry dressing BiD to coccyx and bilateral ischium. Left shoulder pain: will give norco. X ray no fractures. Muscle spasm: will check electrolytes, will start flexeril. DVT Prophylaxis: Lovenox Discharge: Due to lack of insurance (patient never applied for medicare), placement is difficult and not determined. Pending Medicaid. DC to SNF when payor source, per CM arrangement. Loren Campbell MD Dec 27, 2015 14:27
[2015-12-27 16:00] VITALS: BP 115/56; PULSE 91; RESP 18; TEMP 98; O2SAT 94
[2015-12-27] MEDS: ENOXAPARIN SODIUM 40 MG/0.4 ML SYRINGE SQ SCH (16:42)
[2015-12-27] MEDS: cefTRIAXone INJ 1,000 MG in SODIUM CHLORIDE 0.9% INJ 100 ML IV SCH (16:42)
[2015-12-27] MEDS ORDERED: ACETAMINOPHEN/HYDROcodone 325 MG/5 MG TAB PO PRN (17:30)
[2015-12-27] MEDS ORDERED: CALCIUM CARBONATE 500 MG CHEWABLE TAB CHEW PRN (17:30)
[2015-12-27] MEDS ORDERED: SIMETHICONE 80 MG CHEWABLE TAB CHEW ONE (17:30)
[2015-12-27] MEDS ORDERED: CALCIUM CARBONATE 500 MG CHEWABLE TAB CHEW ONE (17:30)
[2015-12-27 20:00] VITALS: BP 115/56; PULSE 94; RESP 18; TEMP 96.5; O2SAT 96
--- NOTE | 2015-12-27 20:38 | RADRPT ---
EXAM DATE/TIME: 12/27/2015 20:14 [facility] COMPARISON: No previous studies available for comparison. INDICATIONS : Left shoulder pain. No known injury. MEDICAL HISTORY : None. SURGICAL HISTORY : None. ENCOUNTER: Initial ACUITY: 1 day PAIN SCORE: 2/10 LOCATION: Left Shoulder. FINDINGS: Two view examination of the left shoulder demonstrates no evidence of fracture or dislocation. The g lenohumeral and acromioclavicular joints are maintained. Bony mineralization is normal. CONCLUSION: Unremarkable limited examination of the left shoulder. Miguel Blanchard MD on December 27, 2015 at 20:36 Board Certified Radiologist. This report was verified electronically.
[2015-12-27] MEDS ORDERED: CYCLOBENZAPRINE HCL 10 MG TAB PO ONE (22:15)
[2015-12-27] MEDS ORDERED: CYCLOBENZAPRINE HCL 10 MG TAB PO PRN (22:15)
[2015-12-27] MEDS ORDERED: PILL SPLITTER OTHER PRN (22:15)
[2015-12-28] VITALS: BP 104/50; PULSE 83; RESP 18; TEMP 96.3; O2SAT 95
[2015-12-28 04:00] VITALS: BP 104/51; PULSE 78; RESP 18; TEMP 96.2; O2SAT 95
[2015-12-28] MEDS: ACETAMINOPHEN 650 MG/20.3 ML UDC PO SCH ×4 (05:00→23:00)
[2015-12-28 07:16] LABS: AUTOMATED NEUTROPHIL # 6.1 TH/MM3 (1.8-7.7); BASOPHIL % 0.3 % (0.0-2.0); EOSINOPHIL # 0.2 TH/MM3 (0-0.4); EOSINOPHIL % 2.9 % (0.0-4.0); HEMATOCRIT 31.5 % (39.0-51.0); HEMO FLAGS DIFF FINAL; LYMPH % 8.7 % (9.0-44.0); LYMPHOCYTE # 0.6 TH/MM3 (1.0-4.8); MEAN CELL VOLUME 98.2 FL (80.0-100.0); MEAN CORPUSCULAR HEMOGLOBIN 32.8 PG (27.0-34.0); MEAN CORPUSCULAR HGB CONC 33.4 % (32.0-36.0); MONO % 4.9 % (0.0-8.0); NEUT % 83.2 % (16.0-70.0); PLATELET COUNT 272 TH/MM3 (150-450); RED BLOOD COUNT 3.21 MIL/MM3 (4.50-5.90); RED CELL DISTRIBUTION WIDTH 14.4 % (11.6-17.2); WHITE BLOOD COUNT 7.3 TH/MM3 (4.0-11.0)
[2015-12-28 08:00] VITALS: BP 117/55; PULSE 88; RESP 20; TEMP 97.9; O2SAT 96
[2015-12-28 08:00] LABS: BICARBONATE 36.5 MEQ/L (21.0-32.0); MAGNESIUM 2.1 MG/DL (1.5-2.5); POTASSIUM 4.4 MEQ/L (3.5-5.1)
[2015-12-28] MEDS: SODIUM CHLORIDE 0.9% FLUSH 5 ML FLUSH FLUSH SCH ×2 (08:37→21:00)
[2015-12-28 12:00] VITALS: BP 105/52; PULSE 89; RESP 20; TEMP 96.7; O2SAT 97
--- NOTE | 2015-12-28 15:04 | HHI.PR ---
Subjective Remarks Says he feels much better today. He got the air mattress, and also says pain is controlled by meds. No much appettie, he is not taking much PO. says he has gas. Add simethicone. Objective Vitals Vital Signs Date Time Temp Pulse Resp B/P Pulse Ox O2 Delivery O2 Flow Rate FiO2 12/28/15 12:00 96.7 89 20 105/52 97 12/28/15 08:37 Nasal Cannula 3.00 12/28/15 08:00 97.9 88 20 117/55 96 12/28/15 04:00 96.2 78 18 104/51 95 12/28/15 00:00 96.3 83 18 104/50 95 12/28/15 00:00 Room Air 12/27/15 20:25 Room Air 12/27/15 20:00 96.5 94 18 115/56 96 12/27/15 16:00 98.0 91 18 115/56 94 I/O 12/27/15 12/27/15 12/27/15 12/28/15 12/28/15 12/28/15 06:59 14:59 22:59 06:59 14:59 22:59 Intake Total 343 ml 720 ml 361 ml Output Total 2000 ml 1200 ml 550 ml 1300 ml Balance -1657 ml -480 ml -189 ml -1300 ml Intake Oral 0 ml 720 ml 120 ml Tube Feeding 283 ml 181 ml Tube Irrigant 60 ml 60 ml Output Urine Total 2000 ml 1200 ml 550 ml 1300 ml # Bowel Movements 1 1 Result Diagram: 12/28/15 0620 12/28/15 0620 Imaging Last Impressions Shoulder X-Ray 12/27/15 0000 Signed Impressions: Service Date/Time: Sunday, December 27, 2015 20:14 - CONCLUSION: Unremarkable limited examination of the left shoulder. Miguel Blanchard MD Chest CT 12/19/15 0000 Signed Impressions: Service Date/Time: Saturday, December 19, 2015 15:10 - CONCLUSION: 1. 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 2. Atherosclerotic calcification of the coronary arteries. Dandy Jett MD Abdomen/Pelvis CT 12/19/15 0000 Signed Impressions: Service Date/Time: Saturday, December 19, 2015 15:10 - CONCLUSION: 1. Bilateral pleural effusions with a small amount of abdominal ascites, generalized anasarca and edema in the mesenteric leaves characteristic of right heart insufficiency. 2. Mild air and fluid distention of the small bowel and colon characteristic of a hypodynamic ileus. No obstruction. Dandy Jett MD Head CT 12/16/15 1145 Signed Impressions: Service Date/Time: Wednesday, December 16, 2015 12:45 - CONCLUSION: Nonspecific white matter changes. No acute intracranial abnormality. Lam Tucker MD Chest X-Ray 12/16/15 1124 Signed Impressions: Service Date/Time: Wednesday, December 16, 2015 11:54 - CONCLUSION: Hyperinflation which can be seen with COPD. Right apical density, PA and lateral views are recommended when patient is stable. Lam Tucker MD Objective Remarks GENERAL: Alert, elderly male, cachectic, NAD. SKIN: Warm and dry. HEAD: Bitemporal waisting. Normocephalic. EYES: No scleral icterus. No injection or drainage. NECK: Supple, trachea midline. No JVD or lymphadenopathy. CARDIOVASCULAR: Regular rate and rhythm without murmurs, gallops, or rubs. RESPIRATORY: Breath sounds equal bilaterally. No accessory muscle use. Diminished bases. Fair-good effort. GASTROINTESTINAL: Abdomen soft, non-tender, nondistended. PEG in place. Mena draining nga yellow clear urine. MUSCULOSKELETAL: No cyanosis, or edema. BACK: Nontender without obvious deformity. No CVA tenderness. NEUROLOGICAL: Awake, alert. BARBER weakly. Follow commands. No focal deficit. Procedures 12/18/15 EGD with dilation and PEG tube placement A/P Problem List: (1) Failure to thrive in adult ICD Code: R62.7 Status: Acute (2) Malnutrition ICD Code: E46 Status: Acute (3) Bilateral lower leg cellulitis ICD Code: L03.116 Status: Acute (4) Hyponatremia ICD Code: E87.1 Status: Resolved Assessment and Plan 80-year-old male with no known past medical history presents via EMS after being found covered in urine/feces, complaining of generalized weakness and dysphagia. Dysphagia: resulting in severe malnutrition and weight loss (previously documented weight 73kg in June 2014, now 37kg). Evaluated by speech therapy, Nothing by mouth, await reevaluation after EGD with dilation. Consulted GI, performed EGD with PEG tube placement. Continue tube feedings per dietitian and GI recommendations. - speech therapy following. Diet puree with nectar thickened liquids. Cont with TF Jevity 1.5 45ml/hr. - 200cc free water flush TID. Severe Protein Calorie Malnutrition/Failure to Thrive: Secondary to dysphagia above. BMI 11. Palliative care consulted to assist with goals of care. Replace electrolytes as needed, potassium replaced on 12/19/2015. Palliative is following. Generalized Weakness: likely secondary to severe malnutrition and chronic deconditioning. Consulted PT/OT, recommends SNF. Case management consulted. Awaiting placement. Bilateral Lower Extremity Cellulitis/Edema: Bilateral lower extremities with edema/erythema. Started on empiric IV Rocephin. Leukocytosis has resolved. Patient has remained afebrile. Vital signs not indicative of sepsis. Monitor for improvement. Elevate lower extremities. IV morphine as needed for pain control. Hyponatremia: Na 130. Improved to 136 --> 145 with IVF. Likely secondary to dehydration/malnutrition. Resolved, monitor BMP. Right Apical Density: seen on AP CXR with PA lateral chest x-ray recommended by radiology. Checked PA/Lateral CXR which showed findings of COPD with no acute cardiopulmonary disease. Stage IV pressure ulcers, present on admission on coccyx and right ischium. Discussed with Reji from wound care. WAVE specialty bed. Wound care: wet to dry dressing BiD to coccyx and bilateral ischium. Left shoulder pain: will give norco. X ray no fractures. Muscle spasm: Electrolytes normal. Continue flexeril. DVT Prophylaxis: Lovenox Discharge: Due to lack of insurance (patient never applied for medicare), placement is difficult and not determined. Pending Medicaid. DC to SNF when payor source, per CM arrangement. Loren Campbell MD Dec 28, 2015 15:04
[2015-12-28] MEDS: ENOXAPARIN SODIUM 40 MG/0.4 ML SYRINGE SQ SCH (15:52)
[2015-12-28] MEDS: cefTRIAXone INJ 1,000 MG in SODIUM CHLORIDE 0.9% INJ 100 ML IV SCH (15:52)
[2015-12-28] MEDS: SIMETHICONE 80 MG CHEWABLE TAB CHEW PRN (15:59)
[2015-12-28 16:00] VITALS: BP 115/58; PULSE 89; RESP 20; TEMP 97.4; O2SAT 96
[2015-12-28 20:00] VITALS: BP 98/49; PULSE 90; RESP 18; TEMP 96.9; O2SAT 97
[2015-12-29] VITALS (7 sets, daily range): BP systolic 102–113; BP diastolic 53–58; PULSE 75–91; RESP 16–18; TEMP 95.6–97.7; O2SAT 94–98
[2015-12-29] MEDS: ACETAMINOPHEN 650 MG/20.3 ML UDC PO SCH (05:00)
[2015-12-29] MEDS: SODIUM CHLORIDE 0.9% FLUSH 5 ML FLUSH FLUSH SCH ×2 (08:01→21:26)
--- NOTE | 2015-12-29 13:24 | HHI.PR ---
Subjective Remarks Says he is eating more and appetite is coming back. He thinks tube feedings are not helping much. Denies cp, sob, n/v/d/c. says he feels improved today, however he is still very weak. Pain is controlled by meds. Objective Vitals Vital Signs Date Time Temp Pulse Resp B/P Pulse Ox O2 Delivery O2 Flow Rate FiO2 12/29/15 08:20 Room Air 12/29/15 08:00 97.2 86 18 107/55 97 12/29/15 04:00 96.6 86 17 106/58 96 12/29/15 00:00 97.0 86 18 111/56 94 12/28/15 21:15 Room Air 12/28/15 20:00 96.9 90 18 98/49 97 12/28/15 16:00 97.4 89 20 115/58 96 I/O 12/28/15 12/28/15 12/28/15 12/29/15 12/29/15 12/29/15 07:00 15:00 23:00 07:00 15:00 23:00 Intake Total 960 ml 1231 ml 575 ml Output Total 1300 ml 1050 ml 1100 ml 1750 ml Balance -1300 ml -90 ml 131 ml -1175 ml Intake Oral 960 ml 280 ml 200 ml Tube Feeding 891 ml 315 ml Tube Irrigant 60 ml 60 ml Output Urine Total 1300 ml 1050 ml 1100 ml 1750 ml # Bowel Movements 1 1 Result Diagram: 12/28/15 0620 12/28/15 0620 Imaging Last Impressions Shoulder X-Ray 12/27/15 0000 Signed Impressions: Service Date/Time: Sunday, December 27, 2015 20:14 - CONCLUSION: Unremarkable limited examination of the left shoulder. Miguel Blanchard MD Chest CT 12/19/15 0000 Signed Impressions: Service Date/Time: Saturday, December 19, 2015 15:10 - CONCLUSION: 1. 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 2. Atherosclerotic calcification of the coronary arteries. Dandy Jett MD Abdomen/Pelvis CT 12/19/15 0000 Signed Impressions: Service Date/Time: Saturday, December 19, 2015 15:10 - CONCLUSION: 1. Bilateral pleural effusions with a small amount of abdominal ascites, generalized anasarca and edema in the mesenteric leaves characteristic of right heart insufficiency. 2. Mild air and fluid distention of the small bowel and colon characteristic of a hypodynamic ileus. No obstruction. Dandy Jett MD Head CT 12/16/15 1145 Signed Impressions: Service Date/Time: Wednesday, December 16, 2015 12:45 - CONCLUSION: Nonspecific white matter changes. No acute intracranial abnormality. Lam Tucker MD Chest X-Ray 12/16/15 1124 Signed Impressions: Service Date/Time: Wednesday, December 16, 2015 11:54 - CONCLUSION: Hyperinflation which can be seen with COPD. Right apical density, PA and lateral views are recommended when patient is stable. Lam Tucker MD Objective Remarks GENERAL: Alert, elderly male, cachectic, NAD. SKIN: Warm and dry. HEAD: Bitemporal waisting. Normocephalic. EYES: No scleral icterus. No injection or drainage. NECK: Supple, trachea midline. No JVD or lymphadenopathy. CARDIOVASCULAR: Regular rate and rhythm without murmurs, gallops, or rubs. RESPIRATORY: Breath sounds equal bilaterally. No accessory muscle use. Diminished bases. Fair-good effort. GASTROINTESTINAL: Abdomen soft, non-tender, nondistended. PEG in place. Mena draining nga yellow clear urine. MUSCULOSKELETAL: No cyanosis, or edema. BACK: Nontender without obvious deformity. No CVA tenderness. NEUROLOGICAL: Awake, alert. BARBER weakly. Follow commands. No focal deficit. Procedures 12/18/15 EGD with dilation and PEG tube placement A/P Problem List: (1) Failure to thrive in adult ICD Code: R62.7 Status: Acute (2) Malnutrition ICD Code: E46 Status: Acute (3) Bilateral lower leg cellulitis ICD Code: L03.116 Status: Acute (4) Hyponatremia ICD Code: E87.1 Status: Resolved Assessment and Plan 80-year-old male with no known past medical history presents via EMS after being found covered in urine/feces, complaining of generalized weakness and dysphagia. Dysphagia: resulting in severe malnutrition and weight loss (previously documented weight 73kg in June 2014, now 37kg). Evaluated by speech therapy, Nothing by mouth, await reevaluation after EGD with dilation. Consulted GI, performed EGD with PEG tube placement. Continue tube feedings per dietitian and GI recommendations. - speech therapy following. Diet puree with nectar thickened liquids. Cont with TF Jevity 1.5 45ml/hr. - 200cc free water flush TID. Severe Protein Calorie Malnutrition/Failure to Thrive: Secondary to dysphagia above. BMI 11. Palliative care consulted to assist with goals of care. Replace electrolytes as needed, potassium replaced on 12/19/2015. Palliative is following. Generalized Weakness: likely secondary to severe malnutrition and chronic deconditioning. Consulted PT/OT, recommends SNF. Case management consulted. Awaiting placement. Bilateral Lower Extremity Cellulitis/Edema: Bilateral lower extremities with edema/erythema. Started on empiric IV Rocephin. Leukocytosis has resolved. Patient has remained afebrile. Vital signs not indicative of sepsis. Monitor for improvement. Elevate lower extremities. IV morphine as needed for pain control. Hyponatremia: Na 130. Improved to 136 --> 145 with IVF. Likely secondary to dehydration/malnutrition. Resolved, monitor BMP. Right Apical Density: seen on AP CXR with PA lateral chest x-ray recommended by radiology. Checked PA/Lateral CXR which showed findings of COPD with no acute cardiopulmonary disease. Stage IV pressure ulcers, present on admission on coccyx and right ischium. Discussed with Reji from wound care. WAVE specialty bed. Wound care: wet to dry dressing BiD to coccyx and bilateral ischium. Left shoulder pain: will give norco. X ray no fractures. Muscle spasm: Electrolytes normal. Continue flexeril. DVT Prophylaxis: Lovenox Discharge: Due to lack of insurance (patient never applied for medicare), placement is difficult and not determined. Pending Medicaid. DC to SNF when payor source, per CM arrangement. Loren Campbell MD Dec 29, 2015 13:24
[2015-12-29] MEDS: ENOXAPARIN SODIUM 40 MG/0.4 ML SYRINGE SQ SCH (14:34)
[2015-12-29] MEDS: cefTRIAXone INJ 1,000 MG in SODIUM CHLORIDE 0.9% INJ 100 ML IV SCH (14:35)
[2015-12-30] VITALS (7 sets, daily range): BP systolic 93–111; BP diastolic 53–64; PULSE 81–97; RESP 16–18; TEMP 96–98; O2SAT 96–98
[2015-12-30] MEDS: SODIUM CHLORIDE 0.9% FLUSH 5 ML FLUSH FLUSH SCH ×2 (10:15→21:00)
[2015-12-30] MEDS: ENOXAPARIN SODIUM 40 MG/0.4 ML SYRINGE SQ SCH (15:31)
[2015-12-30] MEDS: cefTRIAXone INJ 1,000 MG in SODIUM CHLORIDE 0.9% INJ 100 ML IV SCH (15:31)
--- NOTE | 2015-12-30 18:56 | HHI.PR ---
Subjective Remarks Feels improved. Bed is comfortable. Not eating much. Denies fever or chills. Objective Vitals Vital Signs Date Time Temp Pulse Resp B/P Pulse Ox O2 Delivery O2 Flow Rate FiO2 12/30/15 16:46 98 Room Air 12/30/15 16:30 98.0 92 18 111/54 97 12/30/15 11:15 97.1 83 16 111/59 98 12/30/15 07:30 97.5 82 16 106/64 98 12/30/15 03:00 96.0 83 18 109/53 97 12/30/15 01:15 97.3 97 18 93/59 96 12/29/15 20:40 95.6 91 18 106/53 96 12/29/15 20:00 Room Air I/O 12/29/15 12/29/15 12/29/15 12/30/15 12/30/15 12/30/15 07:00 15:00 23:00 07:00 15:00 23:00 Intake Total 575 ml 840 ml 240 ml 650 ml Output Total 1750 ml 1600 ml 850 ml Balance -1175 ml -760 ml -610 ml 650 ml Intake Oral 200 ml 840 ml 240 ml Tube Feeding 315 ml 450 ml Tube Irrigant 60 ml Other 200 ml Output Urine Total 1750 ml 1600 ml 850 ml # Bowel Movements 1 2 Result Diagram: 12/28/15 0620 12/28/15 0620 Imaging Last Impressions Shoulder X-Ray 12/27/15 0000 Signed Impressions: Service Date/Time: Sunday, December 27, 2015 20:14 - CONCLUSION: Unremarkable limited examination of the left shoulder. Miguel Blanchard MD Chest CT 12/19/15 0000 Signed Impressions: Service Date/Time: Saturday, December 19, 2015 15:10 - CONCLUSION: 1. 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 2. Atherosclerotic calcification of the coronary arteries. Dandy Jett MD Abdomen/Pelvis CT 12/19/15 0000 Signed Impressions: Service Date/Time: Saturday, December 19, 2015 15:10 - CONCLUSION: 1. Bilateral pleural effusions with a small amount of abdominal ascites, generalized anasarca and edema in the mesenteric leaves characteristic of right heart insufficiency. 2. Mild air and fluid distention of the small bowel and colon characteristic of a hypodynamic ileus. No obstruction. Dandy Jett MD Head CT 12/16/15 1145 Signed Impressions: Service Date/Time: Wednesday, December 16, 2015 12:45 - CONCLUSION: Nonspecific white matter changes. No acute intracranial abnormality. Lam Tucker MD Chest X-Ray 12/16/15 1124 Signed Impressions: Service Date/Time: Wednesday, December 16, 2015 11:54 - CONCLUSION: Hyperinflation which can be seen with COPD. Right apical density, PA and lateral views are recommended when patient is stable. Lam Tucker MD Objective Remarks GENERAL: Alert, elderly male, cachectic, NAD. SKIN: Warm and dry. HEAD: Bitemporal waisting. Normocephalic. EYES: No scleral icterus. No injection or drainage. NECK: Supple, trachea midline. No JVD or lymphadenopathy. CARDIOVASCULAR: Regular rate and rhythm without murmurs, gallops, or rubs. RESPIRATORY: Breath sounds equal bilaterally. No accessory muscle use. Diminished bases. Fair-good effort. GASTROINTESTINAL: Abdomen soft, non-tender, nondistended. PEG in place. Mena draining nga yellow clear urine. MUSCULOSKELETAL: No cyanosis, or edema. BACK: Nontender without obvious deformity. No CVA tenderness. NEUROLOGICAL: Awake, alert. BARBER weakly. Follow commands. No focal deficit. Procedures 12/18/15 EGD with dilation and PEG tube placement A/P Problem List: (1) Failure to thrive in adult ICD Code: R62.7 Status: Acute (2) Malnutrition ICD Code: E46 Status: Acute (3) Bilateral lower leg cellulitis ICD Code: L03.116 Status: Acute (4) Hyponatremia ICD Code: E87.1 Status: Resolved Assessment and Plan 80-year-old male with no known past medical history presents via EMS after being found covered in urine/feces, complaining of generalized weakness and dysphagia. Dysphagia: resulting in severe malnutrition and weight loss (previously documented weight 73kg in June 2014, now 37kg). Evaluated by speech therapy, Nothing by mouth, await reevaluation after EGD with dilation. Consulted GI, performed EGD with PEG tube placement. Continue tube feedings per dietitian and GI recommendations. - speech therapy following. Diet puree with nectar thickened liquids. Cont with TF Jevity 1.5 45ml/hr. - 200cc free water flush TID. Severe Protein Calorie Malnutrition/Failure to Thrive: Secondary to dysphagia above. BMI 11 on admission. Palliative care consulted to assist with goals of care. Replace electrolytes as needed, potassium replaced on 12/19/2015. Palliative is following. Has PEG and is on tube feeds, improving. Generalized Weakness: likely secondary to severe malnutrition and chronic deconditioning. Consulted PT/OT, recommends SNF. Case management consulted. Awaiting placement. Bilateral Lower Extremity Cellulitis/Edema: Bilateral lower extremities with edema/erythema. Started on empiric IV Rocephin. Leukocytosis has resolved. Patient has remained afebrile. Vital signs not indicative of sepsis. Monitor for improvement. Elevate lower extremities. IV morphine as needed for pain control. Hyponatremia: Na 130. Improved to 136 --> 145 with IVF. Likely secondary to dehydration/malnutrition. Resolved, monitor BMP. Right Apical Density: seen on AP CXR with PA lateral chest x-ray recommended by radiology. Checked PA/Lateral CXR which showed findings of COPD with no acute cardiopulmonary disease. Stage IV pressure ulcers, present on admission on coccyx and right ischium. Discussed with Reji from wound care. WAVE specialty bed. Wound care: wet to dry dressing BiD to coccyx and bilateral ischium. Left shoulder pain: will give norco. X ray no fractures. Muscle spasm: Electrolytes normal. Continue flexeril. DVT Prophylaxis: Lovenox Discharge: Due to lack of insurance (patient never applied for medicare), placement is difficult and not determined. Pending Medicaid. DC to SNF when payor source, per CM arrangement. Loren Campbell MD Dec 30, 2015 18:56
[2015-12-31 03:25] VITALS: BP 111/58; PULSE 86; RESP 18; TEMP 96; O2SAT 99
[2015-12-31 08:00] VITALS: BP 133/61; PULSE 77; RESP 18; TEMP 95.4; O2SAT 96
[2015-12-31] MEDS: MAGNESIUM HYDROXIDE SUSP 30 ML CUP PO PRN (09:18)
[2015-12-31] MEDS: SODIUM CHLORIDE 0.9% FLUSH 5 ML FLUSH FLUSH SCH ×2 (09:44→20:48)
[2015-12-31 12:00] VITALS: BP 104/57; PULSE 95; RESP 20; TEMP 97.8; O2SAT 97
[2015-12-31 15:21] VITALS: BP 105/51; PULSE 94; RESP 18; TEMP 97.4; O2SAT 97
--- NOTE | 2015-12-31 15:29 | HHI.PR ---
Subjective Remarks in the bed. Says he feels improved today. Feel sweak, Sasy he had PT. ADiscussed with the PT service patient александр monica for soft chair, wound nurses consulted for recommendations of ernst. Objective Vitals Vital Signs Date Time Temp Pulse Resp B/P Pulse Ox O2 Delivery O2 Flow Rate FiO2 12/31/15 15:21 97.4 94 18 105/51 97 12/31/15 12:32 Room Air 12/31/15 08:00 95.4 77 18 133/61 96 12/31/15 03:25 96.0 86 18 111/58 99 12/30/15 23:30 96.1 87 18 108/57 97 12/30/15 20:30 97.3 81 18 110/62 97 12/30/15 20:00 Room Air 21 12/30/15 16:46 98 Room Air 12/30/15 16:30 98.0 92 18 111/54 97 I/O 12/30/15 12/30/15 12/30/15 12/31/15 12/31/15 12/31/15 07:00 15:00 23:00 07:00 15:00 23:00 Intake Total 240 ml 750 ml 1038 ml Output Total 850 ml 300 ml 650 ml 1300 ml Balance -610 ml 450 ml 388 ml -1300 ml Intake Oral 240 ml 100 ml 240 ml Tube Feeding 450 ml 598 ml Other 200 ml 200 ml Output Urine Total 850 ml 300 ml 650 ml 1300 ml # Bowel Movements 2 1 2 1 Result Diagram: 12/28/15 0620 12/28/15 0620 Imaging Last Impressions Shoulder X-Ray 12/27/15 0000 Signed Impressions: Service Date/Time: Sunday, December 27, 2015 20:14 - CONCLUSION: Unremarkable limited examination of the left shoulder. Miguel Blanchard MD Chest CT 12/19/15 0000 Signed Impressions: Service Date/Time: Saturday, December 19, 2015 15:10 - CONCLUSION: 1. 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 2. Atherosclerotic calcification of the coronary arteries. Dandy Jett MD Abdomen/Pelvis CT 12/19/15 0000 Signed Impressions: Service Date/Time: Saturday, December 19, 2015 15:10 - CONCLUSION: 1. Bilateral pleural effusions with a small amount of abdominal ascites, generalized anasarca and edema in the mesenteric leaves characteristic of right heart insufficiency. 2. Mild air and fluid distention of the small bowel and colon characteristic of a hypodynamic ileus. No obstruction. Dandy Jett MD Head CT 12/16/15 1145 Signed Impressions: Service Date/Time: Wednesday, December 16, 2015 12:45 - CONCLUSION: Nonspecific white matter changes. No acute intracranial abnormality. Lam Tucker MD Chest X-Ray 12/16/15 1124 Signed Impressions: Service Date/Time: Wednesday, December 16, 2015 11:54 - CONCLUSION: Hyperinflation which can be seen with COPD. Right apical density, PA and lateral views are recommended when patient is stable. Lam Tucker MD Objective Remarks GENERAL: Alert, elderly male, cachectic, NAD. SKIN: Warm and dry. HEAD: Bitemporal waisting. Normocephalic. EYES: No scleral icterus. No injection or drainage. NECK: Supple, trachea midline. No JVD or lymphadenopathy. CARDIOVASCULAR: Regular rate and rhythm without murmurs, gallops, or rubs. RESPIRATORY: Breath sounds equal bilaterally. No accessory muscle use. Diminished bases. Fair-good effort. GASTROINTESTINAL: Abdomen soft, non-tender, nondistended. PEG in place. Mena draining nga yellow clear urine. MUSCULOSKELETAL: No cyanosis, or edema. BACK: Nontender without obvious deformity. No CVA tenderness. NEUROLOGICAL: Awake, alert. BARBER weakly. Follow commands. No focal deficit. Procedures 12/18/15 EGD with dilation and PEG tube placement A/P Problem List: (1) Failure to thrive in adult ICD Code: R62.7 Status: Acute (2) Malnutrition ICD Code: E46 Status: Acute (3) Bilateral lower leg cellulitis ICD Code: L03.116 Status: Acute (4) Hyponatremia ICD Code: E87.1 Status: Resolved Assessment and Plan 80-year-old male with no known past medical history presents via EMS after being found covered in urine/feces, complaining of generalized weakness and dysphagia. Dysphagia: resulting in severe malnutrition and weight loss (previously documented weight 73kg in June 2014, now 37kg). Evaluated by speech therapy, Nothing by mouth, await reevaluation after EGD with dilation. Consulted GI, performed EGD with PEG tube placement. Continue tube feedings per dietitian and GI recommendations. - speech therapy following. Diet puree with nectar thickened liquids. Cont with TF Jevity 1.5 45ml/hr. - 200cc free water flush TID. Severe Protein Calorie Malnutrition/Failure to Thrive: Secondary to dysphagia above. BMI 11 on admission. Palliative care consulted to assist with goals of care. Replace electrolytes as needed, potassium replaced on 12/19/2015. Palliative is following. Has PEG and is on tube feeds, improving. Generalized Weakness: likely secondary to severe malnutrition and chronic deconditioning. Consulted PT/OT, recommends SNF. Case management consulted. Awaiting placement. Bilateral Lower Extremity Cellulitis/Edema: Bilateral lower extremities with edema/erythema. Started on empiric IV Rocephin. Leukocytosis has resolved. Patient has remained afebrile. Vital signs not indicative of sepsis. Monitor for improvement. Elevate lower extremities. IV morphine as needed for pain control. Hyponatremia: Na 130. Improved to 136 --> 145 with IVF. Likely secondary to dehydration/malnutrition. Resolved, monitor BMP. Right Apical Density: seen on AP CXR with PA lateral chest x-ray recommended by radiology. Checked PA/Lateral CXR which showed findings of COPD with no acute cardiopulmonary disease. Stage IV pressure ulcers, present on admission on coccyx and right ischium. Discussed with Reji from wound care. WAVE specialty bed. Wound care: wet to dry dressing BiD to coccyx and bilateral ischium. Left shoulder pain: will give norco. X ray no fractures. Muscle spasm: Electrolytes normal. Continue flexeril. DVT Prophylaxis: Lovenox Discharge: Due to lack of insurance (patient never applied for medicare), placement is difficult and not determined. Pending Medicaid. DC to SNF when payor source, per CM arrangement. Loren Campbell MD Dec 31, 2015 15:29
[2015-12-31] MEDS: cefTRIAXone INJ 1,000 MG in SODIUM CHLORIDE 0.9% INJ 100 ML IV SCH (16:13)
[2015-12-31] MEDS: ENOXAPARIN SODIUM 40 MG/0.4 ML SYRINGE SQ SCH (16:13)
[2015-12-31] MEDS: SODIUM CHLORIDE 0.9% FLUSH 5 ML FLUSH FLUSH PRN (16:14)
--- NOTE | 2015-12-31 18:09 | HHI.HCPN ---
Reason for visit a. To assist with evaluation and management of symptoms including: Malnutrition, weakness, pain b. To assist medical decision maker(s) with: better understanding of current medical conditions; weighing benefits/burdens of medical treatment options; making medical treatment decisions. . (Klaudia Mario) Subjective/Interval History Patient seen and assessed and 1414. Alert and oriented 3. Having continued fatigue and weaknesslikely secondary to severe malnutrition and chronic debilitation. Patient states, "I have help to get out of be, but i can only take a step or two and my needs start to wobble." He continues to verbalize aggressive goals stating he wants therapy and he wants to regain some strength. However, today the patient sated he didn't know if he would ever get to go back to his home again. PT/OT following this patient. Patient reporting intermittent pain that is moderate to severe in his back and buttocks. PRN [place] and morphine are available for pain, none utilized in the past 24 hours. Appetite improving s/p EGD with dilatation and PEG tube placement on 12/18/15, recent nutritional intake approximately 75% Speech continues to follow this patient who remains on a pured diet with honey consistency thickened liquids. LBM: 12/31/15 Case management notes indicate there is no payor source for SNF. Patient does not have medicare. He states he worked in the [employer] and did not pay and the system. Patient is Medicaid pending for SNF placement. Forwarded from initial Palliative consultation completed on 12/17/15 by Klaudia NICOLAS Mr. Dixon is an 80-year-old male who presented to [facility] ED on 12/16/15 via EMS from his home after being found covered in urine and feces. The patient was lethargic, oriented to person and place. Very soft spoken and difficult to understand. He complained of general weakness and dysphasia stating he had been very weak and was unable to get out of his chair for several days. The patient also reported the he had been having difficulty swallowing for "quite a while" which made it difficult to eat/drink. Patient reported he had not seen a doctor in several years and had never been evaluated by gastroenterology for his dysphasia. Denied abdominal pain, nausea, vomiting. The patient had no other medical complaints other than weakness and dysphasia. He denied any recent history of fever, chills, lightheadedness, chest pain, shortness of breath or urinary complaints. Additional diagnostic findings in the ED include: * Vital signs: Pulse 86, respirations 24, BP 134/89, oxygen saturation 100% on room air, temperature 97.6 * WBC: 15.3, hemoglobin 13.1, hematocrit 37.8, platelets 162, neutrophils 93.7% * PT: 12.2, INR 1.2, APTT 24.1 * Sodium: 1:30, potassium 5.0, chloride 92, carbon dioxide 26.5, glucose 116, calcium 8.6, magnesium 2.5 * BUN: 59, creatinine 1.17, GFR 60 * Total bilirubin: 0.8, AST 15, ALT 15 * Alkaline phosphatase: 83 * Total creatine kinase: 33 * Troponin: <0.02 * Total protein: 6.5, albumin 3.0 * Urinalysis: Hazy urine with large amount of occult blood, urine RBC and mucus. Culture not indicated. * Chest x-ray PA & LAT: Findings of COPD, no acute cardiopulmonary disease * Head CT: Nonspecific white matter changes, no acute intracranial abnormality * EKG: Sinus rhythm, possible left atrial enlargement, nonspecific T-wave abnormality. Mr. Dixon was admitted for further evaluation and medical management of dysphasia, adult failure to thrive, leukocytosis and dehydration. The patient was seen for swallow evaluation but was unable to complete the swallow sequence. Per speech, patient has laryngeal elevation but does not complete a swallow. Patient will remain NPO at this time. Gastroenterology was consulted for possible achalasia. The patient reported having progressively worsening dysphasia, both liquids and solids, for several months. He stated he had lost a significant amount of weight is unable to quantify. Gastroenterology made recommendations for a barium swallow. Further recommendations to follow pending barium swallow, possibly EGD with Botox versus EGD with PEG tube placement. Palliative Care was consulted to assist with symptom management and to discuss with the patient/family the benefits and burdens of his current illnesses and the options regarding future care. . (Klaudia Mario) Advance Directives Living Will: Never completed Health Care Surrogate: Copy in medical record Durable Power of Store Gift Wrap Associate: Never completed (Klaudia Mario) Advance Directive Specifics Date completed: 12/22/15 . Health Care Surrogate(s): The patient has completed the health care surrogate form identifying his brother , Otf Dixon, as his healthcare surrogate decision maker. Patient's brother verbalizes willingness to act in this role if/when necessary. . Documented care wishes: No documented care wished have been completed. . (Klaudia Mario) Objective Vital Signs Date Time Temp Pulse Resp B/P Pulse Ox O2 Delivery O2 Flow Rate FiO2 12/31/15 15:21 97.4 94 18 105/51 97 12/31/15 12:32 Room Air 12/31/15 08:00 95.4 77 18 133/61 96 12/31/15 03:25 96.0 86 18 111/58 99 12/30/15 23:30 96.1 87 18 108/57 97 12/30/15 20:30 97.3 81 18 110/62 97 12/30/15 20:00 Room Air 21 Intake & Output 12/31/15 12/31/15 06:59 18:59 Intake Total 1138 ml 559 ml Output Total 950 ml 1300 ml Balance 188 ml -741 ml Intake Oral 340 ml IV Total 100 ml Tube Feeding 598 ml 459 ml Other 200 ml Output Urine Total 950 ml 1300 ml # Bowel Movements 3 1 . Physical Exam CONSTITUTIONAL/GENERAL: This is a cachectic elderly male patient, in no apparent distress. TUBES/LINES/DRAINS: PIV 1 SKIN: No jaundice, rashes, or lesions. Skin temperature appropriate. Not diaphoretic. HEAD: Atraumatic. Normocephalic. EYES: Pupils equal and round and reactive. No scleral icterus. ENT: Hearing grossly normal. Nose without bleeding or purulent drainage. Poor dentition NECK: Trachea midline. Supple, nontender. No palpable thyroid enlargement or nodularity. CARDIOVASCULAR: Regular rate and rhythm.. No JVD. Peripheral pulses symmetric. RESPIRATORY/CHEST: Symmetric, unlabored respirations.. No wheezes, rales, or rhonchi. GASTROINTESTINAL: Abdomen soft, non-tender, nondistended. No hepato-splenomegaly , or palpable masses. No guarding. Bowel sounds present. LBM: 12/31/15 GENITOURINARY: Without palpable bladder distension. MUSCULOSKELETAL: Extremities without clubbing or cyanosis. Temporal wasting LYMPHATICS: No palpable cervical or supraclavicular adenopathy. NEUROLOGICAL: Awake. Alert and oriented 3. Answering questions, following commands. Cognitively sharp. Moves all extremities. PSYCHIATRIC: No obvious anxiety/depression. No apparent hallucinations or other psychotic thought process. . (Klaudia Mario) Diagnostic Tests Result Diagram: 12/28/1520 12/28/15619 Imaging Last Impressions Shoulder X-Ray 12/27/15 0000 Signed Impressions: Service Date/Time: Sunday, December 27, 2015 20:14 - CONCLUSION: Unremarkable limited examination of the left shoulder. Miguel Blanchard MD Chest CT 12/19/15 0000 Signed Impressions: Service Date/Time: Saturday, December 19, 2015 15:10 - CONCLUSION: 1. 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 2. Atherosclerotic calcification of the coronary arteries. Dandy Jett MD Abdomen/Pelvis CT 12/19/15 0000 Signed Impressions: Service Date/Time: Saturday, December 19, 2015 15:10 - CONCLUSION: 1. Bilateral pleural effusions with a small amount of abdominal ascites, generalized anasarca and edema in the mesenteric leaves characteristic of right heart insufficiency. 2. Mild air and fluid distention of the small bowel and colon characteristic of a hypodynamic ileus. No obstruction. Dandy Jett MD Head CT 12/16/15 1145 Signed Impressions: Service Date/Time: Wednesday, December 16, 2015 12:45 - CONCLUSION: Nonspecific white matter changes. No acute intracranial abnormality. Lam Tucker MD Chest X-Ray 12/16/15 1124 Signed Impressions: Service Date/Time: Wednesday, December 16, 2015 11:54 - CONCLUSION: Hyperinflation which can be seen with COPD. Right apical density, PA and lateral views are recommended when patient is stable. Lam Tucker MD . Procedures 12/19/15: EGD with dilatation and PEG tube placement . (Klaudia Mario) Assessment and Plan Disease Oriented Problem List: (1) Failure to thrive in adult (2) Hyponatremia (3) Malnutrition (4) Bilateral lower leg cellulitis Symptom Scale: (1) Weakness Comment: PT/OT following this patient. Having continued weaknesslikely secondary to severe malnutrition and chronic debilitation. Patient states, "I have help to get out of be, but i can only take a step or two and my needs start to wobble." (2) Pain Comment: Reporting continued moderate to severe pain in back and buttocks. PRN [place] and morphine are available, none utilized in the past 24 hours. Encouraged patient to move in bed, lie on his side. Position changes q 2 hours. Palliative care will continue to monitor PRN requirements and make recommendations as appropriate. (3) Malnutrition Comment: Appetite improving s/p EGD with dilatation and PEG tube placement on 12/18/15, resent intake approximately 75%. Speech continues to follow this patient and recommendations have been made for pured diet and honey consistency thickened liquids. Pertinent Non-Medical Issues Psychosocial: Information obtained from patient who is a poor historian. Patient was born in [place], he lives alone. He has 2 brothersone brother is and 1 brother, named Perfecto Dixon, is living. The patient is not and has no children. He was involved in the [employer] business. Spiritual: None Legal: Per [place] statutes, in the absence of written advanced directives healthcare proxy decision making would fall to the patient's brother Pablo Dixon. Pablo Dixon's contact information is not available, patient unable to provide. Patient states he does not have any one else he wishes to designate as his healthcare surrogate and his brother can serve as his HCP if necessary. Ethical issues impacting care: None at this time. . Important Contacts Perfecto Dixon (Theo), brother: No contact information available at this time. . Prognosis Patient is an 80-year-old male patient who presented to [facility] after being found in his home covered in urine and feces. He was admitted with dehydration , failure to thrive, dysphasia and bilateral lower extremity cellulitis. The patient reports he has had progressively worsening dysphagia which has impaired his ability to eat/drink, resulting in severe weakness and weight loss. Previously documented weight 73kg in June 2014, now 37kg. Current BMI: 11.4. Patient is a poor historian and unable to provide a complete medical history. No family is present, no contact information available. Patient's goals are unclear at this time. He verbalizes understanding that he needs to be able to tolerate oral nutrition to sustain life, but he states he does not want to have any procedures done. Given the patient's current medical conditions in conjunction with his advanced age and nonexistent support network, his overall prognosis is likely poor. . Code Status: No Code Plan * NO CODEDNR * Decision-making: Patient is currently capacitated The patient has completed the health care surrogate form identifying his brother, Otf Dixon, as his healthcare surrogate decision maker on 12/22/15. Patient's brother verbalizes willingness to act in this role if/when necessary. Copy of HCS form placed in patient's chart and faxed to HIM to be scanned into the patient's EMR. * Goals: Pt continues to verbalize aggressive goals stating he wants therapy and he wants to regain some strength. However, today the patient sated he didn' t know if he would ever get to go back to his home again. Other than NO CODEDNR , goals remain aggressive at this time. * Symptom managementmalnutrition: Appetite improving s/p EGD with dilatation and PEG tube placement on 12/18/15, resent intake approximately 75%. Speech continues to follow this patient and recommendations have been made for pured diet and honey consistency thickened liquids. Pathology showing severe acute esophagitis; negative for intestinal metaplasia, dysplasia or malignancy; negative for fungal organisms * Symptom managementpain: Reporting continued moderate to severe pain in back and buttocks. PRN [place] and morphine are available, none utilized in the past 24 hours. Encouraged patient to move in bed, lie on his side. Position changes q 2 hours. Palliative care will continue to monitor PRN requirements and make recommendations as appropriate. * Case management notes indicate there is no payor source for SNF. Patient does not have medicare. He states he worked in the [employer] and did not pay and the system. Patient is Medicaid pending for SNF placement. * Palliative care will continue to follow this patient throughout his hospitalization to establish trust, assist with symptom management and clarification of medical treatment goals. . . (Klaudia Mario) Attestation To help prompt me to consider important information that might be impacting today's encounter and assessment, information from prior notes written by myself or my colleagues may have been "brought forward" into today's note. My signature on this note, however, is an attestation that I personally performed the exam, history, and/or decision-making noted today, and, unless otherwise indicated, the interactions with patient, family, and staff as well as the review of records all occurred today. I also attest that the listed assessment and stated plan reflect my best clinical judgment today based on the combination of historical information, prior notes, and today's exam/ interactions. When time spent is documented, it refers only to time spent today by the signer, or if indicated, combined time spent today by collaborating physician/nurse practitioner. . (Klaudia Mario) Collaborating MD Comments Chart reviewed. Case discussed with palliative care [employer] P[employer]ENGER [employer]. Above note reviewed and I concur. . (Winston Velazquez MD) Klaudia Mario Dec 31, 2015 18:09 Winston Velazquez MD Jan 29, 2016 16:57
[2015-12-31 20:15] VITALS: BP 104/52; PULSE 89; RESP 18; TEMP 98; O2SAT 94
[2015-12-31 23:39] VITALS: BP 120/60; PULSE 85; RESP 20; TEMP 96.3; O2SAT 97
[2016-01-01 04:30] VITALS: BP 127/56; PULSE 86; RESP 18; TEMP 97.2; O2SAT 98
[2016-01-01 08:00] VITALS: BP 112/55; PULSE 78; RESP 20; TEMP 96.7; O2SAT 98
[2016-01-01] MEDS: SODIUM CHLORIDE 0.9% FLUSH 5 ML FLUSH FLUSH SCH ×2 (08:54→21:00)
[2016-01-01 12:00] VITALS: BP 107/58; PULSE 91; RESP 18; TEMP 97.4; O2SAT 98
--- NOTE | 2016-01-01 13:18 | HHI.PR ---
Subjective Remarks Complains of some pain in his back. No sob or chest pain. No n/v/d/c. Had a BM last night. Denies fevers or chills. Objective Vitals Vital Signs Date Time Temp Pulse Resp B/P Pulse Ox O2 Delivery O2 Flow Rate FiO2 01/01/16 12:00 97.4 91 18 107/58 98 01/01/16 12:00 Room Air 01/01/16 08:20 Room Air 01/01/16 08:00 96.7 78 20 112/55 98 01/01/16 04:30 97.2 86 18 127/56 98 12/31/15 23:39 96.3 85 20 120/60 97 12/31/15 20:15 98.0 89 18 104/52 94 12/31/15 20:00 Room Air 12/31/15 15:21 97.4 94 18 105/51 97 I/O 12/31/15 12/31/15 12/31/15 01/01/16 01/01/16 01/01/16 07:00 15:00 23:00 07:00 15:00 23:00 Intake Total 1038 ml 480 ml 1364 ml 340 ml Output Total 650 ml 1300 ml 1600 ml 1600 ml Balance 388 ml -820 ml -236 ml -1260 ml Intake Oral 240 ml 480 ml 340 ml IV Total 345 ml Tube Feeding 598 ml 679 ml 340 ml Other 200 ml Output Urine Total 650 ml 1300 ml 1600 ml 1600 ml # Bowel Movements 2 1 2 Result Diagram: 12/28/15 0620 12/28/15 0620 Imaging Last Impressions Shoulder X-Ray 12/27/15 0000 Signed Impressions: Service Date/Time: Sunday, December 27, 2015 20:14 - CONCLUSION: Unremarkable limited examination of the left shoulder. Miguel Blanchard MD Chest CT 12/19/15 0000 Signed Impressions: Service Date/Time: Saturday, December 19, 2015 15:10 - CONCLUSION: 1. 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 2. Atherosclerotic calcification of the coronary arteries. Dandy Jett MD Abdomen/Pelvis CT 12/19/15 0000 Signed Impressions: Service Date/Time: Saturday, December 19, 2015 15:10 - CONCLUSION: 1. Bilateral pleural effusions with a small amount of abdominal ascites, generalized anasarca and edema in the mesenteric leaves characteristic of right heart insufficiency. 2. Mild air and fluid distention of the small bowel and colon characteristic of a hypodynamic ileus. No obstruction. Dandy Jett MD Head CT 12/16/15 1145 Signed Impressions: Service Date/Time: Wednesday, December 16, 2015 12:45 - CONCLUSION: Nonspecific white matter changes. No acute intracranial abnormality. Lam Tucker MD Chest X-Ray 12/16/15 1124 Signed Impressions: Service Date/Time: Wednesday, December 16, 2015 11:54 - CONCLUSION: Hyperinflation which can be seen with COPD. Right apical density, PA and lateral views are recommended when patient is stable. Lam Tucker MD Objective Remarks GENERAL: Alert, elderly male, cachectic, NAD. SKIN: Warm and dry. HEAD: Bitemporal waisting. Normocephalic. EYES: No scleral icterus. No injection or drainage. NECK: Supple, trachea midline. No JVD or lymphadenopathy. CARDIOVASCULAR: Regular rate and rhythm without murmurs, gallops, or rubs. RESPIRATORY: Breath sounds equal bilaterally. No accessory muscle use. Diminished bases. Fair-good effort. GASTROINTESTINAL: Abdomen soft, non-tender, nondistended. PEG in place. Mena draining nga yellow clear urine. MUSCULOSKELETAL: No cyanosis, or edema. BACK: Nontender without obvious deformity. No CVA tenderness. NEUROLOGICAL: Awake, alert. BARBER weakly. Follow commands. No focal deficit. Procedures 12/18/15 EGD with dilation and PEG tube placement A/P Problem List: (1) Failure to thrive in adult ICD Code: R62.7 Status: Acute (2) Malnutrition ICD Code: E46 Status: Acute (3) Bilateral lower leg cellulitis ICD Code: L03.116 Status: Acute (4) Hyponatremia ICD Code: E87.1 Status: Resolved Assessment and Plan 80-year-old male with no known past medical history presents via EMS after being found covered in urine/feces, complaining of generalized weakness and dysphagia. Dysphagia: resulting in severe malnutrition and weight loss (previously documented weight 73kg in June 2014, now 37kg). Evaluated by speech therapy, Nothing by mouth, await reevaluation after EGD with dilation. Consulted GI, performed EGD with PEG tube placement. Continue tube feedings per dietitian and GI recommendations. - speech therapy following. Diet puree with nectar thickened liquids. Cont with TF Jevity 1.5 45ml/hr. - 200cc free water flush TID. Severe Protein Calorie Malnutrition/Failure to Thrive: Secondary to dysphagia above. BMI 11 on admission. Palliative care consulted to assist with goals of care. Replace electrolytes as needed, potassium replaced on 12/19/2015. Palliative is following. Has PEG and is on tube feeds, improving. Generalized Weakness: likely secondary to severe malnutrition and chronic deconditioning. Consulted PT/OT, recommends SNF. Case management consulted. Awaiting placement. Bilateral Lower Extremity Cellulitis/Edema: Bilateral lower extremities with edema/erythema. Started on empiric IV Rocephin. Leukocytosis has resolved. Patient has remained afebrile. Vital signs not indicative of sepsis. Monitor for improvement. Elevate lower extremities. IV morphine as needed for pain control. Hyponatremia: Na 130. Improved to 136 --> 145 with IVF. Likely secondary to dehydration/malnutrition. Resolved, monitor BMP. Right Apical Density: seen on AP CXR with PA lateral chest x-ray recommended by radiology. Checked PA/Lateral CXR which showed findings of COPD with no acute cardiopulmonary disease. Stage IV pressure ulcers, present on admission on coccyx and right ischium. Discussed with Reji from wound care. WAVE specialty bed. Wound care: wet to dry dressing BiD to coccyx and bilateral ischium. Left shoulder pain: will give norco. X ray no fractures. Muscle spasm: Electrolytes normal. Continue flexeril. DVT Prophylaxis: Lovenox Discharge: Due to lack of insurance (patient never applied for medicare), placement is difficult and not determined. Pending Medicaid. DC to SNF when payor source, per CM arrangement. Loren Campbell MD Jan 01, 2016 13:17
[2016-01-01] MEDS: CYCLOBENZAPRINE HCL 10 MG TAB PO SCH ×2 (14:05→22:00)
[2016-01-01 16:00] VITALS: BP 103/52; PULSE 91; RESP 18; TEMP 97; O2SAT 97
[2016-01-01] MEDS: cefTRIAXone INJ 1,000 MG in SODIUM CHLORIDE 0.9% INJ 100 ML IV SCH (18:02)
[2016-01-01] MEDS: ENOXAPARIN SODIUM 40 MG/0.4 ML SYRINGE SQ SCH (18:06)
[2016-01-01 20:00] VITALS: BP 105/56; PULSE 86; RESP 20; TEMP 97.3; O2SAT 97
[2016-01-02] VITALS: BP 111/59; PULSE 90; RESP 20; TEMP 97.4; O2SAT 98
[2016-01-02 04:00] VITALS: BP 95/52; PULSE 84; RESP 20; TEMP 97.6; O2SAT 98
[2016-01-02] MEDS: CYCLOBENZAPRINE HCL 10 MG TAB PO SCH ×3 (05:49→20:42)
[2016-01-02 08:48] VITALS: BP 111/56; PULSE 89; RESP 18; TEMP 96.8; O2SAT 98
[2016-01-02] MEDS: SODIUM CHLORIDE 0.9% FLUSH 5 ML FLUSH FLUSH SCH ×2 (09:22→20:42)
[2016-01-02 12:24] VITALS: BP 120/56; PULSE 92; RESP 18; TEMP 97.3; O2SAT 98
--- NOTE | 2016-01-02 15:02 | HHI.PR ---
Subjective Remarks Eating well. No pain, says he feels much better. Says he had a BM . No n/v/d/c. Says he has pain at the sacral wounds only. Objective Vitals Vital Signs Date Time Temp Pulse Resp B/P Pulse Ox O2 Delivery O2 Flow Rate FiO2 01/02/16 12:24 97.3 92 18 120/56 98 01/02/16 12:00 Room Air 01/02/16 08:48 96.8 89 18 111/56 98 01/02/16 08:10 Room Air 01/02/16 04:00 97.6 84 20 95/52 98 01/02/16 00:00 97.4 90 20 111/59 98 01/01/16 20:00 97.3 86 20 105/56 97 01/01/16 20:00 Room Air 01/01/16 16:00 97.0 91 18 103/52 97 I/O 01/01/16 01/01/16 01/01/16 01/02/16 01/02/16 01/02/16 07:00 15:00 23:00 07:00 15:00 23:00 Intake Total 340 ml 480 ml 360 ml 360 ml Output Total 1600 ml 1000 ml Balance -1260 ml -520 ml 360 ml 360 ml Intake Oral 480 ml IV Total 360 ml Tube Feeding 340 ml 360 ml Output Urine Total 1600 ml 1000 ml # Bowel Movements 2 1 Imaging Last Impressions Shoulder X-Ray 12/27/15 0000 Signed Impressions: Service Date/Time: Sunday, December 27, 2015 20:14 - CONCLUSION: Unremarkable limited examination of the left shoulder. Miguel Blanchard MD Chest CT 12/19/15 0000 Signed Impressions: Service Date/Time: Saturday, December 19, 2015 15:10 - CONCLUSION: 1. 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 2. Atherosclerotic calcification of the coronary arteries. Dandy Jett MD Abdomen/Pelvis CT 12/19/15 0000 Signed Impressions: Service Date/Time: Saturday, December 19, 2015 15:10 - CONCLUSION: 1. Bilateral pleural effusions with a small amount of abdominal ascites, generalized anasarca and edema in the mesenteric leaves characteristic of right heart insufficiency. 2. Mild air and fluid distention of the small bowel and colon characteristic of a hypodynamic ileus. No obstruction. Dandy Jett MD Head CT 12/16/15 1145 Signed Impressions: Service Date/Time: Wednesday, December 16, 2015 12:45 - CONCLUSION: Nonspecific white matter changes. No acute intracranial abnormality. Lam Tucker MD Chest X-Ray 12/16/15 1124 Signed Impressions: Service Date/Time: Wednesday, December 16, 2015 11:54 - CONCLUSION: Hyperinflation which can be seen with COPD. Right apical density, PA and lateral views are recommended when patient is stable. Lam Tucker MD Objective Remarks GENERAL: Alert, elderly male, cachectic, NAD. SKIN: Warm and dry. HEAD: Bitemporal waisting. Normocephalic. EYES: No scleral icterus. No injection or drainage. NECK: Supple, trachea midline. No JVD or lymphadenopathy. CARDIOVASCULAR: Regular rate and rhythm without murmurs, gallops, or rubs. RESPIRATORY: Breath sounds equal bilaterally. No accessory muscle use. Diminished bases. Fair-good effort. GASTROINTESTINAL: Abdomen soft, non-tender, nondistended. PEG in place. Mena draining nga yellow clear urine. MUSCULOSKELETAL: No cyanosis, or edema. BACK: Nontender without obvious deformity. No CVA tenderness. NEUROLOGICAL: Awake, alert. BARBER weakly. Follow commands. No focal deficit. Procedures 12/18/15 EGD with dilation and PEG tube placement A/P Problem List: (1) Failure to thrive in adult ICD Code: R62.7 Status: Acute (2) Malnutrition ICD Code: E46 Status: Acute (3) Bilateral lower leg cellulitis ICD Code: L03.116 Status: Acute (4) Hyponatremia ICD Code: E87.1 Status: Resolved Assessment and Plan 80-year-old male with no known past medical history presents via EMS after being found covered in urine/feces, complaining of generalized weakness and dysphagia. Dysphagia: resulting in severe malnutrition and weight loss (previously documented weight 73kg in June 2014, and with 37kg on admission). Evaluated by speech therapy, Nothing by mouth, await reevaluation after EGD with dilation. Consulted GI, performed EGD with PEG tube placement. Continue tube feedings per dietitian and GI recommendations. - speech therapy following. Diet puree with nectar thickened liquids. Cont with TF Jevity 1.5 45ml/hr with tray. - 200cc free water flush TID. Severe Protein Calorie Malnutrition/Failure to Thrive: Secondary to dysphagia above. BMI 11 on admission. Palliative care consulted to assist with goals of care. Replace electrolytes as needed, potassium replaced on 12/19/2015. Palliative is following. Has PEG and is on tube feeds, improving. Generalized Weakness: likely secondary to severe malnutrition and chronic deconditioning. Consulted PT/OT, recommends SNF. Case management consulted. Awaiting placement. Bilateral Lower Extremity Cellulitis/Edema: Bilateral lower extremities with edema/erythema. Started on empiric IV Rocephin. Leukocytosis has resolved. Patient has remained afebrile. Vital signs not indicative of sepsis. Monitor for improvement. Elevate lower extremities. IV morphine as needed for pain control. Hyponatremia: Na 130. Improved to 136 --> 145 with IVF. Likely secondary to dehydration/malnutrition. Resolved, monitor BMP. Right Apical Density: seen on AP CXR with PA lateral chest x-ray recommended by radiology. Checked PA/Lateral CXR which showed findings of COPD with no acute cardiopulmonary disease. Stage IV pressure ulcers, present on admission on coccyx and right ischium. Discussed with Oanh from wound care. WAVE specialty bed. Wound care: wet to dry dressing BiD to coccyx and bilateral ischium. Doesn't recommends patient sitting in the chair. Left shoulder pain: will give norco. X ray no fractures. Muscle spasm: Electrolytes normal. Continue flexeril. DVT Prophylaxis: Lovenox Discharge: Due to lack of insurance (patient never applied for medicare), placement is difficult and not determined. Pending Medicaid. DC to SNF when payor source, per CM arrangement. Loren Campbell MD Jan 02, 2016 15:02
[2016-01-02 16:04] VITALS: BP 109/55; PULSE 98; RESP 18; TEMP 96.1; O2SAT 98
[2016-01-02] MEDS: ENOXAPARIN SODIUM 40 MG/0.4 ML SYRINGE SQ SCH (16:52)
[2016-01-02] MEDS: cefTRIAXone INJ 1,000 MG in SODIUM CHLORIDE 0.9% INJ 100 ML IV SCH (16:52)
[2016-01-02 20:00] VITALS: BP 107/55; PULSE 98; RESP 18; TEMP 96.5; O2SAT 98
[2016-01-03] VITALS (7 sets, daily range): BP systolic 96–110; BP diastolic 48–61; PULSE 64–97; RESP 18–20; TEMP 96–96.7; O2SAT 97–100
[2016-01-03] MEDS: CYCLOBENZAPRINE HCL 10 MG TAB PO SCH ×3 (04:54→22:20)
[2016-01-03] MEDS: SODIUM CHLORIDE 0.9% FLUSH 5 ML FLUSH FLUSH SCH ×2 (08:23→22:20)
--- NOTE | 2016-01-03 13:04 | HHI.PR ---
Subjective Remarks Says she feels better today. Says sacral wownds are bothering him, dressings chaged. no fever or chills. Eating much better. Objective Vitals Vital Signs Date Time Temp Pulse Resp B/P Pulse Ox O2 Delivery O2 Flow Rate FiO2 01/03/16 09:00 98 Room Air 01/03/16 08:00 96.0 92 18 103/61 100 01/03/16 04:00 96.0 80 18 110/58 97 01/03/16 00:00 96.5 64 18 102/52 98 01/02/16 20:00 96.5 98 18 107/55 98 01/02/16 16:04 96.1 98 18 109/55 98 I/O 01/02/16 01/02/16 01/02/16 01/03/16 01/03/16 01/03/16 07:00 15:00 23:00 07:00 15:00 23:00 Intake Total 360 ml 720 ml 120 ml 520 ml Output Total 1250 ml 400.0 ml 1200 ml Balance 360 ml -530 ml -280.0 ml 520 ml -1200 ml Intake Oral 720 ml 120 ml Tube Feeding 360 ml 320 ml Other 200 ml Output Urine Total 1250 ml 400 ml 1200 ml Tube Feeding Residual Discard 0 ml Imaging Last Impressions Shoulder X-Ray 12/27/15 0000 Signed Impressions: Service Date/Time: Sunday, December 27, 2015 20:14 - CONCLUSION: Unremarkable limited examination of the left shoulder. Miguel Blanchard MD Chest CT 12/19/15 0000 Signed Impressions: Service Date/Time: Saturday, December 19, 2015 15:10 - CONCLUSION: 1. 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 2. Atherosclerotic calcification of the coronary arteries. Dandy Jett MD Abdomen/Pelvis CT 12/19/15 0000 Signed Impressions: Service Date/Time: Saturday, December 19, 2015 15:10 - CONCLUSION: 1. Bilateral pleural effusions with a small amount of abdominal ascites, generalized anasarca and edema in the mesenteric leaves characteristic of right heart insufficiency. 2. Mild air and fluid distention of the small bowel and colon characteristic of a hypodynamic ileus. No obstruction. Dandy Jett MD Head CT 12/16/15 1145 Signed Impressions: Service Date/Time: Wednesday, December 16, 2015 12:45 - CONCLUSION: Nonspecific white matter changes. No acute intracranial abnormality. Lam Tucker MD Chest X-Ray 12/16/15 1124 Signed Impressions: Service Date/Time: Wednesday, December 16, 2015 11:54 - CONCLUSION: Hyperinflation which can be seen with COPD. Right apical density, PA and lateral views are recommended when patient is stable. Lam Tucker MD Objective Remarks GENERAL: Alert, elderly male, cachectic, NAD. SKIN: Warm and dry. HEAD: Bitemporal waisting. Normocephalic. EYES: No scleral icterus. No injection or drainage. NECK: Supple, trachea midline. No JVD or lymphadenopathy. CARDIOVASCULAR: Regular rate and rhythm without murmurs, gallops, or rubs. RESPIRATORY: Breath sounds equal bilaterally. No accessory muscle use. Diminished bases. Fair-good effort. GASTROINTESTINAL: Abdomen soft, non-tender, nondistended. PEG in place. Mena draining nga yellow clear urine. MUSCULOSKELETAL: No cyanosis, or edema. BACK: Nontender without obvious deformity. No CVA tenderness. NEUROLOGICAL: Awake, alert. BARBER weakly. Follow commands. No focal deficit. Procedures 12/18/15 EGD with dilation and PEG tube placement A/P Problem List: (1) Failure to thrive in adult ICD Code: R62.7 Status: Acute (2) Malnutrition ICD Code: E46 Status: Acute (3) Bilateral lower leg cellulitis ICD Code: L03.116 Status: Acute (4) Hyponatremia ICD Code: E87.1 Status: Resolved Assessment and Plan 80-year-old male with no known past medical history presents via EMS after being found covered in urine/feces, complaining of generalized weakness and dysphagia. Dysphagia: resulting in severe malnutrition and weight loss (previously documented weight 73kg in June 2014, and with 37kg on admission). Evaluated by speech therapy, Nothing by mouth, await reevaluation after EGD with dilation. Consulted GI, performed EGD with PEG tube placement. Continue tube feedings per dietitian and GI recommendations. - speech therapy following. Diet puree with nectar thickened liquids. Cont with TF Jevity 1.5 45ml/hr with tray. - 200cc free water flush TID. Severe Protein Calorie Malnutrition/Failure to Thrive: Secondary to dysphagia above. BMI 11 on admission. Palliative care consulted to assist with goals of care. Replace electrolytes as needed, potassium replaced on 12/19/2015. Palliative is following. Has PEG and is on tube feeds, improving. Generalized Weakness: likely secondary to severe malnutrition and chronic deconditioning. Consulted PT/OT, recommends SNF. Case management consulted. Awaiting placement. Bilateral Lower Extremity Cellulitis/Edema: Bilateral lower extremities with edema/erythema. Started on empiric IV Rocephin. Leukocytosis has resolved. Patient has remained afebrile. Vital signs not indicative of sepsis. Monitor for improvement. Elevate lower extremities. IV morphine as needed for pain control. Hyponatremia: Na 130. Improved to 136 --> 145 with IVF. Likely secondary to dehydration/malnutrition. Resolved, monitor BMP. Right Apical Density: seen on AP CXR with PA lateral chest x-ray recommended by radiology. Checked PA/Lateral CXR which showed findings of COPD with no acute cardiopulmonary disease. Stage IV pressure ulcers, present on admission on coccyx and right ischium. Discussed with Oanh from wound care. WAVE specialty bed. Wound care: wet to dry dressing BiD to coccyx and bilateral ischium. Doesn't recommends patient sitting in the chair. Left shoulder pain: will give norco. X ray no fractures. Muscle spasm: Electrolytes normal. Continue flexeril. DVT Prophylaxis: Lovenox Discharge: Due to lack of insurance (patient never applied for medicare), placement is difficult and not determined. Pending Medicaid. DC to SNF when payor source, per CM arrangement. Loren Campbell MD Jan 03, 2016 13:04
[2016-01-03] MEDS: ENOXAPARIN SODIUM 40 MG/0.4 ML SYRINGE SQ SCH (17:50)
[2016-01-03] MEDS: cefTRIAXone INJ 1,000 MG in SODIUM CHLORIDE 0.9% INJ 100 ML IV SCH (17:50)
[2016-01-04 04:00] VITALS: BP 95/46; PULSE 87; RESP 20; TEMP 96.1; O2SAT 98
[2016-01-04] MEDS: CYCLOBENZAPRINE HCL 10 MG TAB PO SCH ×3 (05:27→21:45)
[2016-01-04 08:00] VITALS: BP 101/55; PULSE 87; RESP 18; TEMP 96.5; O2SAT 98
--- NOTE | 2016-01-04 10:09 | HHI.PR ---
Subjective Remarks No pain at this time. Says he feels better. No n/v/d/c. No compalints at this time. Objective Vitals Vital Signs Date Time Temp Pulse Resp B/P Pulse Ox O2 Delivery O2 Flow Rate FiO2 01/04/16 04:00 96.1 87 20 95/46 98 01/03/16 23:49 96.7 85 20 96/48 99 01/03/16 20:00 96.6 97 20 108/57 98 01/03/16 20:00 Room Air 21 01/03/16 16:00 96.1 91 18 106/56 98 01/03/16 12:00 96.1 96 18 100/51 99 I/O 01/03/16 01/03/16 01/03/16 01/04/16 01/04/16 01/04/16 07:00 15:00 23:00 07:00 15:00 23:00 Intake Total 520 ml 1160 ml 845 ml 385 ml Output Total 1575 ml 400 ml 350 ml Balance 520 ml -415 ml 445 ml 35 ml Intake Oral 480 ml 120 ml 50 ml Tube Feeding 320 ml 480 ml 625 ml 285 ml Other 200 ml 200 ml 100 ml 50 ml Output Urine Total 1575 ml 400 ml 350 ml # Bowel Movements 1 1 2 Imaging Last Impressions Shoulder X-Ray 12/27/15 0000 Signed Impressions: Service Date/Time: Sunday, December 27, 2015 20:14 - CONCLUSION: Unremarkable limited examination of the left shoulder. Miguel Blanchard MD Chest CT 12/19/15 0000 Signed Impressions: Service Date/Time: Saturday, December 19, 2015 15:10 - CONCLUSION: 1. 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 2. Atherosclerotic calcification of the coronary arteries. Dandy Jett MD Abdomen/Pelvis CT 12/19/15 0000 Signed Impressions: Service Date/Time: Saturday, December 19, 2015 15:10 - CONCLUSION: 1. Bilateral pleural effusions with a small amount of abdominal ascites, generalized anasarca and edema in the mesenteric leaves characteristic of right heart insufficiency. 2. Mild air and fluid distention of the small bowel and colon characteristic of a hypodynamic ileus. No obstruction. Dandy Jett MD Head CT 12/16/15 1145 Signed Impressions: Service Date/Time: Wednesday, December 16, 2015 12:45 - CONCLUSION: Nonspecific white matter changes. No acute intracranial abnormality. Lam Tucker MD Chest X-Ray 12/16/15 1124 Signed Impressions: Service Date/Time: Wednesday, December 16, 2015 11:54 - CONCLUSION: Hyperinflation which can be seen with COPD. Right apical density, PA and lateral views are recommended when patient is stable. Lam Tucker MD Objective Remarks GENERAL: Alert, elderly male, cachectic, NAD. SKIN: Warm and dry. HEAD: Bitemporal waisting. Normocephalic. EYES: No scleral icterus. No injection or drainage. NECK: Supple, trachea midline. No JVD or lymphadenopathy. CARDIOVASCULAR: Regular rate and rhythm without murmurs, gallops, or rubs. RESPIRATORY: Breath sounds equal bilaterally. No accessory muscle use. Diminished bases. Fair-good effort. GASTROINTESTINAL: Abdomen soft, non-tender, nondistended. PEG in place. Mena draining nga yellow clear urine. MUSCULOSKELETAL: No cyanosis, or edema. BACK: Nontender without obvious deformity. No CVA tenderness. NEUROLOGICAL: Awake, alert. BARBER weakly. Follow commands. No focal deficit. Procedures 12/18/15 EGD with dilation and PEG tube placement A/P Problem List: (1) Failure to thrive in adult ICD Code: R62.7 Status: Acute (2) Malnutrition ICD Code: E46 Status: Acute (3) Bilateral lower leg cellulitis ICD Code: L03.116 Status: Acute (4) Hyponatremia ICD Code: E87.1 Status: Resolved Assessment and Plan 80-year-old male with no known past medical history presents via EMS after being found covered in urine/feces, complaining of generalized weakness and dysphagia. Dysphagia: resulting in severe malnutrition and weight loss (previously documented weight 73kg in June 2014, and with 37kg on admission). Evaluated by speech therapy, Nothing by mouth, await reevaluation after EGD with dilation. Consulted GI, performed EGD with PEG tube placement. Continue tube feedings per dietitian and GI recommendations. - speech therapy following. Diet puree with nectar thickened liquids. Cont with TF Jevity 1.5 45ml/hr with tray. - 200cc free water flush TID. Severe Protein Calorie Malnutrition/Failure to Thrive: Secondary to dysphagia above. BMI 11 on admission. Palliative care consulted to assist with goals of care. Replace electrolytes as needed, potassium replaced on 12/19/2015. Palliative is following. Has PEG and is on tube feeds, improving. Generalized Weakness: likely secondary to severe malnutrition and chronic deconditioning. Consulted PT/OT, recommends SNF. Case management consulted. Awaiting placement. Bilateral Lower Extremity Cellulitis/Edema: Bilateral lower extremities with edema/erythema. Started on empiric IV Rocephin. Leukocytosis has resolved. Patient has remained afebrile. Vital signs not indicative of sepsis. Monitor for improvement. Elevate lower extremities. IV morphine as needed for pain control. Hyponatremia: Na 130. Improved to 136 --> 145 with IVF. Likely secondary to dehydration/malnutrition. Resolved, monitor BMP. Right Apical Density: seen on AP CXR with PA lateral chest x-ray recommended by radiology. Checked PA/Lateral CXR which showed findings of COPD with no acute cardiopulmonary disease. Stage IV pressure ulcers, present on admission on coccyx and right ischium. Discussed with Oanh from wound care. WAVE specialty bed. Wound care: wet to dry dressing BiD to coccyx and bilateral ischium. Doesn't recommends patient sitting in the chair. Left shoulder pain: will give norco. X ray no fractures. Muscle spasm: Electrolytes normal. Continue flexeril. DVT Prophylaxis: Lovenox Discharge: Due to lack of insurance (patient never applied for medicare), placement is difficult and not determined. Pending Medicaid. DC to SNF when payor source, per CM arrangement. Loren Campbell MD Jan 04, 2016 10:09
[2016-01-04 12:00] VITALS: BP 102/55; PULSE 93; RESP 18; TEMP 96.9; O2SAT 97
[2016-01-04 16:00] VITALS: BP 98/56; PULSE 97; RESP 18; TEMP 96.1; O2SAT 97
[2016-01-04] MEDS: ENOXAPARIN SODIUM 40 MG/0.4 ML SYRINGE SQ SCH (16:56)
[2016-01-04 20:00] VITALS: BP 104/54; PULSE 96; RESP 18; TEMP 96.3; O2SAT 96
[2016-01-04] MEDS: SODIUM CHLORIDE 0.9% FLUSH 5 ML FLUSH FLUSH SCH (21:00)
[2016-01-05] VITALS: BP 121/60; PULSE 88; RESP 18; TEMP 96.6; O2SAT 94
[2016-01-05 04:01] VITALS: BP 95/50; PULSE 89; RESP 20; TEMP 97.8; O2SAT 96
[2016-01-05] MEDS: CYCLOBENZAPRINE HCL 10 MG TAB PO SCH ×3 (06:13→21:37)
--- NOTE | 2016-01-05 07:28 | HHI.PR ---
Subjective Remarks Says he feels he is improving. Says he has more strengths. Eating fairly well. Sacral wounds are healing. No cp, sob, n/v/d/c. Discussed he will be transfered to [facility] and he agrees. Objective Vitals Vital Signs Date Time Temp Pulse Resp B/P Pulse Ox O2 Delivery O2 Flow Rate FiO2 01/05/16 04:01 97.8 89 20 95/50 96 01/05/16 00:00 96.6 88 18 121/60 94 01/04/16 20:00 96.3 96 18 104/54 96 01/04/16 20:00 Room Air 01/04/16 16:00 96.1 97 18 98/56 97 01/04/16 12:00 96.9 93 18 102/55 97 01/04/16 08:00 96.5 87 18 101/55 98 01/04/16 08:00 95 Room Air I/O 01/04/16 01/04/16 01/04/16 01/05/16 01/05/16 01/05/16 07:00 15:00 23:00 07:00 15:00 23:00 Intake Total 385 ml 570 ml 1002 ml 796 ml Output Total 350 ml 1100 ml 425 ml 300 ml Balance 35 ml -530 ml 577 ml 496 ml Intake Oral 50 ml 570 ml 240 ml 370 ml Tube Feeding 285 ml 662 ml 376 ml Other 50 ml 100 ml 50 ml Output Urine Total 350 ml 1100 ml 425 ml 300 ml # Bowel Movements 2 1 2 3 Imaging Last Impressions Shoulder X-Ray 12/27/15 0000 Signed Impressions: Service Date/Time: Sunday, December 27, 2015 20:14 - CONCLUSION: Unremarkable limited examination of the left shoulder. Miguel Blanchard MD Chest CT 12/19/15 0000 Signed Impressions: Service Date/Time: Saturday, December 19, 2015 15:10 - CONCLUSION: 1. 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 2. Atherosclerotic calcification of the coronary arteries. Dandy Jett MD Abdomen/Pelvis CT 12/19/15 0000 Signed Impressions: Service Date/Time: Saturday, December 19, 2015 15:10 - CONCLUSION: 1. Bilateral pleural effusions with a small amount of abdominal ascites, generalized anasarca and edema in the mesenteric leaves characteristic of right heart insufficiency. 2. Mild air and fluid distention of the small bowel and colon characteristic of a hypodynamic ileus. No obstruction. Dandy Jett MD Head CT 12/16/15 1145 Signed Impressions: Service Date/Time: Wednesday, December 16, 2015 12:45 - CONCLUSION: Nonspecific white matter changes. No acute intracranial abnormality. Lam Tucker MD Chest X-Ray 12/16/15 1124 Signed Impressions: Service Date/Time: Wednesday, December 16, 2015 11:54 - CONCLUSION: Hyperinflation which can be seen with COPD. Right apical density, PA and lateral views are recommended when patient is stable. Lam Tucker MD Objective Remarks GENERAL: Alert, elderly male, cachectic, NAD. SKIN: Warm and dry. HEAD: Bitemporal waisting. Normocephalic. EYES: No scleral icterus. No injection or drainage. NECK: Supple, trachea midline. No JVD or lymphadenopathy. CARDIOVASCULAR: Regular rate and rhythm without murmurs, gallops, or rubs. RESPIRATORY: Breath sounds equal bilaterally. No accessory muscle use. Diminished bases. Fair-good effort. GASTROINTESTINAL: Abdomen soft, non-tender, nondistended. PEG in place. Mena draining nga yellow clear urine. MUSCULOSKELETAL: No cyanosis, or edema. BACK: Nontender without obvious deformity. No CVA tenderness. NEUROLOGICAL: Awake, alert. BARBER weakly. Follow commands. No focal deficit. Procedures 12/18/15 EGD with dilation and PEG tube placement A/P Problem List: (1) Failure to thrive in adult ICD Code: R62.7 Status: Acute (2) Malnutrition ICD Code: E46 Status: Acute (3) Bilateral lower leg cellulitis ICD Code: L03.116 Status: Acute (4) Hyponatremia ICD Code: E87.1 Status: Resolved Assessment and Plan 80-year-old male with no known past medical history presents via EMS after being found covered in urine/feces, complaining of generalized weakness and dysphagia. Dysphagia: resulting in severe malnutrition and weight loss (previously documented weight 73kg in June 2014, and with 37kg on admission). Evaluated by speech therapy, Nothing by mouth, await reevaluation after EGD with dilation. Consulted GI, performed EGD with PEG tube placement. Continue tube feedings per dietitian and GI recommendations. - speech therapy following. Diet puree with nectar thickened liquids. Cont with TF Jevity 1.5 45ml/hr with tray. - 200cc free water flush TID. Severe Protein Calorie Malnutrition/Failure to Thrive: Secondary to dysphagia above. BMI 11 on admission. Palliative care consulted to assist with goals of care. Replace electrolytes as needed, potassium replaced on 12/19/2015. Palliative is following. Has PEG and is on tube feeds, improving. Generalized Weakness: likely secondary to severe malnutrition and chronic deconditioning. Consulted PT/OT, recommends SNF. Case management consulted. Awaiting placement. Bilateral Lower Extremity Cellulitis/Edema: Bilateral lower extremities with edema/erythema. Started on empiric IV Rocephin. Leukocytosis has resolved. Patient has remained afebrile. Vital signs not indicative of sepsis. Monitor for improvement. Elevate lower extremities. IV morphine as needed for pain control. Hyponatremia: Na 130. Improved to 136 --> 145 with IVF. Likely secondary to dehydration/malnutrition. Resolved, monitor BMP. Right Apical Density: seen on AP CXR with PA lateral chest x-ray recommended by radiology. Checked PA/Lateral CXR which showed findings of COPD with no acute cardiopulmonary disease. Stage IV pressure ulcers, present on admission on coccyx and right ischium. Discussed with Oanh from wound care. WAVE specialty bed. Wound care: wet to dry dressing BiD to coccyx and bilateral ischium. Doesn't recommends patient sitting in the chair. Left shoulder pain: will give norco. X ray no fractures. Muscle spasm: Electrolytes normal. Continue flexeril. DVT Prophylaxis: Lovenox Discharge: Due to lack of insurance (patient never applied for medicare), placement is difficult and not determined. Pending Medicaid. DC to SNF when payor source, per CM arrangement. Loren Campbell MD Jan 05, 2016 07:28
[2016-01-05 08:00] VITALS: BP 113/57; PULSE 89; RESP 20; TEMP 97.1; O2SAT 99
[2016-01-05] MEDS: SODIUM CHLORIDE 0.9% FLUSH 5 ML FLUSH FLUSH SCH ×2 (08:44→21:38)
[2016-01-05] MEDS: ENOXAPARIN SODIUM 40 MG/0.4 ML SYRINGE SQ SCH (17:24)
[2016-01-05 20:00] VITALS: BP 105/55; PULSE 99; RESP 18; TEMP 98.7; O2SAT 96
[2016-01-06] VITALS: BP 110/58; PULSE 92; RESP 18; TEMP 98.3; O2SAT 98
[2016-01-06 04:00] VITALS: BP 98/55; PULSE 92; RESP 16; TEMP 97.9; O2SAT 96
[2016-01-06] MEDS: CYCLOBENZAPRINE HCL 10 MG TAB PO SCH ×3 (06:16→21:48)
[2016-01-06] MEDS: SODIUM CHLORIDE 0.9% FLUSH 5 ML FLUSH FLUSH PRN (06:25)
[2016-01-06 08:00] VITALS: BP 109/58; PULSE 89; RESP 21; TEMP 97.8; O2SAT 98
[2016-01-06] MEDS: SODIUM CHLORIDE 0.9% FLUSH 5 ML FLUSH FLUSH SCH ×2 (09:00→21:48)
--- NOTE | 2016-01-06 10:41 | HHI.PR ---
Subjective Remarks Patient transferred to [facility] from [facility] yesterday. Patient was evaluated in the ED on 12/15 having been found covered in urine and feces at home, weak and malnourished. Found to have bilateral lower extremity cellulitis and also evaluated for dysphagia, failure to thrive. The patient had a panendoscopy and PEG tube placed on 12/17 by GI. Currently receiving by mouth and tube feedings. No acute complaints. Denies any abdominal pain or vomiting. Objective Vitals Vital Signs Date Time Temp Pulse Resp B/P Pulse Ox O2 Delivery O2 Flow Rate FiO2 01/06/16 08:00 97.8 89 21 109/58 98 01/06/16 04:00 97.9 92 16 98/55 96 01/06/16 00:00 98.3 92 18 110/58 98 01/05/16 20:00 98.7 99 18 105/55 96 01/05/16 19:15 96 Room Air I/O 01/05/16 01/05/16 01/05/16 01/06/16 01/06/16 01/06/16 06:59 14:59 22:59 06:59 14:59 22:59 Intake Total 796 ml 240 ml 621 ml 705 ml Output Total 300 ml 1225 ml 850 ml 1650 ml Balance 496 ml -985 ml -229 ml -945 ml Intake Oral 370 ml 240 ml 175 ml 150 ml Tube Feeding 376 ml 206 ml 335 ml Tube Irrigant 240 ml 220 ml Other 50 ml Output Urine Total 300 ml 1225 ml 850 ml 1650 ml # Bowel Movements 3 1 1 Imaging Last Impressions Shoulder X-Ray 12/27/15 0000 Signed Impressions: Service Date/Time: Sunday, December 27, 2015 20:14 - CONCLUSION: Unremarkable limited examination of the left shoulder. Miguel Blanchard MD Chest CT 12/19/15 0000 Signed Impressions: Service Date/Time: Saturday, December 19, 2015 15:10 - CONCLUSION: 1. 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 2. Atherosclerotic calcification of the coronary arteries. Dandy Jett MD Abdomen/Pelvis CT 12/19/15 0000 Signed Impressions: Service Date/Time: Saturday, December 19, 2015 15:10 - CONCLUSION: 1. Bilateral pleural effusions with a small amount of abdominal ascites, generalized anasarca and edema in the mesenteric leaves characteristic of right heart insufficiency. 2. Mild air and fluid distention of the small bowel and colon characteristic of a hypodynamic ileus. No obstruction. Dandy Jett MD Head CT 12/16/15 1145 Signed Impressions: Service Date/Time: Wednesday, December 16, 2015 12:45 - CONCLUSION: Nonspecific white matter changes. No acute intracranial abnormality. Lam Tucker MD Chest X-Ray 12/16/15 1124 Signed Impressions: Service Date/Time: Wednesday, December 16, 2015 11:54 - CONCLUSION: Hyperinflation which can be seen with COPD. Right apical density, PA and lateral views are recommended when patient is stable. Lam Tucker MD Objective Remarks GENERAL: Thin patient in no apparent distress. SKIN: Bilateral lower extremities non-erythematous. CARDIOVASCULAR: Regular rate and rhythm. RESPIRATORY: Limited anterior exam. No accessory muscle use. Clear to auscultation. Breath sounds equal bilaterally. GASTROINTESTINAL: Normoactive bowel sounds. Abdomen soft, non-tender, nondistended. Feeding tube present. MUSCULOSKELETAL: Bilateral lower extremities without edema. NEUROLOGICAL: Awake and alert. Motor grossly within normal limits. Normal speech. Procedures 12/18/15 EGD with PEG tube placement Urinary Catheter: Yes Assessment to: Continue Mena insert reason: Stage III/IV Press Ulcer Date of Insertion: Dec 16, 2015 Vascular Central Line Catheter: No A/P Problem List: (1) Failure to thrive in adult ICD Code: R62.7 Status: Acute (2) Malnutrition ICD Code: E46 Status: Acute (3) Bilateral lower leg cellulitis ICD Code: L03.116 Status: Resolved (4) Hyponatremia ICD Code: E87.1 Status: Resolved Assessment and Plan 80-year-old male with no known past medical history presented via EMS after being found covered in urine/feces, complaining of generalized weakness and dysphagia. Dysphagia: resulting in severe malnutrition and weight loss.Consulted GI, performed EGD with PEG tube placement. Continue tube feedings per dietitian. - speech therapy following. Diet puree with nectar thickened liquids. Cont with TF Jevity 1.5 45 cc/hr with tray. GI signed off. - 200cc free water flush TID. Severe Protein Calorie Malnutrition/Failure to Thrive: Secondary to dysphagia above. Weight has improved since admission: 37 kg-->58.3 kg. Palliative care consulted to assist with goals of care, following. Replace electrolytes as needed. Continue tube feeds, improving. Generalized Weakness: likely secondary to severe malnutrition and chronic deconditioning. Consulted PT/OT, recommends SNF. Case management consulted. Awaiting placement. Bilateral Lower Extremity Cellulitis/Edema: Resolved. S/p Rocephin. Leukocytosis has resolved. Patient has remained afebrile. Elevate lower extremities. Hyponatremia:Improved. Likely secondary to dehydration/malnutrition. Resolved, monitor BMP. Right Apical Density: seen on AP CXR; PA/Lateral CXR shows findings of COPD. Chest CT 12/18 ordered by GI to evaluate for malignancy; shows bilateral pleural effusions, with common atelectatic changes, small amount of abdominal ascites and mesenteric edema characteristic of right R insufficiency/volume overload. Atherosclerotic calcification of the coronary arteries. Stage IV pressure ulcers, present on admission on coccyx and right ischium. Specialty bed. -Wound care consulted to evaluate patient here at PO. I have spoken with wound care nurse. Per wound care no dressing recommended for buttocks. Coccyx wound: Daily cleanse with NS ONLY, apply nickel thick layer of Santyl to wound bed and cover with dry cover dressing. May do PRN for soiling or dislodgement. Dry cover to shoulder if needed. Left shoulder pain: will give [place] temporarily. X rays reviewed without fractures. Muscle spasm: Electrolytes normal. Continue flexeril. DVT Prophylaxis: Lovenox Discharge Planning OT recommends rehabilitation, 3-1 bedside commode, shower bench. PT recommends rehabilitation, wheeled walker, and wheelchair. manager food safety working on placement. Medicaid pending. Vida Carlisle Jan 06, 2016 10:41
[2016-01-06] MEDS: ENOXAPARIN SODIUM 40 MG/0.4 ML SYRINGE SQ SCH (15:40)
[2016-01-06] MEDS: COLLAGENASE OINT 30 GM TUBE TOP SCH (15:40)
[2016-01-06 20:00] VITALS: BP 103/66; PULSE 92; RESP 18; TEMP 96.6; O2SAT 99
[2016-01-06 23:54] VITALS: BP 110/66; PULSE 83; RESP 18; TEMP 96.3; O2SAT 99
[2016-01-07 03:55] VITALS: BP 107/65; PULSE 85; RESP 18; TEMP 96.8; O2SAT 99
[2016-01-07] MEDS: CYCLOBENZAPRINE HCL 10 MG TAB PO SCH ×3 (05:38→21:28)
[2016-01-07 08:00] VITALS: BP 108/61; PULSE 87; RESP 18; TEMP 96; O2SAT 99
[2016-01-07] MEDS: SODIUM CHLORIDE 0.9% FLUSH 5 ML FLUSH FLUSH SCH ×2 (08:50→21:28)
[2016-01-07] MEDS: COLLAGENASE OINT 30 GM TUBE TOP SCH (08:50)
[2016-01-07 12:00] VITALS: BP_SYST 108; BP_SYST 131; BP_DIAS 63; BP_DIAS 86; PULSE 111; PULSE 70; RESP 20; TEMP 96; TEMP 96.4; O2SAT 98
--- NOTE | 2016-01-07 14:51 | HHI.PR ---
Subjective Remarks Late entry. Patient evaluated early this morning. Follow-up for failure to thrive. No acute complaints. No change in clinical status. Objective Vitals Vital Signs Date Time Temp Pulse Resp B/P Pulse Ox O2 Delivery O2 Flow Rate FiO2 01/07/16 08:00 96.0 87 18 108/61 99 01/07/16 03:55 96.8 85 18 107/65 99 01/06/16 23:54 96.3 83 18 110/66 99 01/06/16 20:00 96.6 92 18 103/66 99 I/O 01/06/16 01/06/16 01/06/16 01/07/16 01/07/16 01/07/16 07:00 15:00 23:00 07:00 15:00 23:00 Intake Total 705 ml 550 ml 836 ml 721 ml Output Total 1650 ml 1000 ml 1050 ml 850 ml Balance -945 ml -450 ml -214 ml -129 ml Intake Oral 150 ml 550 ml Tube Feeding 335 ml 536 ml 441 ml Tube Irrigant 220 ml 300 ml 280 ml Output Urine Total 1650 ml 1000 ml 1050 ml 850 ml # Bowel Movements 1 1 1 1 Objective Remarks GENERAL: Thin patient in no apparent distress. SKIN: Bilateral lower extremities non-erythematous. CARDIOVASCULAR: Regular rate and rhythm. RESPIRATORY: Limited anterior exam. No accessory muscle use. Clear to auscultation. Breath sounds equal bilaterally. GASTROINTESTINAL: Normoactive bowel sounds. Abdomen soft, non-tender, nondistended. Feeding tube present. MUSCULOSKELETAL: Bilateral lower extremities without edema. NEUROLOGICAL: Awake and alert. Motor grossly within normal limits. Normal speech. Procedures 12/18/15 EGD with PEG tube placement Date of Insertion: Dec 16, 2015 A/P Problem List: (1) Failure to thrive in adult ICD Code: R62.7 Status: Acute (2) Malnutrition ICD Code: E46 Status: Acute (3) Bilateral lower leg cellulitis ICD Code: L03.116 Status: Resolved (4) Hyponatremia ICD Code: E87.1 Status: Resolved Assessment and Plan 80-year-old male with no known past medical history presented via EMS after being found covered in urine/feces, complaining of generalized weakness and dysphagia. Dysphagia: resulting in severe malnutrition and weight loss.Consulted GI, performed EGD with PEG tube placement. Continue tube feedings per dietitian. - speech therapy following. Diet puree with nectar thickened liquids. Cont with TF Jevity 1.5 45 cc/hr with tray. GI signed off. - 200cc free water flush TID. Severe Protein Calorie Malnutrition/Failure to Thrive: Secondary to dysphagia above. Weight has improved since admission: 37 kg-->49.8 kg. Palliative care consulted to assist with goals of care, following. Replace electrolytes as needed. Continue tube feeds, improving. Generalized Weakness: likely secondary to severe malnutrition and chronic deconditioning. Consulted PT/OT, recommends SNF. Case management consulted. Awaiting placement. Bilateral Lower Extremity Cellulitis/Edema: Resolved. S/p Rocephin. Leukocytosis has resolved. Patient has remained afebrile. Elevate lower extremities. Hyponatremia:Improved. Likely secondary to dehydration/malnutrition. Resolved, monitor BMP. Right Apical Density: seen on AP CXR; PA/Lateral CXR shows findings of COPD. Chest CT 12/18 ordered by GI to evaluate for malignancy; shows bilateral pleural effusions, with common atelectatic changes, small amount of abdominal ascites and mesenteric edema characteristic of right R insufficiency/volume overload. Atherosclerotic calcification of the coronary arteries. No lower extremity edema. -Incentive spirometry Stage IV pressure ulcers, present on admission on coccyx and right ischium. Specialty bed. -Wound care consulted to evaluate patient here at PO. I spoke with wound care nurse on 01/06/16. Per wound care no dressing recommended for buttocks. Coccyx wound: Daily cleanse with NS ONLY, apply nickel thick layer of Santyl to wound bed and cover with dry cover dressing. May do PRN for soiling or dislodgement. Dry cover to shoulder if needed. Left shoulder pain: will give [place] temporarily. X-rays reviewed without fractures. Muscle spasm: Electrolytes normal. Continue flexeril. DVT Prophylaxis: Lovenox Discharge Planning OT recommends rehabilitation, 3-1 bedside commode, shower bench. PT recommends rehabilitation, wheeled walker, and wheelchair. store deli manager working on placement. Medicaid pending. Vida Carlisle Jan 07, 2016 14:51 Fausto Saldivar MD Jan 07, 2016 18:44
[2016-01-07 16:00] VITALS: BP 105/54; PULSE 101; RESP 20; TEMP 96.3; O2SAT 97
[2016-01-07] MEDS: ENOXAPARIN SODIUM 40 MG/0.4 ML SYRINGE SQ SCH (16:41)
[2016-01-07 20:00] VITALS: BP 106/63; PULSE 99; RESP 18; TEMP 97.4; O2SAT 96
[2016-01-08] VITALS: BP 112/68; PULSE 86; RESP 16; TEMP 98; O2SAT 98
[2016-01-08] MEDS: CYCLOBENZAPRINE HCL 10 MG TAB PO SCH ×3 (06:16→22:32)
[2016-01-08] MEDS: SODIUM CHLORIDE 0.9% FLUSH 5 ML FLUSH FLUSH PRN (06:16)
[2016-01-08 06:20] VITALS: BP 118/78; PULSE 86; RESP 16; TEMP 98.1; O2SAT 95
[2016-01-08 08:00] VITALS: BP 106/61; PULSE 91; RESP 18; TEMP 98.5; O2SAT 98
[2016-01-08] MEDS: COLLAGENASE OINT 30 GM TUBE TOP SCH (08:18)
[2016-01-08] MEDS: SODIUM CHLORIDE 0.9% FLUSH 5 ML FLUSH FLUSH SCH ×2 (08:19→20:55)
[2016-01-08 11:10] VITALS: BP 106/53; PULSE 101; RESP 20; TEMP 98.2; O2SAT 99
[2016-01-08] MEDS: ENOXAPARIN SODIUM 40 MG/0.4 ML SYRINGE SQ SCH (13:11)
[2016-01-08 15:51] VITALS: BP 115/65; PULSE 92; RESP 20; TEMP 98.6; O2SAT 98
--- NOTE | 2016-01-08 19:23 | HHI.PR ---
Subjective Remarks Late entry. Patient evaluated earlier this morning. No acute complaints. No change in clinical status. Objective Vitals Vital Signs Date Time Temp Pulse Resp B/P Pulse Ox O2 Delivery O2 Flow Rate FiO2 01/08/16 15:51 98.6 92 20 115/65 98 01/08/16 11:10 98.2 101 20 106/53 99 01/08/16 08:00 98.5 91 18 106/61 98 01/08/16 06:20 98.1 86 16 118/78 95 01/08/16 00:00 98.0 86 16 112/68 98 01/07/16 20:00 97.4 99 18 106/63 96 I/O 01/07/16 01/07/16 01/07/16 01/08/16 01/08/16 01/08/16 07:00 15:00 23:00 07:00 15:00 23:00 Intake Total 721 ml 600 ml 1621 ml 598 ml 282 ml 240 ml Output Total 850 ml 775 ml 200 ml 850 ml Balance -129 ml -175 ml 1421 ml 598 ml -568 ml 240 ml Intake Oral 600 ml 650 ml 240 ml Tube Feeding 441 ml 671 ml 398 ml 282 ml Tube Irrigant 280 ml 300 ml 200 ml Output Urine Total 850 ml 775 ml 200 ml 750 ml Gastric Drainage Total 100 ml # Bowel Movements 1 1 0 1 Objective Remarks GENERAL: Cachectic appearing pleasant patient in no apparent distress. CARDIOVASCULAR: Regular rate and rhythm. RESPIRATORY: Limited anterior exam. No accessory muscle use. Clear to auscultation. Breath sounds equal bilaterally. GASTROINTESTINAL: Abdomen soft, non-tender, nondistended. MUSCULOSKELETAL: Bilateral lower extremities without edema. NEUROLOGICAL: Awake and alert. Motor grossly within normal limits. Normal speech. Procedures 12/18/15 EGD with PEG tube placement Urinary Catheter: Yes Assessment to: Continue Mena insert reason: Stage III/IV Press Ulcer Date of Insertion: Dec 16, 2015 A/P Problem List: (1) Failure to thrive in adult ICD Code: R62.7 Status: Acute (2) Malnutrition ICD Code: E46 Status: Acute (3) Bilateral lower leg cellulitis ICD Code: L03.116 Status: Resolved (4) Hyponatremia ICD Code: E87.1 Status: Resolved Assessment and Plan 80-year-old male with no known past medical history presented via EMS after being found covered in urine/feces, complaining of generalized weakness and dysphagia. Dysphagia: resulting in severe malnutrition and weight loss.Consulted GI, performed EGD with PEG tube placement. Continue tube feedings per dietitian. - speech therapy following. Diet puree with nectar thickened liquids. Cont with TF Jevity 1.5 45 cc/hr with tray. GI signed off. - 200cc free water flush TID. Severe Protein Calorie Malnutrition/Failure to Thrive: Secondary to dysphagia above. Weight has improved since admission: 37 kg-->49.8 kg. Palliative care consulted to assist with goals of care, following. Replace electrolytes as needed. Continue tube feeds, improving. Generalized Weakness: likely secondary to severe malnutrition and chronic deconditioning. Consulted PT/OT, recommends SNF. Case management consulted. Awaiting placement. Bilateral Lower Extremity Cellulitis/Edema: Resolved. S/p Rocephin. Leukocytosis has resolved. Patient has remained afebrile. Elevate lower extremities. Hyponatremia:Improved. Likely secondary to dehydration/malnutrition. Resolved, monitor BMP. Right Apical Density: seen on AP CXR; PA/Lateral CXR shows findings of COPD. Chest CT 12/18 ordered by GI to evaluate for malignancy; shows bilateral pleural effusions, with common atelectatic changes, small amount of abdominal ascites and mesenteric edema characteristic of right R insufficiency/volume overload. Atherosclerotic calcification of the coronary arteries. No lower extremity edema. -Incentive spirometry Stage IV pressure ulcers, present on admission on coccyx and right ischium. Specialty bed. -Wound care consulted to evaluate patient here at PO. I spoke with wound care nurse on 01/06/16. Per wound care no dressing recommended for buttocks. Coccyx wound: Daily cleanse with NS ONLY, apply nickel thick layer of Santyl to wound bed and cover with dry cover dressing. May do PRN for soiling or dislodgement. Dry cover to shoulder if needed. Left shoulder pain: will give [place] temporarily. X-rays reviewed without fractures. Muscle spasm: Electrolytes normal. Continue flexeril. DVT Prophylaxis: Lovenox Discharge Planning OT recommends rehabilitation, 3-1 bedside commode, shower bench. PT recommends rehabilitation, wheeled walker, and wheelchair. horse show manager working on placement. Medicaid pending. Vida Carlisle Jan 08, 2016 19:23
[2016-01-08 20:00] VITALS: BP 114/68; PULSE 108; RESP 18; TEMP 98.7; O2SAT 98
[2016-01-08] MEDS: ONDANSETRON HCL 4 MG/2 ML VIAL IVP PRN (20:53)
[2016-01-09] VITALS: BP 95/56; PULSE 94; RESP 18; TEMP 97.7; O2SAT 97
[2016-01-09 04:00] VITALS: BP 103/61; PULSE 91; RESP 18; TEMP 97.4; O2SAT 97
[2016-01-09] MEDS: CYCLOBENZAPRINE HCL 10 MG TAB PO SCH ×2 (06:15→13:47)
[2016-01-09 08:00] VITALS: BP 115/58; PULSE 93; RESP 18; TEMP 98; O2SAT 98
[2016-01-09] MEDS: COLLAGENASE OINT 30 GM TUBE TOP SCH (08:38)
[2016-01-09] MEDS: SODIUM CHLORIDE 0.9% FLUSH 5 ML FLUSH FLUSH SCH ×2 (08:38→20:46)
[2016-01-09 12:00] VITALS: BP 118/98; PULSE 90; RESP 18; TEMP 98.1; O2SAT 98
[2016-01-09] MEDS: ENOXAPARIN SODIUM 40 MG/0.4 ML SYRINGE SQ SCH (15:38)
[2016-01-09 16:14] VITALS: BP 124/86; PULSE 80; RESP 18; TEMP 98; O2SAT 98
--- NOTE | 2016-01-09 18:27 | HHI.PR ---
Subjective Remarks Late entry. Patient evaluated earlier today. No acute complaints. No change in clinical status. Objective Vitals Vital Signs Date Time Temp Pulse Resp B/P Pulse Ox O2 Delivery O2 Flow Rate FiO2 01/09/16 16:14 98.0 80 18 124/86 98 01/09/16 12:00 98.1 90 18 118/98 98 01/09/16 08:00 98.0 93 18 115/58 98 01/09/16 04:00 97.4 91 18 103/61 97 01/09/16 00:00 97.7 94 18 95/56 97 01/08/16 20:00 98.7 108 18 114/68 98 I/O 01/08/16 01/08/16 01/08/16 01/09/16 01/09/16 01/09/16 07:00 15:00 23:00 07:00 15:00 23:00 Intake Total 598 ml 282 ml 240 ml 0 ml Output Total 850 ml Balance 598 ml -568 ml 240 ml 0 ml Intake Oral 240 ml IV Total 0 ml Tube Feeding 398 ml 282 ml Tube Irrigant 200 ml Output Urine Total 750 ml Gastric Drainage Total 100 ml # Bowel Movements 1 Objective Remarks GENERAL: Cachectic appearing pleasant patient in no apparent distress. SKIN: No lower extremity erythema. CARDIOVASCULAR: Regular rate and rhythm. RESPIRATORY: Limited anterior exam. No accessory muscle use. Clear to auscultation. Breath sounds equal bilaterally. GASTROINTESTINAL: Abdomen soft, non-tender, nondistended. MUSCULOSKELETAL: Bilateral lower extremities without edema. NEUROLOGICAL: Awake and alert. Motor grossly within normal limits. Normal speech. Procedures 12/18/15 EGD with PEG tube placement Urinary Catheter: Yes Assessment to: Continue Mena insert reason: Stage III/IV Press Ulcer Date of Insertion: Dec 16, 2015 Vascular Central Line Catheter: No A/P Problem List: (1) Failure to thrive in adult ICD Code: R62.7 Status: Acute (2) Malnutrition ICD Code: E46 Status: Acute (3) Bilateral lower leg cellulitis ICD Code: L03.116 Status: Resolved (4) Hyponatremia ICD Code: E87.1 Status: Resolved Assessment and Plan 80-year-old male with no known past medical history presented via EMS after being found covered in urine/feces, complaining of generalized weakness and dysphagia. Dysphagia: resulting in severe malnutrition and weight loss.Consulted GI, performed EGD with PEG tube placement. Continue tube feedings per dietitian. - speech therapy following. Diet puree with nectar thickened liquids. Cont with TF Jevity 1.5 45 cc/hr with tray. GI signed off. - 200cc free water flush TID. Severe Protein Calorie Malnutrition/Failure to Thrive: Secondary to dysphagia above. Weight has improved since admission: 37 kg-->49.8 kg. Palliative care consulted to assist with goals of care, following. Replace electrolytes as needed. Continue tube feeds, improving. Generalized Weakness: likely secondary to severe malnutrition and chronic deconditioning. Consulted PT/OT, recommends SNF. Case management consulted. Awaiting placement. Bilateral Lower Extremity Cellulitis/Edema: Resolved. S/p Rocephin. Leukocytosis has resolved. Patient has remained afebrile. Elevate lower extremities. Hyponatremia:Improved. Likely secondary to dehydration/malnutrition. Resolved, monitor BMP as needed. Right Apical Density: seen on AP CXR; PA/Lateral CXR shows findings of COPD. Chest CT 12/18 ordered by GI to evaluate for malignancy; shows bilateral pleural effusions, with common atelectatic changes, small amount of abdominal ascites and mesenteric edema characteristic of right R insufficiency/volume overload. Atherosclerotic calcification of the coronary arteries. No lower extremity edema. -Incentive spirometry Stage IV pressure ulcers, present on admission on coccyx and right ischium. Specialty bed. -Wound care consulted to evaluate patient here at PO. I spoke with wound care nurse on 01/06/16. Per wound care no dressing recommended for buttocks. Coccyx wound: Daily cleanse with NS ONLY, apply nickel thick layer of Santyl to wound bed and cover with dry cover dressing. May do PRN for soiling or dislodgement. Dry cover to shoulder if needed. Left shoulder pain: X-rays reviewed without fractures. D/c [place] and morphine as patient has not used since 12/26. Muscle spasm: Electrolytes normal. Continue flexeril, change to q12 prn. DVT Prophylaxis: Lovenox Discharge Planning OT recommends rehabilitation, 3-1 bedside commode, shower bench. PT recommends rehabilitation, wheeled walker, and wheelchair. customs manager working on placement. Medicaid pending. Vida Carlisle Jan 09, 2016 18:27
[2016-01-09 20:00] VITALS: BP 112/55; PULSE 106; RESP 16; TEMP 98.1; O2SAT 96
[2016-01-10] VITALS: BP 114/56; PULSE 99; RESP 16; TEMP 98.2; O2SAT 97
[2016-01-10 04:00] VITALS: BP 116/56; PULSE 91; RESP 15; TEMP 98.1; O2SAT 97
[2016-01-10] MEDS: SODIUM CHLORIDE 0.9% FLUSH 5 ML FLUSH FLUSH SCH ×2 (08:24→21:43)
[2016-01-10] MEDS: COLLAGENASE OINT 30 GM TUBE TOP SCH (08:24)
[2016-01-10 09:37] VITALS: BP 111/61; PULSE 94; RESP 18; TEMP 96; O2SAT 96
[2016-01-10] MEDS: ENOXAPARIN SODIUM 40 MG/0.4 ML SYRINGE SQ SCH (16:00)
--- NOTE | 2016-01-10 16:03 | HHI.PR ---
Subjective Remarks Late entry. Patient evaluated early this morning. No acute complaints. No change in clinical status. Objective Vitals Vital Signs Date Time Temp Pulse Resp B/P Pulse Ox O2 Delivery O2 Flow Rate FiO2 01/10/16 09:37 96.0 94 18 111/61 96 01/10/16 04:00 98.1 91 15 116/56 97 01/10/16 00:00 98.2 99 16 114/56 97 01/09/16 20:00 98.1 106 16 112/55 96 01/09/16 16:14 98.0 80 18 124/86 98 I/O 01/09/16 01/09/16 01/09/16 01/10/16 01/10/16 01/10/16 07:00 15:00 23:00 07:00 15:00 23:00 Intake Total 0 ml 360 ml 240 ml 915 ml Output Total 1000 ml 550 ml 550 ml Balance 0 ml -640 ml -310 ml 365 ml Intake Oral 360 ml 240 ml 600 ml IV Total 0 ml 0 ml Tube Feeding 315 ml Output Urine Total 1000 ml 550 ml 550 ml # Bowel Movements 1 0 Objective Remarks GENERAL: Pleasant, cachectic appearing patient in no apparent distress. SKIN: No lower extremity erythema. CARDIOVASCULAR: Regular rate and rhythm. RESPIRATORY: Limited anterior exam. No accessory muscle use. Clear to auscultation. Breath sounds equal bilaterally. GASTROINTESTINAL: Abdomen soft, non-tender, nondistended. MUSCULOSKELETAL: Bilateral lower extremities without edema. NEUROLOGICAL: Awake and alert. Normal speech. Procedures 12/18/15 EGD with PEG tube placement Urinary Catheter: Yes Assessment to: Continue Mena insert reason: Stage III/IV Press Ulcer Date of Insertion: Dec 16, 2015 Vascular Central Line Catheter: No A/P Problem List: (1) Failure to thrive in adult ICD Code: R62.7 Status: Acute (2) Malnutrition ICD Code: E46 Status: Acute (3) Bilateral lower leg cellulitis ICD Code: L03.116 Status: Resolved (4) Hyponatremia ICD Code: E87.1 Status: Resolved Assessment and Plan 80-year-old male with no known past medical history presented via EMS after being found covered in urine/feces, complaining of generalized weakness and dysphagia. Dysphagia: resulting in severe malnutrition and weight loss. Consulted GI, performed EGD with PEG tube placement. Continue tube feedings per dietitian. - speech therapy following. Diet puree with nectar thickened liquids. Cont with TF Jevity 1.5 45 cc/hr with tray. GI signed off. - 200cc free water flush TID. Severe Protein Calorie Malnutrition/Failure to Thrive: Secondary to dysphagia above. Weight has improved since admission: 37 kg-->49 kg. Palliative care consulted to assist with goals of care, following. Replace electrolytes as needed. Continue tube feeds. Generalized Weakness: likely secondary to severe malnutrition and chronic deconditioning. Consulted PT/OT, recommends SNF. Case management consulted. Awaiting placement. Bilateral Lower Extremity Cellulitis/Edema: Resolved. S/p Rocephin. Leukocytosis has resolved. Patient has remained afebrile. Elevate lower extremities. Hyponatremia: Improved. Likely secondary to dehydration/malnutrition. Resolved , monitor BMP as needed. Right Apical Density: seen on AP CXR; PA/Lateral CXR shows findings of COPD. Chest CT 12/18 ordered by GI to evaluate for malignancy; shows bilateral pleural effusions, with common atelectatic changes, small amount of abdominal ascites and mesenteric edema characteristic of right R insufficiency/volume overload. Atherosclerotic calcification of the coronary arteries. No lower extremity edema. -Incentive spirometry Stage IV pressure ulcers, present on admission on coccyx and right ischium. Specialty bed. -Wound care consulted to evaluate patient here at PO. I spoke with wound care nurse on 01/06/16. Per wound care no dressing recommended for buttocks. Coccyx wound: Daily cleanse with NS ONLY, apply nickel thick layer of Santyl to wound bed and cover with dry cover dressing. May do PRN for soiling or dislodgement. Dry cover to shoulder if needed. Left shoulder pain: X-rays reviewed without fractures. [place] and morphine discontinued. Last used 12/26. Muscle spasm: Electrolytes normal. Continue Flexeril q12 prn. DVT Prophylaxis: Lovenox Discharge Planning OT recommends rehabilitation, 3-1 bedside commode, shower bench. PT recommends rehabilitation, wheeled walker, and wheelchair. marketing content manager working on placement. Medicaid pending. Vida Carlisle Jan 10, 2016 16:03
[2016-01-10 19:30] VITALS: BP 116/64; PULSE 96; RESP 18; TEMP 96.7; O2SAT 97
[2016-01-11 08:00] VITALS: BP 119/79; PULSE 100; RESP 20; TEMP 97; O2SAT 99
[2016-01-11] MEDS: COLLAGENASE OINT 30 GM TUBE TOP SCH (08:09)
[2016-01-11] MEDS: SODIUM CHLORIDE 0.9% FLUSH 5 ML FLUSH FLUSH SCH ×2 (08:09→20:39)
[2016-01-11 09:47] VITALS: O2SAT 98
--- NOTE | 2016-01-11 10:25 | HHI.PR ---
Subjective Remarks No acute complaints. No change in clinical status. Objective Vitals Vital Signs Date Time Temp Pulse Resp B/P Pulse Ox O2 Delivery O2 Flow Rate FiO2 01/11/16 08:00 97.0 100 20 119/79 99 01/10/16 19:30 96.7 96 18 116/64 97 I/O 01/10/16 01/10/16 01/10/16 01/11/16 01/11/16 01/11/16 07:00 15:00 23:00 07:00 15:00 23:00 Intake Total 240 ml 915 ml 360 ml Output Total 550 ml 550 ml 500 ml Balance -310 ml 365 ml -140 ml Intake Oral 240 ml 600 ml IV Total 0 ml 0 ml Tube Feeding 315 ml 360 ml Output Urine Total 550 ml 550 ml 500 ml # Bowel Movements 0 0 Objective Remarks GENERAL: Pleasant, cachectic appearing patient in no apparent distress. HEAD: Sunken cheeks. SKIN: No lower extremity erythema. CARDIOVASCULAR: Regular rate and rhythm. RESPIRATORY: Limited anterior exam. No accessory muscle use. Clear to auscultation. Breath sounds equal bilaterally. GASTROINTESTINAL: Normoactive bowel sounds. Abdomen soft, non-tender, nondistended. MUSCULOSKELETAL: Bilateral lower extremities without edema. NEUROLOGICAL: Awake and alert. Normal speech. Procedures 12/18/15 EGD with PEG tube placement Urinary Catheter: Yes Assessment to: Continue Mena insert reason: Stage III/IV Press Ulcer Date of Insertion: Dec 16, 2015 Vascular Central Line Catheter: No A/P Problem List: (1) Failure to thrive in adult ICD Code: R62.7 Status: Acute (2) Malnutrition ICD Code: E46 Status: Acute (3) Bilateral lower leg cellulitis ICD Code: L03.116 Status: Resolved (4) Hyponatremia ICD Code: E87.1 Status: Resolved Assessment and Plan 80-year-old male with no known past medical history presented via EMS after being found covered in urine/feces, complaining of generalized weakness and dysphagia. Dysphagia: resulting in severe malnutrition and weight loss. Consulted GI, performed EGD with PEG tube placement. Continue tube feedings per dietitian. - speech therapy following. Diet puree with nectar thickened liquids. Cont with TF Jevity 1.5 45 cc/hr with tray. GI signed off. - 200cc free water flush TID. Severe Protein Calorie Malnutrition/Failure to Thrive: Secondary to dysphagia above. Weight has improved since admission: 37 kg-->48.2 kg. Palliative care consulted to assist with goals of care, following. Replace electrolytes as needed. Continue tube feeds. Generalized Weakness: likely secondary to severe malnutrition and chronic deconditioning. Consulted PT/OT, recommends SNF. Case management consulted. Awaiting placement. Bilateral Lower Extremity Cellulitis/Edema: Resolved. S/p Rocephin. Leukocytosis has resolved. Patient has remained afebrile. Elevate lower extremities. Hyponatremia: Improved. Likely secondary to dehydration/malnutrition. Resolved , monitor BMP as needed. Right Apical Density: seen on AP CXR; PA/Lateral CXR shows findings of COPD. Chest CT 12/18 ordered by GI to evaluate for malignancy; shows bilateral pleural effusions, with common atelectatic changes, small amount of abdominal ascites and mesenteric edema characteristic of right R insufficiency/volume overload. Atherosclerotic calcification of the coronary arteries. No lower extremity edema. -Incentive spirometry Stage IV pressure ulcers, present on admission on coccyx and right ischium. Specialty bed. -Wound care consulted to evaluate patient here at PO. I spoke with wound care nurse on 01/06/16. Per wound care no dressing recommended for buttocks. Coccyx wound: Daily cleanse with NS ONLY, apply nickel thick layer of Santyl to wound bed and cover with dry cover dressing. May do PRN for soiling or dislodgement. Dry cover to shoulder if needed. Left shoulder pain: X-rays reviewed without fractures. [place] and morphine were discontinued. Last used 12/26. Muscle spasm: Electrolytes normal. Continue Flexeril q12 prn. DVT Prophylaxis: Lovenox Discharge Planning OT recommends rehabilitation, 3-1 bedside commode, shower bench. PT recommends rehabilitation, wheeled walker, and wheelchair. regulatory compliance manager working on placement. Medicaid pending. Vida Carlisle Jan 11, 2016 10:25
[2016-01-11] MEDS: ENOXAPARIN SODIUM 40 MG/0.4 ML SYRINGE SQ SCH (16:09)
[2016-01-11 20:00] VITALS: BP 122/58; PULSE 100; RESP 18; TEMP 97.8; O2SAT 96
[2016-01-12 05:31] LABS: BLOOD, URINE LARGE (NEG); GLUCOSE,URINE NEG (NEG); KETONE, URINE NEG (NEG); PH, URINE 7.5 (5.0-8.5)
[2016-01-12 06:03] LABS: METHOD OF COLLECTION CATH; NITRITE,URINE POS (NEG); URINE COLOR ORANGE (YELLW/STRAW)
[2016-01-12 06:06] LABS: BACTERIA, URINE MOD /hpf; RBC, URINE INNUM /hpf (0-3); SQUAMOUS EPITHELIAL CELL URINE 0-5 /hpf (0-5); WBC, URINE 15-19 /hpf (0-5)
[2016-01-12 06:07] LABS: MUCUS URINE FEW /lpf (OCC)
[2016-01-12 06:10] LABS: COMMENT (UR) CATH-CULTURE IND; CULTURE IF INDICATED CATH CULTURE IND
[2016-01-12] MEDS: SODIUM CHLORIDE 0.9% FLUSH 5 ML FLUSH FLUSH SCH ×2 (07:57→19:57)
[2016-01-12] MEDS: COLLAGENASE OINT 30 GM TUBE TOP SCH (07:57)
[2016-01-12 08:00] VITALS: BP 116/58; PULSE 90; RESP 18; TEMP 98.1; O2SAT 96
--- NOTE | 2016-01-12 10:19 | HHI.PR ---
Subjective Remarks F/u for FTT, pressure ulcers. Nurse informed me that the patient was having discomfort from his Mena catheter and it was removed. The patient states that he had pain from the catheter and admits to dysuria. He currently denies any fevers or chills, abdominal pain, nausea, vomiting, diarrhea, or penile pain. Denies new flank pain. Bloody urine in urinal at bedside. Objective Vitals Vital Signs Date Time Temp Pulse Resp B/P Pulse Ox O2 Delivery O2 Flow Rate FiO2 01/12/16 08:00 98.1 90 18 116/58 96 01/11/16 20:00 97.8 100 18 122/58 96 I/O 01/11/16 01/11/16 01/11/16 01/12/16 01/12/16 01/12/16 07:00 15:00 23:00 07:00 15:00 23:00 Intake Total 720 ml 1158 ml 568 ml 0 ml Output Total 750 ml 450 ml 760 ml Balance -30 ml 708 ml -192 ml 0 ml Intake Oral 720 ml 440 ml 50 ml IV Total 0 ml Tube Feeding 418 ml 318 ml Tube Irrigant 300 ml 200 ml Output Urine Total 750 ml 450 ml 760 ml Bladder Scan Volume Amount 331 ml # Voids 1 # Bowel Movements 1 0 1 Objective Remarks GENERAL: Pleasant, cachectic appearing patient in no apparent distress. HEAD: Sunken cheeks. SKIN: No lower extremity erythema. CARDIOVASCULAR: Tachycardic rate with regular rhythm. RESPIRATORY: Limited anterior exam. No accessory muscle use. Clear to auscultation. Breath sounds equal bilaterally. GASTROINTESTINAL: Abdomen soft, nondistended. Suprapubic pain present. MUSCULOSKELETAL: Bilateral lower extremities without edema. NEUROLOGICAL: Awake and alert. Normal speech. Procedures 12/18/15 EGD with PEG tube placement Urinary Catheter: Yes Assessment to: Continue Mena insert reason: Obstruction/Retention Date of Insertion: Jan 12, 2016 Vascular Central Line Catheter: No A/P Problem List: (1) Failure to thrive in adult ICD Code: R62.7 Status: Acute (2) Malnutrition ICD Code: E46 Status: Acute (3) Bilateral lower leg cellulitis ICD Code: L03.116 Status: Resolved (4) Hyponatremia ICD Code: E87.1 Status: Resolved (5) Urinary retention ICD Code: R33.9 Status: Acute (6) Gross hematuria ICD Code: R31.0 Status: Acute Assessment and Plan 80-year-old male with no known past medical history presented via EMS after being found covered in urine/feces, complaining of generalized weakness and dysphagia. Dysphagia: resulting in severe malnutrition and weight loss. Consulted GI, performed EGD with PEG tube placement. Continue tube feedings per dietitian. - speech therapy following. Diet puree with nectar thickened liquids. Cont with TF Jevity 1.5 45 cc/hr with tray. GI signed off. - 200cc free water flush TID. Severe Protein Calorie Malnutrition/Failure to Thrive: Secondary to dysphagia above. Weight has improved since admission: 37 kg-->48.2 kg. Palliative care consulted to assist with goals of care, following. Replace electrolytes as needed. Continue tube feeds. Generalized Weakness: likely secondary to severe malnutrition and chronic deconditioning. Consulted PT/OT, recommends SNF. Case management consulted. Awaiting placement. Bilateral Lower Extremity Cellulitis/Edema: Resolved. S/p Rocephin. Leukocytosis has resolved. Patient has remained afebrile. Elevate lower extremities. Hyponatremia: Improved. Likely secondary to dehydration/malnutrition. Resolved , monitor BMP as needed. Right Apical Density: seen on AP CXR; PA/Lateral CXR shows findings of COPD. Chest CT 12/18 ordered by GI to evaluate for malignancy; shows bilateral pleural effusions, with common atelectatic changes, small amount of abdominal ascites and mesenteric edema characteristic of right R insufficiency/volume overload. Atherosclerotic calcification of the coronary arteries. No lower extremity edema. -Incentive spirometry Stage IV pressure ulcers, present on admission on coccyx and right ischium. Specialty bed. -Wound care consulted to evaluate patient here at PO. I spoke with wound care nurse on 01/06/16. Per wound care no dressing recommended for buttocks. Coccyx wound: Daily cleanse with NS ONLY, apply nickel thick layer of Santyl to wound bed and cover with dry cover dressing. May do PRN for soiling or dislodgement. Dry cover to shoulder if needed. Gross hematuria/Urinary retention: Patient has had an indwelling Mena due to advanced stage pressure ulcers. He was having discomfort this morning and RN removed the Mena catheter. Patient was noted to have gross hematuria likely from catheter. Admits to suprapubic pain and dysuria. -UA was obtained which shows infection, but urine culture is pending. -Discussed with Dr. Saldivar who advised Oxybutynin for bladder spasm of which patient received one 2.5 mg dose. Does not advise antibiotics at this time as patient is afebrile. -Initial bladder scan was obtained with residual 359 mLs in bladder. RN was informed to attempt warm compresses over bladder, condom catheter to see if patient could urinate. He was unable to and repeat bladder scan was obtained with increased volume from prior and patient was again having discomfort. RN advised to reinsert Mena catheter. -Oxybutynin discontinued and Flomax 0.4 mg daily started. Left shoulder pain: X-rays reviewed without fractures. [place] and morphine were discontinued. Last used 12/26. Muscle spasm: Electrolytes normal. Continue Flexeril 5 mg q12 prn. DVT Prophylaxis: Lovenox Discharge Planning OT recommends rehabilitation, 3-1 bedside commode, shower bench. PT recommends rehabilitation, wheeled walker, and wheelchair. strategic planning manager working on placement. Medicaid pending. Vida Carlisle Jan 12, 2016 10:19
[2016-01-12] MEDS ORDERED: OXYBUTYNIN CHLORIDE 5 MG TAB PO SCH (11:00)
[2016-01-12] MEDS: TAMSULOSIN HCL 0.4 MG CAP PO SCH (12:00)
[2016-01-12] MEDS: ENOXAPARIN SODIUM 40 MG/0.4 ML SYRINGE SQ SCH (16:00)
[2016-01-12 20:00] VITALS: BP 130/62; PULSE 109; RESP 17; TEMP 98.1; O2SAT 94
[2016-01-13 08:00] VITALS: BP 101/53; PULSE 103; RESP 20; TEMP 96.5; O2SAT 97
[2016-01-13] MEDS: TAMSULOSIN HCL 0.4 MG CAP PO SCH (08:12)
[2016-01-13] MEDS: SODIUM CHLORIDE 0.9% FLUSH 5 ML FLUSH FLUSH SCH ×2 (08:12→19:59)
[2016-01-13] MEDS: COLLAGENASE OINT 30 GM TUBE TOP SCH (08:23)
--- NOTE | 2016-01-13 13:14 | HHI.PR ---
Subjective Remarks Patient seen and examined today. Patient denies any new complaints. I counseled patient significantly on getting out of bed, stand more active. Patient Coming up with a plethora of reasons why he feels he cannot get out of bed. Objective Vitals Vital Signs Date Time Temp Pulse Resp B/P Pulse Ox O2 Delivery O2 Flow Rate FiO2 01/13/16 08:00 96.5 103 20 101/53 97 01/12/16 20:00 98.1 109 17 130/62 94 I/O 01/12/16 01/12/16 01/12/16 01/13/16 01/13/16 01/13/16 07:00 15:00 23:00 07:00 15:00 23:00 Intake Total 568 ml 0 ml 756 ml 542 ml 0 ml Output Total 760 ml 302 ml 500 ml Balance -192 ml 0 ml 454 ml 42 ml 0 ml Intake Oral 50 ml 240 ml IV Total 0 ml 0 ml Tube Feeding 318 ml 316 ml 342 ml Tube Irrigant 200 ml 200 ml 200 ml Output Urine Total 760 ml 300 ml 500 ml Stool Total 2 ml Bladder Scan Volume Amount 331 ml 359 ml 489 ml 489 ml 25 ml # Voids 1 # Bowel Movements 1 1 Objective Remarks GENERAL: Well-developed, well-nourished, in no acute distress. alert and orientated HEENT: Head is normocephalic without any lesions or masses noted. Facial features are symmetric. NECK: Supple without any masses. Trachea midline no deviation. No JVD, CARDIAC: Regular rhythm, regular rate. S1/S2 are heard. No murmurs gallops or rubs. LUNGS: Clear to auscultation bilaterally. No wheeze, rhonchi or rales. No use of accessory muscles on inspiration or expiration. ABDOMEN: Soft, nontender. Nondistended. Bowel sounds heard in all 4 quadrants. No organomegaly or masses. Negative rebound, negative guarding. PEG tube noted EXTREMITIES: No edema, pulses are equal bilaterally. No cyanosis or clubbing NEUROLOGY: Mood and affect appear appropriate. Cranial nerves II through XII grossly intact. Moving all extremities, speech is clear Procedures 12/18/15 EGD with PEG tube placement Urinary Catheter: Yes Assessment to: Continue Mena insert reason: Obstruction/Retention Date of Insertion: Jan 12, 2016 Vascular Central Line Catheter: No A/P Assessment and Plan 80-year-old male with no known past medical history presented via EMS after being found covered in urine/feces, complaining of generalized weakness and dysphagia. Dysphagia: resulting in severe malnutrition and weight loss. Consulted GI, performed EGD with PEG tube placement. GI signed off. Continue tube feedings per dietitian. Cont with TF Jevity 1.5 45 cc/hr with tray. speech therapy following. Diet puree with nectar thickened liquids. Generalized Weakness: likely secondary to severe malnutrition and chronic deconditioning. Consulted PT/OT, recommends SNF. Case management consulted. Awaiting placement. Bilateral Lower Extremity Cellulitis/Edema: Resolved. S/p Rocephin. Leukocytosis has resolved. Patient has remained afebrile. Elevate lower extremities. Hyponatremia: Resolved. Likely secondary to dehydration/malnutrition. Right Apical Density: seen on AP CXR; PA/Lateral CXR shows findings of COPD. ExlineChest CT 12/18 ordered by GI to evaluate for malignancy; shows bilateral pleural effusions, with common atelectatic changes, small amount of abdominal ascites and mesenteric edema characteristic of right R insufficiency/volume overload. Atherosclerotic calcification of the coronary arteries. Stage IV pressure ulcers, present on admission on coccyx and right ischium. Specialty bed. Wound care consulted to evaluate patient here at PO. Per wound care no dressing recommended for buttocks. Coccyx wound: Daily cleanse with NS ONLY, apply nickel thick layer of Santyl to wound bed and cover with dry cover dressing. May do PRN for soiling or dislodgement. Dry cover to shoulder if needed. Gross hematuria/Urinary retention: Patient has had an indwelling Mena due to advanced stage pressure ulcers. He was having discomfort this morning and RN removed the Mena catheter. Patient was noted to have gross hematuria likely from catheter. Admits to suprapubic pain and dysuria. UA was obtained which shows infection, urine culture indicates pseudomonas species awaiting final culture, obtain repeat UA Flomax 0.4 mg started daily Start bladder training Left shoulder pain: X-rays reviewed without fractures. [place] and morphine were discontinued. Last used 12/26. DVT Prophylaxis: Perefcto Reyes Jan 13, 2016 13:14
[2016-01-13] MEDS: ENOXAPARIN SODIUM 40 MG/0.4 ML SYRINGE SQ SCH (17:24)
[2016-01-13 17:31] LABS: BLOOD, URINE TRACE (NEG); GLUCOSE,URINE NEG (NEG); KETONE, URINE NEG (NEG); NITRITE,URINE NEG (NEG)
[2016-01-13 17:42] LABS: BACTERIA, URINE FEW /hpf; COMMENT (UR) CATH-CULTURE IND; CULTURE IF INDICATED CATH CULTURE IND; METHOD OF COLLECTION CATH; URINE COLOR YELLOW (YELLW/STRAW)
[2016-01-13 20:00] VITALS: BP 100/49; PULSE 105; RESP 21; TEMP 98.7; O2SAT 96
[2016-01-14] MEDS: SODIUM CHLORIDE 0.9% FLUSH 5 ML FLUSH FLUSH SCH ×2 (07:43→21:00)
[2016-01-14 08:00] VITALS: BP 120/56; PULSE 102; RESP 17; TEMP 98.9; O2SAT 95
[2016-01-14] MEDS: COLLAGENASE OINT 30 GM TUBE TOP SCH (08:25)
[2016-01-14] MEDS: TAMSULOSIN HCL 0.4 MG CAP PO SCH (08:26)
--- NOTE | 2016-01-14 08:26 | HHI.PR ---
Subjective Remarks Patient seen and examined today. Patient did get a bed yesterday. Undergoing bladder training. Objective Vitals Vital Signs Date Time Temp Pulse Resp B/P Pulse Ox O2 Delivery O2 Flow Rate FiO2 01/13/16 20:00 98.7 105 21 100/49 96 I/O 01/13/16 01/13/16 01/13/16 01/14/16 01/14/16 01/14/16 07:00 15:00 23:00 07:00 15:00 23:00 Intake Total 542 ml 601 ml 588 ml 615 ml 0 ml Output Total 500 ml 450 ml 750 ml Balance 42 ml 151 ml 588 ml -135 ml 0 ml Intake Oral 60 ml IV Total 0 ml 0 ml Tube Feeding 342 ml 361 ml 388 ml 355 ml Tube Irrigant 200 ml 240 ml 200 ml 200 ml Output Urine Total 500 ml 450 ml 750 ml Bladder Scan Volume Amount 25 ml # Bowel Movements 1 2 2 Objective Remarks GENERAL: Well-developed, well-nourished, in no acute distress. alert and orientated HEENT: Head is normocephalic without any lesions or masses noted. Facial features are symmetric. NECK: Supple without any masses. Trachea midline no deviation. No JVD, CARDIAC: Regular rhythm, regular rate. S1/S2 are heard. No murmurs gallops or rubs. LUNGS: Clear to auscultation bilaterally. No wheeze, rhonchi or rales. No use of accessory muscles on inspiration or expiration. ABDOMEN: Soft, nontender. Nondistended. Bowel sounds heard in all 4 quadrants. No organomegaly or masses. Negative rebound, negative guarding. PEG tube noted EXTREMITIES: No edema, pulses are equal bilaterally. No cyanosis or clubbing NEUROLOGY: Mood and affect appear appropriate. Cranial nerves II through XII grossly intact. Moving all extremities, speech is clear Procedures 12/18/15 EGD with PEG tube placement Urinary Catheter: Yes Assessment to: Continue Mena insert reason: Obstruction/Retention Date of Insertion: Jan 12, 2016 Vascular Central Line Catheter: No A/P Assessment and Plan 80-year-old male with no known past medical history presented via EMS after being found covered in urine/feces, complaining of generalized weakness and dysphagia. Dysphagia: resulting in severe malnutrition and weight loss. Consulted GI, performed EGD with PEG tube placement. GI signed off. Continue tube feedings per dietitian. Cont with TF Jevity 1.5 45 cc/hr with tray. speech therapy following. Diet puree with nectar thickened liquids. Pre-albumin is pending Stage IV pressure ulcers, present on admission on coccyx and right ischium. Specialty bed. Wound care consulted to evaluate patient here at PO. Wound care following the patient, indicates that wound is improving continue with current orders of Santyl daily Gross hematuria/Urinary retention: Patient has had an indwelling Mena due to advanced stage pressure ulcers. He was having discomfort this morning and RN removed the Mena catheter. Patient was noted to have gross hematuria likely from catheter. Admits to suprapubic pain and dysuria. UA was obtained which shows infection, urine culture indicates pseudomonas species awaiting final culture, Flomax 0.4 mg started daily Continue bladder training Generalized Weakness: likely secondary to severe malnutrition and chronic deconditioning. Consulted PT/OT, recommends SNF. Case management consulted. Awaiting placement. Bilateral Lower Extremity Cellulitis/Edema: Resolved. S/p Rocephin. Leukocytosis has resolved. Patient has remained afebrile. Elevate lower extremities. Hyponatremia: Resolved. Likely secondary to dehydration/malnutrition. Right Apical Density: Density not seen on CT scan seen on AP CXR; PA/Lateral CXR shows findings of COPD. Chest CT 12/18 ordered by GI to evaluate for malignancy; shows bilateral pleural effusions, with common atelectatic changes, small amount of abdominal ascites and mesenteric edema characteristic of right R insufficiency/volume overload. Atherosclerotic calcification of the coronary arteries. Left shoulder pain: X-rays reviewed without fractures. [place] and morphine were discontinued. Last used 12/26. DVT Prophylaxis: Lovenox Discharge Planning OT recommends rehabilitation, 3-1 bedside commode, shower bench. PT recommends rehabilitation, wheeled walker, and wheelchair. ar manager working on placement. Medicaid pending. 01/05/16 Pt remains Medicaid pending.Pt will need placement once medicaid approved. Per previous CM note: Spoke to Anthony ([id number]) [facility] and she informed [facility] that Medicaid application is still pending. Prev cm spoke ,with insurance verification, financial [place] and to Erma RISK CONTROL FIELD REPRESENTATIVE as to why pt does not have Medicare, and pt has not paid anything into the system due to fact pt states he worked in the [employer] and did not pay anything into system. Perfecto Tamayo Jan 14, 2016 08:26
[2016-01-14] MEDS: ENOXAPARIN SODIUM 40 MG/0.4 ML SYRINGE SQ SCH (16:00)
[2016-01-14 20:16] VITALS: BP 117/57; PULSE 102; RESP 18; TEMP 97.7; O2SAT 95
[2016-01-15 08:00] VITALS: BP 121/57; PULSE 105; RESP 19; TEMP 98; O2SAT 94
[2016-01-15] MEDS: SODIUM CHLORIDE 0.9% FLUSH 5 ML FLUSH FLUSH SCH ×2 (09:00→19:30)
[2016-01-15] MEDS: COLLAGENASE OINT 30 GM TUBE TOP SCH (09:00)
--- NOTE | 2016-01-15 09:20 | HHI.PR ---
Subjective Remarks Patient seen and examined today. Patient denies any new complaints. No change in clinical status. Objective Vitals Vital Signs Date Time Temp Pulse Resp B/P Pulse Ox O2 Delivery O2 Flow Rate FiO2 01/15/16 08:00 98.0 105 19 121/57 94 01/14/16 20:16 97.7 102 18 117/57 95 I/O 01/14/16 01/14/16 01/14/16 01/15/16 01/15/16 01/15/16 07:00 15:00 23:00 07:00 15:00 23:00 Intake Total 615 ml 480 ml 544 ml 490 ml Output Total 750 ml 400 ml 300 ml 875 ml Balance -135 ml 80 ml 244 ml -385 ml Intake Oral 60 ml 480 ml IV Total 0 ml Tube Feeding 355 ml 344 ml 310 ml Tube Irrigant 200 ml 200 ml 180 ml Output Urine Total 750 ml 400 ml 300 ml 875 ml Bladder Scan Volume Amount 25 ml 25 ml # Bowel Movements 2 1 2 2 Objective Remarks GENERAL: Well-developed, well-nourished, in no acute distress. alert and orientated HEENT: Head is normocephalic without any lesions or masses noted. Facial features are symmetric. NECK: Supple without any masses. Trachea midline no deviation. No JVD, CARDIAC: Regular rhythm, regular rate. S1/S2 are heard. No murmurs gallops or rubs. LUNGS: Clear to auscultation bilaterally. No wheeze, rhonchi or rales. No use of accessory muscles on inspiration or expiration. ABDOMEN: Soft, nontender. Nondistended. Bowel sounds heard in all 4 quadrants. No organomegaly or masses. Negative rebound, negative guarding. PEG tube noted EXTREMITIES: No edema, pulses are equal bilaterally. No cyanosis or clubbing NEUROLOGY: Mood and affect appear appropriate. Cranial nerves II through XII grossly intact. Moving all extremities, speech is clear Procedures 12/18/15 EGD with PEG tube placement Urinary Catheter: No Date of Insertion: Jan 12, 2016 Vascular Central Line Catheter: No A/P Assessment and Plan 80-year-old male with no known past medical history presented via EMS after being found covered in urine/feces, complaining of generalized weakness and dysphagia. Dysphagia: resulting in severe malnutrition and weight loss. Consulted GI, performed EGD with PEG tube placement. GI signed off. Cont with TF Jevity 1.5 45 cc/hr with tray. Reconsulted dietary for bolus feedings. Recommendations are for Jevity 1.5 360 mL's at 8 AM and 240 mL's at 1200, 1600, 2000, 2400 speech therapy following. Diet puree with nectar thickened liquids. Pre-albumin is 17 Stage IV pressure ulcers, present on admission on coccyx and right ischium. Specialty bed. Wound care consulted to evaluate patient here at PO. Wound care following the patient, indicates that wound is improving continue with current orders of Santyl daily Gross hematuria/Urinary retention: Patient has had an indwelling Mena due to advanced stage pressure ulcers. He was having discomfort this morning and RN removed the Mena catheter. Patient was noted to have gross hematuria likely from catheter. Admits to suprapubic pain and dysuria. UA was obtained which shows infection, urine culture indicates pseudomonas species awaiting final culture, Flomax 0.4 mg started daily Continue bladder training Generalized Weakness: likely secondary to severe malnutrition and chronic deconditioning. Consulted PT/OT, recommends SNF. Case management consulted. Awaiting placement. Bilateral Lower Extremity Cellulitis/Edema: Resolved. S/p Rocephin. Leukocytosis has resolved. Patient has remained afebrile. Elevate lower extremities. Hyponatremia: Resolved. Likely secondary to dehydration/malnutrition. Right Apical Density: Density not seen on CT scan seen on AP CXR; PA/Lateral CXR shows findings of COPD. Chest CT 12/18 ordered by to evaluate for malignancy; shows bilateral pleural effusions, with common atelectatic changes, small amount of abdominal ascites and mesenteric edema characteristic of right R insufficiency/volume overload. Atherosclerotic calcification of the coronary arteries. Left shoulder pain: X-rays reviewed without fractures. [place] and morphine were discontinued. Last used 12/26. DVT Prophylaxis: Lovenox Discharge Planning OT recommends rehabilitation, 3-1 bedside commode, shower bench. PT recommends rehabilitation, wheeled walker, and wheelchair. resource conservation manager working on placement. Medicaid pending. 01/05/16 Pt remains Medicaid pending.Pt will need placement once medicaid approved. Per previous CM note: Spoke to Anthony ([id number]) [facility] and she informed [facility] that Medicaid application is still pending. Prev cm spoke ,with insurance verification, financial [place] and to Erma ELECTRICAL ENGINEER MEP as to why pt does not have Medicare, and pt has not paid anything into the system due to fact pt states he worked in the [employer] and did not pay anything into system. Perfecto Tamayo. JOSSIE Jan 15, 2016 09:20
[2016-01-15] MEDS: TAMSULOSIN HCL 0.4 MG CAP PO SCH (09:34)
[2016-01-15] MEDS: CYCLOBENZAPRINE HCL 10 MG TAB PO PRN ×2 (09:34→20:30)
[2016-01-15] MEDS: ENOXAPARIN SODIUM 40 MG/0.4 ML SYRINGE SQ SCH (16:00)
[2016-01-15 20:00] VITALS: BP 116/68; PULSE 113; RESP 20; TEMP 96.6; O2SAT 96
[2016-01-16 08:00] VITALS: BP 102/62; PULSE 88; RESP 20; TEMP 98.7; O2SAT 96
--- NOTE | 2016-01-16 08:34 | HHI.PR ---
Subjective Remarks Patient seen and examined today. Patient denies any new complaints. No change in clinical status. Patient states he is ready to race me around the crews Objective Vitals Vital Signs Date Time Temp Pulse Resp B/P Pulse Ox O2 Delivery O2 Flow Rate FiO2 01/15/16 20:00 96.6 113 20 116/68 96 I/O 01/15/16 01/15/16 01/15/16 01/16/16 01/16/16 01/16/16 07:00 15:00 23:00 07:00 15:00 23:00 Intake Total 490 ml 580 ml Output Total 875 ml 1150 ml 600 ml 600 ml Balance -385 ml -1150 ml -600 ml -20 ml Tube Feeding 310 ml 480 ml Tube Irrigant 180 ml Other 100 ml Output Urine Total 875 ml 1150 ml 600 ml 600 ml Bladder Scan Volume Amount 25 ml 25 ml # Bowel Movements 2 1 1 Objective Remarks GENERAL: Well-developed, well-nourished, in no acute distress. alert and orientated HEENT: Head is normocephalic without any lesions or masses noted. Facial features are symmetric. NECK: Supple without any masses. Trachea midline no deviation. No JVD, CARDIAC: Regular rhythm, regular rate. S1/S2 are heard. No murmurs gallops or rubs. LUNGS: Clear to auscultation bilaterally. No wheeze, rhonchi or rales. No use of accessory muscles on inspiration or expiration. ABDOMEN: Soft, nontender. Nondistended. Bowel sounds heard in all 4 quadrants. No organomegaly or masses. Negative rebound, negative guarding. PEG tube noted EXTREMITIES: No edema, pulses are equal bilaterally. No cyanosis or clubbing NEUROLOGY: Mood and affect appear appropriate. Cranial nerves II through XII grossly intact. Moving all extremities, speech is clear Procedures 12/18/15 EGD with PEG tube placement Urinary Catheter: Yes Assessment to: Continue Mena insert reason: Obstruction/Retention Date of Insertion: Jan 12, 2016 Vascular Central Line Catheter: No A/P Assessment and Plan 80-year-old male with no known past medical history presented via EMS after being found covered in urine/feces, complaining of generalized weakness and dysphagia. Dysphagia: resulting in severe malnutrition and weight loss. Consulted GI, performed EGD with PEG tube placement. GI signed off. Cont with bolus TF Jevity 1.5 360 mL's at 8 AM and 240 mL's at 1200, 1600, 2000 , 2400 speech therapy following. Diet puree with nectar thickened liquids. Pre-albumin is 17 Stage IV pressure ulcers, present on admission on coccyx and right ischium. Specialty bed. Wound care consulted to evaluate patient here at PO. Wound care following the patient, indicates that wound is improving continue with current orders of Santyl daily Gross hematuria/Urinary retention: Patient has had an indwelling Mena due to advanced stage pressure ulcers. He was having discomfort this morning and RN removed the Mena catheter. Patient was noted to have gross hematuria likely from catheter. Admits to suprapubic pain and dysuria. UA was obtained which shows infection, urine culture indicates pseudomonas species awaiting final culture, Flomax 0.4 mg started daily Continue bladder training Generalized Weakness: likely secondary to severe malnutrition and chronic deconditioning. Consulted PT/OT, recommends SNF. Case management consulted. Awaiting placement. Bilateral Lower Extremity Cellulitis/Edema: Resolved. S/p Rocephin. Leukocytosis has resolved. Patient has remained afebrile. Elevate lower extremities. Hyponatremia: Resolved. Likely secondary to dehydration/malnutrition. Right Apical Density: Density not seen on CT scan seen on AP CXR; PA/Lateral CXR shows findings of COPD. Chest CT 12/18 ordered by GI to evaluate for malignancy; shows bilateral pleural effusions, with common atelectatic changes, small amount of abdominal ascites and mesenteric edema characteristic of right R insufficiency/volume overload. Atherosclerotic calcification of coronary arteries. Left shoulder pain: X-rays reviewed without fractures. DVT Prophylaxis: Lovenox Discharge Planning OT recommends rehabilitation, 3-1 bedside commode, shower bench. PT recommends rehabilitation, wheeled walker, and wheelchair. manager staffing working on placement. Medicaid pending. 01/05/16 Pt remains Medicaid pending.Pt will need placement once medicaid approved. Per previous CM note: Spoke to Anthony ([id number]) [facility] and she informed [facility] that Medicaid application is still pending. Prev cm spoke ,with insurance verification, financial [place] and to Erma STEEL HANGER as to why pt does not have Medicare, and pt has not paid anything into the system due to fact pt states he worked in the [employer] business and did not pay anything into system. Perfecto Tamayo Jan 16, 2016 08:34
[2016-01-16] MEDS: SODIUM CHLORIDE 0.9% FLUSH 5 ML FLUSH FLUSH SCH ×2 (09:00→21:00)
[2016-01-16] MEDS: COLLAGENASE OINT 30 GM TUBE TOP SCH (09:00)
[2016-01-16] MEDS: TAMSULOSIN HCL 0.4 MG CAP PO SCH (09:49)
[2016-01-16] MEDS: CYCLOBENZAPRINE HCL 10 MG TAB PO PRN (09:49)
--- NOTE | 2016-01-16 14:33 | HHI.HCPN ---
Met with Mr. Dixon at [facility]. He is currently sitting up in bed, alert, oriented, and able to make his needs known. Pleasant and appropriate throughout conversation. Lunch tray in front of him about 75% consumed. Verbalizes he does not like when "they oil down the ensure shakes". Expressed some more concerns with consistency of water and feeling like his mouth is always dry. Last seen by speech therapy 12/31 when they signed off. Currently on honey thickened and pureed diet. He tells me he continues to eat better but "I only have half a stomach so the full mechanism isn't there". He presents with a brighter affect than previous visits. Mr. Dixon reports his brother and a few friends from the area come to visit from time to time. Allowed time for life reflection, offered active listening and emotional support. Mr. Dixon reports he is sleeping fairly well but does get woken up many times throughout the day and time by hospital staff. Tells me his pain is fairly well controlled when he receives his pain medications but when they wear off his pain is close to a 10. Denies any questions or concerns at this time. He is appreciative of palliative care SW visit. Palliative care will continue to follow throughout hospitalization. SW will follow as needed for emotional and social support. Lizett Sneed, HOSPITALIST PROGRAM DIRECTOR Jan 16, 2016 14:33
[2016-01-16] MEDS: ENOXAPARIN SODIUM 40 MG/0.4 ML SYRINGE SQ SCH (15:30)
[2016-01-16 19:15] VITALS: BP 101/59; PULSE 59; RESP 18; TEMP 98.8; O2SAT 95
[2016-01-17 08:22] VITALS: BP 113/67; PULSE 92; RESP 16; TEMP 98.3; O2SAT 96
--- NOTE | 2016-01-17 08:53 | HHI.PR ---
Subjective Remarks Patient seen and examined today. Patient denies any new complaints. No change in clinical status. Objective Vitals Vital Signs Date Time Temp Pulse Resp B/P Pulse Ox O2 Delivery O2 Flow Rate FiO2 01/16/16 19:15 98.8 59 18 101/59 95 I/O 01/16/16 01/16/16 01/16/16 01/17/16 01/17/16 01/17/16 07:00 15:00 23:00 07:00 15:00 23:00 Intake Total 580 ml 780 ml 300 ml 300 ml Output Total 600 ml 600 ml 1000 ml Balance -20 ml 180 ml 300 ml -700 ml Intake Oral 200 ml Tube Feeding 480 ml 480 ml 240 ml 240 ml Other 100 ml 100 ml 60 ml 60 ml Output Urine Total 600 ml 600 ml 1000 ml Bladder Scan Volume Amount 25 ml 25 ml # Bowel Movements 1 1 Objective Remarks GENERAL: Well-developed, well-nourished, in no acute distress. alert and orientated HEENT: Head is normocephalic without any lesions or masses noted. Facial features are symmetric. NECK: Supple without any masses. Trachea midline no deviation. No JVD, CARDIAC: Regular rhythm, regular rate. S1/S2 are heard. No murmurs gallops or rubs. LUNGS: Clear to auscultation bilaterally. No wheeze, rhonchi or rales. No use of accessory muscles on inspiration or expiration. ABDOMEN: Soft, nontender. Nondistended. Bowel sounds heard in all 4 quadrants. No organomegaly or masses. Negative rebound, negative guarding. PEG tube noted EXTREMITIES: No edema, pulses are equal bilaterally. No cyanosis or clubbing NEUROLOGY: Mood and affect appear appropriate. Cranial nerves II through XII grossly intact. Moving all extremities, speech is clear Procedures 12/18/15 EGD with PEG tube placement Urinary Catheter: Yes Assessment to: Continue Mena insert reason: Obstruction/Retention Date of Insertion: Jan 12, 2016 Vascular Central Line Catheter: No A/P Assessment and Plan 80-year-old male with no known past medical history presented via EMS after being found covered in urine/feces, complaining of generalized weakness and dysphagia. Dysphagia: resulting in severe malnutrition and weight loss. Consulted GI, performed EGD with PEG tube placement. GI signed off. Cont with bolus TF Jevity 1.5 360 mL's at 8 AM and 240 mL's at 1200, 1600, 2000 , 2400 speech therapy following. Diet puree with nectar thickened liquids. Pre-albumin is 17 Stage IV pressure ulcers, present on admission on coccyx and right ischium. Specialty bed. Wound care consulted to evaluate patient here at PO. Wound care following the patient, indicates that wound is improving continue with current orders of Santyl daily Gross hematuria/Urinary retention: Patient has had an indwelling Mena due to advanced stage pressure ulcers. He was having discomfort this morning and RN removed the Mena catheter. Patient was noted to have gross hematuria likely from catheter. Admits to suprapubic pain and dysuria. UA was obtained which shows infection, urine culture indicates pseudomonas species awaiting final culture, Flomax 0.4 mg started daily Continue bladder training Generalized Weakness: likely secondary to severe malnutrition and chronic deconditioning. Consulted PT/OT, recommends SNF. Case management consulted. Awaiting placement. Bilateral Lower Extremity Cellulitis/Edema: Resolved. S/p Rocephin. Leukocytosis has resolved. Patient has remained afebrile. Elevate lower extremities. Hyponatremia: Resolved. Likely secondary to dehydration/malnutrition. Right Apical Density: Density not seen on CT scan seen on AP CXR; PA/Lateral CXR shows findings of COPD. Chest CT 12/18 ordered by GI to evaluate for malignancy; shows bilateral pleural effusions, with common atelectatic changes, small amount of abdominal ascites and mesenteric edema characteristic of right R insufficiency/volume overload. Atherosclerotic calcification of coronary arteries. Left shoulder pain: X-rays reviewed without fractures. DVT Prophylaxis: Lovenox Discharge Planning OT recommends rehabilitation, 3-1 bedside commode, shower bench. PT recommends rehabilitation, wheeled walker, and wheelchair. regional branch manager working on placement. Medicaid pending. 01/05/16 Pt remains Medicaid pending.Pt will need placement once medicaid approved. Per previous CM note: Spoke to Anthony ([id number]) [facility] and she informed [facility] that Medicaid application is still pending. Prev cm spoke ,with insurance verification, financial [place] and to Erma DAYCARE WORKER as to why pt does not have Medicare, and pt has not paid anything into the system due to fact pt states he worked in the [employer] and did not pay anything into system. Perfecto Tamayo Jan 17, 2016 08:53
[2016-01-17] MEDS: SODIUM CHLORIDE 0.9% FLUSH 5 ML FLUSH FLUSH SCH ×2 (09:00→19:59)
[2016-01-17] MEDS: COLLAGENASE OINT 30 GM TUBE TOP SCH (09:00)
[2016-01-17] MEDS: TAMSULOSIN HCL 0.4 MG CAP PO SCH (09:55)
[2016-01-17] MEDS: CYCLOBENZAPRINE HCL 10 MG TAB PO PRN (09:55)
[2016-01-17] MEDS: ENOXAPARIN SODIUM 40 MG/0.4 ML SYRINGE SQ SCH (16:00)
[2016-01-17 20:00] VITALS: BP 115/59; PULSE 100; RESP 16; TEMP 98.2; O2SAT 96
[2016-01-18 08:22] VITALS: BP 110/85; PULSE 96; RESP 16; TEMP 97.7; O2SAT 95
--- NOTE | 2016-01-18 08:46 | HHI.PR ---
Subjective Remarks Patient seen and examined today. Patient denies any new complaints. No change in clinical status. Objective Vitals Vital Signs Date Time Temp Pulse Resp B/P Pulse Ox O2 Delivery O2 Flow Rate FiO2 01/17/16 20:00 98.2 100 16 115/59 96 I/O 01/17/16 01/17/16 01/17/16 01/18/16 01/18/16 01/18/16 07:00 15:00 23:00 07:00 15:00 23:00 Intake Total 300 ml 360 ml 600 ml Output Total 1000 ml 1200 ml 325 ml 801 ml Balance -700 ml -1200 ml 35 ml -201 ml Intake Oral 360 ml 120 ml Tube Feeding 240 ml 480 ml Other 60 ml Output Urine Total 1000 ml 1200 ml 325 ml 800 ml Stool Total 1 ml Bladder Scan Volume Amount 25 ml 25 ml # Bowel Movements 1 1 Objective Remarks GENERAL: Well-developed, well-nourished, in no acute distress. alert and orientated HEENT: Head is normocephalic without any lesions or masses noted. Facial features are symmetric. NECK: Supple without any masses. Trachea midline no deviation. No JVD, CARDIAC: Regular rhythm, regular rate. S1/S2 are heard. No murmurs gallops or rubs. LUNGS: Clear to auscultation bilaterally. No wheeze, rhonchi or rales. No use of accessory muscles on inspiration or expiration. ABDOMEN: Soft, nontender. Nondistended. Bowel sounds heard in all 4 quadrants. No organomegaly or masses. Negative rebound, negative guarding. PEG tube noted EXTREMITIES: No edema, pulses are equal bilaterally. No cyanosis or clubbing NEUROLOGY: Mood and affect appear appropriate. Cranial nerves II through XII grossly intact. Moving all extremities, speech is clear Procedures 12/18/15 EGD with PEG tube placement Urinary Catheter: No Date of Insertion: Jan 12, 2016 Vascular Central Line Catheter: No A/P Assessment and Plan 80-year-old male with no known past medical history presented via EMS after being found covered in urine/feces, complaining of generalized weakness and dysphagia. Dysphagia: resulting in severe malnutrition and weight loss. Consulted GI, performed EGD with PEG tube placement. GI signed off. Cont with bolus TF Jevity 1.5 360 mL's at 8 AM and 240 mL's at 1200, 1600, 2000 , 2400 speech therapy following. Diet puree with nectar thickened liquids. Pre-albumin is 17 Stage IV pressure ulcers, present on admission on coccyx and right ischium. Specialty bed. Wound care consulted to evaluate patient here at PO. Wound care following the patient, indicates that wound is improving continue with current orders of Santyl daily Gross hematuria/Urinary retention: Patient has had an indwelling Mena due to advanced stage pressure ulcers. He was having discomfort this morning and RN removed the Mena catheter. Patient was noted to have gross hematuria likely from catheter. Admits to suprapubic pain and dysuria. UA was obtained which shows infection, urine culture indicates pseudomonas species awaiting final culture, Flomax 0.4 mg started daily Continue bladder training Generalized Weakness: likely secondary to severe malnutrition and chronic deconditioning. Consulted PT/OT, recommends SNF. Case management consulted. Awaiting placement. Bilateral Lower Extremity Cellulitis/Edema: Resolved. S/p Rocephin. Leukocytosis has resolved. Patient has remained afebrile. Elevate lower extremities. Hyponatremia: Resolved. Likely secondary to dehydration/malnutrition. Right Apical Density: Density not seen on CT scan seen on AP CXR; PA/Lateral CXR shows findings of COPD. Chest CT 12/18 ordered by GI to evaluate for malignancy; shows bilateral pleural effusions, with common atelectatic changes, small amount of abdominal ascites and mesenteric edema characteristic of right R insufficiency/volume overload. Atherosclerotic calcification of coronary arteries. Left shoulder pain: X-rays reviewed without fractures. DVT Prophylaxis: Lovenox Discharge Planning OT recommends rehabilitation, 3-1 bedside commode, shower bench. PT recommends rehabilitation, wheeled walker, and wheelchair. enforcement manager working on placement. Medicaid pending. 01/05/16 Pt remains Medicaid pending.Pt will need placement once medicaid approved. Per previous CM note: Spoke to Anthony ([id number]) [facility] and she informed [facility] that Medicaid application is still pending. Prev cm spoke ,with insurance verification, financial Marni and to Erma HOT STONE SETTER as to why pt does not have Medicare, and pt has not paid anything into the system due to fact pt states he worked in the [employer] and did not pay anything into system. Perfecto Tamayo Jan 18, 2016 08:46
[2016-01-18] MEDS: SODIUM CHLORIDE 0.9% FLUSH 5 ML FLUSH FLUSH SCH ×2 (09:00→20:38)
[2016-01-18] MEDS: TAMSULOSIN HCL 0.4 MG CAP PO SCH (09:32)
[2016-01-18] MEDS: COLLAGENASE OINT 30 GM TUBE TOP SCH (09:33)
[2016-01-18] MEDS: ENOXAPARIN SODIUM 40 MG/0.4 ML SYRINGE SQ SCH (14:46)
[2016-01-18 20:00] VITALS: BP 114/65; PULSE 99; RESP 19; TEMP 97.8; O2SAT 95
[2016-01-19 08:00] VITALS: BP_SYST 115; BP_SYST 127; BP_DIAS 65; BP_DIAS 70; PULSE 80; PULSE 94; RESP 18; TEMP 97.8; TEMP 98.4; O2SAT 97
--- NOTE | 2016-01-19 08:12 | HHI.PR ---
Subjective Remarks Patient seen and examined today. Patient states that he slept well last night. Patient states that he feels much better today. Discussed with him of getting out of bed, increasing his strength. Objective Vitals Vital Signs Date Time Temp Pulse Resp B/P Pulse Ox O2 Delivery O2 Flow Rate FiO2 01/18/16 20:00 97.8 99 19 114/65 95 01/18/16 08:22 97.7 96 16 110/85 95 I/O 01/18/16 01/18/16 01/18/16 01/19/16 01/19/16 01/19/16 07:00 15:00 23:00 07:00 15:00 23:00 Intake Total 600 ml 510 ml 270 ml 840 ml 0 ml Output Total 801 ml 300 ml 500 ml 700 ml Balance -201 ml 210 ml -230 ml 140 ml 0 ml Intake Oral 120 ml 240 ml IV Total 0 ml 0 ml Tube Feeding 480 ml 480 ml 240 ml 480 ml Other 30 ml 30 ml 120 ml Output Urine Total 800 ml 300 ml 500 ml 700 ml Stool Total 1 ml Bladder Scan Volume Amount 25 ml 25 ml # Bowel Movements 1 2 Objective Remarks GENERAL: Well-developed, well-nourished, in no acute distress. alert and orientated HEENT: Head is normocephalic without any lesions or masses noted. Facial features are symmetric. NECK: Supple without any masses. Trachea midline no deviation. No JVD, CARDIAC: Regular rhythm, regular rate. S1/S2 are heard. No murmurs gallops or rubs. LUNGS: Clear to auscultation bilaterally. No wheeze, rhonchi or rales. No use of accessory muscles on inspiration or expiration. ABDOMEN: Soft, nontender. Nondistended. Bowel sounds heard in all 4 quadrants. No organomegaly or masses. Negative rebound, negative guarding. PEG tube noted EXTREMITIES: No edema, pulses are equal bilaterally. No cyanosis or clubbing NEUROLOGY: Mood and affect appear appropriate. Cranial nerves II through XII grossly intact. Moving all extremities, speech is clear Procedures 12/18/15 EGD with PEG tube placement Urinary Catheter: Yes Assessment to: Continue Mena insert reason: Obstruction/Retention Date of Insertion: Jan 12, 2016 Vascular Central Line Catheter: No A/P Assessment and Plan 80-year-old male with no known past medical history presented via EMS after being found covered in urine/feces, complaining of generalized weakness and dysphagia. Dysphagia: resulting in severe malnutrition and weight loss. Consulted GI, performed EGD with PEG tube placement. GI signed off. Cont with bolus TF Jevity 1.5 360 mL's at 8 AM and 240 mL's at 1200, 1600, 2000 , 2400 speech therapy following. Diet puree with nectar thickened liquids. Pre-albumin is 17 Stage IV pressure ulcers, present on admission on coccyx and right ischium. Specialty bed. Wound care consulted to evaluate patient here at PO. Wound care following the patient, indicates that wound is improving continue with current orders of Santyl daily Gross hematuria/Urinary retention: Patient has had an indwelling Mena due to advanced stage pressure ulcers. He was having discomfort this morning and RN removed the Mena catheter. Patient was noted to have gross hematuria likely from catheter. Admits to suprapubic pain and dysuria. UA was obtained which shows infection, urine culture indicates pseudomonas species awaiting final culture, Flomax 0.4 mg started daily Continue bladder training Generalized Weakness: likely secondary to severe malnutrition and chronic deconditioning. Consulted PT/OT, recommends SNF. Case management consulted. Awaiting placement. Bilateral Lower Extremity Cellulitis/Edema: Resolved. S/p Rocephin. Leukocytosis has resolved. Patient has remained afebrile. Elevate lower extremities. Hyponatremia: Resolved. Likely secondary to dehydration/malnutrition. Right Apical Density: Density not seen on CT scan seen on AP CXR; PA/Lateral CXR shows findings of COPD. Chest CT 12/18 ordered by to evaluate for malignancy; shows bilateral pleural effusions, with common atelectatic changes, small amount of abdominal ascites and mesenteric edema characteristic of right R insufficiency/volume overload. Atherosclerotic calcification of coronary arteries. Left shoulder pain: X-rays reviewed without fractures. DVT Prophylaxis: Lovenox Discharge Planning OT recommends rehabilitation, 3-1 bedside commode, shower bench. PT recommends rehabilitation, wheeled walker, and wheelchair. treasury manager working on placement. Medicaid pending. 01/05/16 Pt remains Medicaid pending.Pt will need placement once medicaid approved. Per previous CM note: Spoke to Anthony ([id number]) [facility] and she informed [facility] that Medicaid application is still pending. Prev cm spoke ,with insurance verification, financial [place] and to Erma FUEL TANK SEALER AND TESTER as to why pt does not have Medicare, and pt has not paid anything into the system due to fact pt states he worked in the [employer] and did not pay anything into system. Perfecto Tamayo. JOSSIE Jan 19, 2016 08:11
[2016-01-19] MEDS: COLLAGENASE OINT 30 GM TUBE TOP SCH (08:32)
[2016-01-19] MEDS: TAMSULOSIN HCL 0.4 MG CAP PO SCH (08:33)
[2016-01-19] MEDS: SODIUM CHLORIDE 0.9% FLUSH 5 ML FLUSH FLUSH SCH ×2 (09:00→21:00)
[2016-01-19] MEDS: ENOXAPARIN SODIUM 40 MG/0.4 ML SYRINGE SQ SCH (16:00)
[2016-01-19 18:00] VITALS: BP 122/70; PULSE 71; RESP 16; TEMP 98.1; O2SAT 95
[2016-01-20] MEDS: SODIUM CHLORIDE 0.9% FLUSH 5 ML FLUSH FLUSH SCH ×2 (07:25→20:03)
[2016-01-20] MEDS: TAMSULOSIN HCL 0.4 MG CAP PO SCH (07:58)
[2016-01-20] MEDS: COLLAGENASE OINT 30 GM TUBE TOP SCH (07:59)
[2016-01-20 09:58] VITALS: BP 108/68; PULSE 117; RESP 20; TEMP 98; O2SAT 96
[2016-01-20] MEDS: ENOXAPARIN SODIUM 40 MG/0.4 ML SYRINGE SQ SCH (16:25)
--- NOTE | 2016-01-20 18:55 | HHI.PR ---
Subjective Remarks Follow-up for malnutrition, urinary retention. Denies further suprapubic pain or Mena discomfort. Denies fevers or chills. Objective Vitals Vital Signs Date Time Temp Pulse Resp B/P Pulse Ox O2 Delivery O2 Flow Rate FiO2 01/20/16 09:58 98.0 117 20 108/68 96 I/O 01/19/16 01/19/16 01/19/16 01/20/16 01/20/16 01/20/16 06:59 14:59 22:59 06:59 14:59 22:59 Intake Total 840 ml 0 ml 360 ml 0 ml Output Total 700 ml 1600 ml 700 ml 550 ml Balance 140 ml 0 ml -1240 ml -700 ml -550 ml Intake Oral 240 ml 360 ml 0 ml IV Total 0 ml Tube Feeding 480 ml Other 120 ml Output Urine Total 700 ml 1600 ml 700 ml 550 ml Bladder Scan Volume Amount 25 ml 25 ml 25 ml # Bowel Movements 1 Objective Remarks GENERAL: Pleasant, cachectic appearing patient in no apparent distress. SKIN: No lower extremity erythema. CARDIOVASCULAR: Regular rate and rhythm. RESPIRATORY: Limited anterior exam. No accessory muscle use. Clear to auscultation. Breath sounds equal bilaterally. GASTROINTESTINAL: Abdomen soft, nondistended. MUSCULOSKELETAL: Bilateral lower extremities without edema. NEUROLOGICAL: Awake and alert. Normal speech. Procedures 12/18/15 EGD with PEG tube placement Urinary Catheter: Yes Assessment to: Continue Mena insert reason: Obstruction/Retention Date of Insertion: Jan 12, 2016 Vascular Central Line Catheter: No A/P Problem List: (1) Failure to thrive in adult ICD Code: R62.7 Status: Acute (2) Malnutrition ICD Code: E46 Status: Acute (3) Bilateral lower leg cellulitis ICD Code: L03.116 Status: Resolved (4) Hyponatremia ICD Code: E87.1 Status: Resolved (5) Urinary retention ICD Code: R33.9 Status: Acute (6) Gross hematuria ICD Code: R31.0 Status: Acute Assessment and Plan 80-year-old male with no known past medical history presented via EMS after being found covered in urine/feces, complaining of generalized weakness and dysphagia. Dysphagia: resulting in severe malnutrition and weight loss (Failure to thrive) . Consulted GI, performed EGD with PEG tube placement. GI signed off. Pre-albumin 01/12 is 17 Cont with bolus TF Jevity 1.5 360 mL's at 8 AM and 240 mL's at 1200, 1600, 2000 , 2400. Continue Ensure Enlive tid w/HMB for wound healing per breakfast server. Speech therapy following. Diet advanced: Mechanical soft, chopped meat with gravy, thin liquids. Palliative care consulted to assist with goals of care, following. Generalized Weakness: likely secondary to severe malnutrition and chronic deconditioning. Consulted PT/OT, recommends SNF. Case management consulted. Awaiting placement. Bilateral Lower Extremity Cellulitis/Edema: Resolved. S/p Rocephin. Leukocytosis has resolved. Patient has remained afebrile. Elevate lower extremities. Hyponatremia: Improved. Likely secondary to dehydration/malnutrition. Resolved , monitor BMP as needed. Right Apical Density: seen on AP CXR; PA/Lateral CXR shows findings of COPD. Chest CT 12/18 ordered by GI to evaluate for malignancy; shows bilateral pleural effusions, with common atelectatic changes, small amount of abdominal ascites and mesenteric edema characteristic of right R insufficiency/volume overload. Atherosclerotic calcification of the coronary arteries. No lower extremity edema. -Incentive spirometry Stage IV pressure ulcers, present on admission on coccyx and right ischium. Specialty bed. -Wound care consulted to evaluate patient here at PO. I spoke with wound care nurse on 01/06/16. Per wound care no dressing recommended for buttocks. Coccyx wound: Daily cleanse with NS ONLY, apply nickel thick layer of Santyl to wound bed and cover with dry cover dressing. May do PRN for soiling or dislodgement. Dry cover to shoulder if needed. Gross hematuria/Urinary retention: Patient has Mena due to advanced stage pressure ulcers. He was having discomfort and Mena was removed 1 week ago, but patient was unable to void and had urinary retention. Mena replaced. -UA was obtained which showed infection but treatment was deferred at the time as patient was afebrile and will always have bacteria due to Mena and culture was at that time pending. -Urine culture resulted with Pseudomonas Aeruginosa on 01/11 and 01/12 but patient apparently was never treated for the infection. It has been one week since those results, patient tachycardic but afebrile. Will obtain new UA. -Continue Flomax 0.4 mg daily. Left shoulder pain: X-rays reviewed without fractures. [place] and morphine were discontinued. Last used 12/26. Muscle spasm: Electrolytes normal. Continue Flexeril 5 mg q12 prn. DVT Prophylaxis: Lovenox Discharge Planning OT recommends rehabilitation, 3-1 bedside commode, shower bench. PT recommends rehabilitation, wheeled walker, and wheelchair. procurement manager working on placement. Medicaid pending. Vida Carlisle Jan 20, 2016 18:55
[2016-01-20 19:29] LABS: BLOOD, URINE SMALL (NEG); GLUCOSE,URINE NEG (NEG); KETONE, URINE NEG (NEG)
[2016-01-20 19:33] LABS: NITRITE,URINE POS (NEG)
[2016-01-20 19:37] LABS: METHOD OF COLLECTION CATH; URINE COLOR YELLOW (YELLW/STRAW)
[2016-01-20 19:38] LABS: MUCUS URINE MOD /lpf (OCC); WBC, URINE INNUM /hpf (0-5)
[2016-01-20 19:40] LABS: BACTERIA, URINE FEW /hpf; COMMENT (UR) CATH-CULTURE IND; CULTURE IF INDICATED CATH CULTURE IND
[2016-01-20 20:00] VITALS: BP 99/64; PULSE 98; RESP 16; TEMP 98; O2SAT 97
[2016-01-21 08:00] VITALS: BP 123/73; PULSE 86; RESP 20; TEMP 98; O2SAT 95
[2016-01-21 08:48] LABS: AUTOMATED NEUTROPHIL # 5.6 TH/MM3 (1.8-7.7); BASOPHIL % 0.4 % (0.0-2.0); EOSINOPHIL # 0.2 TH/MM3 (0-0.4); EOSINOPHIL % 2.4 % (0.0-4.0); HEMATOCRIT 33.6 % (39.0-51.0); LYMPH % 13.8 % (9.0-44.0); MEAN CELL VOLUME 97.1 FL (80.0-100.0); MEAN CORPUSCULAR HEMOGLOBIN 32.7 PG (27.0-34.0); MEAN CORPUSCULAR HGB CONC 33.6 % (32.0-36.0); MONO % 5.6 % (0.0-8.0); NEUT % 77.8 % (16.0-70.0); PLATELET COUNT 257 TH/MM3 (150-450); RED BLOOD COUNT 3.46 MIL/MM3 (4.50-5.90); RED CELL DISTRIBUTION WIDTH 14.8 % (11.6-17.2); WHITE BLOOD COUNT 7.2 TH/MM3 (4.0-11.0)
[2016-01-21 08:49] LABS: HEMO FLAGS DIFF FINAL
[2016-01-21] MEDS: TAMSULOSIN HCL 0.4 MG CAP PO SCH (08:53)
[2016-01-21] MEDS: COLLAGENASE OINT 30 GM TUBE TOP SCH (08:54)
[2016-01-21] MEDS: SODIUM CHLORIDE 0.9% FLUSH 5 ML FLUSH FLUSH SCH (08:54)
[2016-01-21 08:55] LABS: POTASSIUM 4.2 MEQ/L (3.5-5.1)
--- NOTE | 2016-01-21 10:24 | HHI.PR ---
Subjective Remarks Follow-up for failure to thrive. Patient denies any fevers or chills, abdominal pain or vomiting, or dysuria. Objective Vitals Vital Signs Date Time Temp Pulse Resp B/P Pulse Ox O2 Delivery O2 Flow Rate FiO2 01/21/16 08:00 98.0 86 20 123/73 95 01/20/16 20:00 98.0 98 16 99/64 97 I/O 01/20/16 01/20/16 01/20/16 01/21/16 01/21/16 01/21/16 07:00 15:00 23:00 07:00 15:00 23:00 Intake Total 0 ml 340 ml 340 ml 0 ml Output Total 700 ml 750 ml 200 ml 400 ml Balance -700 ml -750 ml 140 ml -60 ml 0 ml Intake Oral 0 ml IV Total 0 ml Tube Feeding 240 ml 240 ml Other 100 ml 100 ml Output Urine Total 700 ml 750 ml 200 ml 400 ml Bladder Scan Volume Amount 25 ml # Bowel Movements 1 Result Diagram: 01/21/1682401/21/16824 Objective Remarks GENERAL: Pleasant, cachectic appearing patient in no apparent distress. CARDIOVASCULAR: Regular rate and rhythm. RESPIRATORY: Limited anterior exam. No accessory muscle use. Clear to auscultation. Breath sounds equal bilaterally. GASTROINTESTINAL: Abdomen soft, nondistended. NEUROLOGICAL: Awake and alert. Normal speech. Procedures 12/18/15 EGD with PEG tube placement Urinary Catheter: Yes Mena insert reason: Obstruction/Retention Date of Insertion: Jan 12, 2016 Vascular Central Line Catheter: No A/P Problem List: (1) Failure to thrive in adult ICD Code: R62.7 Status: Acute (2) Malnutrition ICD Code: E46 Status: Acute (3) Urinary retention ICD Code: R33.9 Status: Acute (4) Prerenal azotemia ICD Code: R79.89 Status: Acute (5) Gross hematuria ICD Code: R31.0 Status: Resolved (6) Bilateral lower leg cellulitis ICD Code: L03.116 Status: Resolved (7) Hyponatremia ICD Code: E87.1 Status: Resolved Assessment and Plan 80-year-old male with no known past medical history presented via EMS after being found covered in urine/feces, complaining of generalized weakness and dysphagia. Dysphagia: resulting in severe malnutrition and weight loss (Failure to thrive) . Consulted GI, performed EGD with PEG tube placement. GI signed off. Pre-albumin 01/12 is 17 Cont with bolus TF Jevity 1.5 360 mL's at 8 AM and 240 mL's at 1200, 1600, 2000 , 2400. Continue Ensure Enlive tid w/HMB for wound healing per casino manager. Speech therapy following. Diet advanced: Mechanical soft, chopped meat with gravy, thin liquids. Palliative care consulted to assist with goals of care, following. Gross hematuria/Urinary retention: Patient has Mena due to advanced stage pressure ulcers. He was having discomfort and Mena was removed 1 week ago, but patient was unable to void and had urinary retention. Mena replaced. -UA was obtained which showed infection but treatment was deferred at the time as patient was afebrile and will always have bacteria due to Mena and culture was at that time pending. -Urine culture resulted with Pseudomonas Aeruginosa on 01/11 and 01/12 but patient apparently was never treated for the infection. It has been one week since those results. WBC normal today. New UA 01/19 worse than prior with innumerable WBCs, positive nitrites, large leukocyte esterase. I discussed this with Dr. Palafox. -Cipro 500 mg twice a day 7 days started based on susceptibility report of prior urine culture report. -New Urine culture pending. -Continue Flomax 0.4 mg daily. -Continue Mena catheter for now Pre-renal azotemia: BUN/Cr 27/0.52 today. -Encourage po hydration -Monitor renal function Right Apical Density: seen on AP CXR; PA/Lateral CXR shows findings of COPD. Chest CT 12/18 ordered by GI to evaluate for malignancy; shows bilateral pleural effusions, with common atelectatic changes, small amount of abdominal ascites and mesenteric edema characteristic of right R insufficiency/volume overload. Atherosclerotic calcification of the coronary arteries. No lower extremity edema. -Incentive spirometry Stage IV pressure ulcers, present on admission on coccyx and right ischium. Specialty bed. -Wound care consulted to evaluate patient here at PO. I spoke with wound care nurse on 01/06/16. Per wound care no dressing recommended for buttocks. Coccyx wound: Daily cleanse with NS ONLY, apply nickel thick layer of Santyl to wound bed and cover with dry cover dressing. May do PRN for soiling or dislodgement. Dry cover to shoulder if needed. Generalized Weakness: likely secondary to severe malnutrition and chronic deconditioning. Consulted PT/OT, recommends SNF. Case management consulted. Awaiting placement. Bilateral Lower Extremity Cellulitis/Edema: Resolved. S/p Rocephin. Leukocytosis has resolved. Patient has remained afebrile. Elevate lower extremities. Hyponatremia: Improved. Likely secondary to dehydration/malnutrition. Resolved , monitor BMP as needed. Left shoulder pain: X-rays reviewed without fractures. [place] and morphine were discontinued. Last used 12/26. Muscle spasm: Electrolytes normal. Continue Flexeril 5 mg q12 prn. DVT Prophylaxis: Lovenox Discharge Planning OT recommends rehabilitation, 3-1 bedside commode, shower bench. PT recommends rehabilitation, wheeled walker, and wheelchair. policy and planning manager working on placement. Medicaid pending. Vida Carlisle Jan 21, 2016 10:24
[2016-01-21] MEDS: CIPROFLOXACIN 500 MG TAB PO SCH ×2 (11:00→20:50)
[2016-01-21] MEDS: ENOXAPARIN SODIUM 40 MG/0.4 ML SYRINGE SQ SCH (16:00)
[2016-01-21 20:00] VITALS: BP 121/67; PULSE 98; RESP 18; TEMP 97.8; O2SAT 96
[2016-01-22 08:00] VITALS: BP 120/75; PULSE 78; RESP 18; TEMP 98.1; O2SAT 97
[2016-01-22] MEDS: COLLAGENASE OINT 30 GM TUBE TOP SCH (09:00)
[2016-01-22] MEDS: CIPROFLOXACIN 500 MG TAB PO SCH ×2 (09:18→20:56)
[2016-01-22] MEDS: TAMSULOSIN HCL 0.4 MG CAP PO SCH (09:18)
--- NOTE | 2016-01-22 10:23 | HHI.PR ---
Subjective Remarks Follow-up for failure to thrive, urinary retention. Receiving treatment for UTI. Patient admits to some pain when he applies pressure over his bladder. Denies any fevers, chills, or vomiting. RN informs me that he has been undergoing bladder training and is doing well, but the patient does not feel ready for the catheter to be removed at this time. Objective Vitals Vital Signs Date Time Temp Pulse Resp B/P Pulse Ox O2 Delivery O2 Flow Rate FiO2 01/22/16 08:00 98.1 78 18 120/75 97 01/21/16 20:00 97.8 98 18 121/67 96 I/O 01/21/16 01/21/16 01/21/16 01/22/16 01/22/16 01/22/16 07:00 15:00 23:00 07:00 15:00 23:00 Intake Total 340 ml 600 ml 1220 ml 0 ml Output Total 400 ml 600 ml 1000 ml Balance -60 ml 0 ml 220 ml 0 ml Intake Oral 600 ml 200 ml IV Total 0 ml 0 ml Tube Feeding 240 ml 720 ml Tube Irrigant 300 ml Other 100 ml Output Urine Total 400 ml 600 ml 1000 ml Bladder Scan Volume Amount 25 ml 25 ml 25 ml 25 ml 25 ml # Bowel Movements 0 1 Result Diagram: 01/21/1682401/21/16824 Objective Remarks GENERAL: Pleasant, cachectic appearing patient in no apparent distress. SKIN: Decreased skin turgor. CARDIOVASCULAR: Regular rate and rhythm. Grade 2 murmur, chronic per patient. RESPIRATORY: Limited anterior exam. No accessory muscle use. Clear to auscultation. Breath sounds equal bilaterally. GASTROINTESTINAL: Abdomen soft, nondistended. Mildly tender over suprapubic region. NEUROLOGICAL: Awake and alert. Normal speech. Procedures 12/18/15 EGD with PEG tube placement Urinary Catheter: Yes Mena insert reason: Obstruction/Retention Date of Insertion: Jan 12, 2016 Vascular Central Line Catheter: No A/P Problem List: (1) Failure to thrive in adult ICD Code: R62.7 Status: Acute (2) Malnutrition ICD Code: E46 Status: Acute (3) Urinary retention ICD Code: R33.9 Status: Acute (4) Prerenal azotemia ICD Code: R79.89 Status: Acute (5) Gross hematuria ICD Code: R31.0 Status: Resolved (6) Bilateral lower leg cellulitis ICD Code: L03.116 Status: Resolved (7) Hyponatremia ICD Code: E87.1 Status: Resolved Assessment and Plan 80-year-old male with no known past medical history presented via EMS after being found covered in urine/feces, complaining of generalized weakness and dysphagia. Dysphagia: resulting in severe malnutrition and weight loss (Failure to thrive) . Consulted GI, performed EGD with PEG tube placement. GI signed off. Pre-albumin 01/12 is 17 Continue Ensure Enlive tid w/HMB for wound healing per secondary history teacher. Speech therapy following. Diet advanced: Mechanical soft, chopped meat with gravy, thin liquids. RN informs me patient is eating well and feels full after tube feeds. Residential Support Specialist (01/21) recommends Bolus Feedings w/Jevity 1.5 240ml @ 8am , 1pm, 6pm and 11pm Palliative care consulted to assist with goals of care, following. Gross hematuria/Urinary retention: Patient has Mena due to advanced stage pressure ulcers. He was having discomfort and Mena was removed, but patient was unable to void and had urinary retention. Mena replaced. -UA was obtained which showed infection but treatment was deferred at the time as patient was afebrile and will always have bacteria due to Mena and culture was at that time pending. -Urine culture resulted with Pseudomonas Aeruginosa on 01/11 and 01/12 but patient apparently was never treated for the infection. It has been one week since those results. WBC normal today. New UA 01/19 worse than prior with innumerable WBCs, positive nitrites, large leukocyte esterase. I discussed this with Dr. Palafox. -Continue Cipro 500 mg twice a day 7 days started based on susceptibility report of prior urine culture report. -New Urine culture with Pseudomonas aeruginosa, reviewed, susceptible to Cipro. -Continue Flomax 0.4 mg daily. -Continue Mena catheter for now -Will continue Mena for now as patient does not feel comfortable with it being removed. Continue bladder training and will reassess need daily. Pre-renal azotemia: BUN/Cr 27/0.52 on 01/20. -Encourage po hydration -Monitor renal function Right Apical Density: seen on AP CXR; PA/Lateral CXR shows findings of COPD. Chest CT 12/18 ordered by GI to evaluate for malignancy; shows bilateral pleural effusions, with common atelectatic changes, small amount of abdominal ascites and mesenteric edema characteristic of right R insufficiency/volume overload. Atherosclerotic calcification of the coronary arteries. No lower extremity edema. -Incentive spirometry Stage IV pressure ulcers, present on admission on coccyx and right ischium. Specialty bed. -Wound care consulted to evaluate patient here at PO. I spoke with wound care nurse on 01/06/16. Per wound care no dressing recommended for buttocks. Coccyx wound: Daily cleanse with NS ONLY, apply nickel thick layer of Santyl to wound bed and cover with dry cover dressing. May do PRN for soiling or dislodgement. Dry cover to shoulder if needed. Generalized Weakness: likely secondary to severe malnutrition and chronic deconditioning. Consulted PT/OT, recommends SNF. Case management consulted. Awaiting placement. Bilateral Lower Extremity Cellulitis/Edema: Resolved. S/p Rocephin. Leukocytosis has resolved. Patient has remained afebrile. Elevate lower extremities. Hyponatremia: Improved. Likely secondary to dehydration/malnutrition. Resolved , monitor BMP as needed. Left shoulder pain: X-rays reviewed without fractures. [place] and morphine were discontinued. Last used 12/26. Muscle spasm: Electrolytes normal. Continue Flexeril 5 mg q12 prn. DVT Prophylaxis: Lovenox Discharge Planning OT recommends rehabilitation, 3-1 bedside commode, shower bench. PT recommends rehabilitation, wheeled walker, and wheelchair. manager flight working on placement. Medicaid pending. Vida Carlisle Jan 22, 2016 10:23
[2016-01-22] MEDS: ENOXAPARIN SODIUM 40 MG/0.4 ML SYRINGE SQ SCH (16:00)
[2016-01-22 20:00] VITALS: BP 120/67; PULSE 101; RESP 20; TEMP 98.3; O2SAT 96
[2016-01-23] MEDS: COLLAGENASE OINT 30 GM TUBE TOP SCH (09:00)
[2016-01-23] MEDS: TAMSULOSIN HCL 0.4 MG CAP PO SCH (09:48)
[2016-01-23] MEDS: CIPROFLOXACIN 500 MG TAB PO SCH ×2 (09:48→21:01)
[2016-01-23 11:37] VITALS: BP 102/71; PULSE 109; RESP 16; TEMP 99.3; O2SAT 96
--- NOTE | 2016-01-23 13:53 | HHI.PR ---
Subjective Remarks Follow-up for failure to thrive, urinary retention, UTI. Patient is eating breakfast when I enter the room. He states he still some bladder discomfort. He states he quit the bladder training. He denies any fevers, vomiting, or diarrhea. Objective Vitals Vital Signs Date Time Temp Pulse Resp B/P Pulse Ox O2 Delivery O2 Flow Rate FiO2 01/23/16 11:37 99.3 109 16 102/71 96 01/22/16 20:00 98.3 101 20 120/67 96 I/O 01/22/16 01/22/16 01/22/16 01/23/16 01/23/16 01/23/16 06:59 14:59 22:59 06:59 14:59 22:59 Intake Total 1220 ml 600 ml 360 ml 680 ml 300 ml Output Total 1000 ml 950 ml 1200 ml Balance 220 ml 600 ml -590 ml -520 ml 300 ml Intake Oral 200 ml 360 ml 240 ml IV Total 0 ml Tube Feeding 720 ml 600 ml 240 ml 240 ml Tube Irrigant 300 ml 60 ml Other 200 ml Output Urine Total 1000 ml 950 ml 1200 ml Bladder Scan Volume Amount 25 ml # Bowel Movements 1 1 2 Result Diagram: 01/21/1682401/21/1625 Objective Remarks GENERAL: Pleasant, cachectic appearing patient in no apparent distress. CARDIOVASCULAR: Regular rate and rhythm. RESPIRATORY: Limited anterior exam. No accessory muscle use. Clear to auscultation. Breath sounds equal bilaterally. GASTROINTESTINAL: Abdomen soft, nondistended, nontender. NEUROLOGICAL: Awake and alert. Normal speech. Procedures 12/18/15 EGD with PEG tube placement Urinary Catheter: Yes Assessment to: Continue Mena insert reason: Obstruction/Retention Date of Insertion: Jan 12, 2016 Vascular Central Line Catheter: No A/P Problem List: (1) Failure to thrive in adult ICD Code: R62.7 Status: Acute (2) Malnutrition ICD Code: E46 Status: Acute (3) Urinary retention ICD Code: R33.9 Status: Acute (4) Prerenal azotemia ICD Code: R79.89 Status: Acute (5) Gross hematuria ICD Code: R31.0 Status: Resolved (6) Bilateral lower leg cellulitis ICD Code: L03.116 Status: Resolved (7) Hyponatremia ICD Code: E87.1 Status: Resolved Assessment and Plan 80-year-old male with no known past medical history presented via EMS after being found covered in urine/feces, complaining of generalized weakness and dysphagia. Dysphagia: resulting in severe malnutrition and weight loss (Failure to thrive) . Consulted GI, performed EGD with PEG tube placement. GI signed off. Pre-albumin 01/12 is 17 Continue Ensure Enlive tid w/HMB for wound healing per paper wrapping machine operator. Speech therapy following. Diet advanced: Mechanical soft, chopped meat with gravy, thin liquids. RN informs me patient is eating well and feels full after tube feeds-->Substation Operator Chief (01/21) recommends Bolus Feedings w/Jevity 1.5 240ml @ 8am, 1pm, 6pm and 11pm Palliative care consulted to assist with goals of care, following. Gross hematuria/Urinary retention: Patient has Mena due to advanced stage pressure ulcers. He was having discomfort and Mena was removed, but patient was unable to void and had urinary retention. Mena replaced. -UA was obtained which showed infection but treatment was deferred at the time as patient was afebrile and will always have bacteria due to Mena and culture was at that time pending. -Urine culture resulted with Pseudomonas Aeruginosa on 01/11 and 01/12 but patient apparently was never treated for the infection. It has been one week since those results. WBC normal today. New UA 01/19 worse than prior with innumerable WBCs, positive nitrites, large leukocyte esterase. I discussed this with Dr. Palafox. -Urine culture 01/19 with Pseudomonas aeruginosa susceptible to Cipro. -Continue Cipro 500 mg twice a day 7 days. -Continue Flomax 0.4 mg daily. -Will continue Mena for now as patient does not feel comfortable with it being removed. Patient advised he needs to continue bladder training as goal is to remove the Mena catheter for him to be able to use urinal. He understands. Will reassess need for Mena daily. Pre-renal azotemia: BUN/Cr 27/0.52 on 01/20. -Encourage po hydration -Monitor renal function periodically Right Apical Density: seen on AP CXR; PA/Lateral CXR shows findings of COPD. Chest CT 12/18 ordered by GI to evaluate for malignancy; shows bilateral pleural effusions, with common atelectatic changes, small amount of abdominal ascites and mesenteric edema characteristic of right R insufficiency/volume overload. Atherosclerotic calcification of the coronary arteries. No lower extremity edema. -Incentive spirometry Stage IV pressure ulcers, present on admission on coccyx and right ischium. Specialty bed. -Wound care consulted to evaluate patient here at PO. I spoke with wound care nurse on 01/06/16. Per wound care no dressing recommended for buttocks. Coccyx wound: Daily cleanse with NS ONLY, apply nickel thick layer of Santyl to wound bed and cover with dry cover dressing. May do PRN for soiling or dislodgement. Dry cover to shoulder if needed. Generalized Weakness: likely secondary to severe malnutrition and chronic deconditioning. Consulted PT/OT, recommends SNF. Case management consulted. Awaiting placement. Bilateral Lower Extremity Cellulitis/Edema: Resolved. S/p Rocephin. Leukocytosis has resolved. Patient has remained afebrile. Elevate lower extremities. Hyponatremia: Improved. Likely secondary to dehydration/malnutrition. Resolved , monitor BMP as needed. Left shoulder pain: X-rays reviewed without fractures. [place] and morphine were discontinued. Last used 12/26. Muscle spasm: Electrolytes normal. Continue Flexeril 5 mg q12 prn. DVT Prophylaxis: Lovenox Discharge Planning OT recommends rehabilitation, 3-1 bedside commode, shower bench. PT recommends rehabilitation, wheeled walker, and wheelchair. system manager working on placement. Medicaid pending. Vida Carlisle Jan 23, 2016 13:53
[2016-01-23] MEDS: ENOXAPARIN SODIUM 40 MG/0.4 ML SYRINGE SQ SCH (16:00)
[2016-01-23 20:00] VITALS: BP 105/56; PULSE 97; RESP 18; TEMP 98.4; O2SAT 99
[2016-01-23 23:46] VITALS: BP 131/73; PULSE 94; RESP 18; TEMP 98.3; O2SAT 96
[2016-01-24 08:00] VITALS: BP 99/57; PULSE 86; RESP 17; TEMP 97.1; O2SAT 96
[2016-01-24] MEDS: TAMSULOSIN HCL 0.4 MG CAP PO SCH (08:48)
[2016-01-24] MEDS: CIPROFLOXACIN 500 MG TAB PO SCH ×2 (08:48→20:49)
[2016-01-24] MEDS: COLLAGENASE OINT 30 GM TUBE TOP SCH (08:49)
--- NOTE | 2016-01-24 13:52 | HHI.PR ---
Subjective Remarks Follow-up for failure to thrive, UTI. Nurse informed me the patient refused his breakfast and am bolus feeding. I spoke to the patient and he states he did not like the time in which was given. He states he has been eating the best he can stating that he only has "half a stomach" indicating he cannot eat much. He denies any fevers, abdominal pain, nausea, vomiting, regurgitation, or diarrhea. Objective Vitals Vital Signs Date Time Temp Pulse Resp B/P Pulse Ox O2 Delivery O2 Flow Rate FiO2 01/24/16 08:00 97.1 86 17 99/57 96 01/23/16 23:46 98.3 94 18 131/73 96 01/23/16 20:00 98.4 97 18 105/56 99 I/O 01/23/16 01/23/16 01/23/16 01/24/16 01/24/16 01/24/16 07:00 15:00 23:00 07:00 15:00 23:00 Intake Total 240 ml 300 ml 520 ml Output Total 1200 ml 0 ml 500 ml Balance -960 ml 300 ml 0 ml 20 ml Intake Oral 240 ml 400 ml IV Total 0 ml Tube Feeding 240 ml 60 ml Tube Irrigant 60 ml Other 60 ml Output Urine Total 1200 ml 500 ml Tube Feeding Residual Discard 0 ml # Bowel Movements 2 3 Result Diagram: 01/21/1682401/21/16824 Objective Remarks GENERAL: Pleasant, cachectic appearing patient in no apparent distress. CARDIOVASCULAR: Regular rate and rhythm. Grade 2 murmur present. RESPIRATORY: Limited anterior exam. No accessory muscle use. Clear to auscultation. Breath sounds equal bilaterally. GASTROINTESTINAL: Abdomen soft, nondistended, nontender. NEUROLOGICAL: Awake and alert. Normal speech. Procedures 12/18/15 EGD with PEG tube placement Urinary Catheter: Yes Assessment to: Continue Mena insert reason: Obstruction/Retention Date of Insertion: Jan 12, 2016 Vascular Central Line Catheter: No A/P Problem List: (1) Failure to thrive in adult ICD Code: R62.7 Status: Acute (2) Malnutrition ICD Code: E46 Status: Acute (3) Urinary retention ICD Code: R33.9 Status: Acute (4) Prerenal azotemia ICD Code: R79.89 Status: Acute (5) Gross hematuria ICD Code: R31.0 Status: Resolved (6) Bilateral lower leg cellulitis ICD Code: L03.116 Status: Resolved (7) Hyponatremia ICD Code: E87.1 Status: Resolved Assessment and Plan 80-year-old male with no known past medical history presented via EMS after being found covered in urine/feces, complaining of generalized weakness and dysphagia. Dysphagia: resulting in severe malnutrition and weight loss (Failure to thrive) . Consulted GI, performed EGD with PEG tube placement. GI signed off. Pre-albumin 01/12 is 17 Continue Ensure Enlive tid w/HMB for wound healing per fire behavior analyst. Speech therapy following. Diet advanced: Mechanical soft, chopped meat with gravy, thin liquids. RN informs me patient is eating well and feels full after tube feeds-->Junior Engineer (01/21) recommends Bolus Feedings w/Jevity 1.5 240ml @ 8am, 1pm, 6pm and 11pm. Patient initially refused feeding this am but after I spoke with the patient about needing adequate nutrition he was agreeable to receiving it. Palliative care consulted to assist with goals of care, following. Gross hematuria/Urinary retention: Patient has Mena due to advanced stage pressure ulcers. He was having discomfort and Mena was removed, but patient was unable to void and had urinary retention. Mena replaced. -UA was obtained which showed infection but treatment was deferred at the time as patient was afebrile and will always have bacteria due to Mena and culture was at that time pending. -Urine culture resulted with Pseudomonas Aeruginosa on 01/11 and 01/12 but patient apparently was never treated for the infection. WBC normal. New UA worse than prior with innumerable WBCs, positive nitrites, large leukocyte esterase. Discussed with attending. -Urine culture 01/19 with Pseudomonas aeruginosa susceptible to Cipro. -Continue Cipro 500 mg twice a day 7 days. -Continue Flomax 0.4 mg daily. -Will continue Mena for now as patient does not feel comfortable with it being removed. Patient advised he needs to continue bladder training as goal is to remove the Mena catheter for him to be able to use urinal. He understands. Will reassess need for Mena daily. Pre-renal azotemia: BUN/Cr 27/0.52 on 01/20. -Encourage po hydration -Monitor renal function, am BMP ordered. Right Apical Density: seen on AP CXR; PA/Lateral CXR shows findings of COPD. Chest CT 12/18 ordered by GI to evaluate for malignancy; shows bilateral pleural effusions, with common atelectatic changes, small amount of abdominal ascites and mesenteric edema characteristic of right R insufficiency/volume overload. Atherosclerotic calcification of the coronary arteries. No lower extremity edema. -Incentive spirometry Stage IV pressure ulcers, present on admission on coccyx and right ischium. Specialty bed. -Wound care consulted to evaluate patient here at PO. I spoke with wound care nurse on 01/06/16. Per wound care no dressing recommended for buttocks. Coccyx wound: Daily cleanse with NS ONLY, apply nickel thick layer of Santyl to wound bed and cover with dry cover dressing. May do PRN for soiling or dislodgement. Dry cover to shoulder if needed. Generalized Weakness: likely secondary to severe malnutrition and chronic deconditioning. Consulted PT/OT, recommends SNF. Case management consulted. Awaiting placement. Bilateral Lower Extremity Cellulitis/Edema: Resolved. S/p Rocephin. Leukocytosis has resolved. Patient has remained afebrile. Elevate lower extremities. Hyponatremia: Improved. Likely secondary to dehydration/malnutrition. Resolved , monitor BMP as needed. Left shoulder pain: X-rays reviewed without fractures. [place] and morphine were discontinued. Last used 12/26. Muscle spasm: Electrolytes normal. Continue Flexeril 5 mg q12 prn. DVT Prophylaxis: Lovenox Discharge Planning OT recommends rehabilitation, 3-1 bedside commode, shower bench. PT recommends rehabilitation, wheeled walker, and wheelchair. manager integrity working on placement as patient has inability to care for self. Vida Carlisle Jan 24, 2016 13:52
[2016-01-24] MEDS: ENOXAPARIN SODIUM 40 MG/0.4 ML SYRINGE SQ SCH (16:03)
[2016-01-24 20:00] VITALS: BP 110/61; PULSE 107; RESP 18; TEMP 96.1; O2SAT 94
[2016-01-25 06:36] LABS: BICARBONATE 33.3 MEQ/L (21.0-32.0)
[2016-01-25] MEDS: CIPROFLOXACIN 500 MG TAB PO SCH ×2 (08:14→20:17)
[2016-01-25] MEDS: TAMSULOSIN HCL 0.4 MG CAP PO SCH (08:14)
[2016-01-25] MEDS: COLLAGENASE OINT 30 GM TUBE TOP SCH (08:15)
[2016-01-25 08:50] VITALS: BP 113/64; PULSE 85; RESP 20; TEMP 97.2; O2SAT 96
--- NOTE | 2016-01-25 09:56 | HHI.PR ---
Subjective Remarks Follow-up for malnutrition, urinary retention. Suprapubic pain improved. Patient states he had a "burning" referring to an urge to urinate this morning which awoke him. Admits to nausea and regurgitation sometimes. Patient tells me that he has blurred vision in his right eye. He states it started a few weeks ago when he arrived here. States he wore glasses but never had problems with blurred vision in this eye. He made no mention of this ever before. He denies any fevers or chills, headache, dizziness, lightheadedness, focal numbness/tingling/weakness, facial droop, or altered speech. Denies shortness of breath, abdominal pain, vomiting, or diarrhea. Objective Vitals Vital Signs Date Time Temp Pulse Resp B/P Pulse Ox O2 Delivery O2 Flow Rate FiO2 01/25/16 08:50 97.2 85 20 113/64 96 01/24/16 20:00 96.1 107 18 110/61 94 I/O 01/24/16 01/24/16 01/24/16 01/25/16 01/25/16 01/25/16 07:00 15:00 23:00 07:00 15:00 23:00 Intake Total 520 ml 340 ml 910 ml 680 ml Output Total 500 ml 400 ml 1225 ml Balance 20 ml 340 ml 510 ml -545 ml Intake Oral 400 ml 550 ml 340 ml IV Total 0 ml Tube Feeding 60 ml 240 ml 240 ml 240 ml Tube Irrigant 120 ml 100 ml Other 60 ml 100 ml Output Urine Total 500 ml 400 ml 1225 ml # Bowel Movements 3 1 1 Result Diagram: 01/21/16 0825 01/25/16 0550 Objective Remarks GENERAL: Pleasant, cachectic appearing patient in no apparent distress. EYES: Pupils equal round and reactive to light. No conjunctival injection. ENT: MMM. Airway patent. CARDIOVASCULAR: Regular rate and rhythm. Grade 2 murmur present. RESPIRATORY: Limited anterior exam. No accessory muscle use. Clear to auscultation. Breath sounds equal bilaterally. GASTROINTESTINAL: Abdomen soft, nondistended, nontender. NEUROLOGICAL: Awake and alert. Patient has blurred vision in all visual scott of the right eye; he is able to see my colored glove but cannot make out number of fingers I am holding up at all. Vision is grossly intact in the left eye in all visual scott. No other cranial nerve deficits noted. 4/5 strength in B/L upper extremities and 5/5 strength in B/L lower extremities. Normal speech. Procedures 12/18/15 EGD with PEG tube placement Urinary Catheter: Yes Assessment to: Continue Mena insert reason: Obstruction/Retention Date of Insertion: Jan 12, 2016 Vascular Central Line Catheter: No A/P Problem List: (1) Failure to thrive in adult ICD Code: R62.7 Status: Acute (2) Malnutrition ICD Code: E46 Status: Acute (3) Urinary retention ICD Code: R33.9 Status: Acute (4) Prerenal azotemia ICD Code: R79.89 Status: Acute (5) Gross hematuria ICD Code: R31.0 Status: Resolved (6) Bilateral lower leg cellulitis ICD Code: L03.116 Status: Resolved (7) Hyponatremia ICD Code: E87.1 Status: Resolved (8) Blurred vision, right eye ICD Code: H53.8 Status: Acute Assessment and Plan 80-year-old male with no known past medical history presented via EMS after being found covered in urine/feces, complaining of generalized weakness and dysphagia. Dysphagia: resulting in severe malnutrition and weight loss (Failure to thrive) . Consulted GI, performed EGD with PEG tube placement. GI signed off. Pre-albumin 01/12 17 Continue Ensure Enlive tid w/HMB for wound healing per information and referral director. Speech therapy following. Diet advanced: Mechanical soft, chopped meat with gravy, thin liquids. RN informs me patient is eating well and feels full after tube feeds-->Environment Coordinator (01/21) recommends Bolus Feedings w/Jevity 1.5 240ml @ 8am, 1pm, 6pm and 11pm. Palliative care consulted to assist with goals of care, following. Gross hematuria/Urinary retention: Patient has Mena due to advanced stage pressure ulcers. He was having discomfort and Mena was removed, but patient was unable to void and had urinary retention. Mena replaced. -UA was obtained which showed infection but treatment was deferred at the time as patient was afebrile and will always have bacteria due to Mena and culture was at that time pending. -Urine culture resulted with Pseudomonas Aeruginosa on 01/11 and 01/12 but patient apparently was never treated for the infection. WBC normal. New UA worse than prior with innumerable WBCs, positive nitrites, large leukocyte esterase. Discussed with attending. -Urine culture 01/19 with Pseudomonas aeruginosa susceptible to Cipro. -Continue Cipro 500 mg twice a day 7 days. -Continue Flomax 0.4 mg daily. -Patient advised he needs to continue bladder training as goal is to remove the Mena catheter for him to be able to use urinal. He understands. Patient states he had an urge to urinate this morning. Nurse is advised to continue bladder training with clamping of the Mena. Patient will likely be able to have Mena removed either later today or tomorrow. Pre-renal azotemia: BUN 27 stable since 01/20. -Encourage po hydration -Monitor renal function Blurred vision R eye: ongoing for a few weeks but it was never mentioned before. Patient has significant blurred vision in R eye on exam. Otherwise no neurological deficits. Differentials include brain tumor/optic nerve lesion, papilledema, ischemic optic neuropathy, retinal vascular occlusion... -Will order MRI to evaluate for tumor -If MRI negative will need to consult ophthalmology Right Apical Density: seen on AP CXR; PA/Lateral CXR shows findings of COPD. Chest CT 12/18 ordered by GI to evaluate for malignancy; shows bilateral pleural effusions, with common atelectatic changes, small amount of abdominal ascites and mesenteric edema characteristic of right R insufficiency/volume overload. Atherosclerotic calcification of the coronary arteries. No lower extremity edema. -Incentive spirometry Stage IV pressure ulcers, present on admission on coccyx and right ischium. Specialty bed. -Wound care consulted to evaluate patient here at PO. I spoke with wound care nurse on 01/06/16. Per wound care no dressing recommended for buttocks. Coccyx wound: Daily cleanse with NS ONLY, apply nickel thick layer of Santyl to wound bed and cover with dry cover dressing. May do PRN for soiling or dislodgement. Dry cover to shoulder if needed. Generalized Weakness: likely secondary to severe malnutrition and chronic deconditioning. Consulted PT/OT, recommends SNF. Case management consulted. Awaiting placement. Bilateral Lower Extremity Cellulitis/Edema: Resolved. S/p Rocephin. Leukocytosis has resolved. Patient has remained afebrile. Elevate lower extremities. Hyponatremia: Resolved. Likely secondary to dehydration/malnutrition. Left shoulder pain: X-rays reviewed without fractures. [place] and morphine were discontinued. Last used 12/26. Muscle spasm: Electrolytes normal. Continue Flexeril 5 mg q12 prn. DVT Prophylaxis: Lovenox Discharge Planning OT recommends rehabilitation, 3-1 bedside commode, shower bench. PT recommends rehabilitation, wheeled walker, and wheelchair. edi manager working on placement as patient has inability to care for self. Vida Carlisle Jan 25, 2016 09:56
[2016-01-25] MEDS: ENOXAPARIN SODIUM 40 MG/0.4 ML SYRINGE SQ SCH (15:00)
--- NOTE | 2016-01-25 17:21 | RADHPO ---
EXAM DATE/TIME: 01/25/2016 16:37 [facility] COMPARISON: No previous studies available for comparison. INDICATIONS : Blurred vision, right eye. MEDICAL HISTORY : Partial gastrectomy. Dysphagia. SURGICAL HISTORY : Colon resection. Tonsillectomy. Peg tube placement. ENCOUNTER: Subsequent ACUITY: 2 weeks PAIN SCORE: 0/10 LOCATION: cranial TECHNIQUE: Multiplanar, multisequence MRI of the brain was performed without contrast. FINDINGS: There are moderate to severe signal abnormalities in the white matter most characteristic of chronic ischemic demyelinization. No definite evidence for recent infarcts. No mass effect or shift. No hydro cephalus. No abnormal extra-axial fluid collections. CONCLUSION: 1. Moderate to severe signal abnormality in the white matter most characteristic of chronic ischemic change. No recent infarct identified. Rashaun Lima MD on January 25, 2016 at 17:16 Board Certified Radiologist. This report was verified electronically.
[2016-01-25 20:00] VITALS: BP 108/65; PULSE 97; RESP 18; TEMP 96.6; O2SAT 95
[2016-01-26 08:00] VITALS: BP 100/61; PULSE 89; RESP 16; TEMP 98.5; O2SAT 96
[2016-01-26] MEDS: TAMSULOSIN HCL 0.4 MG CAP PO SCH (08:21)
[2016-01-26] MEDS: CIPROFLOXACIN 500 MG TAB PO SCH ×2 (08:21→20:13)
[2016-01-26] MEDS: COLLAGENASE OINT 30 GM TUBE TOP SCH (08:21)
--- NOTE | 2016-01-26 10:08 | HHI.PR ---
Subjective Remarks Follow-up for failure to thrive, urinary retention, blurred vision right eye. Patient still admits to blurred vision in his right eye. Patient states he wore glasses but this blurred vision in R eye is an acute issue. He still denies any headache, dizziness, numbness, tingling, or weakness. Admits to bladder discomfort on and off and states he had some burning with urination this morning. Denies any fevers or chills, nausea, vomiting, or diarrhea. Objective Vitals Vital Signs Date Time Temp Pulse Resp B/P Pulse Ox O2 Delivery O2 Flow Rate FiO2 01/26/16 08:00 98.5 89 16 100/61 96 01/25/16 20:00 96.6 97 18 108/65 95 I/O 01/25/16 01/25/16 01/25/16 01/26/16 01/26/16 01/26/16 07:00 15:00 23:00 07:00 15:00 23:00 Intake Total 680 ml 1280 ml 1450 ml 840 ml Output Total 1225 ml 300 ml 425 ml 550 ml 600 ml Balance -545 ml 980 ml 1025 ml 290 ml -600 ml Intake Oral 340 ml 600 ml 1110 ml 500 ml Tube Feeding 240 ml 480 ml 240 ml 240 ml Tube Irrigant 100 ml 200 ml 100 ml 100 ml Output Urine Total 1225 ml 300 ml 425 ml 550 ml 600 ml # Bowel Movements 2 2 Result Diagram: 01/25/16 0550 Imaging Last Impressions Brain MRI 01/25/16 0000 Signed Impressions: Service Date/Time: Monday, January 25, 2016 16:37 - CONCLUSION: 1. Moderate to severe signal abnormality in the white matter most characteristic of chronic ischemic change. No recent infarct identified. Rashaun Lima MD Shoulder X-Ray 12/27/15 0000 Signed Impressions: Service Date/Time: Sunday, December 27, 2015 20:14 - CONCLUSION: Unremarkable limited examination of the left shoulder. Miguel Blanchard MD Chest CT 12/19/15 0000 Signed Impressions: Service Date/Time: Saturday, December 19, 2015 15:10 - CONCLUSION: 1. 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 2. Atherosclerotic calcification of the coronary arteries. Dandy Jett MD Abdomen/Pelvis CT 12/19/15 0000 Signed Impressions: Service Date/Time: Saturday, December 19, 2015 15:10 - CONCLUSION: 1. Bilateral pleural effusions with a small amount of abdominal ascites, generalized anasarca and edema in the mesenteric leaves characteristic of right heart insufficiency. 2. Mild air and fluid distention of the small bowel and colon characteristic of a hypodynamic ileus. No obstruction. Dandy Jett MD Head CT 12/16/15 1145 Signed Impressions: Service Date/Time: Wednesday, December 16, 2015 12:45 - CONCLUSION: Nonspecific white matter changes. No acute intracranial abnormality. Lam Tucker MD Chest X-Ray 12/16/15 1124 Signed Impressions: Service Date/Time: Wednesday, December 16, 2015 11:54 - CONCLUSION: Hyperinflation which can be seen with COPD. Right apical density, PA and lateral views are recommended when patient is stable. Lam Tucker MD Objective Remarks GENERAL: Pleasant, cachectic appearing patient in no apparent distress. EYES: Normal appearance. CARDIOVASCULAR: Regular rate and rhythm. RESPIRATORY: Limited anterior exam. No accessory muscle use. Clear to auscultation. Breath sounds equal bilaterally. GASTROINTESTINAL: Abdomen soft, nondistended, nontender. Feeding tube present. No suprapubic discomfort. NEUROLOGICAL: Awake and alert. Normal speech. Procedures 12/18/15 EGD with PEG tube placement Urinary Catheter: Yes Assessment to: Remove Mena insert reason: Obstruction/Retention (and pressure ulcers) Date of Insertion: Jan 12, 2016 Date of Removal: Jan 26, 2016 Vascular Central Line Catheter: No A/P Problem List: (1) Failure to thrive in adult ICD Code: R62.7 Status: Acute (2) Malnutrition ICD Code: E46 Status: Acute (3) Urinary retention ICD Code: R33.9 Status: Acute (4) Prerenal azotemia ICD Code: R79.89 Status: Acute (5) Gross hematuria ICD Code: R31.0 Status: Resolved (6) Bilateral lower leg cellulitis ICD Code: L03.116 Status: Resolved (7) Hyponatremia ICD Code: E87.1 Status: Resolved (8) Blurred vision, right eye ICD Code: H53.8 Status: Acute Assessment and Plan 80-year-old male with no known past medical history presented via EMS after being found covered in urine/feces, complaining of generalized weakness and dysphagia. Dysphagia: resulting in severe malnutrition and weight loss (Failure to thrive) . Consulted GI, performed EGD with PEG tube placement. GI signed off. Pre-albumin 01/12 17 Continue Ensure Enlive tid w/HMB for wound healing per certified pharmacist assistant. Speech therapy following. Diet advanced: Mechanical soft, chopped meat with gravy, thin liquids. RN informs me patient is eating well and feels full after tube feeds-->Combination Man (01/21) recommends Bolus Feedings w/Jevity 1.5 240ml @ 8am, 1pm, 6pm and 11pm. Palliative care consulted to assist with goals of care, following. Gross hematuria/Urinary retention: Patient has Mena due to advanced stage pressure ulcers. He was having discomfort and Mena was removed, but patient was unable to void and had urinary retention. Mena replaced. -UA was obtained which showed infection but treatment was deferred at the time as patient was afebrile and will always have bacteria due to Mena and culture was at that time pending. -Urine culture resulted with Pseudomonas Aeruginosa on 01/11 and 01/12 but patient apparently was never treated for the infection. WBC normal. -New UA 01/19 worse than prior with innumerable WBCs, positive nitrites, large leukocyte esterase. Discussed with attending. -Urine culture 01/19 with Pseudomonas aeruginosa susceptible to Cipro. -Continue Cipro 500 mg twice a day 7 days. -Continue Flomax 0.4 mg daily. -He has some bladder discomfort and burning at times, but patient has improved with bladder training and is amenable to removing the Mena today. I have instructed the RN to remove Mena, allow sufficient time for patient to urinate , and bladder scan after voiding to assess for retention. If patient cannot successfully urinate, we will have to continue Mena. Pre-renal azotemia: BUN 27 stable since 01/20. -Encourage po hydration -Monitor renal function Blurred vision R eye: ongoing for a few weeks but it was never mentioned before. Patient has significant blurred vision in R eye on exam. Otherwise no neurological deficits. -MRI with chronic ischemic demyelinization, but no acute abnormalities. -Consult ophthalmology. Right Apical Density: seen on AP CXR; PA/Lateral CXR shows findings of COPD. Chest CT 12/18 ordered by GI to evaluate for malignancy; shows bilateral pleural effusions, with common atelectatic changes, small amount of abdominal ascites and mesenteric edema characteristic of right R insufficiency/volume overload. Atherosclerotic calcification of the coronary arteries. No lower extremity edema. -Incentive spirometry Stage IV pressure ulcers, present on admission on coccyx and right ischium. Specialty bed. -Wound care consulted to evaluate patient here at PO. I spoke with wound care nurse on 01/06/16. Per wound care no dressing recommended for buttocks. Coccyx wound: Daily cleanse with NS ONLY, apply nickel thick layer of Santyl to wound bed and cover with dry cover dressing. May do PRN for soiling or dislodgement. Dry cover to shoulder if needed. Generalized Weakness: likely secondary to severe malnutrition and chronic deconditioning. Consulted PT/OT, recommends SNF. Case management consulted. Awaiting placement. Bilateral Lower Extremity Cellulitis/Edema: Resolved. S/p Rocephin. Leukocytosis has resolved. Patient has remained afebrile. Elevate lower extremities. Hyponatremia: Resolved. Likely secondary to dehydration/malnutrition. Left shoulder pain: X-rays reviewed without fractures. [place] and morphine were discontinued. Last used 12/26. Muscle spasm: Electrolytes normal. Continue Flexeril 5 mg q12 prn. DVT Prophylaxis: Lovenox Discharge Planning OT recommends rehabilitation, 3-1 bedside commode, shower bench. PT recommends rehabilitation, wheeled walker, and wheelchair. region manager working on placement as patient has inability to care for self. Vida Carlisle Jan 26, 2016 10:08
[2016-01-26] MEDS: ENOXAPARIN SODIUM 40 MG/0.4 ML SYRINGE SQ SCH (14:45)
[2016-01-26 20:00] VITALS: BP 104/56; PULSE 95; RESP 20; TEMP 95.9; O2SAT 97
--- NOTE | 2016-01-27 08:44 | PD.CONS ---
History of Present Illness Service Ophthalmology Consult Requested By Reason for Consult right eye vision loss Primary Care Physician No Primary Care Physician Diagnoses: History of Present Illness 80-year-old male presented via EMS after being found covered in urine/feces, complaining of generalized weakness and dysphagia. Ophthalmology consulted to evaluate right eye vision loss. Pt states he has noticed a gradual decline in his vision in his right eye for the last month. No pain, no flashes, no floaters. ROS negative for GCA. No significant ocular history - sees Dr. Janice Ogden for his outpatient ophthalmology. Past Family Social History Allergies: Coded Allergies: Ibuprofen (Verified Allergy, Mild, 12/16/15) Lidocaine (Verified Allergy, Mild, 12/16/15) Novocain (Verified Allergy, Mild, 12/16/15) Uncoded Allergies: SODIUM PENTATHAL (Allergy, Severe, 11/19/09) Physical Exam Vital Signs Vital Signs Date Time Temp Pulse Resp B/P Pulse Ox O2 Delivery O2 Flow Rate FiO2 01/26/16 20:00 95.9 95 20 104/56 97 Physical Exam Va cc at near OD CF at 1 ft, OS 20/50 EOM full OU, no diplopia CVF full OU Pupils 3-1 no APD OU IOP normal to palpation OU Anterior exam OD - normal eyelid, C/S W&Q, K clear, AC deep, pupil round, +NS OS - normal eyelid, C/S W&Q, K clear, AC deep, pupil round, +NS Dilated exam OD - ON s/p/f, ves normal, vit clear, retina flat OS - ON s/p/f, ves normal, vit clear, retina flat Result Diagram: 01/25/16 0550 Assessment and Plan Problem List: (1) Nuclear sclerotic cataract of both eyes Status: Acute Plan: OD>OS. Recommend outpatient follow up for surgery when patient is discharged. Daisy Baez MD Jan 27, 2016 08:44
[2016-01-27] MEDS: TAMSULOSIN HCL 0.4 MG CAP PO SCH (09:01)
[2016-01-27] MEDS: CIPROFLOXACIN 500 MG TAB PO SCH ×2 (09:01→20:36)
[2016-01-27] MEDS: COLLAGENASE OINT 30 GM TUBE TOP SCH (09:02)
[2016-01-27 10:00] VITALS: BP 107/64; PULSE 85; RESP 19; TEMP 98.1; O2SAT 95
--- NOTE | 2016-01-27 11:16 | HHI.PR ---
Subjective Remarks Patient seen and examined today. Patient denies any new complaints. Mena has been removed and patient does have urinal with clear urine. He has no problems urinating at this time. Discussed with the patient need to get out of bed in order to get stronger. Objective Vitals Vital Signs Date Time Temp Pulse Resp B/P Pulse Ox O2 Delivery O2 Flow Rate FiO2 01/27/16 10:00 98.1 85 19 107/64 95 01/26/16 20:00 95.9 95 20 104/56 97 I/O 01/26/16 01/26/16 01/26/16 01/27/16 01/27/16 01/27/16 06:59 14:59 22:59 06:59 14:59 22:59 Intake Total 840 ml 340 ml 740 ml Output Total 550 ml 750 ml 475 ml 800 ml Balance 290 ml -750 ml -135 ml -60 ml Intake Oral 500 ml 400 ml Tube Feeding 240 ml 240 ml 240 ml Tube Irrigant 100 ml 100 ml 100 ml Output Urine Total 550 ml 750 ml 475 ml 800 ml # Voids 2 # Bowel Movements 2 1 1 Result Diagram: 01/25/16 0550 Objective Remarks GENERAL: Well-developed, well-nourished, in no acute distress. alert and orientated HEENT: Head is normocephalic without any lesions or masses noted. Facial features are symmetric. NECK: Supple without any masses. Trachea midline no deviation. No JVD, CARDIAC: Regular rhythm, regular rate. S1/S2 are heard. No murmurs gallops or rubs. LUNGS: Clear to auscultation bilaterally. No wheeze, rhonchi or rales. No use of accessory muscles on inspiration or expiration. ABDOMEN: Soft, nontender. Nondistended. Bowel sounds heard in all 4 quadrants. No organomegaly or masses. Negative rebound, negative guarding. PEG tube noted EXTREMITIES: No edema, pulses are equal bilaterally. No cyanosis or clubbing NEUROLOGY: Mood and affect appear appropriate. Cranial nerves II through XII grossly intact. Moving all extremities, speech is clear Procedures 12/18/15 EGD with PEG tube placement Urinary Catheter: No Date of Insertion: Jan 12, 2016 Date of Removal: Jan 26, 2016 Vascular Central Line Catheter: No A/P Assessment and Plan 80-year-old male with no known past medical history presented via EMS after being found covered in urine/feces, complaining of generalized weakness and dysphagia. Dysphagia: resulting in severe malnutrition and weight loss. Consulted GI, performed EGD with PEG tube placement. GI signed off. Cont with bolus TF Jevity 1.5 360 mL's at 8 AM and 240 mL's at 1200, 1600, 2000 , 2400 speech therapy following. Diet puree with nectar thickened liquids. Pre-albumin is 17 Stage IV pressure ulcers, present on admission on coccyx and right ischium. Specialty bed. Wound care consulted to evaluate patient here at PO. Wound care following the patient, indicates that wound is improving continue with current orders of Santyl daily Gross hematuria/Urinary retention: Patient has had an indwelling Mena due to advanced stage pressure ulcers. He was having discomfort this morning and RN removed the Mena catheter. Patient was noted to have gross hematuria likely from catheter. Admits to suprapubic pain and dysuria. 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 Consulted PT/OT, recommends SNF. Case management consulted. Awaiting placement. Bilateral Lower Extremity Cellulitis/Edema: Resolved. S/p Rocephin. Leukocytosis has resolved. Patient has remained afebrile. Elevate lower extremities. Hyponatremia: Resolved. Likely secondary to dehydration/malnutrition. Right Apical Density: Density not seen on CT scan seen on AP CXR; PA/Lateral CXR shows findings of COPD. Chest CT 12/18 ordered by GI to evaluate for malignancy; shows bilateral pleural effusions, with common atelectatic changes, small amount of abdominal ascites and mesenteric edema characteristic of right R insufficiency/volume overload. Atherosclerotic calcification of coronary arteries. Left shoulder pain: X-rays reviewed without fractures. DVT Prophylaxis: Lovenox Discharge Planning OT recommends rehabilitation, 3-1 bedside commode, shower bench. PT recommends rehabilitation, wheeled walker, and wheelchair. gate manager working on placement. Medicaid pending. 01/21/16 1329 patient needing probable placement r/t inability to care for self. patient with no insurance. not eligable medicare as he has never paid into the system. per [facility]. patient over asssets for medicaid. they are re-evaluating for reason and determination. did speak with nephew who gave me a brother of patient Micahel Dixon phone [phone]. called and left voice mail for a return contact. will address with him patient financial status to asssist with getting needed assistance. jong cerrato lpn/Perfecto Singh Jan 27, 2016 11:16
[2016-01-27] MEDS: ENOXAPARIN SODIUM 40 MG/0.4 ML SYRINGE SQ SCH (15:11)
[2016-01-27 20:00] VITALS: BP 114/64; PULSE 90; RESP 20; TEMP 98.1; O2SAT 97
[2016-01-28 08:00] VITALS: BP 100/66; PULSE 78; RESP 18; TEMP 98.2; O2SAT 95
--- NOTE | 2016-01-28 08:34 | HHI.PR ---
Subjective Remarks Patient seen and examined today. Patient denies any new complaints. No change in clinical status. Objective Vitals Vital Signs Date Time Temp Pulse Resp B/P Pulse Ox O2 Delivery O2 Flow Rate FiO2 01/27/16 20:00 98.1 90 20 114/64 97 01/27/16 10:00 98.1 85 19 107/64 95 I/O 01/27/16 01/27/16 01/27/16 01/28/16 01/28/16 01/28/16 07:00 15:00 23:00 07:00 15:00 23:00 Intake Total 740 ml 600 ml 240 ml 350 ml Output Total 800 ml 800 ml 450 ml 800 ml Balance -60 ml -200 ml -210 ml -450 ml Intake Oral 400 ml 600 ml 240 ml 250 ml Tube Feeding 240 ml 0 ml Tube Irrigant 100 ml 100 ml Output Urine Total 800 ml 800 ml 450 ml 800 ml # Voids 2 1 2 # Bowel Movements 1 1 2 Result Diagram: 01/25/16 0550 Objective Remarks GENERAL: Well-developed, well-nourished, in no acute distress. alert and orientated HEENT: Head is normocephalic without any lesions or masses noted. Facial features are symmetric. NECK: Supple without any masses. Trachea midline no deviation. No JVD, CARDIAC: Regular rhythm, regular rate. S1/S2 are heard. No murmurs gallops or rubs. LUNGS: Clear to auscultation bilaterally. No wheeze, rhonchi or rales. No use of accessory muscles on inspiration or expiration. ABDOMEN: Soft, nontender. Nondistended. Bowel sounds heard in all 4 quadrants. No organomegaly or masses. Negative rebound, negative guarding. PEG tube noted EXTREMITIES: No edema, pulses are equal bilaterally. No cyanosis or clubbing NEUROLOGY: Mood and affect appear appropriate. Cranial nerves II through XII grossly intact. Moving all extremities, speech is clear Procedures 12/18/15 EGD with PEG tube placement Urinary Catheter: No Date of Insertion: Jan 12, 2016 Date of Removal: Jan 26, 2016 Vascular Central Line Catheter: No A/P Assessment and Plan 80-year-old male with no known past medical history presented via EMS after being found covered in urine/feces, complaining of generalized weakness and dysphagia. Dysphagia: resulting in severe malnutrition and weight loss. Consulted GI, performed EGD with PEG tube placement. GI signed off. Cont with bolus TF Jevity 1.5 360 mL's at 8 AM and 240 mL's at 1200, 1600, 2000 , 2400 speech therapy following. Diet puree with nectar thickened liquids. Pre-albumin is 17 Patient undergoing calorie count Stage IV pressure ulcers, present on admission on coccyx and right ischium. Specialty bed. Wound care consulted to evaluate patient here at PO. Wound care following the patient, indicates that wound is improving continue with current orders of Santyl daily Gross hematuria/Urinary retention: Resolved Patient has had an indwelling Mena due to advanced stage pressure ulcers. He was having discomfort this morning and RN removed the Mena catheter. Patient was noted to have gross hematuria likely from catheter. Admits to suprapubic pain and dysuria. 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 Consulted PT/OT, recommends SNF. Case management consulted. Awaiting placement. Bilateral Lower Extremity Cellulitis/Edema: Resolved. S/p Rocephin. Leukocytosis has resolved. Patient has remained afebrile. Elevate lower extremities. Hyponatremia: Resolved. Likely secondary to dehydration/malnutrition. Right Apical Density: Density not seen on CT scan seen on AP CXR; PA/Lateral CXR shows findings of COPD. Chest CT 12/18 ordered by GI to evaluate for malignancy; shows bilateral pleural effusions, with common atelectatic changes, small amount of abdominal ascites and mesenteric edema characteristic of right R insufficiency/volume overload. Atherosclerotic calcification of coronary arteries. Left shoulder pain: X-rays reviewed without fractures. DVT Prophylaxis: Lovenox Discharge Planning OT recommends rehabilitation, 3-1 bedside commode, shower bench. PT recommends rehabilitation, wheeled walker, and wheelchair. software release manager working on placement. Medicaid pending. 01/28/16 0652 PATIENT WILL NEED ASSIST WITH PROBABLE PLACEMENT [facility] WORKING ON EVALUATING FOR SSI/MEDICIAID DID GIVE BROTHER THIL CONTACT INFORMATION HE WILL BE THE ONE MOST HELPFUL WITH FINANCIAL CLARITY. VIKTORIA BERNSTEIN LPN/Perfecto Mckeon Jan 28, 2016 08:34
[2016-01-28] MEDS: COLLAGENASE OINT 30 GM TUBE TOP SCH (09:00)
[2016-01-28] MEDS: CYCLOBENZAPRINE HCL 10 MG TAB PO PRN (09:29)
[2016-01-28] MEDS: TAMSULOSIN HCL 0.4 MG CAP PO SCH (09:29)
[2016-01-28] MEDS: ENOXAPARIN SODIUM 40 MG/0.4 ML SYRINGE SQ SCH (16:26)
[2016-01-28 20:00] VITALS: BP 110/60; PULSE 90; RESP 18; TEMP 96.3; O2SAT 97
[2016-01-29 08:29] VITALS: BP 115/67; PULSE 80; RESP 15; TEMP 97.8; O2SAT 98
--- NOTE | 2016-01-29 08:48 | HHI.PR ---
Subjective Remarks Patient seen and examined today. Patient denies any new complaints. No change in clinical status, waiting case folder discharge planning Objective Vitals Vital Signs Date Time Temp Pulse Resp B/P Pulse Ox O2 Delivery O2 Flow Rate FiO2 01/29/16 08:29 97.8 80 15 115/67 98 01/28/16 20:00 96.3 90 18 110/60 97 I/O 01/28/16 01/28/16 01/28/16 01/29/16 01/29/16 01/29/16 07:00 15:00 23:00 07:00 15:00 23:00 Intake Total 350 ml 460 ml 580 ml Output Total 800 ml 200 ml 701 ml Balance -450 ml -200 ml -241 ml 580 ml Intake Oral 250 ml 360 ml 480 ml Tube Feeding 0 ml Tube Irrigant 100 ml 100 ml 100 ml Output Urine Total 800 ml 200 ml 700 ml Stool Total 1 ml # Voids 2 3 # Bowel Movements 2 0 1 Result Diagram: 01/25/16 0550 Objective Remarks GENERAL: Well-developed, well-nourished, in no acute distress. alert and orientated HEENT: Head is normocephalic without any lesions or masses noted. Facial features are symmetric. NECK: Supple without any masses. Trachea midline no deviation. No JVD, CARDIAC: Regular rhythm, regular rate. S1/S2 are heard. No murmurs gallops or rubs. LUNGS: Clear to auscultation bilaterally. No wheeze, rhonchi or rales. No use of accessory muscles on inspiration or expiration. ABDOMEN: Soft, nontender. Nondistended. Bowel sounds heard in all 4 quadrants. No organomegaly or masses. Negative rebound, negative guarding. PEG tube noted EXTREMITIES: No edema, pulses are equal bilaterally. No cyanosis or clubbing NEUROLOGY: Mood and affect appear appropriate. Cranial nerves II through XII grossly intact. Moving all extremities, speech is clear Procedures 12/18/15 EGD with PEG tube placement Urinary Catheter: No Date of Insertion: Jan 12, 2016 Date of Removal: Jan 26, 2016 Vascular Central Line Catheter: No A/P Assessment and Plan 80-year-old male with no known past medical history presented via EMS after being found covered in urine/feces, complaining of generalized weakness and dysphagia. Dysphagia: resulting in severe malnutrition and weight loss. Consulted GI, performed EGD with PEG tube placement. GI signed off. Cont with bolus TF Jevity 1.5 360 mL's at 8 AM and 240 mL's at 1200, 1600, 2000 , 2400 speech therapy following. Diet puree with nectar thickened liquids. Pre-albumin is 17, continue to follow Patient undergoing calorie count Stage IV pressure ulcers, present on admission on coccyx and right ischium. Specialty bed. Wound care consulted to evaluate patient here at PO. Wound care following the patient, indicates that wound is improving continue with current orders of Santyl daily Gross hematuria/Urinary retention: Resolved Patient has had an indwelling Mena due to advanced stage pressure ulcers. He was having discomfort this morning and RN removed the Mena catheter. Patient was noted to have gross hematuria likely from catheter. Admits to suprapubic pain and dysuria. 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 Consulted PT/OT, recommends SNF. Case management consulted. Awaiting placement. Bilateral Lower Extremity Cellulitis/Edema: Resolved. S/p Rocephin. Leukocytosis has resolved. Patient has remained afebrile. Elevate lower extremities. Hyponatremia: Resolved. Likely secondary to dehydration/malnutrition. Right Apical Density: Density not seen on CT scan seen on AP CXR; PA/Lateral CXR shows findings of COPD. Chest CT 12/18 ordered by GI to evaluate for malignancy; shows bilateral pleural effusions, with common atelectatic changes, small amount of abdominal ascites and mesenteric edema characteristic of right R insufficiency/volume overload. Atherosclerotic calcification of coronary arteries. Left shoulder pain: X-rays reviewed without fractures. DVT Prophylaxis: Lovenox Discharge Planning OT recommends rehabilitation, 3-1 bedside commode, shower bench. PT recommends rehabilitation, wheeled walker, and wheelchair. fund manager working on placement. Medicaid pending. 01/28/16 0605 PATIENT WILL NEED ASSIST WITH PROBABLE PLACEMENT [facility] WORKING ON EVALUATING FOR SSI/MEDICIAID DID GIVE BROTHER THIL CONTACT INFORMATION HE WILL BE THE ONE MOST HELPFUL WITH FINANCIAL CLARITY. VIKTORIA BERNTSEIN LPN/Perfecto Mckeon Jan 29, 2016 08:48
[2016-01-29] MEDS: COLLAGENASE OINT 30 GM TUBE TOP SCH (09:00)
[2016-01-29] MEDS: TAMSULOSIN HCL 0.4 MG CAP PO SCH (09:11)
[2016-01-29] MEDS: ENOXAPARIN SODIUM 40 MG/0.4 ML SYRINGE SQ SCH (15:46)
[2016-01-29 20:00] VITALS: BP 102/58; PULSE 86; RESP 16; TEMP 97.5; O2SAT 97
[2016-01-29] MEDS: CYCLOBENZAPRINE HCL 10 MG TAB PO PRN (21:11)
[2016-01-30 08:00] VITALS: BP 103/60; PULSE 76; RESP 18; TEMP 97.4; O2SAT 93
[2016-01-30] MEDS: TAMSULOSIN HCL 0.4 MG CAP PO SCH (08:10)
[2016-01-30] MEDS: SIMETHICONE 80 MG CHEWABLE TAB CHEW PRN (08:10)
[2016-01-30] MEDS: CYCLOBENZAPRINE HCL 10 MG TAB PO PRN (08:10)
[2016-01-30] MEDS: COLLAGENASE OINT 30 GM TUBE TOP SCH ×2 (08:11→09:00)
--- NOTE | 2016-01-30 11:48 | HHI.PR ---
Subjective Remarks Patient seen and examined today. Patient denies any new complaints. No change in clinical status. Awaiting case management for discharge planning. Objective Vitals Vital Signs Date Time Temp Pulse Resp B/P Pulse Ox O2 Delivery O2 Flow Rate FiO2 01/29/16 20:00 97.5 86 16 102/58 97 I/O 01/29/16 01/29/16 01/29/16 01/30/16 01/30/16 01/30/16 07:00 15:00 23:00 07:00 15:00 23:00 Intake Total 580 ml Output Total 1225 ml Balance 580 ml -1225 ml Intake Oral 480 ml Tube Irrigant 100 ml Output Urine Total 1225 ml # Voids 3 # Bowel Movements 1 0 Objective Remarks GENERAL: Well-developed, well-nourished, in no acute distress. alert and orientated HEENT: Head is normocephalic without any lesions or masses noted. Facial features are symmetric. NECK: Supple without any masses. Trachea midline no deviation. No JVD, CARDIAC: Regular rhythm, regular rate. S1/S2 are heard. No murmurs gallops or rubs. LUNGS: Clear to auscultation bilaterally. No wheeze, rhonchi or rales. No use of accessory muscles on inspiration or expiration. ABDOMEN: Soft, nontender. Nondistended. Bowel sounds heard in all 4 quadrants. No organomegaly or masses. Negative rebound, negative guarding. PEG tube noted EXTREMITIES: No edema, pulses are equal bilaterally. No cyanosis or clubbing NEUROLOGY: Mood and affect appear appropriate. Cranial nerves II through XII grossly intact. Moving all extremities, speech is clear Procedures 12/18/15 EGD with PEG tube placement Urinary Catheter: No Date of Insertion: Jan 12, 2016 Date of Removal: Jan 26, 2016 Vascular Central Line Catheter: No A/P Assessment and Plan 80-year-old male with no known past medical history presented via EMS after being found covered in urine/feces, complaining of generalized weakness and dysphagia. Dysphagia: resulting in severe malnutrition and weight loss. Consulted GI, performed EGD with PEG tube placement. GI signed off. Discontinue bolus TF Jevity 1.5 360 mL's at 8 AM and 240 mL's at 1200, 1600, 2000, 2400 speech therapy following. Diet mechanical soft with chopped meat, gravy, thin liquids. Pre-albumin is 17, continue to follow Calorie count concluded that patient may be off of bolus tube feeding and continue only by mouth feeding with supplements Continue to follow patient by mouth intake, weight, dietary recommendations. If patient continues to improve may be able to remove PEG tube in future Stage IV pressure ulcers, present on admission on coccyx and right ischium. Specialty bed. Wound care consulted to evaluate patient here at PO. Wound care following the patient, indicates that wound is improving continue with current orders of Santyl daily Gross hematuria/Urinary retention: Resolved Patient has had an indwelling Mena due to advanced stage pressure ulcers. He was having discomfort this morning and RN removed the Mena catheter. Patient was noted to have gross hematuria likely from catheter. Admits to suprapubic pain and dysuria. 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 Consulted PT/OT, recommends SNF. Case management consulted. Awaiting placement. Bilateral Lower Extremity Cellulitis/Edema: Resolved. S/p Rocephin. Leukocytosis has resolved. Patient has remained afebrile. Elevate lower extremities. Hyponatremia: Resolved. Likely secondary to dehydration/malnutrition. Right Apical Density: Density not seen on CT scan seen on AP CXR; PA/Lateral CXR shows findings of COPD. Chest CT 12/18 ordered by GI to evaluate for malignancy; shows bilateral pleural effusions, with common atelectatic changes, small amount of abdominal ascites and mesenteric edema characteristic of right R insufficiency/volume overload. Atherosclerotic calcification of coronary arteries. Left shoulder pain: X-rays reviewed without fractures. DVT Prophylaxis: Lovenox Discharge Planning OT recommends rehabilitation, 3-1 bedside commode, shower bench. PT recommends rehabilitation, wheeled walker, and wheelchair. contracting manager working on placement. Medicaid pending. 01/28/16 0615 PATIENT WILL NEED ASSIST WITH PROBABLE PLACEMENT [facility] WORKING ON EVALUATING FOR SSI/MEDICIAID DID GIVE BROTHER [employer] CONTACT INFORMATION HE WILL BE THE ONE MOST HELPFUL WITH FINANCIAL CLARITY. VIKTORIA BERNSTEIN LPN/Perfecto Mckeon Jan 30, 2016 11:47
[2016-01-30] MEDS: ENOXAPARIN SODIUM 40 MG/0.4 ML SYRINGE SQ SCH (16:28)
[2016-01-30 20:00] VITALS: BP 105/56; PULSE 97; RESP 18; TEMP 96.8; O2SAT 98
[2016-01-31 08:00] VITALS: BP 113/69; PULSE 80; RESP 18; TEMP 97.3; O2SAT 97
[2016-01-31] MEDS: TAMSULOSIN HCL 0.4 MG CAP PO SCH (08:24)
[2016-01-31] MEDS: COLLAGENASE OINT 30 GM TUBE TOP SCH (08:27)
--- NOTE | 2016-01-31 09:41 | HHI.PR ---
Subjective Remarks Follow-up for failure to thrive, UTI. Status post Mena catheter. Patient still admits to some dysuria and increased urgency which is not new. He denies any fevers or chills, flank pain, vomiting, or diarrhea. He is able to use the urinal and he does not appear to have any further urinary retention. Objective Vitals Vital Signs Date Time Temp Pulse Resp B/P Pulse Ox O2 Delivery O2 Flow Rate FiO2 01/31/16 08:00 97.3 80 18 113/69 97 01/30/16 20:00 96.8 97 18 105/56 98 I/O 01/30/16 01/30/16 01/30/16 01/31/16 01/31/16 01/31/16 07:00 15:00 23:00 07:00 15:00 23:00 Intake Total 340 ml 620 ml 600 ml Output Total 1225 ml 2000 ml 200 ml 620 ml Balance -1225 ml -1660 ml 420 ml -20 ml Intake Oral 240 ml 620 ml 600 ml Tube Irrigant 100 ml Output Urine Total 1225 ml 2000 ml 200 ml 620 ml Gastric Drainage Total 0 ml # Bowel Movements 0 0 0 Objective Remarks GENERAL: Pleasant, cachectic appearing patient in no apparent distress. EYES: Normal appearance. CARDIOVASCULAR: Regular rate and rhythm. RESPIRATORY: Limited anterior exam. No accessory muscle use. Clear to auscultation. Breath sounds equal bilaterally. GASTROINTESTINAL: Abdomen soft, nondistended, nontender. NEUROLOGICAL: Awake and alert. Normal speech. Procedures 12/18/15 EGD with PEG tube placement Urinary Catheter: No Mena insert reason: Obstruction/Retention Date of Insertion: Jan 12, 2016 Date of Removal: Jan 26, 2016 Vascular Central Line Catheter: No A/P Problem List: (1) Failure to thrive in adult ICD Code: R62.7 Status: Acute (2) Malnutrition ICD Code: E46 Status: Acute (3) Urinary retention ICD Code: R33.9 Status: Acute (4) Prerenal azotemia ICD Code: R79.89 Status: Acute (5) Gross hematuria ICD Code: R31.0 Status: Resolved (6) Bilateral lower leg cellulitis ICD Code: L03.116 Status: Resolved (7) Hyponatremia ICD Code: E87.1 Status: Resolved (8) Blurred vision, right eye ICD Code: H53.8 Status: Acute Assessment and Plan 80-year-old male with no known past medical history presented via EMS after being found covered in urine/feces, complaining of generalized weakness and dysphagia. Dysphagia: resulting in severe malnutrition and weight loss (Failure to thrive) . Consulted GI, performed EGD with PEG tube placement. GI signed off. Pre-albumin 01/12 is 17 Continue Ensure Enlive tid w/HMB for wound healing per tin whiz machine operator. Speech therapy following. Diet advanced: Mechanical soft, chopped meat with gravy, thin liquids. Dietitian last evaluated patient on 01/29. States patient is refusing his bolus feedings, discontinue. Palliative care consulted to assist with goals of care, following. Gross hematuria/Urinary retention: Resolved. Patient had indwelling Mena catheter due to advanced stage pressure ulcers. It was removed and patient developed gross hematuria. It had to be reinserted due to urinary retention. Ladder training was performed and patient now able to use urinal. No further retention. -Status post treatment for UTI, Pseudomonas. Patient likely colonized. -Continue Flomax 0.4 mg daily. -He has some burning and urgency at times; patient had this when the catheter was present as well. I discussed this with the patient and we will monitor him. If he continues to have symptoms we will have to obtain another urinalysis. -Phenazopyridine prn as directed. Pre-renal azotemia: BUN 27 stable since 01/20. -Encourage po hydration -Monitor renal function Blurred vision R eye: -MRI with chronic ischemic demyelinization, but no acute abnormalities. -Ophthalmology evaluated the patient on 1121. Patient has cataracts in both eyes and can obtain outpatient surgical evaluation. Right Apical Density: seen on AP CXR; PA/Lateral CXR shows findings of COPD. Chest CT 12/18 ordered by GI to evaluate for malignancy; shows bilateral pleural effusions, with common atelectatic changes, small amount of abdominal ascites and mesenteric edema characteristic of right R insufficiency/volume overload. Atherosclerotic calcification of the coronary arteries. No lower extremity edema. -Incentive spirometry Stage IV pressure ulcers: -Wound care following. Last evaluated 01/29. Advises dry cover to sacral ulcer and foam dressing to right posterior shoulder as both areas are now healing. Discontinue Santyl. -Specialty bed Generalized Weakness: likely secondary to severe malnutrition and chronic deconditioning. Consulted PT/OT, recommends SNF. Case management consulted. Awaiting placement. Bilateral Lower Extremity Cellulitis/Edema: Resolved. S/p Rocephin. Leukocytosis has resolved. Patient has remained afebrile. Elevate lower extremities. Hyponatremia: Resolved. Likely secondary to dehydration/malnutrition. Left shoulder pain: X-rays reviewed without fractures. [place] and morphine were discontinued. Last used 12/26. Muscle spasm: Electrolytes normal. Continue Flexeril 5 mg q12 prn. DVT Prophylaxis: Lovenox Discharge Planning OT recommends rehabilitation, 3-1 bedside commode, shower bench. PT recommends rehabilitation, wheeled walker, and wheelchair. workforce management manager working on placement as patient has inability to care for self. Vida Carlisle Jan 31, 2016 09:41
[2016-01-31] MEDS: ENOXAPARIN SODIUM 40 MG/0.4 ML SYRINGE SQ SCH (17:20)
[2016-01-31 20:00] VITALS: BP 106/60; PULSE 86; RESP 16; TEMP 98; O2SAT 98
[2016-01-31] MEDS ORDERED: PHENAZOPYRIDINE HCL 200 MG TAB PO SCH (21:00)
[2016-02-01] MEDS: PHENAZOPYRIDINE HCL 200 MG TAB PO PRN (06:36)
[2016-02-01 08:00] VITALS: BP 96/63; PULSE 77; RESP 18; TEMP 97.1; O2SAT 95
[2016-02-01] MEDS: TAMSULOSIN HCL 0.4 MG CAP PO SCH (08:21)
--- NOTE | 2016-02-01 09:50 | HHI.PR ---
Subjective Remarks Follow-up for failure to thrive, urinary retention. Patient admits to persistent burning with urination; also has increased urinary frequency. Denies any fevers or chills, shortness of breath, nausea, vomiting, diarrhea, or flank pain. Objective Vitals Vital Signs Date Time Temp Pulse Resp B/P Pulse Ox O2 Delivery O2 Flow Rate FiO2 02/01/16 08:00 97.1 77 18 96/63 95 01/31/16 20:00 98.0 86 16 106/60 98 I/O 01/31/16 01/31/16 01/31/16 02/01/16 02/01/16 02/01/16 06:59 14:59 22:59 06:59 14:59 22:59 Intake Total 600 ml 480 ml 240 ml 100 ml Output Total 620 ml 1000 ml Balance -20 ml 480 ml -760 ml 100 ml Intake Oral 600 ml 480 ml 240 ml 100 ml Output Urine Total 620 ml 1000 ml # Bowel Movements 0 1 Objective Remarks GENERAL: Pleasant, cachectic appearing patient in no apparent distress. CARDIOVASCULAR: Regular rate and rhythm. RESPIRATORY: Limited anterior exam. No accessory muscle use. Clear to auscultation. Breath sounds equal bilaterally. GASTROINTESTINAL: Normoactive bowel sounds. Abdomen soft, nondistended, nontender. NEUROLOGICAL: Awake and alert. Normal speech. PSYCHIATRIC: Normal mood and affect. Procedures 12/18/15 EGD with PEG tube placement Urinary Catheter: No Date of Insertion: Jan 12, 2016 Date of Removal: Jan 26, 2016 Vascular Central Line Catheter: No A/P Problem List: (1) Failure to thrive in adult ICD Code: R62.7 Status: Acute (2) Malnutrition ICD Code: E46 Status: Acute (3) Urinary retention ICD Code: R33.9 Status: Acute (4) Prerenal azotemia ICD Code: R79.89 Status: Acute (5) Gross hematuria ICD Code: R31.0 Status: Resolved (6) Bilateral lower leg cellulitis ICD Code: L03.116 Status: Resolved (7) Hyponatremia ICD Code: E87.1 Status: Resolved (8) Blurred vision, right eye ICD Code: H53.8 Status: Acute Assessment and Plan 80-year-old male with no known past medical history presented via EMS after being found covered in urine/feces, complaining of generalized weakness and dysphagia. Dysphagia: resulting in severe malnutrition and weight loss (Failure to thrive) . Consulted GI, performed EGD with PEG tube placement. GI signed off. Pre-albumin 01/12 is 17 Continue Ensure Enlive tid w/HMB for wound healing per local sales manager. Speech therapy following. Diet advanced: Mechanical soft, chopped meat with gravy, thin liquids. Dietitian last evaluated patient on 01/29. States patient is refusing his bolus feedings, discontinue. Palliative care consulted to assist with goals of care, following. Gross hematuria/Urinary retention: Resolved. Patient had indwelling Mena catheter due to advanced stage pressure ulcers. It was removed and patient developed gross hematuria. It had to be reinserted due to urinary retention. Bladder training was performed and patient now able to use urinal. No further retention. -Continue Flomax 0.4 mg daily. Dysuria: Status post treatment for Pseudomonas UTI although this was during Mena catheter use and patient was likely colonized. Now using urinal. Patient admits to significant burning with urination and also has increased frequency. Afebrile. Hypotensive this morning but MAP intact and patient has episodes of hypotension in the past. CBC today with normal WBC count. -New UA today is positive for nitrites with trace leukocyte esterase but there is no increase in urine white blood cells, no blood, and urine is clear. Urine is significantly improved compared to prior UAs. Will wait for urine culture prior to starting any further antibiotics. -Phenazopyridine prn dysuria as directed. -PSA ordered to evaluate for prostatitis, pending. Pre-renal azotemia: BUN 27 stable since 01/20. -Encourage po hydration -Monitor renal function Blurred vision R eye: -MRI with chronic ischemic demyelinization, but no acute abnormalities. -Ophthalmology evaluated the patient on 1121. Patient has cataracts in both eyes and can obtain outpatient surgical evaluation. Right Apical Density: seen on AP CXR; PA/Lateral CXR shows findings of COPD. Chest CT 12/18 ordered by GI to evaluate for malignancy; shows bilateral pleural effusions, with common atelectatic changes, small amount of abdominal ascites and mesenteric edema characteristic of right R insufficiency/volume overload. Atherosclerotic calcification of the coronary arteries. No lower extremity edema. -Incentive spirometry Stage IV pressure ulcers: -Wound care following. Last evaluated 01/29. Advises dry cover to sacral ulcer and foam dressing to right posterior shoulder as both areas are now healing. Discontinue Santyl. -Specialty bed Generalized Weakness: likely secondary to severe malnutrition and chronic deconditioning. Consulted PT/OT, recommends SNF. Case management consulted. Awaiting placement. Bilateral Lower Extremity Cellulitis/Edema: Resolved. S/p Rocephin. Leukocytosis has resolved. Patient has remained afebrile. Elevate lower extremities. Hyponatremia: Resolved. Likely secondary to dehydration/malnutrition. Left shoulder pain: X-rays reviewed without fractures. [place] and morphine were discontinued. Last used 12/26. Muscle spasm: Electrolytes normal. Continue Flexeril 5 mg q12 prn. DVT Prophylaxis: Lovenox Discharge Planning OT recommends rehabilitation, 3-1 bedside commode, shower bench. PT recommends rehabilitation, wheeled walker, and wheelchair. manager product marketing working on placement as patient has inability to care for self. Vida Carlisle Feb 01, 2016 09:49
[2016-02-01 11:44] LABS: AUTOMATED NEUTROPHIL # 3.3 TH/MM3 (1.8-7.7); BASOPHIL % 0.7 % (0.0-2.0); EOSINOPHIL # 0.3 TH/MM3 (0-0.4); EOSINOPHIL % 5.6 % (0.0-4.0); HEMATOCRIT 36.5 % (39.0-51.0); HEMO FLAGS DIFF FINAL; LYMPH % 18.5 % (9.0-44.0); LYMPHOCYTE # 0.9 TH/MM3 (1.0-4.8); MEAN CELL VOLUME 97.7 FL (80.0-100.0); MEAN CORPUSCULAR HEMOGLOBIN 31.6 PG (27.0-34.0); MEAN CORPUSCULAR HGB CONC 32.4 % (32.0-36.0); MONO % 7.3 % (0.0-8.0); NEUT % 67.9 % (16.0-70.0); PLATELET COUNT 233 TH/MM3 (150-450); RED BLOOD COUNT 3.74 MIL/MM3 (4.50-5.90); RED CELL DISTRIBUTION WIDTH 14.9 % (11.6-17.2); WHITE BLOOD COUNT 4.9 TH/MM3 (4.0-11.0)
[2016-02-01 11:45] LABS: BLOOD, URINE NEG (NEG); GLUCOSE,URINE NEG (NEG); KETONE, URINE NEG (NEG)
[2016-02-01 11:47] LABS: NITRITE,URINE POS (NEG)
[2016-02-01 11:53] LABS: METHOD OF COLLECTION CLEAN CATCH; URINE COLOR LIGHT-ORANGE (YELLW/STRAW)
[2016-02-01 11:54] LABS: COMMENT (UR) CULTURE INDICATED; CULTURE IF INDICATED CULTURE INDICATED; WBC, URINE 0-2 /hpf (0-5)
[2016-02-01] MEDS: ENOXAPARIN SODIUM 40 MG/0.4 ML SYRINGE SQ SCH (15:49)
[2016-02-01 21:00] VITALS: BP 111/63; PULSE 83; RESP 16; TEMP 97.3; O2SAT 96
[2016-02-02] MEDS: TAMSULOSIN HCL 0.4 MG CAP PO SCH (08:05)
[2016-02-02 08:30] VITALS: BP 107/65; PULSE 87; RESP 18; TEMP 96.8; O2SAT 95
--- NOTE | 2016-02-02 09:39 | HHI.PR ---
Subjective Remarks Follow-up for failure to thrive, UTI. The patient continues to complain of dysuria. Denies any open wounds on the penis. Denies penile discharge. Denies fevers or chills, vomiting, diarrhea. Denies flank pain. Objective Vitals Vital Signs Date Time Temp Pulse Resp B/P Pulse Ox O2 Delivery O2 Flow Rate FiO2 02/02/16 08:30 96.8 87 18 107/65 95 02/01/16 21:00 97.3 83 16 111/63 96 I/O 02/01/16 02/01/16 02/01/16 02/02/16 02/02/16 02/02/16 06:59 14:59 22:59 06:59 14:59 22:59 Intake Total 100 ml 600 ml Output Total 650 ml 800 ml Balance 100 ml -50 ml -800 ml Intake Oral 100 ml 600 ml Output Urine Total 650 ml 800 ml # Voids 3 # Bowel Movements 0 Result Diagram: 02/01/16 1115 Objective Remarks GENERAL: Pleasant, cachectic appearing patient in no apparent distress. CARDIOVASCULAR: Regular rate and rhythm. RESPIRATORY: Limited anterior exam. No accessory muscle use. Clear to auscultation. Breath sounds equal bilaterally. GASTROINTESTINAL: Normoactive bowel sounds. Abdomen soft, nontender, non- distended. NEUROLOGICAL: Awake and alert. Normal speech. PSYCHIATRIC: Normal mood and affect. Procedures 12/18/15 EGD with PEG tube placement Urinary Catheter: No Date of Insertion: Jan 12, 2016 Date of Removal: Jan 26, 2016 Vascular Central Line Catheter: No A/P Problem List: (1) Failure to thrive in adult ICD Code: R62.7 Status: Acute (2) Malnutrition ICD Code: E46 Status: Acute (3) Urinary retention ICD Code: R33.9 Status: Resolved (4) Prerenal azotemia ICD Code: R79.89 Status: Acute (5) Gross hematuria ICD Code: R31.0 Status: Resolved (6) Bilateral lower leg cellulitis ICD Code: L03.116 Status: Resolved (7) Hyponatremia ICD Code: E87.1 Status: Resolved (8) Blurred vision, right eye ICD Code: H53.8 Status: Acute (9) Dysuria ICD Code: R30.0 Status: Acute Assessment and Plan 80-year-old male with no known past medical history presented via EMS after being found covered in urine/feces, complaining of generalized weakness and dysphagia. Dysphagia: resulting in severe malnutrition and weight loss (Failure to thrive) . Consulted GI, performed EGD with PEG tube placement. GI signed off. Pre-albumin 01/12 is 17 Continue Ensure Enlive tid w/HMB for wound healing per laborer heading. Speech therapy following. Diet advanced: Mechanical soft, chopped meat with gravy, thin liquids. Dietitian last evaluated patient on 01/29. States patient is refusing his bolus feedings, discontinue. Palliative care consulted to assist with goals of care, following. Gross hematuria/Urinary retention: Resolved. Patient had indwelling Mean catheter due to advanced stage pressure ulcers. Patient was experiencing discomfort so it was removed and patient developed gross hematuria. See below. Mena had to be reinserted due to urinary retention. Medication was started and bladder training was performed and patient is now able to use urinal. No further retention. -Continue Flomax 0.4 mg daily. Dysuria: Status post treatment for Pseudomonas UTI although this was during Mena catheter use and patient was likely colonized. Now using urinal. Patient admits to significant burning with urination and also has increased frequency. Afebrile. CBC 01/31 with normal WBC count. -New UA 01/31 is positive for nitrites with trace leukocyte esterase but there is no increase in urine white blood cells, no blood, and urine is clear. Urine is significantly improved compared to prior UAs. Will wait for urine culture to result prior to starting any further antibiotics. -Phenazopyridine prn dysuria as directed. -PSA was ordered to evaluate for prostatitis; PSA normal at 2.63. Pre-renal azotemia: BUN 27 stable since 01/20. -Encourage po hydration -Monitor renal function Blurred vision R eye: -MRI with chronic ischemic demyelinization, but no acute abnormalities. -Ophthalmology evaluated the patient on 1121. Patient has cataracts in both eyes and can obtain outpatient surgical evaluation. Right Apical Density: seen on AP CXR; PA/Lateral CXR shows findings of COPD. Chest CT 12/18 ordered by GI to evaluate for malignancy; shows bilateral pleural effusions, with common atelectatic changes, small amount of abdominal ascites and mesenteric edema characteristic of right R insufficiency/volume overload. Atherosclerotic calcification of the coronary arteries. No lower extremity edema. -Incentive spirometry Stage IV pressure ulcers: -Wound care following. Last evaluated 01/29. Advises dry cover to sacral ulcer and foam dressing to right posterior shoulder as both areas are now healing. Discontinue Santyl. -Specialty bed Generalized Weakness: likely secondary to severe malnutrition and chronic deconditioning. Consulted PT/OT, recommends SNF. Case management consulted. Awaiting placement. Bilateral Lower Extremity Cellulitis/Edema: Resolved. S/p Rocephin. Leukocytosis has resolved. Patient has remained afebrile. Elevate lower extremities. Hyponatremia: Resolved. Likely secondary to dehydration/malnutrition. Left shoulder pain: X-rays reviewed without fractures. [place] and morphine were discontinued. Last used 12/26. Muscle spasm: Electrolytes normal. Continue Flexeril 5 mg q12 prn. DVT Prophylaxis: Lovenox Discharge Planning OT recommends rehabilitation, 3-1 bedside commode, shower bench. PT recommends rehabilitation, wheeled walker, and wheelchair. unit manager convenience stores working on placement as patient has inability to care for self. Vida Carlisle Feb 02, 2016 09:39
[2016-02-02] MEDS: ENOXAPARIN SODIUM 40 MG/0.4 ML SYRINGE SQ SCH (16:49)
[2016-02-02 20:00] VITALS: BP 102/62; PULSE 88; RESP 18; TEMP 98.3; O2SAT 96
[2016-02-03] MEDS: TAMSULOSIN HCL 0.4 MG CAP PO SCH (08:20)
[2016-02-03 09:48] VITALS: BP 109/67; PULSE 88; RESP 24; TEMP 96.4; O2SAT 96
--- NOTE | 2016-02-03 10:06 | HHI.PR ---
Subjective Remarks Patient continues to complain of significant burning with urination. He denies any fevers or chills, chest pain, shortness of breath, abdominal pain, nausea, vomiting, diarrhea, or flank pain. Objective Vitals Vital Signs Date Time Temp Pulse Resp B/P Pulse Ox O2 Delivery O2 Flow Rate FiO2 02/03/16 09:48 96.4 88 24 109/67 96 02/02/16 20:00 98.3 88 18 102/62 96 I/O 02/02/16 02/02/16 02/02/16 02/03/16 02/03/16 02/03/16 06:59 14:59 22:59 06:59 14:59 22:59 Intake Total 720 ml 50 ml Output Total 800 ml 550 ml 100 ml 150 ml Balance -800 ml -550 ml 620 ml -100 ml Intake Oral 720 ml 50 ml Output Urine Total 800 ml 550 ml 100 ml 150 ml # Voids 3 Result Diagram: 02/01/16 1115 Objective Remarks GENERAL: Pleasant, cachectic appearing patient in no apparent distress. CARDIOVASCULAR: Regular rate and rhythm. RESPIRATORY: Limited anterior exam. No accessory muscle use. Clear to auscultation. Breath sounds equal bilaterally. GASTROINTESTINAL: Abdomen soft, nontender, non-distended. NEUROLOGICAL: Awake and alert. Normal speech. PSYCHIATRIC: Normal mood and affect. Procedures 12/18/15 EGD with PEG tube placement Urinary Catheter: No Date of Insertion: Jan 12, 2016 Date of Removal: Jan 26, 2016 Vascular Central Line Catheter: No A/P Problem List: (1) Failure to thrive in adult ICD Code: R62.7 Status: Acute (2) Malnutrition ICD Code: E46 Status: Acute (3) Urinary retention ICD Code: R33.9 Status: Resolved (4) Prerenal azotemia ICD Code: R79.89 Status: Acute (5) Gross hematuria ICD Code: R31.0 Status: Resolved (6) Bilateral lower leg cellulitis ICD Code: L03.116 Status: Resolved (7) Hyponatremia ICD Code: E87.1 Status: Resolved (8) Blurred vision, right eye ICD Code: H53.8 Status: Acute (9) Dysuria ICD Code: R30.0 Status: Acute Assessment and Plan 80-year-old male with no known past medical history presented via EMS after being found covered in urine/feces, complaining of generalized weakness and dysphagia. Dysphagia: resulting in severe malnutrition and weight loss (Failure to thrive) . Consulted GI, performed EGD with PEG tube placement. GI signed off. Pre-albumin 01/12 is 17 Continue Ensure Enlive tid w/HMB for wound healing per marine electrician apprentice. Speech therapy following. Diet advanced: Mechanical soft, chopped meat with gravy, thin liquids. Dietitian last evaluated patient on 01/29. States patient is refusing his bolus feedings, discontinue. Palliative care consulted to assist with goals of care, following. Gross hematuria/Urinary retention: Resolved. Patient had indwelling Mena catheter due to advanced stage pressure ulcers. Patient was experiencing discomfort so it was removed and patient developed gross hematuria. See below. Mena had to be reinserted due to urinary retention. Medication was started and bladder training was performed and patient is now able to use urinal. No further retention. -Continue Flomax 0.4 mg daily. Dysuria: Status post treatment for Pseudomonas UTI although this was during Mena catheter use and patient was likely colonized. Now using urinal. Patient admits to significant burning with urination and also has increased frequency. Afebrile. CBC 01/31 with normal WBC count. -New UA 01/31 is positive for nitrites with trace leukocyte esterase but there is no increase in urine white blood cells, no blood, and urine is clear. Urine is significantly improved compared to prior UAs. Urine culture resulted today with 10-50,000 mixed gram positive sonu, probable contaminants. -Phenazopyridine prn dysuria as directed. -PSA was ordered to evaluate for prostatitis; PSA normal at 2.63. -Bladder scan to assess for further retention. -Discussed with Dr. Campbell. Advises starting oxybutynin 5 mg bid and topical nystatin. If no improvement, will need to consult urology. Pre-renal azotemia: BUN 27 stable since 01/20. -Encourage po hydration -Monitor renal function Blurred vision R eye: -MRI with chronic ischemic demyelinization, but no acute abnormalities. -Ophthalmology evaluated the patient on 1121. Patient has cataracts in both eyes and can obtain outpatient surgical evaluation. Right Apical Density: seen on AP CXR; PA/Lateral CXR shows findings of COPD. Chest CT 12/18 ordered by GI to evaluate for malignancy; shows bilateral pleural effusions, with common atelectatic changes, small amount of abdominal ascites and mesenteric edema characteristic of right R insufficiency/volume overload. Atherosclerotic calcification of the coronary arteries. No lower extremity edema. -Incentive spirometry Stage IV pressure ulcers: -Wound care following. Last evaluated 01/29. Advises dry cover to sacral ulcer and foam dressing to right posterior shoulder as both areas are now healing. Discontinue Santyl. -Specialty bed Generalized Weakness: likely secondary to severe malnutrition and chronic deconditioning. Consulted PT/OT, recommends SNF. Case management consulted. Awaiting placement. Bilateral Lower Extremity Cellulitis/Edema: Resolved. S/p Rocephin. Leukocytosis has resolved. Patient has remained afebrile. Elevate lower extremities. Hyponatremia: Resolved. Likely secondary to dehydration/malnutrition. Left shoulder pain: X-rays reviewed without fractures. [place] and morphine were discontinued. Last used 12/26. Muscle spasm: Electrolytes normal. Continue Flexeril 5 mg q12 prn. DVT Prophylaxis: Lovenox Discharge Planning OT recommends rehabilitation, 3-1 bedside commode, shower bench. PT recommends rehabilitation, wheeled walker, and wheelchair. manager merchandise working on placement as patient has inability to care for self. Vida Carlisle Feb 03, 2016 10:06
[2016-02-03] MEDS: ENOXAPARIN SODIUM 40 MG/0.4 ML SYRINGE SQ SCH (17:58)
[2016-02-03 20:00] VITALS: BP 108/68; PULSE 70; RESP 18; TEMP 97.9; O2SAT 94
[2016-02-03] MEDS: OXYBUTYNIN CHLORIDE 5 MG TAB PO SCH (21:29)
[2016-02-03] MEDS: NYSTATIN 100,000 UNIT/GM CREAM 15 GM TOPICAL SCH (21:49)
[2016-02-04] MEDS: OXYBUTYNIN CHLORIDE 5 MG TAB PO SCH ×2 (08:52→22:38)
[2016-02-04] MEDS: TAMSULOSIN HCL 0.4 MG CAP PO SCH (08:52)
[2016-02-04] MEDS: NYSTATIN 100,000 UNIT/GM CREAM 15 GM TOPICAL SCH ×2 (08:53→22:40)
[2016-02-04 09:07] VITALS: BP 108/55; PULSE 75; RESP 16; TEMP 96.8; O2SAT 98
--- NOTE | 2016-02-04 11:05 | HHI.PR ---
Subjective Remarks Follow-up for failure to thrive, dysuria. Patient still has burning with urination. He denies any fevers or chills, abdominal pain, vomiting, or diarrhea. Objective Vitals Vital Signs Date Time Temp Pulse Resp B/P Pulse Ox O2 Delivery O2 Flow Rate FiO2 02/04/16 09:07 96.8 75 16 108/55 98 02/03/16 20:00 97.9 70 18 108/68 94 I/O 02/03/16 02/03/16 02/03/16 02/04/16 02/04/16 02/04/16 07:00 15:00 23:00 07:00 15:00 23:00 Intake Total 50 ml 1290 ml 330 ml Output Total 150 ml 575 ml 325 ml Balance -100 ml 1290 ml -245 ml -325 ml Intake Oral 50 ml 1290 ml 330 ml Output Urine Total 150 ml 575 ml 325 ml Bladder Scan Volume Amount 147 ml # Voids 3 1 # Bowel Movements 1 Result Diagram: 02/01/16 1115 Objective Remarks GENERAL: Pleasant, cachectic appearing patient in no apparent distress. CARDIOVASCULAR: Regular rate and rhythm. RESPIRATORY: Limited anterior exam. No accessory muscle use. Clear to auscultation. Breath sounds equal bilaterally. GASTROINTESTINAL: Abdomen soft, nontender, non-distended. NEUROLOGICAL: Awake and alert. Normal speech. PSYCHIATRIC: Normal mood and affect. Procedures 12/18/15 EGD with PEG tube placement Urinary Catheter: No Date of Insertion: Jan 12, 2016 Date of Removal: Jan 26, 2016 Vascular Central Line Catheter: No A/P Problem List: (1) Failure to thrive in adult ICD Code: R62.7 Status: Acute (2) Malnutrition ICD Code: E46 Status: Acute (3) Urinary retention ICD Code: R33.9 Status: Resolved (4) Prerenal azotemia ICD Code: R79.89 Status: Acute (5) Gross hematuria ICD Code: R31.0 Status: Resolved (6) Bilateral lower leg cellulitis ICD Code: L03.116 Status: Resolved (7) Hyponatremia ICD Code: E87.1 Status: Resolved (8) Blurred vision, right eye ICD Code: H53.8 Status: Acute (9) Dysuria ICD Code: R30.0 Status: Acute Assessment and Plan 80-year-old male with no known past medical history presented via EMS after being found covered in urine/feces, complaining of generalized weakness and dysphagia. Dysphagia: resulting in severe malnutrition and weight loss (Failure to thrive) . Consulted GI, performed EGD with PEG tube placement. GI signed off. Pre-albumin 01/12 is 17 Continue Ensure Enlive tid w/HMB for wound healing per tax examining technician. Speech therapy following. Diet advanced: Mechanical soft, chopped meat with gravy, thin liquids. Dietitian last evaluated patient on 01/29. States patient is refusing his bolus feedings, discontinue. Palliative care consulted to assist with goals of care, following. Gross hematuria/Urinary retention: Resolved. Patient had indwelling Mena catheter due to advanced stage pressure ulcers. Patient was experiencing discomfort so it was removed and patient developed gross hematuria. See below. Mena had to be reinserted due to urinary retention. Medication was started and bladder training was performed and patient is now able to use urinal. No further retention. -Continue Flomax 0.4 mg daily. -Bladder scan prn to assess for further retention. Dysuria: Persistent. Status post treatment for Pseudomonas UTI although this was during Mena catheter use and patient was likely colonized. Now using urinal. Patient admits to significant burning with urination and also has increased frequency. Afebrile. CBC 01/31 with normal WBC count. -UA 01/31 positive for nitrites with trace leukocyte esterase but there is no increase in urine white blood cells, no blood, and urine is clear. Urine is significantly improved compared to prior UAs. -Urine culture with 10-50,000 mixed gram positive sonu, probable contaminants. -Phenazopyridine prn dysuria as directed. -PSA was ordered to evaluate for prostatitis; PSA normal at 2.63. -Discussed with Dr. Campbell. Advised starting oxybutynin 5 mg bid and topical nystatin, but no improvement. Will consult urology. Pre-renal azotemia: BUN 27 stable since 01/20. -Encourage po hydration -Monitor renal function Blurred vision R eye: -MRI with chronic ischemic demyelinization, but no acute abnormalities. -Ophthalmology evaluated the patient on 1121. Patient has cataracts in both eyes and can obtain outpatient surgical evaluation. Right Apical Density: seen on AP CXR; PA/Lateral CXR shows findings of COPD. Chest CT 12/18 ordered by GI to evaluate for malignancy; shows bilateral pleural effusions, with common atelectatic changes, small amount of abdominal ascites and mesenteric edema characteristic of right R insufficiency/volume overload. Atherosclerotic calcification of the coronary arteries. No lower extremity edema. -Incentive spirometry Pressure ulcers: Stage IV coccyx ulcer is resolved. -Wound care following, last evaluated 02/02. I spoke with wound care nurse. Coccyx wound now closed. Barrier cream advised. Wound to R posterior shoulder healing, foam dressing advised. -Specialty bed Generalized Weakness: likely secondary to severe malnutrition and chronic deconditioning. Consulted PT/OT, recommends SNF. Case management consulted. Awaiting placement. Bilateral Lower Extremity Cellulitis/Edema: Resolved. S/p Rocephin. Leukocytosis has resolved. Patient has remained afebrile. Elevate lower extremities. Hyponatremia: Resolved. Likely secondary to dehydration/malnutrition. Left shoulder pain: X-rays reviewed without fractures. [place] and morphine were discontinued. Last used 12/26. Muscle spasm: Electrolytes normal. Continue Flexeril 5 mg q12 prn. DVT Prophylaxis: Lovenox Discharge Planning OT recommends rehabilitation, 3-1 bedside commode, shower bench. PT recommends rehabilitation, wheeled walker, and wheelchair. gravity manager working on placement as patient has inability to care for self. Vida Carlisle Feb 04, 2016 11:05
[2016-02-04] MEDS: ENOXAPARIN SODIUM 40 MG/0.4 ML SYRINGE SQ SCH (15:49)
[2016-02-04 20:00] VITALS: BP 101/61; PULSE 83; RESP 19; TEMP 97; O2SAT 98
[2016-02-05 08:00] VITALS: BP 121/44; PULSE 86; RESP 16; TEMP 96.1; O2SAT 95
[2016-02-05] MEDS: OXYBUTYNIN CHLORIDE 5 MG TAB PO SCH ×2 (08:21→20:39)
[2016-02-05] MEDS: PHENAZOPYRIDINE HCL 200 MG TAB PO PRN (08:21)
[2016-02-05] MEDS: TAMSULOSIN HCL 0.4 MG CAP PO SCH (08:21)
[2016-02-05] MEDS: NYSTATIN 100,000 UNIT/GM CREAM 15 GM TOPICAL SCH ×2 (08:25→20:39)
--- NOTE | 2016-02-05 11:06 | HHI.PR ---
Subjective Remarks Follow-up for failure to thrive, dysuria. Patient still admits to burning with urination. Denies any fevers or chills, abdominal pain, vomiting, or diarrhea. Objective Vitals Vital Signs Date Time Temp Pulse Resp B/P Pulse Ox O2 Delivery O2 Flow Rate FiO2 02/05/16 08:00 96.1 86 16 121/44 95 02/04/16 20:00 97.0 83 19 101/61 98 I/O 02/04/16 02/04/16 02/04/16 02/05/16 02/05/16 02/05/16 06:59 14:59 22:59 06:59 14:59 22:59 Intake Total 800 ml 360 ml Output Total 325 ml 551 ml Balance -325 ml 800 ml -191 ml Intake Oral 800 ml 360 ml Output Urine Total 325 ml 550 ml Stool Total 1 ml # Voids 3 # Bowel Movements 1 Result Diagram: 02/01/16 1115 Objective Remarks GENERAL: Pleasant, cachectic appearing patient in no apparent distress. ENT: poor dentition. CARDIOVASCULAR: Regular rate and rhythm. RESPIRATORY: Limited anterior exam. No accessory muscle use. Clear to auscultation. Breath sounds equal bilaterally. GASTROINTESTINAL: Normoactive bowel sounds. Abdomen soft, nontender, non- distended. NEUROLOGICAL: Awake and alert. Normal speech. PSYCHIATRIC: Normal mood and affect. Procedures 12/18/15 EGD with PEG tube placement Urinary Catheter: No Date of Insertion: Jan 12, 2016 Date of Removal: Jan 26, 2016 Vascular Central Line Catheter: No A/P Problem List: (1) Failure to thrive in adult ICD Code: R62.7 Status: Acute (2) Malnutrition ICD Code: E46 Status: Acute (3) Urinary retention ICD Code: R33.9 Status: Resolved (4) Prerenal azotemia ICD Code: R79.89 Status: Acute (5) Gross hematuria ICD Code: R31.0 Status: Resolved (6) Bilateral lower leg cellulitis ICD Code: L03.116 Status: Resolved (7) Hyponatremia ICD Code: E87.1 Status: Resolved (8) Blurred vision, right eye ICD Code: H53.8 Status: Acute (9) Dysuria ICD Code: R30.0 Status: Acute Assessment and Plan 80-year-old male with no known past medical history presented via EMS after being found covered in urine/feces, complaining of generalized weakness and dysphagia. Dysphagia: resulting in severe malnutrition and weight loss (Failure to thrive) . Consulted GI, performed EGD with PEG tube placement. GI signed off. Pre-albumin 01/12 is 17 Continue Ensure Enlive tid w/HMB for wound healing per bible teacher. Speech therapy following. Diet advanced: Mechanical soft, chopped meat with gravy, thin liquids. Dietitian last evaluated patient on 01/29. States patient is refusing his bolus feedings, discontinue. Palliative care consulted to assist with goals of care, following. Gross hematuria/Urinary retention: Resolved. Patient had indwelling Mena catheter due to advanced stage pressure ulcers. Patient was experiencing discomfort so it was removed and patient developed gross hematuria. See below. Mena had to be reinserted due to urinary retention. Medication was started and bladder training was performed and patient is now able to use urinal. No further retention. -Continue Flomax 0.4 mg daily. -Bladder scan prn to assess for further retention. Dysuria: Persistent. Status post treatment for Pseudomonas UTI although this was during Mena catheter use and patient was likely colonized. Now using urinal. Patient admits to significant burning with urination and also has increased frequency. Afebrile. CBC 01/31 with normal WBC count. -UA 01/31 positive for nitrites with trace leukocyte esterase but there is no increase in urine white blood cells, no blood, and urine is clear. Urine is significantly improved compared to prior UAs. -Urine culture with 10-50,000 mixed gram positive sonu, probable contaminants. -Phenazopyridine prn dysuria as directed. -PSA was ordered to evaluate for prostatitis; PSA normal at 2.63. -Discussed with Dr. Campbell. Advised starting oxybutynin 5 mg bid and topical nystatin, but no improvement. -Urology consult pending Pre-renal azotemia: BUN 27 stable since 01/20. -Encourage po hydration -Monitor renal function Blurred vision R eye: -MRI with chronic ischemic demyelinization, but no acute abnormalities. -Ophthalmology evaluated the patient on 1121. Patient has cataracts in both eyes and can obtain outpatient surgical evaluation. Right Apical Density: seen on AP CXR; PA/Lateral CXR shows findings of COPD. Chest CT 12/18 ordered by GI to evaluate for malignancy; shows bilateral pleural effusions, with common atelectatic changes, small amount of abdominal ascites and mesenteric edema characteristic of right R insufficiency/volume overload. Atherosclerotic calcification of the coronary arteries. No lower extremity edema. -Incentive spirometry Pressure ulcers: Stage IV coccyx ulcer is resolved. -Wound care following, last evaluated 02/02. I spoke with wound care nurse. Coccyx wound now closed. Barrier cream advised. Wound to R posterior shoulder healing, foam dressing advised. -Specialty bed Generalized Weakness: likely secondary to severe malnutrition and chronic deconditioning. Consulted PT/OT, recommends SNF. Case management consulted. Awaiting placement. Bilateral Lower Extremity Cellulitis/Edema: Resolved. S/p Rocephin. Leukocytosis has resolved. Patient has remained afebrile. Elevate lower extremities. Hyponatremia: Resolved. Likely secondary to dehydration/malnutrition. Left shoulder pain: X-rays reviewed without fractures. [place] and morphine were discontinued. Last used 12/26. Muscle spasm: Electrolytes normal. Continue Flexeril 5 mg q12 prn. DVT Prophylaxis: Lovenox Discharge Planning OT recommends rehabilitation, 3-1 bedside commode, shower bench. PT recommends rehabilitation, wheeled walker, and wheelchair. capacity manager working on placement as patient has inability to care for self. Vida Carlisle Feb 05, 2016 11:05
[2016-02-05] MEDS: ENOXAPARIN SODIUM 40 MG/0.4 ML SYRINGE SQ SCH (15:35)
--- NOTE | 2016-02-05 16:06 | PD.CONS ---
HPI Service Urology Consult Requested By Primary Care Physician No Primary Care Physician Diagnosis: (1) Failure to thrive in adult ICD Code: R62.7 (2) Malnutrition ICD Code: E46 (3) Urinary retention ICD Code: R33.9 (4) Prerenal azotemia ICD Code: R79.89 (5) Gross hematuria ICD Code: R31.0 (6) Bilateral lower leg cellulitis ICD Code: L03.116 (7) Hyponatremia ICD Code: E87.1 (8) Blurred vision, right eye ICD Code: H53.8 (9) Dysuria ICD Code: R30.0 History of Present Illness Consulted to evaluate this 80-year-old male admitted for failure to thrive regarding dysuria. At the time of admission to the hospital, the patient did not have any urinary complaints and during the course of his hospitalization he did have a Mena catheter placed and eventually removed. Patient was also treated for a Pseudomonas urinary tract infection. At the time of consultation the patient had just voided into a urinal and I was able to observe cloudy appearing urine. There was no evidence of hematuria or clots. A PSA level was checked during present hospitalization measuring 2.63. Patient did have a recent CT scan of the abdomen and pelvis that failed to demonstrate any abnormalities regarding the upper urinary tracts. 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 Reported Medications Refer to EMR Allergies: Coded Allergies: Ibuprofen (Verified Allergy, Mild, 12/16/15) Lidocaine (Verified Allergy, Mild, 12/16/15) Novocain (Verified Allergy, Mild, 12/16/15) Uncoded Allergies: SODIUM PENTATHAL (Allergy, Severe, 11/19/09) Active Ordered Medications Refer to EMR Family History Reviewed and noncontributory Social History Denies tobacco, alcohol or drive drug abuse history Physical Exam Vital Signs Vital Signs Date Time Temp Pulse Resp B/P Pulse Ox O2 Delivery O2 Flow Rate FiO2 02/05/16 08:00 96.1 86 16 121/44 95 02/04/16 20:00 97.0 83 19 101/61 98 Physical Exam GENERAL: Elderly man in no apparent distress. SKIN: No rashes, ecchymoses or lesions. Cool and dry. HEAD: Atraumatic. Normocephalic. No temporal or scalp tenderness. EYES: Pupils equal round and reactive. Extraocular motions intact. No scleral icterus. No injection or drainage. ENT: Nose without bleeding, purulent drainage or septal hematoma. Throat without erythema, tonsillar hypertrophy or exudate. Uvula midline. Airway patent. NECK: Trachea midline. No JVD or lymphadenopathy. Supple, nontender, no meningeal signs. : No CVA tenderness, bladder not distended, normal male genitalia. GASTROINTESTINAL: Abdomen soft, non-tender, nondistended. No hepato-splenomegaly , or palpable masses. No guarding. MUSCULOSKELETAL: Extremities without clubbing, cyanosis, or edema. No joint tenderness, effusion, or edema noted. No calf tenderness. Negative Homans sign bilaterally. NEUROLOGICAL: Awake and alert. Cranial nerves II through XII intact. Motor and sensory grossly within normal limits. Normal speech. Laboratory Date/Time Procedure Status Source Growth 02/01/16 11:30 Urine Culture - Final Complete Urine Clean Catch 10-50,000 CFU/ML MIXED GRAM POSITIVE ... Result Diagram: 02/01/16 1115 Assessment and Plan Assessment and Plan IMP: Urethritis / Recurrent UTI REC: 1. Repeat urine culture 2. Cipro 500mg po bid 3. Pyridium 100mg po tid 4. Will eventually require outpatient cystoscopy Escobar Rivera MD Feb 05, 2016 16:05 Escobar Rivera MD Feb 05, 2016 16:05
[2016-02-05] MEDS: PHENAZOPYRIDINE HCL 100 MG TAB PO SCH ×2 (17:28→20:39)
[2016-02-05 20:00] VITALS: BP 105/64; PULSE 87; RESP 18; TEMP 97.9; O2SAT 97
[2016-02-05] MEDS: CIPROFLOXACIN 500 MG TAB PO SCH (20:39)
[2016-02-06] MEDS: PHENAZOPYRIDINE HCL 100 MG TAB PO SCH ×3 (06:08→20:11)
[2016-02-06 08:00] VITALS: BP 96/51; PULSE 65; RESP 18; TEMP 96; O2SAT 97
[2016-02-06] MEDS: NYSTATIN 100,000 UNIT/GM CREAM 15 GM TOPICAL SCH (08:11)
[2016-02-06] MEDS: OXYBUTYNIN CHLORIDE 5 MG TAB PO SCH ×2 (08:11→20:11)
[2016-02-06] MEDS: TAMSULOSIN HCL 0.4 MG CAP PO SCH (08:11)
--- NOTE | 2016-02-06 10:21 | HHI.PR ---
Subjective Remarks Follow-up for failure to thrive, dysuria. Patient denies any acute fevers or chills but states he feels like he has had a low-grade fever the entire time he' s been here because his lips are peeling. Objective Vitals Vital Signs Date Time Temp Pulse Resp B/P Pulse Ox O2 Delivery O2 Flow Rate FiO2 02/06/16 08:00 96.0 65 18 96/51 97 02/05/16 20:00 97.9 87 18 105/64 97 I/O 02/05/16 02/05/16 02/05/16 02/06/16 02/06/16 02/06/16 07:00 15:00 23:00 07:00 15:00 23:00 Intake Total 360 ml 240 ml 520 ml Output Total 551 ml 780 ml Balance -191 ml 240 ml -260 ml Intake Oral 360 ml 240 ml 520 ml Output Urine Total 550 ml 780 ml Stool Total 1 ml # Voids 100 # Bowel Movements 0 0 Objective Remarks GENERAL: Pleasant, cachectic appearing patient in no apparent distress. CARDIOVASCULAR: Regular rate and rhythm. RESPIRATORY: Limited anterior exam. No accessory muscle use. Clear to auscultation. Breath sounds equal bilaterally. GASTROINTESTINAL: Abdomen soft, nontender, non-distended. NEUROLOGICAL: Awake and alert. Normal speech. PSYCHIATRIC: Normal mood and affect. Procedures 12/18/15 EGD with PEG tube placement Urinary Catheter: No Date of Insertion: Jan 12, 2016 Date of Removal: Jan 26, 2016 Vascular Central Line Catheter: No A/P Problem List: (1) Failure to thrive in adult ICD Code: R62.7 Status: Acute (2) Malnutrition ICD Code: E46 Status: Acute (3) Urinary retention ICD Code: R33.9 Status: Resolved (4) Prerenal azotemia ICD Code: R79.89 Status: Acute (5) Gross hematuria ICD Code: R31.0 Status: Resolved (6) Bilateral lower leg cellulitis ICD Code: L03.116 Status: Resolved (7) Hyponatremia ICD Code: E87.1 Status: Resolved (8) Blurred vision, right eye ICD Code: H53.8 Status: Acute (9) Dysuria ICD Code: R30.0 Status: Acute (10) UTI (urinary tract infection) ICD Code: N39.0 Status: Acute Assessment and Plan 80-year-old male with no known past medical history presented via EMS after being found covered in urine/feces, complaining of generalized weakness and dysphagia. Dysphagia: resulting in severe malnutrition and weight loss (Failure to thrive) . Consulted GI, performed EGD with PEG tube placement. GI signed off. Pre-albumin 01/12 is 17 Continue Ensure Enlive tid w/HMB for wound healing per information systems manager. Speech therapy following. Diet advanced: Mechanical soft, chopped meat with gravy, thin liquids. Dietitian last evaluated patient on 01/29. States patient is refusing his bolus feedings, discontinue. Palliative care consulted to assist with goals of care, following. Gross hematuria/Urinary retention: Resolved. Patient had indwelling Mena catheter due to advanced stage pressure ulcers. Patient was experiencing discomfort so it was removed and patient developed gross hematuria. See below. Mena had to be reinserted due to urinary retention. Medication was started and bladder training was performed and patient is now able to use urinal. No further retention. -Continue Flomax 0.4 mg daily. -Bladder scan prn to assess for further retention. Dysuria: Persistent. Status post treatment for Pseudomonas UTI although this was during Mena catheter use and patient was likely colonized. Now using urinal. Patient admits to significant burning with urination and also has increased frequency. Afebrile. CBC 01/31 with normal WBC count. -UA 01/31 positive for nitrites with trace leukocyte esterase but there is no increase in urine white blood cells, no blood, and urine is clear. Urine is significantly improved compared to prior UAs. -Urine culture 01/31 with 10-50,000 mixed gram positive sonu, probable contaminants. -PSA was ordered to evaluate for prostatitis; PSA normal at 2.63. -Discussed with Dr. Campbell. Advised starting oxybutynin 5 mg bid and topical nystatin, but no improvement. Nystatin discontinued. Consider discontinuing oxybutynin use. -Urology, Dr. Rivera evaluated the patient on 02/04 and started patient on Cipro 500 mg po bid. New urine culture with gram negative rods indicating UTI. ID and HATTIE to follow. Continue antibiotics. -Pyridium 100 mg q8 hours Pre-renal azotemia: BUN 27 stable since 01/20. -Encourage po hydration -Monitor renal function Blurred vision R eye: -MRI with chronic ischemic demyelinization, but no acute abnormalities. -Ophthalmology evaluated the patient on 1121. Patient has cataracts in both eyes and can obtain outpatient surgical evaluation. Right Apical Density: seen on AP CXR; PA/Lateral CXR shows findings of COPD. Chest CT 12/18 ordered by GI to evaluate for malignancy; shows bilateral pleural effusions, with common atelectatic changes, small amount of abdominal ascites and mesenteric edema characteristic of right R insufficiency/volume overload. Atherosclerotic calcification of the coronary arteries. No lower extremity edema. -Incentive spirometry Pressure ulcers: Stage IV coccyx ulcer is resolved. -Wound care following, last evaluated 02/02. I spoke with wound care nurse. Coccyx wound now closed. Barrier cream advised. Wound to R posterior shoulder healing, foam dressing advised. -Specialty bed Generalized Weakness: likely secondary to severe malnutrition and chronic deconditioning. Consulted PT/OT, recommends SNF. Case management consulted. Awaiting placement. Bilateral Lower Extremity Cellulitis/Edema: Resolved. S/p Rocephin. Leukocytosis has resolved. Patient has remained afebrile. Elevate lower extremities. Hyponatremia: Resolved. Likely secondary to dehydration/malnutrition. Left shoulder pain: X-rays reviewed without fractures. [place] and morphine were discontinued. Last used 12/26. Muscle spasm: Electrolytes normal. Continue Flexeril 5 mg q12 prn. DVT Prophylaxis: Lovenox Discharge Planning OT recommends rehabilitation, 3-1 bedside commode, shower bench. PT recommends rehabilitation, wheeled walker, and wheelchair. actuary manager working on placement as patient has inability to care for self. Vida Carlisle Feb 06, 2016 10:21
[2016-02-06] MEDS: CIPROFLOXACIN 500 MG TAB PO SCH ×2 (11:41→20:11)
[2016-02-06] MEDS ORDERED: PADIMATE (CHAPSTICK) 4.5 GM TUBE TOP PRN (18:00)
[2016-02-06] MEDS: ENOXAPARIN SODIUM 40 MG/0.4 ML SYRINGE SQ SCH (18:09)
[2016-02-06 18:41] VITALS: BP 112/70
[2016-02-06 20:00] VITALS: BP 129/60; PULSE 89; RESP 20; TEMP 97.7; O2SAT 95
[2016-02-07] MEDS: PHENAZOPYRIDINE HCL 100 MG TAB PO SCH ×3 (05:33→20:06)
[2016-02-07 07:15] VITALS: BP 110/58; PULSE 80; RESP 18; TEMP 97.1; O2SAT 96
[2016-02-07] MEDS: TAMSULOSIN HCL 0.4 MG CAP PO SCH (08:29)
[2016-02-07] MEDS: OXYBUTYNIN CHLORIDE 5 MG TAB PO SCH (08:29)
[2016-02-07] MEDS: CIPROFLOXACIN 500 MG TAB PO SCH ×2 (11:00→20:06)
--- NOTE | 2016-02-07 13:54 | HHI.PR ---
Subjective Remarks Follow-up for failure to thrive, UTI. Patient still admits to dysuria. Denies any abdominal or suprapubic pain. Denies any urinary retention. Denies any fevers or chills, cough, or shortness of breath. Objective Vitals Vital Signs Date Time Temp Pulse Resp B/P Pulse Ox O2 Delivery O2 Flow Rate FiO2 02/07/16 07:15 97.1 80 18 110/58 96 02/06/16 20:00 97.7 89 20 129/60 95 02/06/16 18:41 112/70 I/O 02/06/16 02/06/16 02/06/16 02/07/16 02/07/16 02/07/16 07:00 15:00 23:00 07:00 15:00 23:00 Intake Total 520 ml 600 ml 240 ml Output Total 780 ml 275 ml 1100 ml Balance -260 ml 325 ml -860 ml Intake Oral 520 ml 600 ml 240 ml Output Urine Total 780 ml 275 ml 1100 ml # Bowel Movements 0 1 0 Objective Remarks GENERAL: Pleasant, cachectic appearing patient in no apparent distress. CARDIOVASCULAR: Regular rate and rhythm. RESPIRATORY: Limited anterior exam. No accessory muscle use. Coarse breath sounds. GASTROINTESTINAL: Normoactive bowel sounds. Abdomen soft, nontender, non- distended. NEUROLOGICAL: Awake and alert. Normal speech. PSYCHIATRIC: Normal mood and affect. Procedures 12/18/15 EGD with PEG tube placement Urinary Catheter: No Date of Insertion: Jan 12, 2016 Date of Removal: Jan 26, 2016 Vascular Central Line Catheter: No A/P Problem List: (1) Failure to thrive in adult ICD Code: R62.7 Status: Acute (2) Malnutrition ICD Code: E46 Status: Acute (3) Urinary retention ICD Code: R33.9 Status: Resolved (4) Prerenal azotemia ICD Code: R79.89 Status: Acute (5) Gross hematuria ICD Code: R31.0 Status: Resolved (6) Bilateral lower leg cellulitis ICD Code: L03.116 Status: Resolved (7) Hyponatremia ICD Code: E87.1 Status: Resolved (8) Blurred vision, right eye ICD Code: H53.8 Status: Acute (9) Dysuria ICD Code: R30.0 Status: Acute (10) UTI (urinary tract infection) ICD Code: N39.0 Status: Acute Assessment and Plan 80-year-old male with no known past medical history presented via EMS after being found covered in urine/feces, complaining of generalized weakness and dysphagia. Dysphagia: resulting in severe malnutrition and weight loss (Failure to thrive) . Consulted GI, performed EGD with PEG tube placement. GI signed off. Pre-albumin 01/12 is 17 Continue Ensure Enlive tid w/HMB for wound healing per auto service station attendant. Speech therapy following. Diet advanced: Mechanical soft, chopped meat with gravy, thin liquids. Dietitian last evaluated patient on 01/29. States patient is refusing his bolus feedings, discontinue. Palliative care consulted to assist with goals of care, following. Gross hematuria/Urinary retention: Resolved. Patient had indwelling Mena catheter due to advanced stage pressure ulcers. Patient was experiencing discomfort so it was removed and patient developed gross hematuria. See below. Mena had to be reinserted due to urinary retention. Medication was started and bladder training was performed and patient is now able to use urinal. No further retention. -Continue Flomax 0.4 mg daily. -Bladder scan prn to assess for further retention. Dysuria: Persistent. Status post treatment for Pseudomonas UTI although this was during Mena catheter use and patient was likely colonized. Now using urinal. Patient admits to significant burning with urination and also has increased frequency. Afebrile. CBC 01/31 with normal WBC count. -UA 01/31 positive for nitrites with trace leukocyte esterase but there is no increase in urine white blood cells, no blood, and urine is clear. Urine is significantly improved compared to prior UAs. -Urine culture 01/31 with 10-50,000 mixed gram positive sonu, probable contaminants. -PSA was ordered to evaluate for prostatitis; PSA normal at 2.63. -Discussed with Dr. Campbell. Advised starting oxybutynin 5 mg bid and topical nystatin, but no improvement. Nystatin and oxybutynin discontinued. -Urology, Dr. Rivera evaluated the patient on 02/04 and started patient on Cipro 500 mg po bid. New urine culture 02/04 again with pseudomonas susceptible to Cipro. Continue antibiotics. -Pyridium 100 mg q8 hours -Patient will likely need outpatient cystoscopy per urology Pre-renal azotemia: BUN 27 stable since 01/20. -Encourage po hydration -Monitor renal function Blurred vision R eye: -MRI with chronic ischemic demyelinization, but no acute abnormalities. -Ophthalmology evaluated the patient on 1121. Patient has cataracts in both eyes and can obtain outpatient surgical evaluation. Right Apical Density: seen on AP CXR; PA/Lateral CXR shows findings of COPD. Chest CT 12/18 ordered by GI to evaluate for malignancy; shows bilateral pleural effusions, with common atelectatic changes, small amount of abdominal ascites and mesenteric edema characteristic of right R insufficiency/volume overload. Atherosclerotic calcification of the coronary arteries. No lower extremity edema. -Incentive spirometry Pressure ulcers: Stage IV coccyx ulcer is resolved. -Wound care following, last evaluated 02/02. I spoke with wound care nurse. Coccyx wound now closed. Barrier cream advised. Wound to R posterior shoulder healing, foam dressing advised. -Specialty bed Generalized Weakness: likely secondary to severe malnutrition and chronic deconditioning. Consulted PT/OT, recommends SNF. Case management consulted. Awaiting placement. Bilateral Lower Extremity Cellulitis/Edema: Resolved. S/p Rocephin. Leukocytosis has resolved. Patient has remained afebrile. Elevate lower extremities. Hyponatremia: Resolved. Likely secondary to dehydration/malnutrition. Left shoulder pain: X-rays reviewed without fractures. [place] and morphine were discontinued. Last used 12/26. Muscle spasm: Electrolytes normal. Continue Flexeril 5 mg q12 prn. DVT Prophylaxis: Lovenox Discharge Planning OT recommends rehabilitation, 3-1 bedside commode, shower bench. PT recommends rehabilitation, wheeled walker, and wheelchair. manager code working on placement as patient has inability to care for self. Vida Carlisle Feb 07, 2016 13:54 Vida Carlisle Feb 07, 2016 13:54
[2016-02-07] MEDS: ENOXAPARIN SODIUM 40 MG/0.4 ML SYRINGE SQ SCH (16:25)
[2016-02-07 20:00] VITALS: BP 101/57; PULSE 86; RESP 18; TEMP 96.8; O2SAT 95
[2016-02-08] MEDS: PHENAZOPYRIDINE HCL 100 MG TAB PO SCH (05:58)
[2016-02-08 08:40] VITALS: BP 107/61; PULSE 84; RESP 18; TEMP 96.9; O2SAT 95
[2016-02-08] MEDS: TAMSULOSIN HCL 0.4 MG CAP PO SCH (08:43)
[2016-02-08] MEDS: CIPROFLOXACIN 500 MG TAB PO SCH ×2 (11:29→20:51)
--- NOTE | 2016-02-08 11:55 | HHI.PR ---
Subjective Remarks Patient seen and examined today. Patient denies any new complaints. No change in clinical status. Objective Vitals Vital Signs Date Time Temp Pulse Resp B/P Pulse Ox O2 Delivery O2 Flow Rate FiO2 02/08/16 08:40 96.9 84 18 107/61 95 02/07/16 20:00 96.8 86 18 101/57 95 I/O 02/07/16 02/07/16 02/07/16 02/08/16 02/08/16 02/08/16 06:59 14:59 22:59 06:59 14:59 22:59 Intake Total 240 ml 0 ml 0 ml Output Total 1100 ml 775 ml 600 ml 800 ml Balance -860 ml -775 ml -600 ml -800 ml Intake Oral 240 ml IV Total 0 ml 0 ml Output Urine Total 1100 ml 775 ml 600 ml 800 ml # Bowel Movements 0 1 Objective Remarks GENERAL: Well-developed, well-nourished, in no acute distress. alert and orientated HEENT: Head is normocephalic without any lesions or masses noted. Facial features are symmetric. NECK: Supple without any masses. Trachea midline no deviation. No JVD, CARDIAC: Regular rhythm, regular rate. S1/S2 are heard. No murmurs gallops or rubs. LUNGS: Clear to auscultation bilaterally. No wheeze, rhonchi or rales. No use of accessory muscles on inspiration or expiration. ABDOMEN: Soft, nontender. Nondistended. Bowel sounds heard in all 4 quadrants. No organomegaly or masses. Negative rebound, negative guarding. PEG tube noted EXTREMITIES: No edema, pulses are equal bilaterally. No cyanosis or clubbing NEUROLOGY: Mood and affect appear appropriate. Cranial nerves II through XII grossly intact. Moving all extremities, speech is clear Procedures 12/18/15 EGD with PEG tube placement Urinary Catheter: No Date of Insertion: Jan 12, 2016 Date of Removal: Jan 26, 2016 Vascular Central Line Catheter: No A/P Assessment and Plan 80-year-old male with no known past medical history presented via EMS after being found covered in urine/feces, complaining of generalized weakness and dysphagia. Dysphagia: resulting in severe malnutrition and weight loss. Consulted GI, performed EGD with PEG tube placement. GI signed off. speech therapy following. Diet mechanical soft with chopped meat, gravy, thin liquids. Pre-albumin is 17, continue to follow Calorie count concluded that patient may be off of bolus tube feeding and continue only by mouth feeding with supplements Continue to follow patient by mouth intake, weight, dietary recommendations. If patient continues to improve may be able to remove PEG tube in future Stage IV pressure ulcers, present on admission on coccyx and right ischium. Specialty bed. Wound care consulted to evaluate patient here at PO. Wound care following the patient, indicates that wound is improving continue with current orders of Santyl daily Gross hematuria/Urinary retention: Resolved Patient has had an indwelling Mena due to advanced stage pressure ulcers. He was having discomfort this morning and RN removed the Mena catheter. Patient was noted to have gross hematuria likely from catheter. Admits to suprapubic pain and dysuria. 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 Rivera evaluated the patient on 02/04 and started patient on Cipro 500 mg po bid. New urine culture 02/04 again with pseudomonas susceptible to Cipro. Continue antibiotics. Pyridium 100 mg q8 hours Patient will likely need outpatient cystoscopy per urology Blurred vision right eye Ophthalmology evaluate patient indicates secondary to cataract Recommending outpatient surgical evaluation MRI of the brain did not indicate any acute intracranial abnormality Generalized Weakness: likely secondary to severe malnutrition and chronic deconditioning. Consulted PT/OT, recommends SNF. Case management consulted. Awaiting placement. Bilateral Lower Extremity Cellulitis/Edema: Resolved. S/p Rocephin. Leukocytosis has resolved. Patient has remained afebrile. Elevate lower extremities. Hyponatremia: Resolved. Likely secondary to dehydration/malnutrition. Right Apical Density: Density not seen on CT scan seen on AP CXR; PA/Lateral CXR shows findings of COPD. Chest CT 12/18 ordered by GI to evaluate for malignancy; shows bilateral pleural effusions, with common atelectatic changes, small amount of abdominal ascites and mesenteric edema characteristic of right R insufficiency/volume overload. Atherosclerotic calcification of coronary arteries. Left shoulder pain: X-rays reviewed without fractures. DVT Prophylaxis: Lovenox Discharge Planning OT recommends rehabilitation, 3-1 bedside commode, shower bench. PT recommends rehabilitation, wheeled walker, and wheelchair. cage manager working on placement. Medicaid pending. 02/05/16 1337 PATIENT NEEDING PALCEMENT [facility]ANGE [facility] DID SSI/JUANITO MANA AND WAS DENIED FOR OVER ASSETS, CHANGE HEALTH STATED 02/04/16 THEY HAVE REQUESTED A RESPONSE ON WHAT MAKES HIM OVER THEY DO NOT HAVE ANY REASON FOR THIS. ALSO THEY HAVE BROTHERS CONTACT INFO FOR ASSIST. WILL F/U WITH CHANGE FOR UPDATE AND FOLLOW THROUGH VIKTORIA BERNSTEIN LPN/Perfecto Mckeon Feb 08, 2016 11:55
[2016-02-08] MEDS: ENOXAPARIN SODIUM 40 MG/0.4 ML SYRINGE SQ SCH (16:38)
[2016-02-08 20:00] VITALS: BP 110/66; PULSE 93; RESP 18; TEMP 98.2; O2SAT 97
[2016-02-09 05:06] LABS: POTASSIUM 4.2 MEQ/L (3.5-5.1)
[2016-02-09 05:09] LABS: AUTOMATED NEUTROPHIL # 4.5 TH/MM3 (1.8-7.7); BASOPHIL % 0.4 % (0.0-2.0); EOSINOPHIL # 0.3 TH/MM3 (0-0.4); EOSINOPHIL % 4.4 % (0.0-4.0); HEMATOCRIT 33.2 % (39.0-51.0); HEMO FLAGS DIFF FINAL; LYMPH % 18.3 % (9.0-44.0); LYMPHOCYTE # 1.2 TH/MM3 (1.0-4.8); MEAN CELL VOLUME 98.1 FL (80.0-100.0); MEAN CORPUSCULAR HEMOGLOBIN 31.6 PG (27.0-34.0); MEAN CORPUSCULAR HGB CONC 32.2 % (32.0-36.0); MONO % 8.3 % (0.0-8.0); NEUT % 68.6 % (16.0-70.0); PLATELET COUNT 197 TH/MM3 (150-450); RED BLOOD COUNT 3.39 MIL/MM3 (4.50-5.90); RED CELL DISTRIBUTION WIDTH 14.3 % (11.6-17.2); WHITE BLOOD COUNT 6.5 TH/MM3 (4.0-11.0)
[2016-02-09 05:10] LABS: BICARBONATE 33.9 MEQ/L (21.0-32.0); MAGNESIUM 2.2 MG/DL (1.5-2.5)
[2016-02-09] MEDS: TAMSULOSIN HCL 0.4 MG CAP PO SCH (09:04)
--- NOTE | 2016-02-09 09:20 | HHI.PR ---
Subjective Remarks Patient seen and examined today. Patient denies any new complaints. No change in clinical status. Objective Vitals Vital Signs Date Time Temp Pulse Resp B/P Pulse Ox O2 Delivery O2 Flow Rate FiO2 02/08/16 20:00 98.2 93 18 110/66 97 I/O 02/08/16 02/08/16 02/08/16 02/09/16 02/09/16 02/09/16 06:59 14:59 22:59 06:59 14:59 22:59 Intake Total 0 ml 0 ml 900 ml 400 ml Output Total 800 ml 750 ml 1020 ml 700 ml Balance -800 ml -750 ml -120 ml -300 ml Intake Oral 900 ml 400 ml IV Total 0 ml 0 ml Output Urine Total 800 ml 750 ml 1020 ml 700 ml # Voids 3 # Bowel Movements 1 1 Result Diagram: 02/09/1642602/09/16426 Objective Remarks GENERAL: Well-developed, well-nourished, in no acute distress. alert and orientated HEENT: Head is normocephalic without any lesions or masses noted. Facial features are symmetric. NECK: Supple without any masses. Trachea midline no deviation. No JVD, CARDIAC: Regular rhythm, regular rate. S1/S2 are heard. No murmurs gallops or rubs. LUNGS: Clear to auscultation bilaterally. No wheeze, rhonchi or rales. No use of accessory muscles on inspiration or expiration. ABDOMEN: Soft, nontender. Nondistended. Bowel sounds heard in all 4 quadrants. No organomegaly or masses. Negative rebound, negative guarding. PEG tube noted EXTREMITIES: No edema, pulses are equal bilaterally. No cyanosis or clubbing NEUROLOGY: Mood and affect appear appropriate. Cranial nerves II through XII grossly intact. Moving all extremities, speech is clear Procedures 12/18/15 EGD with PEG tube placement Urinary Catheter: No Date of Insertion: Jan 12, 2016 Date of Removal: Jan 26, 2016 Vascular Central Line Catheter: No A/P Assessment and Plan 80-year-old male with no known past medical history presented via EMS after being found covered in urine/feces, complaining of generalized weakness and dysphagia. Dysphagia: resulting in severe malnutrition and weight loss. Consulted GI, performed EGD with PEG tube placement. GI signed off. speech therapy following. Diet mechanical soft with chopped meat, gravy, thin liquids. Pre-albumin is 17, continue to follow Calorie count concluded that patient may be off of bolus tube feeding and continue only by mouth feeding with supplements Continue to follow patient by mouth intake, weight, dietary recommendations. If patient continues to improve may be able to remove PEG tube in future Stage IV pressure ulcers, present on admission on coccyx and right ischium. Specialty bed. Wound care consulted to evaluate patient here at PO. Wound care following the patient, indicates that wound is improving continue with current orders of Santyl daily Gross hematuria/Urinary retention: Resolved Patient has had an indwelling Mena due to advanced stage pressure ulcers. He was having discomfort this morning and RN removed the Mena catheter. Patient was noted to have gross hematuria likely from catheter. Admits to suprapubic pain and dysuria. 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 Rivera evaluated the patient on 02/04 and started patient on Cipro 500 mg po bid. New urine culture 02/04 again with pseudomonas susceptible to Cipro. Continue antibiotics. Pyridium 100 mg q8 hours Patient will likely need outpatient cystoscopy per urology Blurred vision right eye Ophthalmology evaluate patient indicates secondary to cataract Recommending outpatient surgical evaluation MRI of the brain did not indicate any acute intracranial abnormality Generalized Weakness: likely secondary to severe malnutrition and chronic deconditioning. Consulted PT/OT, recommends SNF. Case management consulted. Awaiting placement. Bilateral Lower Extremity Cellulitis/Edema: Resolved. S/p Rocephin. Leukocytosis has resolved. Patient has remained afebrile. Elevate lower extremities. Hyponatremia: Resolved. Likely secondary to dehydration/malnutrition. Right Apical Density: Density not seen on CT scan seen on AP CXR; PA/Lateral CXR shows findings of COPD. Chest CT 12/18 ordered by GI to evaluate for malignancy; shows bilateral pleural effusions, with common atelectatic changes, small amount of abdominal ascites and mesenteric edema characteristic of right R insufficiency/volume overload. Atherosclerotic calcification of coronary arteries. Left shoulder pain: X-rays reviewed without fractures. DVT Prophylaxis: Lovenox Discharge Planning OT recommends rehabilitation, 3-1 bedside commode, shower bench. PT recommends rehabilitation, wheeled walker, and wheelchair. high risk case manager working on placement. Medicaid pending. 12/01/16 1337 PATIENT NEEDING PALCEMENT [facility]ANGE [facility]ARE DID SSI/[facility]AN[facility]O MANA AND WAS DENIED FOR OVER ASSETS, CHANGE HEALTH STATED 02/04/16 THEY HAVE REQUESTED A RESPONSE ON WHAT MAKES HIM OVER THEY DO NOT HAVE ANY REASON FOR THIS. ALSO THEY HAVE BROTHERS CONTACT INFO FOR ASSIST. WILL F/U WITH CHANGE FOR UPDATE AND FOLLOW THROUGH VIKTORIA BERNSTEIN LPN/Perfecto Mckeon Feb 09, 2016 09:20
[2016-02-09 09:36] VITALS: BP 125/60; PULSE 78; RESP 16; TEMP 97.8; O2SAT 95
[2016-02-09] MEDS: CIPROFLOXACIN 500 MG TAB PO SCH ×2 (12:47→21:06)
[2016-02-09] MEDS: ENOXAPARIN SODIUM 40 MG/0.4 ML SYRINGE SQ SCH (16:20)
[2016-02-09 20:00] VITALS: BP 98/56; PULSE 91; RESP 16; TEMP 98.1; O2SAT 95
[2016-02-10 08:00] VITALS: BP 100/69; PULSE 76; RESP 16; TEMP 97.4; O2SAT 94
[2016-02-10] MEDS: TAMSULOSIN HCL 0.4 MG CAP PO SCH (08:48)
--- NOTE | 2016-02-10 09:59 | HHI.PR ---
Subjective Remarks Patient seen and examined today. Patient has any new complaints. No change in clinical status. Objective Vitals Vital Signs Date Time Temp Pulse Resp B/P Pulse Ox O2 Delivery O2 Flow Rate FiO2 02/10/16 08:00 97.4 76 16 100/69 94 02/09/16 20:00 98.1 91 16 98/56 95 I/O 02/09/16 02/09/16 02/09/16 02/10/16 02/10/16 02/10/16 06:59 14:59 22:59 06:59 14:59 22:59 Intake Total 400 ml 1080 ml 60 ml Output Total 700 ml 200 ml 150 ml Balance -300 ml 880 ml -90 ml Intake Oral 400 ml 1080 ml 60 ml Output Urine Total 700 ml 200 ml 150 ml Stool Total 0 ml # Voids 3 4 # Bowel Movements 1 Result Diagram: 02/09/1642602/09/16426 Objective Remarks GENERAL: Well-developed, well-nourished, in no acute distress. alert and orientated HEENT: Head is normocephalic without any lesions or masses noted. Facial features are symmetric. NECK: Supple without any masses. Trachea midline no deviation. No JVD, CARDIAC: Regular rhythm, regular rate. S1/S2 are heard. No murmurs gallops or rubs. LUNGS: Clear to auscultation bilaterally. No wheeze, rhonchi or rales. No use of accessory muscles on inspiration or expiration. ABDOMEN: Soft, nontender. Nondistended. Bowel sounds heard in all 4 quadrants. No organomegaly or masses. Negative rebound, negative guarding. PEG tube noted EXTREMITIES: No edema, pulses are equal bilaterally. No cyanosis or clubbing NEUROLOGY: Mood and affect appear appropriate. Cranial nerves II through XII grossly intact. Moving all extremities, speech is clear Procedures 12/18/15 EGD with PEG tube placement Urinary Catheter: No Date of Insertion: Jan 12, 2016 Date of Removal: Jan 26, 2016 Vascular Central Line Catheter: No A/P Assessment and Plan 80-year-old male with no known past medical history presented via EMS after being found covered in urine/feces, complaining of generalized weakness and dysphagia. Dysphagia: resulting in severe malnutrition and weight loss. Consulted GI, performed EGD with PEG tube placement. GI signed off. speech therapy following. Diet mechanical soft with chopped meat, gravy, thin liquids. Pre-albumin is 17, continue to follow monthly Calorie count concluded that patient may be off of bolus tube feeding and continue only by mouth feeding with supplements Continue to follow patient by mouth intake, weight, dietary recommendations. If patient continues to improve may be able to remove PEG tube in future Stage IV pressure ulcers, present on admission on coccyx and right ischium. Specialty bed. Wound care consulted to evaluate patient here at PO. Wound care following the patient, indicates that wound is improving continue with current orders of Santyl daily Gross hematuria/Urinary retention: Resolved Patient has had an indwelling Mena due to advanced stage pressure ulcers. He was having discomfort this morning and RN removed the Mena catheter. Patient was noted to have gross hematuria likely from catheter. Admits to suprapubic pain and dysuria. 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 Rivera evaluated the patient on 02/04 and started patient on Cipro 500 mg po bid. New urine culture 02/04 again with pseudomonas susceptible to Cipro. Continue antibiotics. Pyridium 100 mg q8 hours Patient will likely need outpatient cystoscopy per urology Blurred vision right eye Ophthalmology evaluate patient indicates secondary to cataract Recommending outpatient surgical evaluation MRI of the brain did not indicate any acute intracranial abnormality Generalized Weakness: likely secondary to severe malnutrition and chronic deconditioning. Consulted PT/OT, recommends SNF. Case management consulted. Awaiting placement. Bilateral Lower Extremity Cellulitis/Edema: Resolved. S/p Rocephin. Leukocytosis has resolved. Patient has remained afebrile. Elevate lower extremities. Hyponatremia: Resolved. Likely secondary to dehydration/malnutrition. Right Apical Density: Density not seen on CT scan seen on AP CXR; PA/Lateral CXR shows findings of COPD. Chest CT 12/18 ordered by GI to evaluate for malignancy; shows bilateral pleural effusions, with common atelectatic changes, small amount of abdominal ascites and mesenteric edema characteristic of right R insufficiency/volume overload. Atherosclerotic calcification of coronary arteries. Left shoulder pain: X-rays reviewed without fractures. DVT Prophylaxis: Lovenox Discharge Planning OT recommends rehabilitation, 3-1 bedside commode, shower bench. PT recommends rehabilitation, wheeled walker, and wheelchair. electronics engineering manager working on placement. Medicaid pending. 02/05/16 1337 PATIENT NEEDING PALCEMENT CHANGE [facility]ALTHCARE DID SSI/[facility] MANA AND WAS DENIED FOR OVER ASSETS, CHANGE HEALTH STATED 02/04/16 THEY HAVE REQUESTED A RESPONSE ON WHAT MAKES HIM OVER THEY DO NOT HAVE ANY REASON FOR THIS. ALSO THEY HAVE BROTHERS CONTACT INFO FOR ASSIST. WILL F/U WITH CHANGE FOR UPDATE AND FOLLOW THROUGH VIKTORIA EBRNSTEIN LPN/Perfecto Mckeon Feb 10, 2016 09:59
[2016-02-10] MEDS: CIPROFLOXACIN 500 MG TAB PO SCH ×2 (10:49→21:49)
[2016-02-10] MEDS: ENOXAPARIN SODIUM 40 MG/0.4 ML SYRINGE SQ SCH (15:40)
[2016-02-10 20:00] VITALS: BP 99/53; PULSE 93; RESP 20; TEMP 97.5; O2SAT 96
[2016-02-11 08:00] VITALS: BP 115/69; PULSE 83; RESP 16; TEMP 97.9; O2SAT 95
[2016-02-11] MEDS: TAMSULOSIN HCL 0.4 MG CAP PO SCH (08:39)
--- NOTE | 2016-02-11 09:56 | HHI.PR ---
Subjective Remarks Patient seen and examined today. Patient denies any new complaints. No change in clinical status. Objective Vitals Vital Signs Date Time Temp Pulse Resp B/P Pulse Ox O2 Delivery O2 Flow Rate FiO2 02/11/16 08:00 97.9 83 16 115/69 95 02/10/16 20:00 97.5 93 20 99/53 96 I/O 02/10/16 02/10/16 02/10/16 02/11/16 02/11/16 02/11/16 07:00 15:00 23:00 07:00 15:00 23:00 Intake Total 60 ml 840 ml 560 ml 360 ml Output Total 150 ml 500 ml 425 ml 450 ml Balance -90 ml 340 ml 135 ml -90 ml Intake Oral 60 ml 840 ml 360 ml 240 ml Tube Irrigant 200 ml 120 ml Output Urine Total 150 ml 500 ml 425 ml 450 ml Stool Total 0 ml # Bowel Movements 1 0 Result Diagram: 02/09/1642602/09/16426 Objective Remarks GENERAL: Well-developed, well-nourished, in no acute distress. alert and orientated HEENT: Head is normocephalic without any lesions or masses noted. Facial features are symmetric. NECK: Supple without any masses. Trachea midline no deviation. No JVD, CARDIAC: Regular rhythm, regular rate. S1/S2 are heard. No murmurs gallops or rubs. LUNGS: Clear to auscultation bilaterally. No wheeze, rhonchi or rales. No use of accessory muscles on inspiration or expiration. ABDOMEN: Soft, nontender. Nondistended. Bowel sounds heard in all 4 quadrants. No organomegaly or masses. Negative rebound, negative guarding. PEG tube noted EXTREMITIES: No edema, pulses are equal bilaterally. No cyanosis or clubbing NEUROLOGY: Mood and affect appear appropriate. Cranial nerves II through XII grossly intact. Moving all extremities, speech is clear Procedures 12/18/15 EGD with PEG tube placement Urinary Catheter: No Date of Insertion: Jan 12, 2016 Date of Removal: Jan 26, 2016 Vascular Central Line Catheter: No A/P Assessment and Plan 80-year-old male with no known past medical history presented via EMS after being found covered in urine/feces, complaining of generalized weakness and dysphagia. Dysphagia: resulting in severe malnutrition and weight loss. Consulted GI, performed EGD with PEG tube placement. GI signed off. speech therapy following. Diet mechanical soft with chopped meat, gravy, thin liquids. Pre-albumin is still 17, continue to follow monthly Calorie count concluded that patient may be off of bolus tube feeding and continue only by mouth feeding with supplements Continue to follow patient by mouth intake, weight, dietary recommendations. If patient continues to improve may be able to remove PEG tube in future Stage IV pressure ulcers, present on admission on coccyx and right ischium. Specialty bed. Wound care consulted to evaluate patient here at PO. Wound care following the patient, indicates that wound is improving continue with current orders of Santyl daily Gross hematuria/Urinary retention: Resolved Patient has had an indwelling Mena due to advanced stage pressure ulcers. He was having discomfort this morning and RN removed the Mena catheter. Patient was noted to have gross hematuria likely from catheter. Admits to suprapubic pain and dysuria. 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 Rivera evaluated the patient on 02/04 and started patient on Cipro 500 mg po bid. New urine culture 02/04 again with pseudomonas susceptible to Cipro. Continue antibiotics. Pyridium 100 mg q8 hours Patient will likely need outpatient cystoscopy per urology Generalized Weakness: likely secondary to severe malnutrition and chronic deconditioning. Consulted PT/OT, recommends SNF. Case management consulted. Awaiting placement. Right Apical Density: Density not seen on CT scan seen on AP CXR; PA/Lateral CXR shows findings of COPD. Chest CT 12/18 ordered by GI to evaluate for malignancy; shows bilateral pleural effusions, with common atelectatic changes, small amount of abdominal ascites and mesenteric edema characteristic of right R insufficiency/volume overload. Atherosclerotic calcification of coronary arteries. DVT Prophylaxis: Lovenox Discharge Planning OT recommends rehabilitation, 3-1 bedside commode, shower bench. PT recommends rehabilitation, wheeled walker, and wheelchair. manager administration working on placement. Medicaid pending. 02/05/16 1337 PATIENT NEEDING PALCEMENT [facility] DID [facility]SI/[facility] AND WAS DENIED FOR OVER ASSETS, [facility]ANGE [facility] STATED 02/04/16 THEY HAVE REQUESTED A RESPONSE ON WHAT MAKES HIM OVER THEY DO NOT HAVE ANY REASON FOR THIS. ALSO THEY HAVE BROTHERS CONTACT INFO FOR ASSIST. WILL F/U WITH CHANGE FOR UPDATE AND FOLLOW THROUGH VIKTORIA BERNSTEIN LPN/Perfecto Mckeon Feb 11, 2016 09:56
[2016-02-11] MEDS: CIPROFLOXACIN 500 MG TAB PO SCH ×2 (10:56→20:20)
[2016-02-11] MEDS: ENOXAPARIN SODIUM 40 MG/0.4 ML SYRINGE SQ SCH (16:04)
[2016-02-11 20:00] VITALS: BP 107/58; PULSE 87; RESP 16; TEMP 98.6; O2SAT 96
[2016-02-12] MEDS: TAMSULOSIN HCL 0.4 MG CAP PO SCH (08:53)
--- NOTE | 2016-02-12 09:49 | HHI.PR ---
Subjective Remarks Patient seen and examined today. Patient denies any new complaints. No change in clinical status. Objective Vitals Vital Signs Date Time Temp Pulse Resp B/P Pulse Ox O2 Delivery O2 Flow Rate FiO2 02/11/16 20:00 98.6 87 16 107/58 96 I/O 02/11/16 02/11/16 02/11/16 02/12/16 02/12/16 02/12/16 07:00 15:00 23:00 07:00 15:00 23:00 Intake Total 360 ml 300 ml 0 ml 730 ml Output Total 450 ml 550 ml 800 ml Balance -90 ml -250 ml 0 ml -70 ml Intake Oral 240 ml 300 ml 730 ml IV Total 0 ml Tube Irrigant 120 ml Output Urine Total 450 ml 550 ml 800 ml # Bowel Movements 0 0 Result Diagram: 02/09/1642602/09/16426 Objective Remarks GENERAL: Well-developed, well-nourished, in no acute distress. alert and orientated HEENT: Head is normocephalic without any lesions or masses noted. Facial features are symmetric. NECK: Supple without any masses. Trachea midline no deviation. No JVD, CARDIAC: Regular rhythm, regular rate. S1/S2 are heard. No murmurs gallops or rubs. LUNGS: Clear to auscultation bilaterally. No wheeze, rhonchi or rales. No use of accessory muscles on inspiration or expiration. ABDOMEN: Soft, nontender. Nondistended. Bowel sounds heard in all 4 quadrants. No organomegaly or masses. Negative rebound, negative guarding. PEG tube noted EXTREMITIES: No edema, pulses are equal bilaterally. No cyanosis or clubbing NEUROLOGY: Mood and affect appear appropriate. Cranial nerves II through XII grossly intact. Moving all extremities, speech is clear Procedures 12/18/15 EGD with PEG tube placement Urinary Catheter: No Date of Insertion: Jan 12, 2016 Date of Removal: Jan 26, 2016 Vascular Central Line Catheter: No A/P Assessment and Plan 80-year-old male with no known past medical history presented via EMS after being found covered in urine/feces, complaining of generalized weakness and dysphagia. Dysphagia: resulting in severe malnutrition and weight loss. Consulted GI, performed EGD with PEG tube placement. GI signed off. speech therapy following. Diet mechanical soft with chopped meat, gravy, thin liquids. Pre-albumin is still 17, continue to follow monthly Calorie count concluded that patient may be off of bolus tube feeding and continue only by mouth feeding with supplements Continue to follow patient by mouth intake, weight, dietary recommendations. Request dietary to evaluate if patient meets criteria for calorie count to remove PEG tube Stage IV pressure ulcers, present on admission on coccyx and right ischium. Specialty bed. Wound care consulted to evaluate patient here at PO. Wound care following the patient, indicates that wound is improving continue with current orders of Santyl daily Gross hematuria/Urinary retention: Resolved Patient has had an indwelling Mena due to advanced stage pressure ulcers. He was having discomfort this morning and RN removed the Mena catheter. Patient was noted to have gross hematuria likely from catheter. Admits to suprapubic pain and dysuria. 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 Rivera evaluated the patient on 02/04 and started patient on Cipro 500 mg po bid. New urine culture 02/04 again with pseudomonas susceptible to Cipro. Continue antibiotics. Patient will likely need outpatient cystoscopy per urology Generalized Weakness: likely secondary to severe malnutrition and chronic deconditioning. Consulted PT/OT, recommends SNF. Case management consulted. Awaiting placement. DVT Prophylaxis: Lovenox Discharge Planning OT recommends rehabilitation, 3-1 bedside commode, shower bench. PT recommends rehabilitation, wheeled walker, and wheelchair. biofuels product development manager working on placement. Medicaid pending. 02/10/16 1606 SPOKE WITH MARISABEL AT [facility] AND SHE INFORMED ME OF RECEIVING CLARIFICATION ON REASON FOR DENIAL FOR MEDICAID. PATIENT HAS REPORTED 15,000.00 IN BANK ACCOUNT. MARISABEL IS GOING TO REACH OOT TO BROTHER TO ADDRESS THIS ON OPTIONS TO DO SPEND DOWN TO BE ABLE TO APPLY FOR MEDICAID BENEFITS VIKTORIA LONG VENDING MACHINE REFILLER/CM CHARGE Perfecto Tamayo Feb 12, 2016 09:49
[2016-02-12 10:56] VITALS: BP 99/58; PULSE 84; RESP 20; TEMP 98.2; O2SAT 95
[2016-02-12] MEDS: CIPROFLOXACIN 500 MG TAB PO SCH ×2 (12:17→19:44)
[2016-02-12] MEDS: ENOXAPARIN SODIUM 40 MG/0.4 ML SYRINGE SQ SCH (15:53)
[2016-02-12 19:00] VITALS: BP 99/59; PULSE 88; RESP 16; TEMP 98.5; O2SAT 95
[2016-02-12 20:00] VITALS: BP 99/59; PULSE 88; RESP 16; TEMP 98.5
[2016-02-13 07:15] VITALS: BP 119/68; PULSE 78; RESP 20; TEMP 97.8; O2SAT 97
--- NOTE | 2016-02-13 08:10 | HHI.PR ---
Subjective Remarks Patient seen and examined today. Patient denies any new complaints. No change in clinical status. Objective Vitals Vital Signs Date Time Temp Pulse Resp B/P Pulse Ox O2 Delivery O2 Flow Rate FiO2 02/12/16 20:00 98.5 88 16 99/59 02/12/16 19:00 98.5 88 16 99/59 95 02/12/16 10:56 98.2 84 20 99/58 95 I/O 02/12/16 02/12/16 02/12/16 02/13/16 02/13/16 02/13/16 07:00 15:00 23:00 07:00 15:00 23:00 Intake Total 730 ml 800 ml 600 ml 1000 ml Output Total 800 ml 800 ml 1450 ml 900 ml Balance -70 ml 0 ml -850 ml 100 ml Intake Oral 730 ml 800 ml 480 ml 1000 ml Tube Irrigant 120 ml Output Urine Total 800 ml 800 ml 1450 ml 900 ml # Bowel Movements 0 0 0 Result Diagram: 02/09/1642602/09/16426 Objective Remarks GENERAL: Well-developed, well-nourished, in no acute distress. alert and orientated HEENT: Head is normocephalic without any lesions or masses noted. Facial features are symmetric. NECK: Supple without any masses. Trachea midline no deviation. No JVD, CARDIAC: Regular rhythm, regular rate. S1/S2 are heard. No murmurs gallops or rubs. LUNGS: Clear to auscultation bilaterally. No wheeze, rhonchi or rales. No use of accessory muscles on inspiration or expiration. ABDOMEN: Soft, nontender. Nondistended. Bowel sounds heard in all 4 quadrants. No organomegaly or masses. Negative rebound, negative guarding. PEG tube noted EXTREMITIES: No edema, pulses are equal bilaterally. No cyanosis or clubbing NEUROLOGY: Mood and affect appear appropriate. Cranial nerves II through XII grossly intact. Moving all extremities, speech is clear Procedures 12/18/15 EGD with PEG tube placement Urinary Catheter: No Date of Insertion: Jan 12, 2016 Date of Removal: Jan 26, 2016 Vascular Central Line Catheter: No A/P Assessment and Plan 80-year-old male with no known past medical history presented via EMS after being found covered in urine/feces, complaining of generalized weakness and dysphagia. Dysphagia: resulting in severe malnutrition and weight loss. Consulted GI, performed EGD with PEG tube placement. GI signed off. speech therapy following. Diet mechanical soft with chopped meat, gravy, thin liquids. Pre-albumin is still 17, continue to follow monthly Calorie count concluded that patient may be off of bolus tube feeding and continue only by mouth feeding with supplements Continue to follow patient by mouth intake, weight, dietary recommendations. Request dietary to evaluate if patient meets criteria for calorie count to remove PEG tube Stage IV pressure ulcers, present on admission on coccyx and right ischium. Specialty bed. Wound care consulted to evaluate patient here at PO. Wound care following the patient, indicates that wound is improving continue with current orders of Santyl daily Gross hematuria/Urinary retention: Resolved Patient has had an indwelling Mena due to advanced stage pressure ulcers. He was having discomfort this morning and RN removed the Mena catheter. Patient was noted to have gross hematuria likely from catheter. Admits to suprapubic pain and dysuria. 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 Rivera evaluated the patient on 02/04 and started patient on Cipro 500 mg po bid. New urine culture 02/04 again with pseudomonas susceptible to Cipro. Continue antibiotics. Patient will likely need outpatient cystoscopy per urology Generalized Weakness: likely secondary to severe malnutrition and chronic deconditioning. Consulted PT/OT, recommends SNF. Case management consulted. Awaiting placement. DVT Prophylaxis: Lovenox Discharge Planning OT recommends rehabilitation, 3-1 bedside commode, shower bench. PT recommends rehabilitation, wheeled walker, and wheelchair. nursing home manager working on placement. Medicaid pending. 02/10/16 1606 SPOKE WITH MARISABEL AT [facility] AND SHE INFORMED ME OF RECEIVING CLARIFICATION ON REASON FOR DENIAL FOR MEDICAID. PATIENT HAS REPORTED 15,000.00 IN BANK ACCOUNT. MARISABEL IS GOING TO REACH OOT TO BROTHER TO ADDRESS THIS ON OPTIONS TO DO SPEND DOWN TO BE ABLE TO APPLY FOR MEDICAID BENEFITS VIKTORIA LONG PROGRAM DIRECTOR/MUSIC DIRECTOR/CM CHARGE Perfecto Tamayo Feb 13, 2016 08:10
[2016-02-13] MEDS: TAMSULOSIN HCL 0.4 MG CAP PO SCH (08:19)
[2016-02-13] MEDS: CIPROFLOXACIN 500 MG TAB PO SCH ×2 (11:24→22:48)
[2016-02-13] MEDS: ENOXAPARIN SODIUM 40 MG/0.4 ML SYRINGE SQ SCH (15:49)
[2016-02-13 20:01] VITALS: BP 108/62; PULSE 76; RESP 18; TEMP 97.9; O2SAT 96
[2016-02-14 07:15] VITALS: BP 130/69; PULSE 80; RESP 16; TEMP 95.4; O2SAT 97
--- NOTE | 2016-02-14 08:29 | HHI.PR ---
Subjective Remarks Patient seen and examined today. Patient denies any new complaints. No change in clinical status. Objective Vitals Vital Signs Date Time Temp Pulse Resp B/P Pulse Ox O2 Delivery O2 Flow Rate FiO2 02/13/16 20:01 97.9 76 18 108/62 96 I/O 02/13/16 02/13/16 02/13/16 02/14/16 02/14/16 02/14/16 07:00 15:00 23:00 07:00 15:00 23:00 Intake Total 1000 ml 360 ml Output Total 900 ml 1400 ml Balance 100 ml -1040 ml Intake Oral 1000 ml 240 ml Tube Irrigant 120 ml Output Urine Total 900 ml 1400 ml # Bowel Movements 0 Objective Remarks GENERAL: Well-developed, well-nourished, in no acute distress. alert and orientated HEENT: Head is normocephalic without any lesions or masses noted. Facial features are symmetric. NECK: Supple without any masses. Trachea midline no deviation. No JVD, CARDIAC: Regular rhythm, regular rate. S1/S2 are heard. No murmurs gallops or rubs. LUNGS: Clear to auscultation bilaterally. No wheeze, rhonchi or rales. No use of accessory muscles on inspiration or expiration. ABDOMEN: Soft, nontender. Nondistended. Bowel sounds heard in all 4 quadrants. No organomegaly or masses. Negative rebound, negative guarding. PEG tube noted EXTREMITIES: No edema, pulses are equal bilaterally. No cyanosis or clubbing NEUROLOGY: Mood and affect appear appropriate. Cranial nerves II through XII grossly intact. Moving all extremities, speech is clear Procedures 12/18/15 EGD with PEG tube placement Urinary Catheter: No Date of Insertion: Jan 12, 2016 Date of Removal: Jan 26, 2016 Vascular Central Line Catheter: No A/P Assessment and Plan 80-year-old male with no known past medical history presented via EMS after being found covered in urine/feces, complaining of generalized weakness and dysphagia. Dysphagia: resulting in severe malnutrition and weight loss. Consulted GI, performed EGD with PEG tube placement. GI signed off. speech therapy following. Diet mechanical soft with chopped meat, gravy, thin liquids. Pre-albumin is still 17, continue to follow monthly Calorie count concluded that patient may be off of bolus tube feeding and continue only by mouth feeding with supplements Continue to follow patient by mouth intake, weight, dietary recommendations. Request dietary to evaluate if patient, they indicate that due to the previous calorie count. Patient is having sufficient amount of by mouth intake. They indicate PEG tube can be removed Reconsult GI for PEG tube removal Stage IV pressure ulcers, present on admission on coccyx and right ischium. Specialty bed. Wound care consulted to evaluate patient here at PO. Wound care following the patient, indicates that wound is improving continue with current orders of Santyl daily Gross hematuria/Urinary retention: Resolved Patient has had an indwelling Mena due to advanced stage pressure ulcers. He was having discomfort this morning and RN removed the Mena catheter. Patient was noted to have gross hematuria likely from catheter. Admits to suprapubic pain and dysuria. 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 Rivera evaluated the patient on 02/04 and started patient on Cipro 500 mg po bid. New urine culture 02/04 again with pseudomonas susceptible to Cipro. Continue antibiotics. Patient will likely need outpatient cystoscopy per urology Generalized Weakness: likely secondary to severe malnutrition and chronic deconditioning. Consulted PT/OT, recommends SNF. Case management consulted. Awaiting placement. DVT Prophylaxis: Lovenox Discharge Planning OT recommends rehabilitation, 3-1 bedside commode, shower bench. PT recommends rehabilitation, wheeled walker, and wheelchair. care services manager working on placement. Medicaid pending. 02/10/16 1606 SPOKE WITH MARISABEL AT [facility] AND SHE INFORMED ME OF RECEIVING CLARIFICATION ON REASON FOR DENIAL FOR MEDICAID. PATIENT HAS REPORTED 15,000.00 IN BANK ACCOUNT. MARISABEL IS GOING TO REACH OOT TO BROTHER TO ADDRESS THIS ON OPTIONS TO DO SPEND DOWN TO BE ABLE TO APPLY FOR MEDICAID BENEFITS VIKTORIA LONG POWER SHOVEL OPERATOR/CM CHARGE Perfecto Tamayo Feb 14, 2016 08:29
[2016-02-14] MEDS: TAMSULOSIN HCL 0.4 MG CAP PO SCH (10:04)
[2016-02-14] MEDS: CIPROFLOXACIN 500 MG TAB PO SCH ×2 (10:06→21:20)
--- NOTE | 2016-02-14 13:52 | HHI.GIFU ---
GI Follow-up Note Consult Follow-up Subjective: Patient laying in bed comfortably, no new complaints Objective: PHYSICAL EXAMINATION: Vitals signs stable No fever HEENT: Pupils round and reactive to light; normocephalic; atraumatic; no jaundice. Throat is clear. NECK: Neck is supple, no JVD, no lymphadenopathy. CHEST: Chest is clear to auscultation and percussion. CARDIAC: Regular rate and rhythm with no murmur gallop or rubs. ABDOMEN: Soft, nondistended, nontender; no hepatosplenomegaly; bowel sounds are present in all four quadrants. EXTREMITIES: No clubbing, cyanosis, or edema. SKIN: Normal; no rash; no jaundice. JAVA ENTERPRISE ARCHITECT: No focal deficits; alert and oriented times three. Available Data (labs, X- Rays, Procedues) : Last Impressions Brain MRI 01/25/16 0000 Signed Impressions: Service Date/Time: Monday, January 25, 2016 16:37 - CONCLUSION: 1. Moderate to severe signal abnormality in the white matter most characteristic of chronic ischemic change. No recent infarct identified. Rashaun Lima MD Shoulder X-Ray 12/27/15 0000 Signed Impressions: Service Date/Time: Sunday, December 27, 2015 20:14 - CONCLUSION: Unremarkable limited examination of the left shoulder. Miguel Blanchard MD Chest CT 12/19/15 0000 Signed Impressions: Service Date/Time: Saturday, December 19, 2015 15:10 - CONCLUSION: 1. 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 2. Atherosclerotic calcification of the coronary arteries. Dandy Jett MD Abdomen/Pelvis CT 12/19/15 0000 Signed Impressions: Service Date/Time: Saturday, December 19, 2015 15:10 - CONCLUSION: 1. Bilateral pleural effusions with a small amount of abdominal ascites, generalized anasarca and edema in the mesenteric leaves characteristic of right heart insufficiency. 2. Mild air and fluid distention of the small bowel and colon characteristic of a hypodynamic ileus. No obstruction. Dandy Jett MD Head CT 12/16/15 1145 Signed Impressions: Service Date/Time: Wednesday, December 16, 2015 12:45 - CONCLUSION: Nonspecific white matter changes. No acute intracranial abnormality. Lam Tucker MD Chest X-Ray 12/16/15 1124 Signed Impressions: Service Date/Time: Wednesday, December 16, 2015 11:54 - CONCLUSION: Hyperinflation which can be seen with COPD. Right apical density, PA and lateral views are recommended when patient is stable. aLm Tucker MD Allergies Coded Allergies Type Severity Reaction Last Updated Verified Ibuprofen Allergy Mild 12/16/15 Yes Lidocaine Allergy Mild 12/16/15 Yes Novocain Allergy Mild 12/16/15 Yes Uncoded Allergies Type Severity Reaction Last Updated Verified SODIUM PENTATHAL Allergy Severe 11/19/09 Active Scripts Medications Dose Route/Sig Days Date Category No Active Prescriptions or Reported Medications Rx ASSESSMENT/PLAN: Reconsulted for peg tube removal. States has not used peg for 10 days. Verified with nurse. Peg removed bytraction at the bedside. No bleeding. 4 x 4 dressing applied. Keep area clean and dry for 48 hours, change dressing as needed. NPO for 04 hours. Fu as needed. thank you It was a pleasure seeing Juan Manuel Dixon. Thank you for this consult. Entered by: Virginia Lee MD Feb 14, 2016 13:52
[2016-02-14] MEDS: ENOXAPARIN SODIUM 40 MG/0.4 ML SYRINGE SQ SCH (16:15)
[2016-02-14 21:50] VITALS: BP 126/71; PULSE 83; RESP 16; TEMP 97.8; O2SAT 95
[2016-02-15 08:00] VITALS: BP 114/67; PULSE 79; RESP 16; TEMP 96.6; O2SAT 97
[2016-02-15] MEDS: TAMSULOSIN HCL 0.4 MG CAP PO SCH (09:23)
--- NOTE | 2016-02-15 09:50 | HHI.PR ---
Subjective Remarks Patient seen and examined today. Patient has any new complaints. No change in clinical status. Objective Vitals Vital Signs Date Time Temp Pulse Resp B/P Pulse Ox O2 Delivery O2 Flow Rate FiO2 02/15/16 08:00 96.6 79 16 114/67 97 02/14/16 21:50 97.8 83 16 126/71 95 I/O 02/14/16 02/14/16 02/14/16 02/15/16 02/15/16 02/15/16 07:00 15:00 23:00 07:00 15:00 23:00 Intake Total 360 ml 700 ml Output Total 1400 ml 450 ml 800 ml Balance -1040 ml 250 ml -800 ml Intake Oral 240 ml 700 ml Tube Irrigant 120 ml Output Urine Total 1400 ml 450 ml 800 ml # Bowel Movements 0 Objective Remarks GENERAL: Well-developed, well-nourished, in no acute distress. alert and orientated HEENT: Head is normocephalic without any lesions or masses noted. Facial features are symmetric. NECK: Supple without any masses. Trachea midline no deviation. No JVD, CARDIAC: Regular rhythm, regular rate. S1/S2 are heard. No murmurs gallops or rubs. LUNGS: Clear to auscultation bilaterally. No wheeze, rhonchi or rales. No use of accessory muscles on inspiration or expiration. ABDOMEN: Soft, nontender. Nondistended. Bowel sounds heard in all 4 quadrants. No organomegaly or masses. Negative rebound, negative guarding. PEG tube removed EXTREMITIES: No edema, pulses are equal bilaterally. No cyanosis or clubbing NEUROLOGY: Mood and affect appear appropriate. Cranial nerves II through XII grossly intact. Moving all extremities, speech is clear Procedures 12/18/15 EGD with PEG tube placement Urinary Catheter: No Date of Insertion: Jan 12, 2016 Date of Removal: Jan 26, 2016 Vascular Central Line Catheter: No A/P Assessment and Plan 80-year-old male with no known past medical history presented via EMS after being found covered in urine/feces, complaining of generalized weakness and dysphagia. Dysphagia: resulting in severe malnutrition and weight loss. Consulted GI, performed EGD with PEG tube placement. GI signed off. speech therapy following. Diet mechanical soft with chopped meat, gravy, thin liquids. Pre-albumin is still 17, continue to follow monthly Calorie count concluded that patient may be off of bolus tube feeding and continue only by mouth feeding with supplements Continue to follow patient by mouth intake, weight, dietary recommendations. Request dietary to evaluate if patient, they indicate that due to the previous calorie count. Patient is having sufficient amount of by mouth intake. They indicate PEG tube can be removed GI reconsulted and removed PEG tube 02/14/16 Stage IV pressure ulcers, present on admission on coccyx and right ischium. Specialty bed. Wound care consulted to evaluate patient here at PO. Wound care following the patient, indicates that wound is improving continue with current orders of Santyl daily Gross hematuria/Urinary retention: Resolved Patient has had an indwelling Mena due to advanced stage pressure ulcers. He was having discomfort this morning and RN removed the Mena catheter. Patient was noted to have gross hematuria likely from catheter. Admits to suprapubic pain and dysuria. 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 Rivera evaluated the patient on 02/04 and started patient on Cipro 500 mg po bid. New urine culture 02/04 again with pseudomonas susceptible to Cipro. Continue antibiotics. Patient will likely need outpatient cystoscopy per urology Generalized Weakness: likely secondary to severe malnutrition and chronic deconditioning. Consulted PT/OT, recommends SNF. Case management consulted. Awaiting placement. DVT Prophylaxis: Lovenox Discharge Planning OT recommends rehabilitation, 3-1 bedside commode, shower bench. PT recommends rehabilitation, wheeled walker, and wheelchair. county manager working on placement. Medicaid pending. 02/10/16 2266 SPOKE WITH MARISABEL AT [facility] AND SHE INFORMED ME OF RECEIVING CLARIFICATION ON REASON FOR DENIAL FOR MEDICAID. PATIENT HAS REPORTED 15,000.00 IN BANK ACCOUNT. MARISABEL IS GOING TO REACH OOT TO BROTHER TO ADDRESS THIS ON OPTIONS TO DO SPEND DOWN TO BE ABLE TO APPLY FOR MEDICAID BENEFITS [employer]/CM CHARGE Perfecto Tamayo Feb 15, 2016 09:50
[2016-02-15] MEDS: CIPROFLOXACIN 500 MG TAB PO SCH (12:13)
[2016-02-15] MEDS: ENOXAPARIN SODIUM 40 MG/0.4 ML SYRINGE SQ SCH (15:33)
[2016-02-15 21:41] VITALS: BP 97/58; PULSE 79; RESP 16; TEMP 97.1; O2SAT 99
[2016-02-16 08:00] VITALS: BP 107/63; PULSE 70; RESP 16; TEMP 97.5; O2SAT 96
[2016-02-16] MEDS: TAMSULOSIN HCL 0.4 MG CAP PO SCH (08:39)
--- NOTE | 2016-02-16 09:50 | HHI.PR ---
Subjective Remarks Patient seen and examined today. Patient denies any new complaints. No change in clinical status. Objective Vitals Vital Signs Date Time Temp Pulse Resp B/P Pulse Ox O2 Delivery O2 Flow Rate FiO2 02/16/16 08:00 97.5 70 16 107/63 96 02/15/16 21:41 97.1 79 16 97/58 99 I/O 02/15/16 02/15/16 02/15/16 02/16/16 02/16/16 02/16/16 07:00 15:00 23:00 07:00 15:00 23:00 Intake Total 480 ml Output Total 800 ml 200 ml 400 ml Balance -800 ml 480 ml -200 ml -400 ml Intake Oral 480 ml Output Urine Total 800 ml 200 ml 400 ml # Voids 1 # Bowel Movements 0 1 Objective Remarks GENERAL: Well-developed, well-nourished, in no acute distress. alert and orientated HEENT: Head is normocephalic without any lesions or masses noted. Facial features are symmetric. NECK: Supple without any masses. Trachea midline no deviation. No JVD, CARDIAC: Regular rhythm, regular rate. S1/S2 are heard. No murmurs gallops or rubs. LUNGS: Clear to auscultation bilaterally. No wheeze, rhonchi or rales. No use of accessory muscles on inspiration or expiration. ABDOMEN: Soft, nontender. Nondistended. Bowel sounds heard in all 4 quadrants. No organomegaly or masses. Negative rebound, negative guarding. PEG tube removed EXTREMITIES: No edema, pulses are equal bilaterally. No cyanosis or clubbing NEUROLOGY: Mood and affect appear appropriate. Cranial nerves II through XII grossly intact. Moving all extremities, speech is clear Procedures 12/18/15 EGD with PEG tube placement Urinary Catheter: No Date of Insertion: Jan 12, 2016 Date of Removal: Jan 26, 2016 Vascular Central Line Catheter: No A/P Assessment and Plan 80-year-old male with no known past medical history presented via EMS after being found covered in urine/feces, complaining of generalized weakness and dysphagia. Dysphagia: resulting in severe malnutrition and weight loss. Consulted GI, performed EGD with PEG tube placement. GI signed off. speech therapy following. Diet mechanical soft with chopped meat, gravy, thin liquids. Pre-albumin is still 17, continue to follow monthly Calorie count concluded that patient may be off of bolus tube feeding and continue only by mouth feeding with supplements Continue to follow patient by mouth intake, weight, dietary recommendations. Request dietary to evaluate if patient, they indicate that due to the previous calorie count. Patient is having sufficient amount of by mouth intake. They indicate PEG tube can be removed GI reconsulted and removed PEG tube 02/14/16 Stage IV pressure ulcers, present on admission on coccyx and right ischium. Specialty bed. Wound care consulted to evaluate patient here at PO. Wound care following the patient, indicates that wound is improving continue with current orders of Santyl daily Gross hematuria/Urinary retention: Resolved Patient has had an indwelling Mena due to advanced stage pressure ulcers. He was having discomfort this morning and RN removed the Mena catheter. Patient was noted to have gross hematuria likely from catheter. Admits to suprapubic pain and dysuria. 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 Rivera evaluated the patient on 02/04 and started patient on Cipro 500 mg po bid. New urine culture 02/04 again with pseudomonas susceptible to Cipro. Continue antibiotics. Patient will likely need outpatient cystoscopy per urology Generalized Weakness: likely secondary to severe malnutrition and chronic deconditioning. Consulted PT/OT, recommends SNF. Case management consulted. Awaiting placement. DVT Prophylaxis: Lovenox Discharge Planning OT recommends rehabilitation, 3-1 bedside commode, shower bench. PT recommends rehabilitation, wheeled walker, and wheelchair. printing manager working on placement. Medicaid pending. 02/10/16 1606 SPOKE WITH MARISABEL AT [facility] AND SHE INFORMED ME OF RECEIVING CLARIFICATION ON REASON FOR DENIAL FOR MEDICAID. PATIENT HAS REPORTED 15,000.00 IN BANK ACCOUNT. MARISABEL IS GOING TO REACH OOT TO BROTHER TO ADDRESS THIS ON OPTIONS TO DO SPEND DOWN TO BE ABLE TO APPLY FOR MEDICAID BENEFITS [employer]OR/CM CHARGE Perfecto Tamayo Feb 16, 2016 09:50
[2016-02-16] MEDS: ENOXAPARIN SODIUM 40 MG/0.4 ML SYRINGE SQ SCH (16:44)
[2016-02-17 01:00] VITALS: PULSE 82; RESP 16; TEMP 97.8; O2SAT 98
[2016-02-17 08:00] VITALS: BP 134/70; PULSE 72; RESP 18; TEMP 97.8; O2SAT 98
[2016-02-17] MEDS: TAMSULOSIN HCL 0.4 MG CAP PO SCH (09:01)
[2016-02-17] MEDS: ENOXAPARIN SODIUM 40 MG/0.4 ML SYRINGE SQ SCH (15:11)
--- NOTE | 2016-02-17 15:20 | HHI.PR ---
Subjective Remarks Follow-up for failure to thrive, dysuria. Patient still admits to dysuria but it is improved. He denies any fevers or chills, vomiting, or diarrhea. Objective Vitals Vital Signs Date Time Temp Pulse Resp B/P Pulse Ox O2 Delivery O2 Flow Rate FiO2 02/17/16 08:00 97.8 72 18 134/70 98 02/17/16 01:00 97.8 82 16 98 I/O 02/16/16 02/16/16 02/16/16 02/17/16 02/17/16 02/17/16 07:00 15:00 23:00 07:00 15:00 23:00 Intake Total 900 ml 240 ml 410 ml Output Total 400 ml 650 ml 1500 ml 200 ml Balance -400 ml 250 ml 240 ml -1500 ml 210 ml Intake Oral 900 ml 240 ml 410 ml Output Urine Total 400 ml 650 ml 1500 ml 200 ml # Voids 1 3 # Bowel Movements 1 Objective Remarks GENERAL: Pleasant, cachectic appearing patient in no apparent distress. CARDIOVASCULAR: Regular rate and rhythm. RESPIRATORY: Limited anterior exam. No accessory muscle use. CTAB. GASTROINTESTINAL: Abdomen soft, nontender, non-distended. MUSCULOSKELETAL: No lower extremity edema bilaterally. NEUROLOGICAL: Awake and alert. Normal speech. PSYCHIATRIC: Normal mood and affect. Procedures 12/18/15 EGD with PEG tube placement Urinary Catheter: No Date of Insertion: Jan 12, 2016 Date of Removal: Jan 26, 2016 Vascular Central Line Catheter: No A/P Problem List: (1) Failure to thrive in adult ICD Code: R62.7 Status: Acute (2) Malnutrition ICD Code: E46 Status: Acute (3) Urinary retention ICD Code: R33.9 Status: Resolved (4) Prerenal azotemia ICD Code: R79.89 Status: Acute (5) Gross hematuria ICD Code: R31.0 Status: Resolved (6) Bilateral lower leg cellulitis ICD Code: L03.116 Status: Resolved (7) Hyponatremia ICD Code: E87.1 Status: Resolved (8) Blurred vision, right eye ICD Code: H53.8 Status: Acute (9) Dysuria ICD Code: R30.0 Status: Acute (10) UTI (urinary tract infection) ICD Code: N39.0 Status: Acute Assessment and Plan 80-year-old male with no known past medical history presented via EMS after being found covered in urine/feces, complaining of generalized weakness and dysphagia. Dysphagia: resulting in severe malnutrition and weight loss. Consulted GI, performed EGD with PEG tube placement. GI signed off. speech therapy following. Diet mechanical soft with chopped meat, gravy, thin liquids. Pre-albumin is still 17, continue to follow monthly Continue to follow patient by mouth intake, weight, dietary recommendations. Dietitian indicated patient was eating an adequate amount of kcals. Continue Ensure Enlive tid. GI reconsulted and removed PEG tube on 02/14/16 Stage IV pressure ulcers, present on admission on coccyx and right ischium. Specialty bed. Wound care consulted to evaluate patient here at PO. Wound care following the patient, indicates that wound is improving continue with current orders of Santyl daily Gross hematuria/Urinary retention: Resolved. Continued dysuria. Patient has had an indwelling Mena due to advanced stage pressure ulcers. He was having discomfort and RN removed the Mena catheter. Patient was noted to have gross hematuria likely from catheter. Admits to suprapubic pain and dysuria. Experienced retention which has resolved. 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 Rivera evaluated the patient on 02/04 and started patient on Cipro 500 mg po bid with New urine culture 02/04 again with pseudomonas. S/p Cipro treatment. Patient will likely need outpatient cystoscopy per urology Generalized Weakness: likely secondary to severe malnutrition and chronic deconditioning. Consulted PT/OT, recommends SNF. Case management consulted. Awaiting placement. DVT Prophylaxis: Lovenox Discharge Planning OT recommends rehabilitation, 3-1 bedside commode, shower bench. PT recommends rehabilitation, wheeled walker, and wheelchair. operations manager/coordinator working on placement as patient has inability to care for self. Vida Carlisle Feb 17, 2016 15:20 Allyson Breaux DO Feb 18, 2016 01:47 ascites and mesenteric edema characteristic of right R insufficiency/volume overload. Atherosclerotic calcification of the coronary arteries. No lower extremity edema. -Incentive spirometry Pressure ulcers: Stage IV coccyx ulcer is resolved. -Wound care following, last evaluated 02/02. I spoke with wound care nurse. Coccyx wound now closed. Barrier cream advised. Wound to R posterior shoulder healing, foam dressing advised. -Specialty bed Generalized Weakness: likely secondary to severe malnutrition and chronic deconditioning. Consulted PT/OT, recommends SNF. Case management consulted. Awaiting placement. Bilateral Lower Extremity Cellulitis/Edema: Resolved. S/p Rocephin. Leukocytosis has resolved. Patient has remained afebrile. Elevate lower extremities. Hyponatremia: Resolved. Likely secondary to dehydration/malnutrition. Left shoulder pain: X-rays reviewed without fractures. [place] and morphine were discontinued. Last used 12/26. Muscle spasm: Electrolytes normal. Continue Flexeril 5 mg q12 prn. DVT Prophylaxis: Lovenox Discharge Planning OT recommends rehabilitation, 3-1 bedside commode, shower bench. PT recommends rehabilitation, wheeled walker, and wheelchair. operations manager/coordinator working on placement as patient has inability to care for self. Vida Carlisle Feb 17, 2016 15:20
[2016-02-17 20:00] VITALS: BP 104/57; PULSE 83; RESP 18; TEMP 97; O2SAT 97
[2016-02-18 08:00] VITALS: BP_SYST 112; BP_SYST 120; BP_DIAS 65; BP_DIAS 80; PULSE 63; PULSE 69; RESP 16; RESP 18; TEMP 96.3; TEMP 96.7; O2SAT 97; O2SAT 98
[2016-02-18] MEDS: TAMSULOSIN HCL 0.4 MG CAP PO SCH (08:31)
--- NOTE | 2016-02-18 14:45 | HHI.PR ---
Subjective Remarks Patient still has burning with urination but states it's "a whole lot better". Denies any fevers or chills. Objective Vitals Vital Signs Date Time Temp Pulse Resp B/P Pulse Ox O2 Delivery O2 Flow Rate FiO2 02/18/16 08:00 96.3 69 16 120/65 98 02/17/16 20:00 97.0 83 18 104/57 97 I/O 02/17/16 02/17/16 02/17/16 02/18/16 02/18/16 02/18/16 07:00 15:00 23:00 07:00 15:00 23:00 Intake Total 410 ml Output Total 1500 ml 200 ml 820 ml Balance -1500 ml 210 ml -820 ml Intake Oral 410 ml Output Urine Total 1500 ml 200 ml 820 ml # Voids 3 4 # Bowel Movements 1 Objective Remarks GENERAL: Pleasant, cachectic appearing patient in no apparent distress. CARDIOVASCULAR: Regular rate and rhythm. Grade 2 murmur. RESPIRATORY: Limited anterior exam. No accessory muscle use. CTAB. GASTROINTESTINAL: Normoactive bowel sounds. Abdomen soft, nontender, non- distended. MUSCULOSKELETAL: No lower extremity edema bilaterally. NEUROLOGICAL: Awake and alert. Normal speech. PSYCHIATRIC: Normal mood and affect. Procedures 12/18/15 EGD with PEG tube placement 02/14/16 Bedside PEG tube removal Urinary Catheter: No Date of Insertion: Jan 12, 2016 Date of Removal: Jan 26, 2016 Vascular Central Line Catheter: No A/P Problem List: (1) Failure to thrive in adult ICD Code: R62.7 Status: Acute (2) Malnutrition ICD Code: E46 Status: Acute (3) Urinary retention ICD Code: R33.9 Status: Resolved (4) Prerenal azotemia ICD Code: R79.89 Status: Acute (5) Gross hematuria ICD Code: R31.0 Status: Resolved (6) Bilateral lower leg cellulitis ICD Code: L03.116 Status: Resolved (7) Hyponatremia ICD Code: E87.1 Status: Resolved (8) Blurred vision, right eye ICD Code: H53.8 Status: Acute (9) Dysuria ICD Code: R30.0 Status: Acute (10) UTI (urinary tract infection) ICD Code: N39.0 Status: Acute Assessment and Plan 80-year-old male with no known past medical history presented via EMS after being found covered in urine/feces, complaining of generalized weakness and dysphagia. Dysphagia: resulting in severe malnutrition and weight loss. Consulted GI, performed EGD with PEG tube placement. GI signed off. speech therapy following. Diet mechanical soft with chopped meat, gravy, thin liquids. Pre-albumin is still 17, continue to follow monthly Continue to follow patient by mouth intake, weight, dietary recommendations. Dietitian indicated patient was eating an adequate amount of kcals. Continue Ensure Enlive tid. GI reconsulted and removed PEG tube on 02/14/16 Pressure ulcers: Stage IV coccyx ulcer is resolved. -Wound care last evaluated 02/02. Coccyx wound now closed. Barrier cream advised. Wound to R posterior shoulder healing, foam dressing advised. -Specialty bed Gross hematuria/Urinary retention: Resolved. Dysuria continues but improved. Patient has had an indwelling Mena due to advanced stage pressure ulcers. He was having discomfort and RN removed the Mena catheter. Patient was noted to have gross hematuria likely from catheter. Admits to suprapubic pain and dysuria. Experienced retention which has resolved. 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 Rivera evaluated the patient on 02/04 and started patient on Cipro 500 mg po bid with New urine culture 02/04 again with pseudomonas. S/p Cipro treatment. Patient will likely need outpatient cystoscopy per urology Generalized Weakness: likely secondary to severe malnutrition and chronic deconditioning. Consulted PT/OT, recommends SNF. Case management consulted. Awaiting placement. Blurred vision R eye: -MRI with chronic ischemic demyelinization, but no acute abnormalities. -Ophthalmology evaluated the patient on 1121. Patient has cataracts in both eyes and can obtain outpatient surgical evaluation. Right Apical Density: seen on AP CXR; PA/Lateral CXR shows findings of COPD. Chest CT 12/18 ordered by GI to evaluate for malignancy; shows bilateral pleural effusions, with common atelectatic changes, small amount of abdominal ascites and mesenteric edema characteristic of right R insufficiency/volume overload. Atherosclerotic calcification of the coronary arteries. -Incentive spirometry DVT Prophylaxis: Lovenox Discharge Planning OT recommends rehabilitation, 3-1 bedside commode, shower bench. PT recommends rehabilitation, wheeled walker, and wheelchair. restaurant general manager working on placement as patient has inability to care for self. Vida Carlisle Feb 18, 2016 14:45 Allyson Breaux DO Feb 19, 2016 00:57
[2016-02-18] MEDS: ENOXAPARIN SODIUM 40 MG/0.4 ML SYRINGE SQ SCH (16:24)
[2016-02-18 20:00] VITALS: BP 100/58; PULSE 89; RESP 18; TEMP 96.6; O2SAT 97
[2016-02-19 08:00] VITALS: BP 122/69; PULSE 69; RESP 16; TEMP 95.9; O2SAT 97
[2016-02-19] MEDS: TAMSULOSIN HCL 0.4 MG CAP PO SCH (08:30)
--- NOTE | 2016-02-19 10:56 | HHI.PR ---
Subjective Remarks No acute complaints. No change in clinical status. Objective Vitals Vital Signs Date Time Temp Pulse Resp B/P Pulse Ox O2 Delivery O2 Flow Rate FiO2 02/19/16 08:00 95.9 69 16 122/69 97 02/18/16 20:00 96.6 89 18 100/58 97 I/O 02/18/16 02/18/16 02/18/16 02/19/16 02/19/16 02/19/16 06:59 14:59 22:59 06:59 14:59 22:59 Intake Total 420 ml 0 ml Output Total 820 ml 500 ml Balance -820 ml -80 ml 0 ml Intake Oral 420 ml IV Total 0 ml Output Urine Total 820 ml 500 ml # Voids 4 # Bowel Movements 0 Objective Remarks GENERAL: Pleasant thin patient in no apparent distress. CARDIOVASCULAR: Regular rate and rhythm. Grade 2 murmur. RESPIRATORY: Limited anterior exam. No accessory muscle use. CTAB. GASTROINTESTINAL: Normoactive bowel sounds on the right, hyperactive BS on the left but patient had just eaten. Abdomen soft, non-distended. NEUROLOGICAL: Awake and alert. Normal speech. PSYCHIATRIC: Normal mood and affect. Procedures 12/18/15 EGD with PEG tube placement 02/14/16 Bedside PEG tube removal Urinary Catheter: No Date of Insertion: Jan 12, 2016 Date of Removal: Jan 26, 2016 Vascular Central Line Catheter: No A/P Problem List: (1) Failure to thrive in adult ICD Code: R62.7 Status: Acute (2) Malnutrition ICD Code: E46 Status: Acute (3) Urinary retention ICD Code: R33.9 Status: Resolved (4) Prerenal azotemia ICD Code: R79.89 Status: Acute (5) Gross hematuria ICD Code: R31.0 Status: Resolved (6) Bilateral lower leg cellulitis ICD Code: L03.116 Status: Resolved (7) Hyponatremia ICD Code: E87.1 Status: Resolved (8) Blurred vision, right eye ICD Code: H53.8 Status: Acute (9) Dysuria ICD Code: R30.0 Status: Acute (10) UTI (urinary tract infection) ICD Code: N39.0 Status: Acute Assessment and Plan 80-year-old male with no known past medical history presented via EMS after being found covered in urine/feces, complaining of generalized weakness and dysphagia. Dysphagia: resulting in severe malnutrition and weight loss. Consulted GI, performed EGD with PEG tube placement. GI signed off. speech therapy following. Diet mechanical soft with chopped meat, gravy, thin liquids. Pre-albumin is still 17, continue to follow monthly Continue to follow patient by mouth intake, weight, dietary recommendations. Dietitian indicated patient was eating an adequate amount of kcals. Continue Ensure Enlive tid. GI reconsulted and removed PEG tube on 02/14/16 Pressure ulcers: Stage IV coccyx ulcer is resolved. -Wound care last evaluated 02/02. Coccyx wound now closed. Barrier cream advised. Wound to R posterior shoulder healing, foam dressing advised. -Specialty bed Gross hematuria/Urinary retention: Resolved. Dysuria continues but improved. Patient has had an indwelling Mena due to advanced stage pressure ulcers. He was having discomfort and RN removed the Mena catheter. Patient was noted to have gross hematuria likely from catheter. Admits to suprapubic pain and dysuria. Experienced retention which has resolved. 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 Rivera evaluated the patient on 02/04 and started patient on Cipro 500 mg po bid with New urine culture 02/04 again with pseudomonas. S/p Cipro treatment. Patient will likely need outpatient cystoscopy per urology Generalized Weakness: likely secondary to severe malnutrition and chronic deconditioning. Consulted PT/OT, recommends SNF. Case management consulted. Awaiting placement. Blurred vision R eye: -MRI with chronic ischemic demyelinization, but no acute abnormalities. -Ophthalmology evaluated the patient on 01/26. Patient has cataracts in both eyes and can obtain outpatient surgical evaluation. Right Apical Density: seen on AP CXR; PA/Lateral CXR shows findings of COPD. Chest CT 12/18 ordered by GI to evaluate for malignancy; shows bilateral pleural effusions, with common atelectatic changes, small amount of abdominal ascites and mesenteric edema characteristic of right R insufficiency/volume overload. Atherosclerotic calcification of the coronary arteries. -Incentive spirometry DVT Prophylaxis: Lovenox Discharge Planning OT recommends rehabilitation, 3-1 bedside commode, shower bench. PT recommends rehabilitation, wheeled walker, and wheelchair. manager printing working on placement as patient has inability to care for self. Vida Carlisle Feb 19, 2016 10:56 am Allyson Breaux DO Feb 19, 2016 6:47 pm
[2016-02-19] MEDS: ENOXAPARIN SODIUM 40 MG/0.4 ML SYRINGE SQ SCH (15:56)
[2016-02-19 23:28] VITALS: BP 114/61; PULSE 82; RESP 18; TEMP 98; O2SAT 96
[2016-02-20] MEDS: TAMSULOSIN HCL 0.4 MG CAP PO SCH (07:47)
[2016-02-20 08:00] VITALS: BP 110/58; PULSE 75; RESP 18; TEMP 97.2; O2SAT 96
--- NOTE | 2016-02-20 10:05 | HHI.PR ---
Subjective Remarks No acute complaints. No change in clinical status. Objective Vitals Vital Signs Date Time Temp Pulse Resp B/P Pulse Ox O2 Delivery O2 Flow Rate FiO2 02/20/16 08:00 97.2 75 18 110/58 96 02/19/16 23:28 98.0 82 18 114/61 96 I/O 02/19/16 02/19/16 02/19/16 02/20/16 02/20/16 02/20/16 07:00 15:00 23:00 07:00 15:00 23:00 Intake Total 600 ml 480 ml 240 ml Output Total 750 ml 700 ml 850 ml Balance -150 ml -220 ml -610 ml Intake Oral 600 ml 480 ml 240 ml Output Urine Total 750 ml 700 ml 850 ml # Bowel Movements 0 Objective Remarks GENERAL: Pleasant thin patient in no apparent distress. CARDIOVASCULAR: Regular rate and rhythm. Grade 2 murmur. RESPIRATORY: Limited anterior exam. Mildly coarse breath sounds. RR normal. GASTROINTESTINAL: Normoactive bowel sounds. Abdomen soft, non-tender, non- distended. NEUROLOGICAL: Awake and alert. Normal speech. PSYCHIATRIC: Normal mood and affect. Procedures 12/18/15 EGD with PEG tube placement 02/14/16 Bedside PEG tube removal Urinary Catheter: No Date of Insertion: Jan 12, 2016 Date of Removal: Jan 26, 2016 Vascular Central Line Catheter: No A/P Problem List: (1) Failure to thrive in adult ICD Code: R62.7 Status: Acute (2) Malnutrition ICD Code: E46 Status: Acute (3) Urinary retention ICD Code: R33.9 Status: Resolved (4) Prerenal azotemia ICD Code: R79.89 Status: Acute (5) Gross hematuria ICD Code: R31.0 Status: Resolved (6) Bilateral lower leg cellulitis ICD Code: L03.116 Status: Resolved (7) Hyponatremia ICD Code: E87.1 Status: Resolved (8) Blurred vision, right eye ICD Code: H53.8 Status: Acute (9) Dysuria ICD Code: R30.0 Status: Acute (10) UTI (urinary tract infection) ICD Code: N39.0 Status: Acute Assessment and Plan 80-year-old male with no known past medical history presented via EMS after being found covered in urine/feces, complaining of generalized weakness and dysphagia. Dysphagia: resulting in severe malnutrition and weight loss. Consulted GI, performed EGD with PEG tube placement. GI signed off. speech therapy following. Diet mechanical soft with chopped meat, gravy, thin liquids. Pre-albumin is still 17, continue to follow monthly Continue to follow patient by mouth intake, weight, dietary recommendations. Dietitian indicated patient was eating an adequate amount of kcals. Continue Ensure Enlive tid. GI reconsulted and removed PEG tube on 02/14/16 Pressure ulcers: Stage IV coccyx ulcer is resolved. -Wound care last evaluated 02/02. Coccyx wound now closed. Barrier cream advised. Wound to R posterior shoulder healing, foam dressing advised. -Specialty bed Gross hematuria/Urinary retention: Resolved. Dysuria continues but improved. Patient has had an indwelling Mena due to advanced stage pressure ulcers. He was having discomfort and RN removed the Mena catheter. Patient was noted to have gross hematuria likely from catheter. Admits to suprapubic pain and dysuria. Experienced retention which has resolved. 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 Rivera evaluated the patient on 02/04 and started patient on Cipro 500 mg po bid with New urine culture 02/04 again with pseudomonas. S/p Cipro treatment. Patient will likely need outpatient cystoscopy per urology Generalized Weakness: likely secondary to severe malnutrition and chronic deconditioning. Consulted PT/OT, recommends SNF. Case management consulted. Awaiting placement. Blurred vision R eye: -MRI with chronic ischemic demyelinization, but no acute abnormalities. -Ophthalmology evaluated the patient on 01/26. Patient has cataracts in both eyes and can obtain outpatient surgical evaluation. Right Apical Density: seen on AP CXR; PA/Lateral CXR shows findings of COPD. Chest CT 12/18 ordered by GI to evaluate for malignancy; shows bilateral pleural effusions, with common atelectatic changes, small amount of abdominal ascites and mesenteric edema characteristic of right R insufficiency/volume overload. Atherosclerotic calcification of the coronary arteries. -Incentive spirometry DVT Prophylaxis: Lovenox Discharge Planning OT recommends rehabilitation, 3-1 bedside commode, shower bench. PT recommends rehabilitation, wheeled walker, and wheelchair. sales planning manager working on placement as patient has inability to care for self. Needs Medicaid for placement. Brother still needs to produce bank statements. Vida Carlisle Feb 20, 2016 10:05
[2016-02-20] MEDS: ENOXAPARIN SODIUM 40 MG/0.4 ML SYRINGE SQ SCH (15:26)
[2016-02-20 20:00] VITALS: BP 97/53; PULSE 83; RESP 20; TEMP 96.2; O2SAT 97
[2016-02-21 08:00] VITALS: BP 97/66; PULSE 78; RESP 20; TEMP 97; O2SAT 99
[2016-02-21] MEDS: TAMSULOSIN HCL 0.4 MG CAP PO SCH (09:32)
[2016-02-21] MEDS: CYCLOBENZAPRINE HCL 10 MG TAB PO PRN (09:32)
--- NOTE | 2016-02-21 09:51 | HHI.PR ---
Subjective Remarks No acute complaints. No change in clinical status. Patient denies any fevers or chills, cough, chest pain, shortness breath. Objective Vitals Vital Signs Date Time Temp Pulse Resp B/P Pulse Ox O2 Delivery O2 Flow Rate FiO2 02/21/16 08:00 97.0 78 20 97/66 99 02/20/16 20:00 96.2 83 20 97/53 97 I/O 02/20/16 02/20/16 02/20/16 02/21/16 02/21/16 02/21/16 07:00 15:00 23:00 07:00 15:00 23:00 Intake Total 240 ml 380 ml 480 ml 540 ml Output Total 850 ml 600 ml 1100 ml 1500 ml Balance -610 ml -220 ml -620 ml -960 ml Intake Oral 240 ml 380 ml 480 ml 540 ml Output Urine Total 850 ml 600 ml 1100 ml 1500 ml # Voids 2 # Bowel Movements 1 0 0 Objective Remarks GENERAL: Pleasant thin patient in no apparent distress. CARDIOVASCULAR: Regular rate and rhythm. Grade 2 murmur. RESPIRATORY: Limited anterior exam. Mildly coarse breath sounds, but no rales. RR normal. GASTROINTESTINAL: Abdomen soft, non-tender, non-distended. NEUROLOGICAL: Awake and alert. Normal speech. PSYCHIATRIC: Normal mood and affect. Procedures 12/18/15 EGD with PEG tube placement 02/14/16 Bedside PEG tube removal Urinary Catheter: No Date of Insertion: Jan 12, 2016 Date of Removal: Jan 26, 2016 Vascular Central Line Catheter: No A/P Problem List: (1) Failure to thrive in adult ICD Code: R62.7 Status: Acute (2) Malnutrition ICD Code: E46 Status: Acute (3) Urinary retention ICD Code: R33.9 Status: Resolved (4) Prerenal azotemia ICD Code: R79.89 Status: Acute (5) Gross hematuria ICD Code: R31.0 Status: Resolved (6) Bilateral lower leg cellulitis ICD Code: L03.116 Status: Resolved (7) Hyponatremia ICD Code: E87.1 Status: Resolved (8) Blurred vision, right eye ICD Code: H53.8 Status: Acute (9) Dysuria ICD Code: R30.0 Status: Acute (10) UTI (urinary tract infection) ICD Code: N39.0 Status: Acute Assessment and Plan 80-year-old male with no known past medical history presented via EMS after being found covered in urine/feces, complaining of generalized weakness and dysphagia. Dysphagia: resulting in severe malnutrition and weight loss. Consulted GI, performed EGD with PEG tube placement. GI signed off. speech therapy following. Diet mechanical soft with chopped meat, gravy, thin liquids. Pre-albumin is still 17, continue to follow monthly Continue to follow patient by mouth intake, weight, dietary recommendations. Dietitian indicated patient was eating an adequate amount of kcals. Continue Ensure Enlive tid. GI reconsulted and removed PEG tube on 02/14/16 Pressure ulcers: Stage IV coccyx ulcer is resolved. -Wound care last evaluated 02/02. Coccyx wound now closed. Barrier cream advised. Wound to R posterior shoulder healing, foam dressing advised. -Specialty bed Gross hematuria/Urinary retention: Resolved. Dysuria continues but improved. Patient has had an indwelling Mena due to advanced stage pressure ulcers. He was having discomfort and RN removed the Mena catheter. Patient was noted to have gross hematuria likely from catheter. Admits to suprapubic pain and dysuria. Experienced retention which has resolved. 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 Rivera evaluated the patient on 02/04 and started patient on Cipro 500 mg po bid with New urine culture 02/04 again with pseudomonas. S/p Cipro treatment. Patient will likely need outpatient cystoscopy per urology Generalized Weakness: likely secondary to severe malnutrition and chronic deconditioning. Consulted PT/OT, recommends SNF. Case management consulted. Awaiting placement. Blurred vision R eye: -MRI with chronic ischemic demyelinization, but no acute abnormalities. -Ophthalmology evaluated the patient on 01/26. Patient has cataracts in both eyes and can obtain outpatient surgical evaluation. Right Apical Density: seen on AP CXR; PA/Lateral CXR shows findings of COPD. Chest CT 12/18 ordered by GI to evaluate for malignancy; shows bilateral pleural effusions, with common atelectatic changes, small amount of abdominal ascites and mesenteric edema characteristic of right R insufficiency/volume overload. Atherosclerotic calcification of the coronary arteries. -Incentive spirometry DVT Prophylaxis: Lovenox Discharge Planning OT recommends rehabilitation, 3-1 bedside commode, shower bench. PT recommends rehabilitation, wheeled walker, and wheelchair. relocation manager working on placement as patient has inability to care for self. Needs Medicaid for placement. Brother still needs to produce bank statements. Vida Carlisle Feb 21, 2016 09:51
[2016-02-21] MEDS: ENOXAPARIN SODIUM 40 MG/0.4 ML SYRINGE SQ SCH (16:00)
[2016-02-21 20:00] VITALS: BP 146/78; PULSE 88; RESP 18; TEMP 98.5; O2SAT 97
[2016-02-22 08:00] VITALS: BP 103/60; PULSE 80; RESP 20; TEMP 96.4; O2SAT 93
[2016-02-22] MEDS: CYCLOBENZAPRINE HCL 10 MG TAB PO PRN (09:09)
[2016-02-22] MEDS: TAMSULOSIN HCL 0.4 MG CAP PO SCH (09:09)
--- NOTE | 2016-02-22 09:48 | HHI.PR ---
Subjective Remarks No acute complaints. No change in clinical status. Objective Vitals Vital Signs Date Time Temp Pulse Resp B/P Pulse Ox O2 Delivery O2 Flow Rate FiO2 02/22/16 08:00 96.4 80 20 103/60 93 02/21/16 20:00 98.5 88 18 146/78 97 I/O 02/21/16 02/21/16 02/21/16 02/22/16 02/22/16 02/22/16 07:00 15:00 23:00 07:00 15:00 23:00 Intake Total 540 ml 1260 ml Output Total 1500 ml Balance -960 ml 1260 ml Intake Oral 540 ml 1260 ml Output Urine Total 1500 ml # Voids 2 3 # Bowel Movements 0 Objective Remarks GENERAL: Pleasant thin patient in no apparent distress. CARDIOVASCULAR: Regular rate and rhythm. Grade 2 murmur. RESPIRATORY: Limited anterior exam. Equivocally coarse breath sounds on the left. GASTROINTESTINAL: Abdomen soft, non-tender, non-distended. NEUROLOGICAL: Awake and alert. Normal speech. PSYCHIATRIC: Normal mood and affect. Procedures 12/18/15 EGD with PEG tube placement 02/14/16 Bedside PEG tube removal Urinary Catheter: No Date of Insertion: Jan 12, 2016 Date of Removal: Jan 26, 2016 Vascular Central Line Catheter: No A/P Problem List: (1) Failure to thrive in adult ICD Code: R62.7 Status: Acute (2) Malnutrition ICD Code: E46 Status: Acute (3) Urinary retention ICD Code: R33.9 Status: Resolved (4) Prerenal azotemia ICD Code: R79.89 Status: Acute (5) Gross hematuria ICD Code: R31.0 Status: Resolved (6) Bilateral lower leg cellulitis ICD Code: L03.116 Status: Resolved (7) Hyponatremia ICD Code: E87.1 Status: Resolved (8) Blurred vision, right eye ICD Code: H53.8 Status: Acute (9) Dysuria ICD Code: R30.0 Status: Acute (10) UTI (urinary tract infection) ICD Code: N39.0 Status: Acute Assessment and Plan 80-year-old male with no known past medical history presented via EMS after being found covered in urine/feces, complaining of generalized weakness and dysphagia. Dysphagia: resulting in severe malnutrition and weight loss. Consulted GI, performed EGD with PEG tube placement. GI signed off. speech therapy following. Diet mechanical soft with chopped meat, gravy, thin liquids. Pre-albumin is still 17, continue to follow monthly Continue to follow patient by mouth intake, weight, dietary recommendations. Dietitian indicated patient was eating an adequate amount of kcals. Continue Ensure Enlive tid. GI reconsulted and removed PEG tube on 02/14/16 Pressure ulcers: Stage IV coccyx ulcer is resolved. -Wound care last evaluated 02/02. Coccyx wound now closed. Barrier cream advised. Wound to R posterior shoulder healing, foam dressing advised. -Specialty bed Gross hematuria/Urinary retention: Resolved. Dysuria continues but improved. Patient has had an indwelling Mena due to advanced stage pressure ulcers. He was having discomfort and RN removed the Mena catheter. Patient was noted to have gross hematuria likely from catheter. Admits to suprapubic pain and dysuria. Experienced retention which has resolved. 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 Rivera evaluated the patient on 02/04 and started patient on Cipro 500 mg po bid with New urine culture 02/04 again with pseudomonas. S/p Cipro treatment. Patient will likely need outpatient cystoscopy per urology Generalized Weakness: likely secondary to severe malnutrition and chronic deconditioning. Consulted PT/OT, recommends SNF. Case management consulted. Awaiting placement. Blurred vision R eye: -MRI with chronic ischemic demyelinization, but no acute abnormalities. -Ophthalmology evaluated the patient on 01/26. Patient has cataracts in both eyes and can obtain outpatient surgical evaluation. Right Apical Density: seen on AP CXR; PA/Lateral CXR shows findings of COPD. Chest CT 12/18 ordered by GI to evaluate for malignancy; shows bilateral pleural effusions, with common atelectatic changes, small amount of abdominal ascites and mesenteric edema characteristic of right R insufficiency/volume overload. Atherosclerotic calcification of the coronary arteries. -Incentive spirometry DVT Prophylaxis: Lovenox Discharge Planning OT recommends rehabilitation, 3-1 bedside commode, shower bench. PT recommends rehabilitation, wheeled walker, and wheelchair. pension fund manager working on placement as patient has inability to care for self. Needs Medicaid for placement. Brother still needs to produce bank statements. Vida Carlisle Feb 22, 2016 09:48
[2016-02-22] MEDS: ENOXAPARIN SODIUM 40 MG/0.4 ML SYRINGE SQ SCH (15:45)
[2016-02-22 21:13] VITALS: BP 116/66; PULSE 82; RESP 18; TEMP 97.4; O2SAT 95
[2016-02-23 08:00] VITALS: BP 111/57; PULSE 88; RESP 16; TEMP 96.8; O2SAT 97
[2016-02-23] MEDS: TAMSULOSIN HCL 0.4 MG CAP PO SCH (08:36)
--- NOTE | 2016-02-23 10:56 | HHI.PR ---
Subjective Remarks No acute complaints. No change in clinical status. Objective Vitals Vital Signs Date Time Temp Pulse Resp B/P Pulse Ox O2 Delivery O2 Flow Rate FiO2 02/23/16 08:00 96.8 88 16 111/57 97 02/22/16 21:13 97.4 82 18 116/66 95 I/O 02/22/16 02/22/16 02/22/16 02/23/16 02/23/16 02/23/16 07:00 15:00 23:00 07:00 15:00 23:00 Intake Total 1250 ml 750 ml 250 ml Output Total 700 ml 300 ml Balance 1250 ml 50 ml -50 ml Intake Oral 1250 ml 750 ml 250 ml Output Urine Total 700 ml 300 ml # Voids 3 3 2 # Bowel Movements 1 0 Objective Remarks GENERAL: Pleasant thin patient in no apparent distress. CARDIOVASCULAR: Regular rate and rhythm. RESPIRATORY: RR normal. GASTROINTESTINAL: Abdomen soft, non-tender, non-distended. NEUROLOGICAL: Awake and alert. Normal speech. PSYCHIATRIC: Normal mood and affect. Procedures 12/18/15 EGD with PEG tube placement 02/14/16 Bedside PEG tube removal Urinary Catheter: No Date of Insertion: Jan 12, 2016 Date of Removal: Jan 26, 2016 Vascular Central Line Catheter: No A/P Problem List: (1) Failure to thrive in adult ICD Code: R62.7 Status: Acute (2) Malnutrition ICD Code: E46 Status: Acute (3) Urinary retention ICD Code: R33.9 Status: Resolved (4) Prerenal azotemia ICD Code: R79.89 Status: Acute (5) Gross hematuria ICD Code: R31.0 Status: Resolved (6) Bilateral lower leg cellulitis ICD Code: L03.116 Status: Resolved (7) Hyponatremia ICD Code: E87.1 Status: Resolved (8) Blurred vision, right eye ICD Code: H53.8 Status: Acute (9) Dysuria ICD Code: R30.0 Status: Acute (10) UTI (urinary tract infection) ICD Code: N39.0 Status: Acute Assessment and Plan 80-year-old male with no known past medical history presented via EMS after being found covered in urine/feces, complaining of generalized weakness and dysphagia. Dysphagia: resulting in severe malnutrition and weight loss. Consulted GI, performed EGD with PEG tube placement. GI signed off. speech therapy following. Diet mechanical soft with chopped meat, gravy, thin liquids. Pre-albumin is still 17, continue to follow monthly Continue to follow patient by mouth intake, weight, dietary recommendations. Dietitian indicated patient was eating an adequate amount of kcals. Continue Ensure Enlive tid. GI reconsulted and removed PEG tube on 02/14/16 Pressure ulcers: Stage IV coccyx ulcer is resolved. -Wound care last evaluated 02/02. Coccyx wound now closed. Barrier cream advised. Wound to R posterior shoulder healing, foam dressing advised. -Specialty bed Gross hematuria/Urinary retention: Resolved. Dysuria continues but improved. Patient has had an indwelling Mena due to advanced stage pressure ulcers. He was having discomfort and RN removed the Mena catheter. Patient was noted to have gross hematuria likely from catheter. Admits to suprapubic pain and dysuria. Experienced retention which has resolved. 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 Rivera evaluated the patient on 02/04 and started patient on Cipro 500 mg po bid with New urine culture 02/04 again with pseudomonas. S/p Cipro treatment. Patient will likely need outpatient cystoscopy per urology Generalized Weakness: likely secondary to severe malnutrition and chronic deconditioning. Consulted PT/OT, recommends SNF. Case management consulted. Awaiting placement. Blurred vision R eye: -MRI with chronic ischemic demyelinization, but no acute abnormalities. -Ophthalmology evaluated the patient on 01/26. Patient has cataracts in both eyes and can obtain outpatient surgical evaluation. Right Apical Density: seen on AP CXR; PA/Lateral CXR shows findings of COPD. Chest CT 12/18 ordered by GI to evaluate for malignancy; shows bilateral pleural effusions, with common atelectatic changes, small amount of abdominal ascites and mesenteric edema characteristic of right R insufficiency/volume overload. Atherosclerotic calcification of the coronary arteries. -Incentive spirometry DVT Prophylaxis: Lovenox Discharge Planning OT recommends rehabilitation, 3-1 bedside commode, shower bench. PT recommends rehabilitation, wheeled walker, and wheelchair. pipelines manager working on placement as patient has inability to care for self. Needs Medicaid for placement. Brother still needs to produce bank statements. Vida Carlisle Feb 23, 2016 10:56 Vida Carlisle Feb 23, 2016 10:56
[2016-02-23] MEDS: ENOXAPARIN SODIUM 40 MG/0.4 ML SYRINGE SQ SCH (16:35)
[2016-02-23 20:00] VITALS: BP 103/55; PULSE 85; RESP 20; TEMP 96.1; O2SAT 96
[2016-02-24 08:00] VITALS: BP 110/71; PULSE 67; RESP 16; TEMP 96.9; O2SAT 95
[2016-02-24] MEDS: TAMSULOSIN HCL 0.4 MG CAP PO SCH (08:55)
--- NOTE | 2016-02-24 11:11 | HHI.PR ---
Subjective Remarks Patient seen and examined today. Patient denies any new complaints. No change in clinical status. Objective Vitals Vital Signs Date Time Temp Pulse Resp B/P Pulse Ox O2 Delivery O2 Flow Rate FiO2 02/24/16 08:00 96.9 67 16 110/71 95 02/23/16 20:00 96.1 85 20 103/55 96 I/O 02/23/16 02/23/16 02/23/16 02/24/16 02/24/16 02/24/16 06:59 14:59 22:59 06:59 14:59 22:59 Intake Total 250 ml 720 ml 360 ml 480 ml Output Total 300 ml 450 ml 500 ml 600 ml Balance -50 ml 270 ml -140 ml -120 ml Intake Oral 250 ml 720 ml 360 ml 480 ml Output Urine Total 300 ml 450 ml 500 ml 600 ml # Voids 2 # Bowel Movements 0 1 0 0 Objective Remarks GENERAL: Well-developed, well-nourished, in no acute distress. alert and orientated HEENT: Head is normocephalic without any lesions or masses noted. Facial features are symmetric. NECK: Supple without any masses. Trachea midline no deviation. No JVD, CARDIAC: Regular rhythm, regular rate. S1/S2 are heard. No murmurs gallops or rubs. LUNGS: Clear to auscultation bilaterally. No wheeze, rhonchi or rales. No use of accessory muscles on inspiration or expiration. ABDOMEN: Soft, nontender. Nondistended. Bowel sounds heard in all 4 quadrants. No organomegaly or masses. Negative rebound, negative guarding. PEG tube removed EXTREMITIES: No edema, pulses are equal bilaterally. No cyanosis or clubbing NEUROLOGY: Mood and affect appear appropriate. Cranial nerves II through XII grossly intact. Moving all extremities, speech is clear Procedures 12/18/15 EGD with PEG tube placement 02/14/16 Bedside PEG tube removal Date of Insertion: Jan 12, 2016 Date of Removal: Jan 26, 2016 Vascular Central Line Catheter: No A/P Assessment and Plan 80-year-old male with no known past medical history presented via EMS after being found covered in urine/feces, complaining of generalized weakness and dysphagia. Dysphagia: resulting in severe malnutrition and weight loss. Consulted GI, performed EGD with PEG tube placement. GI signed off. speech therapy following. Diet mechanical soft with chopped meat, gravy, thin liquids. Pre-albumin is still 17, continue to follow monthly Calorie count concluded that patient may be off of bolus tube feeding and continue only by mouth feeding with supplements Continue to follow patient by mouth intake, weight, dietary recommendations. Request dietary to evaluate if patient, they indicate that due to the previous calorie count. Patient is having sufficient amount of by mouth intake. They indicate PEG tube can be removed GI reconsulted and removed PEG tube 02/14/16 Stage IV pressure ulcers, present on admission on coccyx and right ischium. Specialty bed. Wound care consulted to evaluate patient here at PO. Wound care following the patient, indicates that wound is improving continue with current orders of Santyl daily Gross hematuria/Urinary retention: Resolved Patient has had an indwelling Mena due to advanced stage pressure ulcers. He was having discomfort this morning and RN removed the Mena catheter. Patient was noted to have gross hematuria likely from catheter. Admits to suprapubic pain and dysuria. 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 Rivera evaluated the patient on 02/04 and started patient on Cipro 500 mg po bid. New urine culture 02/04 again with pseudomonas susceptible to Cipro. Continue antibiotics. Patient will likely need outpatient cystoscopy per urology Generalized Weakness: likely secondary to severe malnutrition and chronic deconditioning. Consulted PT/OT, recommends SNF. Case management consulted. Awaiting placement. DVT Prophylaxis: Lovenox Discharge Planning OT recommends rehabilitation, 3-1 bedside commode, shower bench. PT recommends rehabilitation, wheeled walker, and wheelchair. lodging facilities manager working on placement. Medicaid pending. 02/19/16-Pt remains in house, with SNF recommended. PEG tube was removed 02/14/16. Pt continues on PO intace with Ensure Enlive supplementation. Per previous CM note, [facility] is working with brother on spend down so that pt will qualify for Medicaid. RONNY spoke with Mily 02/16/16. Mily reports brother has not yet produced needed bank statements. Pt will need Medicaid for placement. CM following. Perfecto Tamayo Feb 24, 2016 11:11
[2016-02-24] MEDS: ENOXAPARIN SODIUM 40 MG/0.4 ML SYRINGE SQ SCH (16:19)
[2016-02-24 20:00] VITALS: BP 106/60; PULSE 84; RESP 16; TEMP 98.4; O2SAT 96
[2016-02-25 08:00] VITALS: BP 97/57; PULSE 77; RESP 20; TEMP 96.6; O2SAT 95
[2016-02-25] MEDS: CYCLOBENZAPRINE HCL 10 MG TAB PO PRN (08:58)
[2016-02-25] MEDS: TAMSULOSIN HCL 0.4 MG CAP PO SCH (08:58)
--- NOTE | 2016-02-25 09:11 | HHI.PR ---
Subjective Remarks Patient seen and examined today. Patient denies any new complaints. No change in clinical status. Objective Vitals Vital Signs Date Time Temp Pulse Resp B/P Pulse Ox O2 Delivery O2 Flow Rate FiO2 02/25/16 08:00 96.6 77 20 97/57 95 02/24/16 20:00 98.4 84 16 106/60 96 I/O 02/24/16 02/24/16 02/24/16 02/25/16 02/25/16 02/25/16 07:00 15:00 23:00 07:00 15:00 23:00 Intake Total 480 ml 900 ml 600 ml Output Total 600 ml 600 ml 600 ml Balance -120 ml 300 ml 0 ml Intake Oral 480 ml 900 ml 600 ml Output Urine Total 600 ml 600 ml 600 ml # Bowel Movements 0 Objective Remarks GENERAL: Well-developed, well-nourished, in no acute distress. alert and orientated HEENT: Head is normocephalic without any lesions or masses noted. Facial features are symmetric. NECK: Supple without any masses. Trachea midline no deviation. No JVD, CARDIAC: Regular rhythm, regular rate. S1/S2 are heard. No murmurs gallops or rubs. LUNGS: Clear to auscultation bilaterally. No wheeze, rhonchi or rales. No use of accessory muscles on inspiration or expiration. ABDOMEN: Soft, nontender. Nondistended. Bowel sounds heard in all 4 quadrants. No organomegaly or masses. Negative rebound, negative guarding. PEG tube removed EXTREMITIES: No edema, pulses are equal bilaterally. No cyanosis or clubbing NEUROLOGY: Mood and affect appear appropriate. Cranial nerves II through XII grossly intact. Moving all extremities, speech is clear Procedures 12/18/15 EGD with PEG tube placement 02/14/16 Bedside PEG tube removal Urinary Catheter: No Date of Insertion: Jan 12, 2016 Date of Removal: Jan 26, 2016 Vascular Central Line Catheter: No A/P Assessment and Plan 80-year-old male with no known past medical history presented via EMS after being found covered in urine/feces, complaining of generalized weakness and dysphagia. Dysphagia: resulting in severe malnutrition and weight loss. Consulted GI, performed EGD with PEG tube placement. GI signed off. speech therapy following. Diet mechanical soft with chopped meat, gravy, thin liquids. Pre-albumin is still 17, continue to follow monthly Calorie count concluded that patient may be off of bolus tube feeding and continue only by mouth feeding with supplements Continue to follow patient by mouth intake, weight, dietary recommendations. Request dietary to evaluate if patient, they indicate that due to the previous calorie count. Patient is having sufficient amount of by mouth intake. They indicate PEG tube can be removed GI reconsulted and removed PEG tube 02/14/16 Stage IV pressure ulcers, present on admission on coccyx and right ischium. Specialty bed. Wound care consulted to evaluate patient here at PO. Wound care following the patient, indicates that wound is improving continue with current orders of Santyl daily Gross hematuria/Urinary retention: Resolved Patient has had an indwelling Mena due to advanced stage pressure ulcers. He was having discomfort this morning and RN removed the Mena catheter. Patient was noted to have gross hematuria likely from catheter. Admits to suprapubic pain and dysuria. 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 Rivera evaluated the patient on 02/04 and started patient on Cipro 500 mg po bid. New urine culture 02/04 again with pseudomonas susceptible to Cipro. Continue antibiotics. Patient will likely need outpatient cystoscopy per urology Generalized Weakness: likely secondary to severe malnutrition and chronic deconditioning. Consulted PT/OT, recommends SNF. Case management consulted. Awaiting placement. DVT Prophylaxis: Lovenox Discharge Planning OT recommends rehabilitation, 3-1 bedside commode, shower bench. PT recommends rehabilitation, wheeled walker, and wheelchair. retail area manager working on placement. Medicaid pending. 02/19/16-Pt remains in house, with SNF recommended. PEG tube was removed 02/14/16. Pt continues on PO intace with Ensure Enlive supplementation. Per previous CM note, [facility] is working with brother on spend down so that pt will qualify for Medicaid. RONNY spoke with Mily 02/16/16. Mily reports brother has not yet produced needed bank statements. Pt will need Medicaid for placement. CM following. Perfecto Tamayo Feb 25, 2016 09:10
[2016-02-25] MEDS: ENOXAPARIN SODIUM 40 MG/0.4 ML SYRINGE SQ SCH (16:15)
[2016-02-25 19:15] VITALS: BP 103/59; PULSE 84; RESP 18; TEMP 97; O2SAT 95
[2016-02-26] MEDS: TAMSULOSIN HCL 0.4 MG CAP PO SCH (07:45)
[2016-02-26 08:00] VITALS: BP 107/62; PULSE 77; RESP 18; TEMP 97.8; O2SAT 97
--- NOTE | 2016-02-26 09:00 | HHI.PR ---
Subjective Remarks Patient seen and examined today. Patient denies any new complaints. No change in clinical status. Objective Vitals Vital Signs Date Time Temp Pulse Resp B/P Pulse Ox O2 Delivery O2 Flow Rate FiO2 02/25/16 19:15 97.0 84 18 103/59 95 I/O 02/25/16 02/25/16 02/25/16 02/26/16 02/26/16 02/26/16 07:00 15:00 23:00 07:00 15:00 23:00 Intake Total 600 ml 1240 ml 210 ml 720 ml Output Total 600 ml 1200 ml Balance 0 ml 1240 ml 210 ml -480 ml Intake Oral 600 ml 1240 ml 210 ml 720 ml Output Urine Total 600 ml 1200 ml # Voids 4 1 # Bowel Movements 1 Objective Remarks GENERAL: Well-developed, well-nourished, in no acute distress. alert and orientated HEENT: Head is normocephalic without any lesions or masses noted. Facial features are symmetric. NECK: Supple without any masses. Trachea midline no deviation. No JVD, CARDIAC: Regular rhythm, regular rate. S1/S2 are heard. No murmurs gallops or rubs. LUNGS: Clear to auscultation bilaterally. No wheeze, rhonchi or rales. No use of accessory muscles on inspiration or expiration. ABDOMEN: Soft, nontender. Nondistended. Bowel sounds heard in all 4 quadrants. No organomegaly or masses. Negative rebound, negative guarding. PEG tube removed EXTREMITIES: No edema, pulses are equal bilaterally. No cyanosis or clubbing NEUROLOGY: Mood and affect appear appropriate. Cranial nerves II through XII grossly intact. Moving all extremities, speech is clear Procedures 12/18/15 EGD with PEG tube placement 02/14/16 Bedside PEG tube removal Urinary Catheter: No Date of Insertion: Jan 12, 2016 Date of Removal: Jan 26, 2016 Vascular Central Line Catheter: No A/P Assessment and Plan 80-year-old male with no known past medical history presented via EMS after being found covered in urine/feces, complaining of generalized weakness and dysphagia. Dysphagia: resulting in severe malnutrition and weight loss. Consulted GI, performed EGD with PEG tube placement. GI signed speech therapy recommending regular diet consistencies Pre-albumin is still 17, continue to follow monthly Calorie count was performed by dietary which indicated patient and likely eating food, PEG tube can be removed GI reconsulted and removed PEG tube 02/14/16 Stage IV pressure ulcers, present on admission on coccyx and right ischium. Specialty bed. Wound care consulted to evaluate patient here at PO. Wound care following the patient, indicates that wound is improving continue with current orders of Santyl daily Gross hematuria/Urinary retention: Resolved Patient has had an indwelling Mena due to advanced stage pressure ulcers. He was having discomfort this morning and RN removed the Mena catheter. Patient was noted to have gross hematuria likely from catheter. Admits to suprapubic pain and dysuria. 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 Rivera evaluated the patient on 02/04 and started patient on Cipro 500 mg po bid. New urine culture 02/04 again with pseudomonas susceptible to Cipro. Continue antibiotics. Patient will likely need outpatient cystoscopy per urology Generalized Weakness: likely secondary to severe malnutrition and chronic deconditioning. Consulted PT/OT, recommends SNF. Case management consulted. Awaiting placement. DVT Prophylaxis: Lovenox Discharge Planning OT recommends rehabilitation, 3-1 bedside commode, shower bench. PT recommends rehabilitation, wheeled walker, and wheelchair. manager fashion working on placement. Medicaid pending. 02/19/16-Pt remains in house, with SNF recommended. PEG tube was removed 02/14/16. Pt continues on PO intace with Ensure Enlive supplementation. Per previous CM note, [facility] is working with brother on spend down so that pt will qualify for Medicaid. CM spoke with Mily 02/16/16. Mily reports brother has not yet produced needed bank statements. Pt will need Medicaid for placement. CM following. Perfecto Tamayo Feb 26, 2016 09:00
[2016-02-26] MEDS: ENOXAPARIN SODIUM 40 MG/0.4 ML SYRINGE SQ SCH (15:00)
[2016-02-26 19:15] VITALS: BP 102/59; PULSE 86; RESP 18; TEMP 97.7; O2SAT 96
[2016-02-27 08:00] VITALS: BP 112/70; PULSE 80; RESP 18; TEMP 98.2; O2SAT 95
[2016-02-27] MEDS: TAMSULOSIN HCL 0.4 MG CAP PO SCH (08:21)
--- NOTE | 2016-02-27 14:44 | HHI.PR ---
Subjective Remarks Patient seen and examined today. Patient denies any new complaints. No change in clinical status. Objective Vitals Vital Signs Date Time Temp Pulse Resp B/P Pulse Ox O2 Delivery O2 Flow Rate FiO2 02/27/16 08:00 98.2 80 18 112/70 95 02/26/16 19:15 97.7 86 18 102/59 96 I/O 02/26/16 02/26/16 02/26/16 02/27/16 02/27/16 02/27/16 07:00 15:00 23:00 07:00 15:00 23:00 Intake Total 720 ml 1180 ml 600 ml Output Total 1200 ml 500 ml 900 ml 300 ml Balance -480 ml -500 ml 280 ml 300 ml Intake Oral 720 ml 1180 ml 600 ml Output Urine Total 1200 ml 500 ml 900 ml 300 ml # Voids 1 1 # Bowel Movements 1 Objective Remarks GENERAL: Well-developed, well-nourished, in no acute distress. alert and orientated HEENT: Head is normocephalic without any lesions or masses noted. Facial features are symmetric. NECK: Supple without any masses. Trachea midline no deviation. No JVD, CARDIAC: Regular rhythm, regular rate. S1/S2 are heard. No murmurs gallops or rubs. LUNGS: Clear to auscultation bilaterally. No wheeze, rhonchi or rales. No use of accessory muscles on inspiration or expiration. ABDOMEN: Soft, nontender. Nondistended. Bowel sounds heard in all 4 quadrants. No organomegaly or masses. Negative rebound, negative guarding. PEG tube removed EXTREMITIES: No edema, pulses are equal bilaterally. No cyanosis or clubbing NEUROLOGY: Mood and affect appear appropriate. Cranial nerves II through XII grossly intact. Moving all extremities, speech is clear Procedures 12/18/15 EGD with PEG tube placement 02/14/16 Bedside PEG tube removal Urinary Catheter: No Date of Insertion: Jan 12, 2016 Date of Removal: Jan 26, 2016 Vascular Central Line Catheter: No A/P Assessment and Plan 80-year-old male with no known past medical history presented via EMS after being found covered in urine/feces, complaining of generalized weakness and dysphagia. Dysphagia: resulting in severe malnutrition and weight loss. Consulted GI, performed EGD with PEG tube placement. GI signed speech therapy recommending regular diet consistencies Pre-albumin is still 17, continue to follow monthly Calorie count was performed by dietary which indicated patient and likely eating food, PEG tube can be removed GI reconsulted and removed PEG tube 02/14/16 Stage IV pressure ulcers, present on admission on coccyx and right ischium. Specialty bed. Wound care consulted to evaluate patient here at PO. Wound care following the patient, indicates that wound is improving continue with current orders of Santyl daily Gross hematuria/Urinary retention: Resolved Patient has had an indwelling Mena due to advanced stage pressure ulcers. He was having discomfort this morning and RN removed the Mena catheter. Patient was noted to have gross hematuria likely from catheter. Admits to suprapubic pain and dysuria. 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 Rivera evaluated the patient on 02/04 and started patient on Cipro 500 mg po bid. New urine culture 02/04 again with pseudomonas susceptible to Cipro. Continue antibiotics. Patient will likely need outpatient cystoscopy per urology Generalized Weakness: likely secondary to severe malnutrition and chronic deconditioning. Consulted PT/OT, recommends SNF. Case management consulted. Awaiting placement. DVT Prophylaxis: Lovenox Discharge Planning OT recommends rehabilitation, 3-1 bedside commode, shower bench. PT recommends rehabilitation, wheeled walker, and wheelchair. resort manager working on placement. Medicaid pending. 02/19/16-Pt remains in house, with SNF recommended. PEG tube was removed 02/14/16. Pt continues on PO intace with Ensure Enlive supplementation. Per previous CM note, [facility] is working with brother on spend down so that pt will qualify for Medicaid. RONNY spoke with Mily 02/16/16. Mily reports brother has not yet produced needed bank statements. Pt will need Medicaid for placement. CM following. Perfecto Tamayo Feb 27, 2016 14:44
[2016-02-27] MEDS: ENOXAPARIN SODIUM 40 MG/0.4 ML SYRINGE SQ SCH (15:10)
[2016-02-27 20:00] VITALS: BP 103/60; PULSE 84; RESP 20; TEMP 95.9; O2SAT 95
[2016-02-28 08:00] VITALS: BP 115/68; PULSE 73; RESP 16; TEMP 96.2; O2SAT 97
[2016-02-28] MEDS: TAMSULOSIN HCL 0.4 MG CAP PO SCH (09:15)
--- NOTE | 2016-02-28 10:09 | HHI.PR ---
Subjective Remarks Patient seen and examined today. Patient states that he overdid himself yesterday. 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 He could not give any definition or explain what that condition is. Objective Vitals Vital Signs Date Time Temp Pulse Resp B/P Pulse Ox O2 Delivery O2 Flow Rate FiO2 02/28/16 08:00 96.2 73 16 115/68 97 02/27/16 20:00 95.9 84 20 103/60 95 I/O 02/27/16 02/27/16 02/27/16 02/28/16 02/28/16 02/28/16 07:00 15:00 23:00 07:00 15:00 23:00 Intake Total 1180 ml 600 ml 60 ml Output Total 900 ml 300 ml 500 ml 450 ml Balance 280 ml 300 ml -500 ml -390 ml Intake Oral 1180 ml 600 ml 60 ml Output Urine Total 900 ml 300 ml 500 ml 450 ml # Voids 1 1 # Bowel Movements 1 0 Objective Remarks GENERAL: Well-developed, well-nourished, in no acute distress. alert and orientated HEENT: Head is normocephalic without any lesions or masses noted. Facial features are symmetric. NECK: Supple without any masses. Trachea midline no deviation. No JVD, CARDIAC: Regular rhythm, regular rate. S1/S2 are heard. No murmurs gallops or rubs. LUNGS: Clear to auscultation bilaterally. No wheeze, rhonchi or rales. No use of accessory muscles on inspiration or expiration. ABDOMEN: Soft, nontender. Nondistended. Bowel sounds heard in all 4 quadrants. No organomegaly or masses. Negative rebound, negative guarding. PEG tube removed EXTREMITIES: No edema, pulses are equal bilaterally. No cyanosis or clubbing NEUROLOGY: Mood and affect appear appropriate. Cranial nerves II through XII grossly intact. Moving all extremities, speech is clear Procedures 12/18/15 EGD with PEG tube placement 02/14/16 Bedside PEG tube removal Urinary Catheter: No Date of Insertion: Jan 12, 2016 Date of Removal: Jan 26, 2016 Vascular Central Line Catheter: No A/P Assessment and Plan 80-year-old male with no known past medical history presented via EMS after being found covered in urine/feces, complaining of generalized weakness and dysphagia. Dysphagia: resulting in severe malnutrition and weight loss. Consulted GI, performed EGD with PEG tube placement. GI signed speech therapy recommending regular diet consistencies Pre-albumin is still 17, continue to follow monthly Calorie count was performed by dietary which indicated patient and likely eating food, PEG tube can be removed GI reconsulted and removed PEG tube 02/14/16 Stage IV pressure ulcers, present on admission on coccyx and right ischium. Specialty bed. Wound care consulted to evaluate patient here at PO. Wound care following the patient, indicates that wound is improving continue with current orders of Santyl daily Gross hematuria/Urinary retention: Resolved Patient has had an indwelling Mena due to advanced stage pressure ulcers. He was having discomfort this morning and RN removed the Mena catheter. Patient was noted to have gross hematuria likely from catheter. Admits to suprapubic pain and dysuria. 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 Rivera evaluated the patient on 02/04 and started patient on Cipro 500 mg po bid. New urine culture 02/04 again with pseudomonas susceptible to Cipro. Continue antibiotics. Patient will likely need outpatient cystoscopy per urology Generalized Weakness: likely secondary to severe malnutrition and chronic deconditioning. Consulted PT/OT, recommends SNF. Case management consulted. Awaiting placement. DVT Prophylaxis: Lovenox Discharge Planning OT recommends rehabilitation, 3-1 bedside commode, shower bench. PT recommends rehabilitation, wheeled walker, and wheelchair. manager presentation working on placement. Medicaid pending. 02/26/16 1023 [facility] WAS ABLE TO FIND OUT FROM FAMILY WHO WAS ACTUALLY THE POA AND CONTACT WAS MADE. TO PARKER GUILLERMO SATED POA. HE BROUGHT NEEDED BANK STATEMENTS ETC ON 02/25/16. NEEDED TO ASSIST WITH SSI/MEDICAID MANA. IT WAS DENIED FOR OVER ASSETS, WILL F/U FOR UPDATE IF SSI/MEDICAID WILL BE AN OPTION POST EVAL OF PAPERWORK BROUGHT IN. WILL CONT TO FOLLOW FOR D/C NEEDS. SNF VS HOME VIKTORIA BERNSTEIN GERMAN TEACHER/CM/CHARGE Perfecto Tamayo Feb 28, 2016 10:09
[2016-02-28] MEDS: ENOXAPARIN SODIUM 40 MG/0.4 ML SYRINGE SQ SCH (16:45)
[2016-02-28 20:00] VITALS: BP 108/64; PULSE 73; RESP 16; TEMP 96.7; O2SAT 92
[2016-02-29 08:00] VITALS: BP 97/58; PULSE 73; RESP 16; TEMP 96; O2SAT 95
[2016-02-29] MEDS: TAMSULOSIN HCL 0.4 MG CAP PO SCH (09:02)
--- NOTE | 2016-02-29 09:31 | HHI.PR ---
Subjective Remarks Patient seen and examined today. Patient denies any new complaints. No change in clinical status. Objective Vitals Vital Signs Date Time Temp Pulse Resp B/P Pulse Ox O2 Delivery O2 Flow Rate FiO2 02/29/16 08:00 96.0 73 16 97/58 95 02/28/16 20:00 96.7 73 16 108/64 92 I/O 02/28/16 02/28/16 02/28/16 02/29/16 02/29/16 02/29/16 07:00 15:00 23:00 07:00 15:00 23:00 Intake Total 60 ml 480 ml 250 ml Output Total 450 ml 400 ml 1050 ml Balance -390 ml 80 ml -800 ml Intake Oral 60 ml 480 ml 250 ml Output Urine Total 450 ml 400 ml 1050 ml # Voids 1 # Bowel Movements 0 0 0 Objective Remarks GENERAL: Well-developed, well-nourished, in no acute distress. alert and orientated HEENT: Head is normocephalic without any lesions or masses noted. Facial features are symmetric. NECK: Supple without any masses. Trachea midline no deviation. No JVD, CARDIAC: Regular rhythm, regular rate. S1/S2 are heard. No murmurs gallops or rubs. LUNGS: Clear to auscultation bilaterally. No wheeze, rhonchi or rales. No use of accessory muscles on inspiration or expiration. ABDOMEN: Soft, nontender. Nondistended. Bowel sounds heard in all 4 quadrants. No organomegaly or masses. Negative rebound, negative guarding. PEG tube removed EXTREMITIES: No edema, pulses are equal bilaterally. No cyanosis or clubbing NEUROLOGY: Mood and affect appear appropriate. Cranial nerves II through XII grossly intact. Moving all extremities, speech is clear Procedures 12/18/15 EGD with PEG tube placement 02/14/16 Bedside PEG tube removal Urinary Catheter: No Date of Insertion: Jan 12, 2016 Date of Removal: Jan 26, 2016 Vascular Central Line Catheter: No A/P Assessment and Plan 80-year-old male with no known past medical history presented via EMS after being found covered in urine/feces, complaining of generalized weakness and dysphagia. Dysphagia: resulting in severe malnutrition and weight loss. Consulted GI, performed EGD with PEG tube placement. GI signed speech therapy recommending regular diet consistencies Pre-albumin is still 17, continue to follow monthly Calorie count was performed by dietary which indicated patient and likely eating food, PEG tube can be removed GI reconsulted and removed PEG tube 02/14/16 Stage IV pressure ulcers, present on admission on coccyx and right ischium. Specialty bed. Wound care consulted to evaluate patient here at PO. Wound care following the patient, indicates that wound is improving continue with current orders of Santyl daily Gross hematuria/Urinary retention: Resolved Patient has had an indwelling Mena due to advanced stage pressure ulcers. He was having discomfort this morning and RN removed the Mena catheter. Patient was noted to have gross hematuria likely from catheter. Admits to suprapubic pain and dysuria. 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 Rivera evaluated the patient on 02/04 and started patient on Cipro 500 mg po bid. New urine culture 02/04 again with pseudomonas susceptible to Cipro. Continue antibiotics. Patient will likely need outpatient cystoscopy per urology Generalized Weakness: likely secondary to severe malnutrition and chronic deconditioning. Consulted PT/OT, recommends SNF. Case management consulted. Awaiting placement. DVT Prophylaxis: Lovenox Discharge Planning OT recommends rehabilitation, 3-1 bedside commode, shower bench. PT recommends rehabilitation, wheeled walker, and wheelchair. compensation and benefits manager working on placement. Medicaid pending. 02/26/16 1023 [facility] WAS ABLE TO FIND OUT FROM FAMILY WHO WAS ACTUALLY THE POA AND CONTACT WAS MADE. SHRUTHI GUILLERMO SATED POA. HE BROUGHT NEEDED BANK STATEMENTS ETC ON 02/25/16. NEEDED TO ASSIST WITH SSI/MEDICAID MANA. IT WAS DENIED FOR OVER ASSETS, WILL F/U FOR UPDATE IF SSI/MEDICAID WILL BE AN OPTION POST EVAL OF PAPERWORK BROUGHT IN. WILL CONT TO FOLLOW FOR D/C NEEDS. SNF VS HOME VIKTORIA BERNSTEIN LPN/CM/CHARGE Perfecto Tamayo Feb 29, 2016 09:31
[2016-02-29] MEDS: ENOXAPARIN SODIUM 40 MG/0.4 ML SYRINGE SQ SCH (15:46)
[2016-02-29 20:00] VITALS: BP 104/55; PULSE 92; RESP 20; TEMP 98.6; O2SAT 94
[2016-03-01 08:00] VITALS: BP 105/65; PULSE 83; RESP 17; TEMP 98.3; O2SAT 95
[2016-03-01] MEDS: TAMSULOSIN HCL 0.4 MG CAP PO SCH (08:15)
--- NOTE | 2016-03-01 14:51 | HHI.PR ---
Subjective Remarks Patient seen and examined today with Dr. Martinez, patient denies any new complaints. No change in clinical status. Objective Vitals Vital Signs Date Time Temp Pulse Resp B/P Pulse Ox O2 Delivery O2 Flow Rate FiO2 03/01/16 08:00 98.3 83 17 105/65 95 02/29/16 20:00 98.6 92 20 104/55 94 I/O 02/29/16 02/29/16 02/29/16 03/01/16 03/01/16 03/01/16 07:00 15:00 23:00 07:00 15:00 23:00 Intake Total 250 ml 420 ml 210 ml 120 ml Output Total 1050 ml 650 ml Balance -800 ml 420 ml 210 ml -530 ml Intake Oral 250 ml 420 ml 210 ml 120 ml Output Urine Total 1050 ml 650 ml # Voids 2 2 2 # Bowel Movements 0 1 Objective Remarks GENERAL: Well-developed, well-nourished, in no acute distress. alert and orientated HEENT: Head is normocephalic without any lesions or masses noted. Facial features are symmetric. NECK: Supple without any masses. Trachea midline no deviation. No JVD, CARDIAC: Regular rhythm, regular rate. S1/S2 are heard. No murmurs gallops or rubs. LUNGS: Clear to auscultation bilaterally. No wheeze, rhonchi or rales. No use of accessory muscles on inspiration or expiration. ABDOMEN: Soft, nontender. Nondistended. Bowel sounds heard in all 4 quadrants. No organomegaly or masses. Negative rebound, negative guarding. PEG tube removed EXTREMITIES: No edema, pulses are equal bilaterally. No cyanosis or clubbing NEUROLOGY: Mood and affect appear appropriate. Cranial nerves II through XII grossly intact. Moving all extremities, speech is clear Procedures 12/18/15 EGD with PEG tube placement 02/14/16 Bedside PEG tube removal Urinary Catheter: No Date of Insertion: Jan 12, 2016 Date of Removal: Jan 26, 2016 Vascular Central Line Catheter: No A/P Assessment and Plan 80-year-old male with no known past medical history presented via EMS after being found covered in urine/feces, complaining of generalized weakness and dysphagia. Dysphagia: resulting in severe malnutrition and weight loss. Consulted GI, performed EGD with PEG tube placement. GI signed speech therapy recommending regular diet consistencies Pre-albumin is still 17, continue to follow monthly Calorie count was performed by dietary which indicated patient and likely eating food, PEG tube can be removed GI reconsulted and removed PEG tube 02/14/16 Stage IV pressure ulcers, present on admission on coccyx and right ischium. Specialty bed. Wound care consulted to evaluate patient here at PO. Wound care following the patient, indicates that wound is improving continue with current orders of Santyl daily Gross hematuria/Urinary retention: Resolved Patient has had an indwelling Mena due to advanced stage pressure ulcers. He was having discomfort this morning and RN removed the Mena catheter. Patient was noted to have gross hematuria likely from catheter. Admits to suprapubic pain and dysuria. 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 Rievra evaluated the patient on 02/04 and started patient on Cipro 500 mg po bid. New urine culture 02/04 again with pseudomonas susceptible to Cipro. Continue antibiotics. Patient will likely need outpatient cystoscopy per urology Generalized Weakness: likely secondary to severe malnutrition and chronic deconditioning. Consulted PT/OT, recommends SNF. Case management consulted. Awaiting placement. DVT Prophylaxis: Lovenox Discharge Planning OT recommends rehabilitation, 3-1 bedside commode, shower bench. PT recommends rehabilitation, wheeled walker, and wheelchair. import manager working on placement. Medicaid pending. 02/26/16 1023 [facility] WAS ABLE TO FIND OUT FROM FAMILY WHO WAS ACTUALLY THE POA AND CONTACT WAS MADE. SHRUTHI PARKER MIMA SATED POA. HE BROUGHT NEEDED BANK STATEMENTS ETC ON 02/25/16. NEEDED TO ASSIST WITH SSI/MEDICAID MANA. IT WAS DENIED FOR OVER ASSETS, WILL F/U FOR UPDATE IF SSI/MEDICAID WILL BE AN OPTION POST EVAL OF PAPERWORK BROUGHT IN. WILL CONT TO FOLLOW FOR D/C NEEDS. 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
[2016-03-01] MEDS: ENOXAPARIN SODIUM 40 MG/0.4 ML SYRINGE SQ SCH (16:25)
[2016-03-01 20:00] VITALS: BP 105/64; PULSE 79; RESP 20; TEMP 96.8; O2SAT 97
[2016-03-02 08:00] VITALS: BP 107/64; PULSE 75; RESP 16; TEMP 99; O2SAT 94
[2016-03-02] MEDS: TAMSULOSIN HCL 0.4 MG CAP PO SCH (08:55)
--- NOTE | 2016-03-02 10:36 | HHI.PR ---
Subjective Remarks No acute complaints. No change in clinical status. Objective Vitals Vital Signs Date Time Temp Pulse Resp B/P Pulse Ox O2 Delivery O2 Flow Rate FiO2 03/02/16 08:00 99.0 75 16 107/64 94 03/01/16 20:00 96.8 79 20 105/64 97 I/O 03/01/16 03/01/16 03/01/16 03/02/16 03/02/16 03/02/16 07:00 15:00 23:00 07:00 15:00 23:00 Intake Total 320 ml Output Total 650 ml 250 ml 420 ml Balance -330 ml -250 ml -420 ml Intake Oral 320 ml Output Urine Total 650 ml 250 ml 420 ml # Voids 2 # Bowel Movements 2 Objective Remarks GENERAL: Pleasant thin patient in no apparent distress. CARDIOVASCULAR: Regular rate and rhythm. RESPIRATORY: Limited anterior exam. CTAB. RR normal. GASTROINTESTINAL: Normoactive bowel sounds. Abdomen soft, non-tender, non- distended. NEUROLOGICAL: Awake and alert. Normal speech. PSYCHIATRIC: Normal mood and affect. Procedures 12/18/15 EGD with PEG tube placement 02/14/16 Bedside PEG tube removal Urinary Catheter: No Date of Insertion: Jan 12, 2016 Date of Removal: Jan 26, 2016 Vascular Central Line Catheter: No A/P Problem List: (1) Failure to thrive in adult ICD Code: R62.7 Status: Acute (2) Malnutrition ICD Code: E46 Status: Acute (3) Urinary retention ICD Code: R33.9 Status: Resolved (4) Prerenal azotemia ICD Code: R79.89 Status: Acute (5) Gross hematuria ICD Code: R31.0 Status: Resolved (6) Bilateral lower leg cellulitis ICD Code: L03.116 Status: Resolved (7) Hyponatremia ICD Code: E87.1 Status: Resolved (8) Blurred vision, right eye ICD Code: H53.8 Status: Acute (9) Dysuria ICD Code: R30.0 Status: Acute (10) UTI (urinary tract infection) ICD Code: N39.0 Status: Acute Assessment and Plan 80-year-old male with no known past medical history presented via EMS after being found covered in urine/feces, complaining of generalized weakness and dysphagia. Dysphagia: resulting in severe malnutrition and weight loss. Consulted GI, performed EGD with PEG tube placement. GI signed off. Pre-albumin is still 17, continue to follow monthly Dietitian indicated patient was eating an adequate amount of kcals. Continue Ensure Enlive tid. GI reconsulted and removed PEG tube on 02/14/16 As of 02/15 Speech therapy recommends regular diet, thin liquids. Pressure ulcers: Stage IV coccyx ulcer is resolved. -Wound care last evaluated 02/02. Coccyx wound now closed. Barrier cream advised. Wound to R posterior shoulder healing, foam dressing advised. -Specialty bed Gross hematuria/Urinary retention: Resolved. Dysuria continues but improved. Patient has had an indwelling Mena due to advanced stage pressure ulcers. He was having discomfort and RN removed the Mena catheter. Patient was noted to have gross hematuria likely from catheter. Admits to suprapubic pain and dysuria. Experienced retention which has resolved. Continue Flomax 0.4 mg daily UA was obtained which showed infection, final urine culture with Pseudomonas, likely colonized since patient is had recurrent infections and indwelling Mena with same bacteria Urology, Dr. Rivera evaluated the patient on 02/04 and started patient on Cipro 500 mg po bid with New urine culture 02/04 again with pseudomonas. S/p Cipro treatment. Patient will likely need outpatient cystoscopy per urology Generalized Weakness: likely secondary to severe malnutrition and chronic deconditioning. Consulted PT/OT, recommends SNF. Case management consulted. Awaiting placement. Blurred vision R eye: -MRI with chronic ischemic demyelinization, but no acute abnormalities. -Ophthalmology evaluated the patient on 01/26. Patient has cataracts in both eyes and can obtain outpatient surgical evaluation. Right Apical Density: seen on AP CXR; PA/Lateral CXR shows findings of COPD. Chest CT 12/18 ordered by GI to evaluate for malignancy; shows bilateral pleural effusions, with common atelectatic changes, small amount of abdominal ascites and mesenteric edema characteristic of right R insufficiency/volume overload. Atherosclerotic calcification of the coronary arteries. -Incentive spirometry DVT Prophylaxis: Lovenox Discharge Planning OT recommends rehabilitation, 3-1 bedside commode, shower bench. PT recommends rehabilitation, wheeled walker, and wheelchair. manager beverage working on placement as patient has inability to care for self. SSI/Medicaid denied for over assets. POA brought bank statements. CM to follow up regarding this. Vida Carlisle Mar 02, 2016 10:36
--- NOTE | 2016-03-02 13:17 | MB ---
cc: MACHELLE WONG DATE OF CONSULTATION: 02/26/2016 CHIEF COMPLAINT Elongated painful nails. HISTORY OF PRESENT ILLNESS Mr. Dixon is a long-term care patient at [facility]. He was admitted for generalized weakness and malaise after EMS found him covered in urine and feces at his own home. He has been and at [place] since December 15. The patient is verbal but not very engaged. Consult is for painful elongated nails and the patient is agreeable to have them debrided today. PAST MEDICAL HISTORY Negative. 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 MEDICATIONS Please see list. ALLERGIES 1. IBUPROFEN. 2. LIDOCAINE. 3. NOVOCAIN. 4. SODIUM PENTOTHAL. PHYSICAL EXAMINATION The patient had palpable DP and PT pulses with capillary fill time less than 3 seconds. Unable to assess gross sensation or manual muscle testing. Biomechanics within normal limits. No open lesions or wounds. No pain with palpation. The nail plates are elongated, dystrophic, discolored and tender in shoe gear. ASSESSMENT Onychomycosis. PLAN The nails are sharply debrided at bedside. Exam mostly unremarkable. Nursing staff asked to call if any changes or further complaints are noted. Machelle LEVI/JOSE /12:49 PM /1:08 PM
[2016-03-02] MEDS: ENOXAPARIN SODIUM 40 MG/0.4 ML SYRINGE SQ SCH (16:45)
[2016-03-02 20:00] VITALS: BP 109/65; PULSE 78; RESP 20; TEMP 98.6; O2SAT 99
[2016-03-03 08:00] VITALS: BP 110/72; PULSE 80; RESP 18; TEMP 97.8; O2SAT 95
[2016-03-03] MEDS: TAMSULOSIN HCL 0.4 MG CAP PO SCH (08:45)
--- NOTE | 2016-03-03 11:52 | HHI.PR ---
Subjective Remarks No acute complaints. Denies fevers, cough, or shortness of breath. Objective Vitals Vital Signs Date Time Temp Pulse Resp B/P Pulse Ox O2 Delivery O2 Flow Rate FiO2 03/03/16 08:00 97.8 80 18 110/72 95 03/02/16 20:00 98.6 78 20 109/65 99 I/O 03/02/16 03/02/16 03/02/16 03/03/16 03/03/16 03/03/16 06:59 14:59 22:59 06:59 14:59 22:59 Intake Total 960 ml 480 ml 360 ml Output Total 420 ml 550 ml 175 ml 1200 ml 300 ml Balance -420 ml 410 ml 305 ml -840 ml -300 ml Intake Oral 960 ml 480 ml 360 ml Output Urine Total 420 ml 550 ml 175 ml 1200 ml 300 ml # Voids 1 5 # Bowel Movements 1 0 0 Objective Remarks GENERAL: Pleasant thin patient in no apparent distress sitting in recliner, hair appears well groomed. CARDIOVASCULAR: Regular rate and rhythm. Grade 2 murmur. RESPIRATORY: CTAB. RR normal. GASTROINTESTINAL: Abdomen soft, non-tender, non-distended. MUSCULOSKELETAL: No lower extremity edema bilaterally. NEUROLOGICAL: Awake and alert. Normal speech. Patient witnessed to be ambulating with walker. PSYCHIATRIC: Normal mood and affect. Procedures 12/18/15 EGD with PEG tube placement 02/14/16 Bedside PEG tube removal Urinary Catheter: No Date of Insertion: Jan 12, 2016 Date of Removal: Jan 26, 2016 Vascular Central Line Catheter: No A/P Problem List: (1) Failure to thrive in adult ICD Code: R62.7 Status: Acute (2) Malnutrition ICD Code: E46 Status: Acute (3) Urinary retention ICD Code: R33.9 Status: Resolved (4) Prerenal azotemia ICD Code: R79.89 Status: Acute (5) Gross hematuria ICD Code: R31.0 Status: Resolved (6) Bilateral lower leg cellulitis ICD Code: L03.116 Status: Resolved (7) Hyponatremia ICD Code: E87.1 Status: Resolved (8) Blurred vision, right eye ICD Code: H53.8 Status: Acute (9) Dysuria ICD Code: R30.0 Status: Acute (10) UTI (urinary tract infection) ICD Code: N39.0 Status: Acute Assessment and Plan 80-year-old male with no known past medical history presented via EMS after being found covered in urine/feces, complaining of generalized weakness and dysphagia. Dysphagia: resulting in severe malnutrition and weight loss. Consulted GI, performed EGD with PEG tube placement. GI signed off. Pre-albumin is still 17, continue to follow monthly Dietitian indicated patient was eating an adequate amount of kcals. Continue Ensure Enlive tid. GI reconsulted and removed PEG tube on 02/14/16 As of 02/15 Speech therapy recommends regular diet, thin liquids. Pressure ulcers: Stage IV coccyx ulcer is resolved. -Wound care last evaluated 02/02. Coccyx wound now closed. Barrier cream advised. Wound to R posterior shoulder healing, foam dressing advised. -Specialty bed Gross hematuria/Urinary retention: Resolved. Dysuria continues but improved. Patient has had an indwelling Mena due to advanced stage pressure ulcers. He was having discomfort and RN removed the Mena catheter. Patient was noted to have gross hematuria likely from catheter. Admits to suprapubic pain and dysuria. Experienced retention which has resolved. Continue Flomax 0.4 mg daily UA was obtained which showed infection, final urine culture with Pseudomonas, likely colonized since patient is had recurrent infections and indwelling Mena with same bacteria Urology, Dr. Rivera evaluated the patient on 02/04 and started patient on Cipro 500 mg po bid with New urine culture 02/04 again with pseudomonas. S/p Cipro treatment. Patient will likely need outpatient cystoscopy per urology Generalized Weakness: likely secondary to severe malnutrition and chronic deconditioning. Consulted PT/OT, recommends SNF. Case management consulted. Awaiting placement. Blurred vision R eye: -MRI with chronic ischemic demyelinization, but no acute abnormalities. -Ophthalmology evaluated the patient on 01/26. Patient has cataracts in both eyes and can obtain outpatient surgical evaluation. Right Apical Density: seen on AP CXR; PA/Lateral CXR shows findings of COPD. Chest CT 12/18 ordered by GI to evaluate for malignancy; shows bilateral pleural effusions, with common atelectatic changes, small amount of abdominal ascites and mesenteric edema characteristic of right R insufficiency/volume overload. Atherosclerotic calcification of the coronary arteries. -Incentive spirometry DVT Prophylaxis: Lovenox Discharge Planning OT recommends rehabilitation, 3-1 bedside commode, shower bench. PT recommends rehabilitation, wheeled walker, and wheelchair. cytology manager working on placement as patient has inability to care for self. SSI/Medicaid denied for over assets. POA brought bank statements. CM to follow up regarding this. Vida Carlisle Mar 03, 2016 11:52
[2016-03-03] MEDS: ENOXAPARIN SODIUM 40 MG/0.4 ML SYRINGE SQ SCH (16:04)
[2016-03-03 20:00] VITALS: BP 105/60; PULSE 88; RESP 18; TEMP 96.8; O2SAT 97
[2016-03-04 08:00] VITALS: BP 101/62; PULSE 76; RESP 20; TEMP 96.5; O2SAT 96
[2016-03-04] MEDS: TAMSULOSIN HCL 0.4 MG CAP PO SCH (08:38)
--- NOTE | 2016-03-04 11:19 | HHI.PR ---
Subjective Remarks Patient admits to some nasal congestion and a "little cough". He denies any fevers, chest pain, pleuritic pain, or shortness of breath. Objective Vitals Vital Signs Date Time Temp Pulse Resp B/P Pulse Ox O2 Delivery O2 Flow Rate FiO2 03/04/16 08:00 96.5 76 20 101/62 96 03/03/16 20:00 96.8 88 18 105/60 97 I/O 03/03/16 03/03/16 03/03/16 03/04/16 03/04/16 03/04/16 07:00 15:00 23:00 07:00 15:00 23:00 Intake Total 360 ml Output Total 1200 ml 300 ml 300 ml 400 ml Balance -840 ml -300 ml -300 ml -400 ml Intake Oral 360 ml Output Urine Total 1200 ml 300 ml 300 ml 400 ml # Voids 5 1 2 # Bowel Movements 0 Objective Remarks GENERAL: Pleasant thin patient in no apparent distress sitting in recliner, well groomed. CARDIOVASCULAR: Regular rate and rhythm. RESPIRATORY: RR normal. Mildly coarse breath sounds. GASTROINTESTINAL: Abdomen soft, non-tender, non-distended. NEUROLOGICAL: Awake and alert. Normal speech. PSYCHIATRIC: Normal mood and affect. Procedures 12/18/15 EGD with PEG tube placement 02/14/16 Bedside PEG tube removal Urinary Catheter: No Date of Insertion: Jan 12, 2016 Date of Removal: Jan 26, 2016 Vascular Central Line Catheter: No A/P Problem List: (1) Failure to thrive in adult ICD Code: R62.7 Status: Acute (2) Malnutrition ICD Code: E46 Status: Acute (3) Urinary retention ICD Code: R33.9 Status: Resolved (4) Prerenal azotemia ICD Code: R79.89 Status: Acute (5) Gross hematuria ICD Code: R31.0 Status: Resolved (6) Bilateral lower leg cellulitis ICD Code: L03.116 Status: Resolved (7) Hyponatremia ICD Code: E87.1 Status: Resolved (8) Blurred vision, right eye ICD Code: H53.8 Status: Acute (9) Dysuria ICD Code: R30.0 Status: Acute (10) UTI (urinary tract infection) ICD Code: N39.0 Status: Acute Assessment and Plan 80-year-old male with no known past medical history presented via EMS after being found covered in urine/feces, complaining of generalized weakness and dysphagia. Dysphagia: resulting in severe malnutrition and weight loss. Consulted GI, performed EGD with PEG tube placement. GI signed off. Pre-albumin is still 17, continue to follow monthly Dietitian indicated patient was eating an adequate amount of kcals. Continue Ensure Enlive tid. GI reconsulted and removed PEG tube on 02/14/16 As of 02/15 Speech therapy recommends regular diet, thin liquids. Pressure ulcers: Stage IV coccyx ulcer is resolved. -Wound care last evaluated 02/02. Coccyx wound now closed. Barrier cream advised. Wound to R posterior shoulder healing, foam dressing advised. -Specialty bed Gross hematuria/Urinary retention: Resolved. Dysuria continues but improved. Patient has had an indwelling Mena due to advanced stage pressure ulcers. He was having discomfort and RN removed the Mena catheter. Patient was noted to have gross hematuria likely from catheter. Admits to suprapubic pain and dysuria. Experienced retention which has resolved. Continue Flomax 0.4 mg daily UA was obtained which showed infection, final urine culture with Pseudomonas, likely colonized since patient is had recurrent infections and indwelling Mena with same bacteria Urology, Dr. Rivera evaluated the patient on 02/04 and started patient on Cipro 500 mg po bid with New urine culture 02/04 again with pseudomonas. S/p Cipro treatment. Patient will likely need outpatient cystoscopy per urology Generalized Weakness: likely secondary to severe malnutrition and chronic deconditioning. Consulted PT/OT, recommends SNF. Case management consulted. Awaiting placement. Blurred vision R eye: -MRI with chronic ischemic demyelinization, but no acute abnormalities. -Ophthalmology evaluated the patient on 01/26. Patient has cataracts in both eyes and can obtain outpatient surgical evaluation. Right Apical Density: seen on AP CXR; PA/Lateral CXR shows findings of COPD. Chest CT 12/18 ordered by GI to evaluate for malignancy; shows bilateral pleural effusions, with common atelectatic changes, small amount of abdominal ascites and mesenteric edema characteristic of right R insufficiency/volume overload. Atherosclerotic calcification of the coronary arteries. -Incentive spirometry URI symptoms: Patient complains of some nasal congestion and a minor cough although no cough on exam. He is afebrile with good heart rate and oxygen saturation. He has some mildly coarse breath sounds on exam but denies any shortness of breath or pleuritic pain. Likely has a virus. -He is advised to use incentive spirometer. DVT Prophylaxis: Lovenox Discharge Planning OT recommends rehabilitation, 3-1 bedside commode, shower bench. PT recommends rehabilitation, wheeled walker, and wheelchair. manager critical care working on placement as patient has inability to care for self. SSI/Medicaid denied for over assets. POA brought bank statements. to follow up regarding this. Vida Carlisle Mar 04, 2016 11:19
[2016-03-04] MEDS: ENOXAPARIN SODIUM 40 MG/0.4 ML SYRINGE SQ SCH (16:19)
[2016-03-04 20:00] VITALS: BP 104/59; PULSE 79; RESP 16; TEMP 98.7; O2SAT 95
[2016-03-05 08:00] VITALS: BP 106/58; PULSE 83; RESP 16; TEMP 97.6; O2SAT 97
[2016-03-05] MEDS: TAMSULOSIN HCL 0.4 MG CAP PO SCH (09:37)
[2016-03-05] MEDS: ENOXAPARIN SODIUM 40 MG/0.4 ML SYRINGE SQ SCH (15:30)
--- NOTE | 2016-03-05 18:09 | HHI.PR ---
Subjective Remarks No acute complaints. No change in clinical status. Objective Vitals Vital Signs Date Time Temp Pulse Resp B/P Pulse Ox O2 Delivery O2 Flow Rate FiO2 03/05/16 08:00 97.6 83 16 106/58 97 03/04/16 20:00 98.7 79 16 104/59 95 I/O 03/04/16 03/04/16 03/04/16 03/05/16 03/05/16 03/05/16 07:00 15:00 23:00 07:00 15:00 23:00 Intake Total 570 ml 240 ml 380 ml 720 ml Output Total 400 ml 600 ml 1300 ml Balance -400 ml 570 ml -360 ml -920 ml 720 ml Intake Oral 570 ml 240 ml 380 ml 720 ml Output Urine Total 400 ml 600 ml 1300 ml # Voids 2 3 1 1 # Bowel Movements 1 0 0 1 Objective Remarks GENERAL: Pleasant thin patient in no apparent distress sitting in recliner, well groomed. CARDIOVASCULAR: Regular rate and rhythm. RESPIRATORY: RR normal. CTAB. GASTROINTESTINAL: Normoactive bowel sounds. Abdomen soft, non-tender, non- distended. NEUROLOGICAL: Awake and alert. Normal speech. PSYCHIATRIC: Normal mood and affect. Procedures 12/18/15 EGD with PEG tube placement 02/14/16 Bedside PEG tube removal Urinary Catheter: No Date of Insertion: Jan 12, 2016 Date of Removal: Jan 26, 2016 Vascular Central Line Catheter: No A/P Problem List: (1) Failure to thrive in adult ICD Code: R62.7 Status: Acute (2) Malnutrition ICD Code: E46 Status: Acute (3) Urinary retention ICD Code: R33.9 Status: Resolved (4) Prerenal azotemia ICD Code: R79.89 Status: Acute (5) Gross hematuria ICD Code: R31.0 Status: Resolved (6) Bilateral lower leg cellulitis ICD Code: L03.116 Status: Resolved (7) Hyponatremia ICD Code: E87.1 Status: Resolved (8) Blurred vision, right eye ICD Code: H53.8 Status: Acute (9) Dysuria ICD Code: R30.0 Status: Acute (10) UTI (urinary tract infection) ICD Code: N39.0 Status: Acute Assessment and Plan 80-year-old male with no known past medical history presented via EMS after being found covered in urine/feces, complaining of generalized weakness and dysphagia. Dysphagia: resulting in severe malnutrition and weight loss. Consulted GI, performed EGD with PEG tube placement. GI signed off. Pre-albumin is still 17, continue to follow monthly Dietitian indicated patient was eating an adequate amount of kcals. Continue Ensure Enlive tid. GI reconsulted and removed PEG tube on 02/14/16 As of 02/15 Speech therapy recommends regular diet, thin liquids. Pressure ulcers: Stage IV coccyx ulcer is resolved. -Wound care last evaluated 02/02. Coccyx wound now closed. Barrier cream advised. Wound to R posterior shoulder healing, foam dressing advised. -Specialty bed Gross hematuria/Urinary retention: Resolved. Dysuria continues but improved. Patient has had an indwelling Mena due to advanced stage pressure ulcers. He was having discomfort and RN removed the Mena catheter. Patient was noted to have gross hematuria likely from catheter. Admits to suprapubic pain and dysuria. Experienced retention which has resolved. Continue Flomax 0.4 mg daily UA was obtained which showed infection, final urine culture with Pseudomonas, likely colonized since patient is had recurrent infections and indwelling Mena with same bacteria Urology, Dr. Rivera evaluated the patient on 02/04 and started patient on Cipro 500 mg po bid with New urine culture 02/04 again with pseudomonas. S/p Cipro treatment. Patient will likely need outpatient cystoscopy per urology Generalized Weakness: likely secondary to severe malnutrition and chronic deconditioning. Consulted PT/OT, recommends SNF. Case management consulted. Awaiting placement. Blurred vision R eye: -MRI with chronic ischemic demyelinization, but no acute abnormalities. -Ophthalmology evaluated the patient on 01/26. Patient has cataracts in both eyes and can obtain outpatient surgical evaluation. Right Apical Density: seen on AP CXR; PA/Lateral CXR shows findings of COPD. Chest CT 12/18 ordered by GI to evaluate for malignancy; shows bilateral pleural effusions, with common atelectatic changes, small amount of abdominal ascites and mesenteric edema characteristic of right R insufficiency/volume overload. Atherosclerotic calcification of the coronary arteries. -Incentive spirometry DVT Prophylaxis: Lovenox Discharge Planning OT recommends rehabilitation, 3-1 bedside commode, shower bench. PT recommends rehabilitation, wheeled walker, and wheelchair. manager winter working on placement as patient has inability to care for self. SSI/Medicaid denied for over assets. POA brought bank statements. CM to follow up regarding this. Vida Carlisle Mar 05, 2016 18:09
[2016-03-05 20:22] VITALS: BP 117/62; PULSE 85; RESP 14; TEMP 96.3; O2SAT 98
[2016-03-06 08:00] VITALS: BP 117/67; PULSE 88; RESP 18; TEMP 98.4; O2SAT 95
[2016-03-06] MEDS: TAMSULOSIN HCL 0.4 MG CAP PO SCH (09:15)
[2016-03-06] MEDS: ENOXAPARIN SODIUM 40 MG/0.4 ML SYRINGE SQ SCH (15:46)
--- NOTE | 2016-03-06 16:15 | HHI.PR ---
Subjective Remarks No acute complaints. No change in clinical status. Objective Vitals Vital Signs Date Time Temp Pulse Resp B/P Pulse Ox O2 Delivery O2 Flow Rate FiO2 03/06/16 08:00 98.4 88 18 117/67 95 03/05/16 20:22 96.3 85 14 117/62 98 I/O 03/05/16 03/05/16 03/05/16 03/06/16 03/06/16 03/06/16 07:00 15:00 23:00 07:00 15:00 23:00 Intake Total 380 ml 720 ml 240 ml 960 ml Output Total 1300 ml 250 ml 800 ml Balance -920 ml 720 ml -10 ml -800 ml 960 ml Intake Oral 380 ml 720 ml 240 ml 960 ml Output Urine Total 1300 ml 250 ml 800 ml # Voids 1 1 1 # Bowel Movements 0 1 Objective Remarks GENERAL: Pleasant thin patient in no apparent distress. CARDIOVASCULAR: Regular rate and rhythm. Grade 2 murmur. RESPIRATORY: Limited exam. RR normal. CTAB. GASTROINTESTINAL: Normoactive bowel sounds. Abdomen soft, non-tender, non- distended. NEUROLOGICAL: Awake and alert. Normal speech. PSYCHIATRIC: Normal mood and affect. Procedures 12/18/15 EGD with PEG tube placement 02/14/16 Bedside PEG tube removal Urinary Catheter: No Date of Insertion: Jan 12, 2016 Date of Removal: Jan 26, 2016 Vascular Central Line Catheter: No A/P Problem List: (1) Failure to thrive in adult ICD Code: R62.7 Status: Acute (2) Malnutrition ICD Code: E46 Status: Acute (3) Urinary retention ICD Code: R33.9 Status: Resolved (4) Prerenal azotemia ICD Code: R79.89 Status: Acute (5) Gross hematuria ICD Code: R31.0 Status: Resolved (6) Bilateral lower leg cellulitis ICD Code: L03.116 Status: Resolved (7) Hyponatremia ICD Code: E87.1 Status: Resolved (8) Blurred vision, right eye ICD Code: H53.8 Status: Acute (9) Dysuria ICD Code: R30.0 Status: Acute (10) UTI (urinary tract infection) ICD Code: N39.0 Status: Resolved Assessment and Plan 80-year-old male with no known past medical history presented via EMS after being found covered in urine/feces, complaining of generalized weakness and dysphagia. Dysphagia: resulting in severe malnutrition and weight loss. Consulted GI, performed EGD with PEG tube placement. GI signed off. Pre-albumin is still 17, continue to follow monthly Dietitian indicated patient was eating an adequate amount of kcals. Continue Ensure Enlive tid. GI reconsulted and removed PEG tube on 02/14/16 As of 02/15 Speech therapy recommends regular diet, thin liquids. Pressure ulcers: Stage IV coccyx ulcer is resolved. -Wound care last evaluated 02/02. Coccyx wound now closed. Barrier cream advised. Wound to R posterior shoulder healing, foam dressing advised. -Specialty bed Gross hematuria/Urinary retention: Resolved. Dysuria continues but improved. Patient has had an indwelling Mena due to advanced stage pressure ulcers. He was having discomfort and RN removed the Mena catheter. Patient was noted to have gross hematuria likely from catheter. Admits to suprapubic pain and dysuria. Experienced retention which has resolved. Continue Flomax 0.4 mg daily UA was obtained which showed infection, final urine culture with Pseudomonas, likely colonized since patient is had recurrent infections and indwelling Mena with same bacteria Urology, Dr. Rivera evaluated the patient on 02/04 and started patient on Cipro 500 mg po bid with New urine culture 02/04 again with pseudomonas. S/p Cipro treatment. Patient will likely need outpatient cystoscopy per urology Generalized Weakness: likely secondary to severe malnutrition and chronic deconditioning. Consulted PT/OT, recommends SNF. Case management consulted. Awaiting placement. Blurred vision R eye: -MRI with chronic ischemic demyelinization, but no acute abnormalities. -Ophthalmology evaluated the patient on 01/26. Patient has cataracts in both eyes and can obtain outpatient surgical evaluation. Right Apical Density: seen on AP CXR; PA/Lateral CXR shows findings of COPD. Chest CT 12/18 ordered by GI to evaluate for malignancy; shows bilateral pleural effusions, with common atelectatic changes, small amount of abdominal ascites and mesenteric edema characteristic of right R insufficiency/volume overload. Atherosclerotic calcification of the coronary arteries. -Incentive spirometry DVT Prophylaxis: Lovenox Discharge Planning OT recommends rehabilitation, 3-1 bedside commode, shower bench. PT recommends rehabilitation, wheeled walker, and wheelchair. 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 SSI/Medicaid denied for over assets. POA brought bank statements. CM to follow up regarding this. Vida Carlisle Mar 06, 2016 16:15
[2016-03-06 20:00] VITALS: BP 99/55; PULSE 89; RESP 18; TEMP 97.7; O2SAT 94
[2016-03-07 08:00] VITALS: BP 124/77; PULSE 78; RESP 18; TEMP 98.8; O2SAT 95
[2016-03-07] MEDS: TAMSULOSIN HCL 0.4 MG CAP PO SCH (09:05)
--- NOTE | 2016-03-07 11:25 | HHI.PR ---
Subjective Remarks No acute complaints. No change in clinical status. Objective Vitals Vital Signs Date Time Temp Pulse Resp B/P Pulse Ox O2 Delivery O2 Flow Rate FiO2 03/07/16 08:00 98.8 78 18 124/77 95 03/06/16 20:00 97.7 89 18 99/55 94 I/O 03/06/16 03/06/16 03/06/16 03/07/16 03/07/16 03/07/16 07:00 15:00 23:00 07:00 15:00 23:00 Intake Total 960 ml Output Total 800 ml Balance -800 ml 960 ml Intake Oral 960 ml Output Urine Total 800 ml # Voids 1 1 Objective Remarks GENERAL: Pleasant thin patient in no apparent distress. CARDIOVASCULAR: Regular rate and rhythm. Grade 2 murmur. RESPIRATORY: Limited exam. RR normal. CTAB. GASTROINTESTINAL: Normoactive bowel sounds. Abdomen soft, non-tender, non- distended. NEUROLOGICAL: Awake and alert. Normal speech. PSYCHIATRIC: Normal mood and affect. Procedures 12/18/15 EGD with PEG tube placement 02/14/16 Bedside PEG tube removal Urinary Catheter: No Date of Insertion: Jan 12, 2016 Date of Removal: Jan 26, 2016 Vascular Central Line Catheter: No A/P Problem List: (1) Failure to thrive in adult ICD Code: R62.7 Status: Acute (2) Malnutrition ICD Code: E46 Status: Acute (3) Urinary retention ICD Code: R33.9 Status: Resolved (4) Prerenal azotemia ICD Code: R79.89 Status: Acute (5) Gross hematuria ICD Code: R31.0 Status: Resolved (6) Bilateral lower leg cellulitis ICD Code: L03.116 Status: Resolved (7) Hyponatremia ICD Code: E87.1 Status: Resolved (8) Blurred vision, right eye ICD Code: H53.8 Status: Acute (9) Dysuria ICD Code: R30.0 Status: Acute (10) UTI (urinary tract infection) ICD Code: N39.0 Status: Resolved Assessment and Plan 80-year-old male with no known past medical history presented via EMS after being found covered in urine/feces, complaining of generalized weakness and dysphagia. Dysphagia: resulting in severe malnutrition and weight loss. Consulted GI, performed EGD with PEG tube placement. GI signed off. Pre-albumin is still 17, continue to follow monthly Dietitian indicated patient was eating an adequate amount of kcals. Continue Ensure Enlive tid. GI reconsulted and removed PEG tube on 02/14/16 As of 02/15 Speech therapy recommends regular diet, thin liquids. Pressure ulcers: Stage IV coccyx ulcer is resolved. -Wound care last evaluated 02/02. Coccyx wound now closed. Barrier cream advised. Wound to R posterior shoulder healing, foam dressing advised. -Specialty bed Gross hematuria/Urinary retention: Resolved. Dysuria continues but improved. Patient has had an indwelling Mena due to advanced stage pressure ulcers. He was having discomfort and RN removed the Mena catheter. Patient was noted to have gross hematuria likely from catheter. Admits to suprapubic pain and dysuria. Experienced retention which has resolved. Continue Flomax 0.4 mg daily UA was obtained which showed infection, final urine culture with Pseudomonas, likely colonized since patient is had recurrent infections and indwelling Mena with same bacteria Urology, Dr. Rivera evaluated the patient on 02/04 and started patient on Cipro 500 mg po bid with New urine culture 02/04 again with pseudomonas. S/p Cipro treatment. Patient will likely need outpatient cystoscopy per urology Generalized Weakness: likely secondary to severe malnutrition and chronic deconditioning. Consulted PT/OT, recommends SNF. Case management consulted. Awaiting placement. Blurred vision R eye: -MRI with chronic ischemic demyelinization, but no acute abnormalities. -Ophthalmology evaluated the patient on 01/26. Patient has cataracts in both eyes and can obtain outpatient surgical evaluation. Right Apical Density: seen on AP CXR; PA/Lateral CXR shows findings of COPD. Chest CT 12/18 ordered by GI to evaluate for malignancy; shows bilateral pleural effusions, with common atelectatic changes, small amount of abdominal ascites and mesenteric edema characteristic of right R insufficiency/volume overload. Atherosclerotic calcification of the coronary arteries. -Incentive spirometry DVT Prophylaxis: Lovenox Discharge Planning OT recommends rehabilitation, 3-1 bedside commode, shower bench. PT recommends rehabilitation, wheeled walker, and wheelchair. 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 SSI/Medicaid denied for over assets. POA brought bank statements. CM to follow up regarding this. Vida Carlisle Mar 07, 2016 11:25
[2016-03-07] MEDS: ENOXAPARIN SODIUM 40 MG/0.4 ML SYRINGE SQ SCH (16:40)
[2016-03-07 20:00] VITALS: BP 104/56; PULSE 87; RESP 16; TEMP 96.4; O2SAT 95
[2016-03-08 08:00] VITALS: BP 109/66; PULSE 70; RESP 16; TEMP 97.7; O2SAT 97
[2016-03-08] MEDS ORDERED: WALKER WHEELS/F1 MIS (08:19)
--- NOTE | 2016-03-08 08:40 | HHI.PR ---
Subjective Remarks No acute complaints. No change in clinical status. Objective Vitals Vital Signs Date Time Temp Pulse Resp B/P Pulse Ox O2 Delivery O2 Flow Rate FiO2 03/08/16 08:00 97.7 70 16 109/66 97 03/07/16 20:00 96.4 87 16 104/56 95 I/O 03/07/16 03/07/16 03/07/16 03/08/16 03/08/16 03/08/16 07:00 15:00 23:00 07:00 15:00 23:00 Intake Total 480 ml Output Total 275 ml 450 ml Balance 205 ml -450 ml Intake Oral 480 ml Output Urine Total 275 ml 450 ml # Voids 1 # Bowel Movements 0 1 Objective Remarks GENERAL: Pleasant thin patient in no apparent distress. CARDIOVASCULAR: Regular rate and rhythm. Grade 2 murmur. RESPIRATORY: Limited exam. RR normal. CTAB. GASTROINTESTINAL: Normoactive bowel sounds. Abdomen soft, non-tender, non- distended. NEUROLOGICAL: Awake and alert. Normal speech. PSYCHIATRIC: Normal mood and affect. Procedures 12/18/15 EGD with PEG tube placement 02/14/16 Bedside PEG tube removal Urinary Catheter: No Date of Insertion: Jan 12, 2016 Date of Removal: Jan 26, 2016 Vascular Central Line Catheter: No A/P Problem List: (1) Failure to thrive in adult ICD Code: R62.7 Status: Acute (2) Malnutrition ICD Code: E46 Status: Acute (3) Urinary retention ICD Code: R33.9 Status: Resolved (4) Prerenal azotemia ICD Code: R79.89 Status: Acute (5) Gross hematuria ICD Code: R31.0 Status: Resolved (6) Bilateral lower leg cellulitis ICD Code: L03.116 Status: Resolved (7) Hyponatremia ICD Code: E87.1 Status: Resolved (8) Blurred vision, right eye ICD Code: H53.8 Status: Acute (9) Dysuria ICD Code: R30.0 Status: Acute (10) UTI (urinary tract infection) ICD Code: N39.0 Status: Resolved Assessment and Plan 80-year-old male with no known past medical history presented via EMS after being found covered in urine/feces, complaining of generalized weakness and dysphagia. Dysphagia: resulting in severe malnutrition and weight loss. Consulted GI, performed EGD with PEG tube placement. GI signed off. Pre-albumin is still 17, continue to follow monthly Dietitian indicated patient was eating an adequate amount of kcals. Continue Ensure Enlive tid. GI reconsulted and removed PEG tube on 02/14/16 As of 02/15 Speech therapy recommends regular diet, thin liquids. Pressure ulcers: Stage IV coccyx ulcer is resolved. -Wound care last evaluated 02/02. Coccyx wound now closed. Barrier cream advised. Wound to R posterior shoulder healing, foam dressing advised. -Specialty bed Gross hematuria/Urinary retention: Resolved. Dysuria continues but improved. Patient has had an indwelling Mena due to advanced stage pressure ulcers. He was having discomfort and RN removed the Mena catheter. Patient was noted to have gross hematuria likely from catheter. Admits to suprapubic pain and dysuria. Experienced retention which has resolved. Continue Flomax 0.4 mg daily UA was obtained which showed infection, final urine culture with Pseudomonas, likely colonized since patient is had recurrent infections and indwelling Mena with same bacteria Urology, Dr. Rivera evaluated the patient on 02/04 and started patient on Cipro 500 mg po bid with New urine culture 02/04 again with pseudomonas. S/p Cipro treatment. Patient will likely need outpatient cystoscopy per urology Generalized Weakness: likely secondary to severe malnutrition and chronic deconditioning. Consulted PT/OT, recommends SNF. Case management consulted. Awaiting placement. Blurred vision R eye: -MRI with chronic ischemic demyelinization, but no acute abnormalities. -Ophthalmology evaluated the patient on 01/26. Patient has cataracts in both eyes and can obtain outpatient surgical evaluation. Right Apical Density: seen on AP CXR; PA/Lateral CXR shows findings of COPD. Chest CT 12/18 ordered by GI to evaluate for malignancy; shows bilateral pleural effusions, with common atelectatic changes, small amount of abdominal ascites and mesenteric edema characteristic of right R insufficiency/volume overload. Atherosclerotic calcification of the coronary arteries. -Incentive spirometry DVT Prophylaxis: Lovenox Discharge Planning OT recommends rehabilitation, 3-1 bedside commode, shower bench. PT recommends rehabilitation, wheeled walker, and wheelchair. monitoring manager working on placement as patient has inability to care for self. SSI/Medicaid denied for over assets. POA brought bank statements. CM to follow up regarding this. Vida Carlisle Mar 08, 2016 08:40
[2016-03-08] MEDS: TAMSULOSIN HCL 0.4 MG CAP PO SCH (09:45)
[2016-03-08] MEDS: ENOXAPARIN SODIUM 40 MG/0.4 ML SYRINGE SQ SCH (15:36)
[2016-03-08 20:00] VITALS: BP 108/62; PULSE 79; RESP 18; TEMP 97.4; O2SAT 96
[2016-03-09 08:00] VITALS: BP 110/64; PULSE 74; RESP 16; TEMP 96.3; O2SAT 94
--- NOTE | 2016-03-09 08:56 | HHI.PR ---
Subjective Remarks Patient seen and examined today. Patient denies any new complaints. Discussed with patient the need to get up and increase his activity to improve strength and mobility. Patient states that we have spoil him too much for him to go anywhere else. Objective Vitals Vital Signs Date Time Temp Pulse Resp B/P Pulse Ox O2 Delivery O2 Flow Rate FiO2 03/09/16 08:00 96.3 74 16 110/64 94 03/08/16 20:00 97.4 79 18 108/62 96 I/O 03/08/16 03/08/16 03/08/16 03/09/16 03/09/16 03/09/16 07:00 15:00 23:00 07:00 15:00 23:00 Output Total 450 ml 200 ml 400 ml 800 ml Balance -450 ml -200 ml -400 ml -800 ml Output Urine Total 450 ml 200 ml 400 ml 800 ml # Voids 2 3 # Bowel Movements 1 1 Objective Remarks GENERAL: Well-developed, well-nourished, in no acute distress. alert and orientated HEENT: Head is normocephalic without any lesions or masses noted. Facial features are symmetric. NECK: Trachea midline no deviation. CARDIAC: Regular rhythm, regular rate. S1/S2 are heard. 2/6 ejection murmur, no gallops or rubs. LUNGS: Clear to auscultation bilaterally. No wheeze, rhonchi or rales. No use of accessory muscles on inspiration or expiration. ABDOMEN: Soft, nontender. Nondistended. Bowel sounds heard in all 4 quadrants. No organomegaly or masses. Negative rebound, negative guarding. PEG tube removed EXTREMITIES: No edema, pulses are equal bilaterally. No cyanosis or clubbing NEUROLOGY: Mood and affect appear appropriate. Cranial nerves II through XII grossly intact. Moving all extremities, speech is clear Procedures 12/18/15 EGD with PEG tube placement 02/14/16 Bedside PEG tube removal Urinary Catheter: No Date of Insertion: Jan 12, 2016 Date of Removal: Jan 26, 2016 Vascular Central Line Catheter: No A/P Assessment and Plan 80-year-old male with no known past medical history presented via EMS after being found covered in urine/feces, complaining of generalized weakness and dysphagia. Dysphagia: resulting in severe malnutrition and weight loss. Consulted GI, performed EGD with PEG tube placement. GI signed speech therapy recommending regular diet consistencies Pre-albumin is still 17, continue to follow monthly Calorie count was performed by dietary which indicated patient and likely eating food, PEG tube can be removed GI reconsulted and removed PEG tube 02/14/16 Stage IV pressure ulcers, present on admission on coccyx and right ischium. Specialty bed. Wound care consulted to evaluate patient here at PO. Wound care following the patient, indicates that wound is improving continue with current orders of Santyl daily Gross hematuria/Urinary retention: Resolved Patient has had an indwelling Mena due to advanced stage pressure ulcers. He was having discomfort this morning and RN removed the Mena catheter. Patient was noted to have gross hematuria likely from catheter. Admits to suprapubic pain and dysuria. 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 Rivera evaluated the patient on 02/04 and started patient on Cipro 500 mg po bid. New urine culture 02/04 again with pseudomonas susceptible to Cipro. Continue antibiotics. Patient will likely need outpatient cystoscopy per urology Generalized Weakness: likely secondary to severe malnutrition and chronic deconditioning. Consulted PT/OT, recommends SNF. Case management consulted. Awaiting placement. DVT Prophylaxis: Lovenox Discharge Planning OT recommends rehabilitation, 3-1 bedside commode, shower bench. PT recommends rehabilitation, wheeled walker, and wheelchair. manager advanced working on placement. Medicaid pending. 02/26/16 1023 [facility] WAS ABLE TO FIND OUT FROM FAMILY WHO WAS ACTUALLY THE POA AND CONTACT WAS MADE. TO PARKER GUILLERMO SATED POA. HE BROUGHT NEEDED BANK STATEMENTS ETC ON 02/25/16. NEEDED TO ASSIST WITH SSI/MEDICAID MANA. IT WAS DENIED FOR OVER ASSETS, WILL F/U FOR UPDATE IF SSI/MEDICAID WILL BE AN OPTION POST EVAL OF PAPERWORK BROUGHT IN. WILL CONT TO FOLLOW FOR D/C NEEDS. SNF VS HOME VIKTORIA BERNSTEIN LPN/CM/CHARGE Perfecto Tamayo Mar 09, 2016 08:56
[2016-03-09] MEDS: TAMSULOSIN HCL 0.4 MG CAP PO SCH (09:09)
[2016-03-09] MEDS: ENOXAPARIN SODIUM 40 MG/0.4 ML SYRINGE SQ SCH (16:20)
[2016-03-09 20:00] VITALS: BP 109/58; PULSE 58; RESP 18; TEMP 97.9; O2SAT 97
[2016-03-10 08:00] VITALS: BP 111/55; PULSE 85; RESP 19; TEMP 97.9; O2SAT 94
[2016-03-10] MEDS: TAMSULOSIN HCL 0.4 MG CAP PO SCH (08:13)
--- NOTE | 2016-03-10 10:03 | HHI.PR ---
Subjective Remarks Patient seen and examined today. Patient states that he exercises yesterday and now he's paying for it was severe pain in his lower extremities. Patient still indicating that he has exercise toxemia Objective Vitals Vital Signs Date Time Temp Pulse Resp B/P Pulse Ox O2 Delivery O2 Flow Rate FiO2 03/10/16 08:00 97.9 85 19 111/55 94 03/09/16 20:00 97.9 58 18 109/58 97 I/O 03/09/16 03/09/16 03/09/16 03/10/16 03/10/16 03/10/16 07:00 15:00 23:00 07:00 15:00 23:00 Intake Total 1200 ml 480 ml 120 ml Output Total 800 ml 1125 ml 500 ml 800 ml Balance -800 ml 75 ml -20 ml -680 ml Intake Oral 1200 ml 480 ml 120 ml Output Urine Total 800 ml 1125 ml 500 ml 800 ml # Voids 3 # Bowel Movements 0 0 0 Objective Remarks GENERAL: Well-developed, well-nourished, in no acute distress. alert and orientated HEENT: Head is normocephalic without any lesions or masses noted. Facial features are symmetric. NECK: Trachea midline no deviation. CARDIAC: Regular rhythm, regular rate. S1/S2 are heard. 2/6 ejection murmur, no gallops or rubs. LUNGS: Clear to auscultation bilaterally. No wheeze, rhonchi or rales. No use of accessory muscles on inspiration or expiration. ABDOMEN: Soft, nontender. Nondistended. Bowel sounds heard in all 4 quadrants. No organomegaly or masses. Negative rebound, negative guarding. PEG tube removed EXTREMITIES: No edema, pulses are equal bilaterally. No cyanosis or clubbing NEUROLOGY: Mood and affect appear appropriate. Cranial nerves II through XII grossly intact. Moving all extremities, speech is clear Procedures 12/18/15 EGD with PEG tube placement 02/14/16 Bedside PEG tube removal Urinary Catheter: No Date of Insertion: Jan 12, 2016 Date of Removal: Jan 26, 2016 Vascular Central Line Catheter: No A/P Assessment and Plan 80-year-old male with no known past medical history presented via EMS after being found covered in urine/feces, complaining of generalized weakness and dysphagia. Dysphagia: resulting in severe malnutrition and weight loss. Consulted GI, performed EGD with PEG tube placement. GI signed speech therapy recommending regular diet consistencies Pre-albumin is still 17, continue to follow monthly Calorie count was performed by dietary which indicated patient and likely eating food, PEG tube can be removed GI reconsulted and removed PEG tube 02/14/16 Stage IV pressure ulcers, present on admission on coccyx and right ischium. Specialty bed. Wound care consulted to evaluate patient here at PO. Wound care following the patient, indicates that wound is improving continue with current orders of Santyl daily Gross hematuria/Urinary retention: Resolved Patient has had an indwelling Mena due to advanced stage pressure ulcers. He was having discomfort this morning and RN removed the Mena catheter. Patient was noted to have gross hematuria likely from catheter. Admits to suprapubic pain and dysuria. 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 Rivera evaluated the patient on 02/04 and started patient on Cipro 500 mg po bid. New urine culture 02/04 again with pseudomonas susceptible to Cipro. Continue antibiotics. Patient will likely need outpatient cystoscopy per urology Generalized Weakness: likely secondary to severe malnutrition and chronic deconditioning. 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 We'll check CPK, CK-MB to rule out any rhabdomyolysis Case management consulted. Awaiting placement. DVT Prophylaxis: Lovenox Discharge Planning OT recommends rehabilitation, 3-1 bedside commode, shower bench. PT recommends rehabilitation, wheeled walker, and wheelchair. charge manager working on placement. Medicaid pending. 02/26/16 [facility] WAS ABLE TO FIND OUT FROM FAMILY WHO WAS ACTUALLY THE POA AND CONTACT WAS MADE. SHRUTHI GUILLERMO SATED POA. HE BROUGHT NEEDED BANK STATEMENTS ETC ON 02/25/16. NEEDED TO ASSIST WITH SSI/MEDICAID MANA. IT WAS DENIED FOR OVER ASSETS, WILL F/U FOR UPDATE IF SSI/MEDICAID WILL BE AN OPTION POST EVAL OF PAPERWORK BROUGHT IN. WILL CONT TO FOLLOW FOR D/C NEEDS. SNF VS HOME VIKTORIA BERNSTEIN LPN/CM/CHARGE Perfecto Tamayo Mar 10, 2016 10:03
[2016-03-10 11:39] LABS: CREATINE KINASE 50 U/L (39-308)
[2016-03-10] MEDS: ENOXAPARIN SODIUM 40 MG/0.4 ML SYRINGE SQ SCH (14:19)
[2016-03-10 20:00] VITALS: BP 100/59; PULSE 78; RESP 16; TEMP 98.3; O2SAT 9
[2016-03-11 08:00] VITALS: BP 103/60; PULSE 76; RESP 18; TEMP 98; O2SAT 96
[2016-03-11] MEDS: TAMSULOSIN HCL 0.4 MG CAP PO SCH (08:03)
--- NOTE | 2016-03-11 10:13 | HHI.PR ---
Subjective Remarks Patient seen and examined today. Patient denies any new complaints. No change in clinical status. Objective Vitals Vital Signs Date Time Temp Pulse Resp B/P Pulse Ox O2 Delivery O2 Flow Rate FiO2 03/11/16 08:00 98.0 76 18 103/60 96 03/10/16 20:00 98.3 78 16 100/59 9 I/O 03/10/16 03/10/16 03/10/16 03/11/16 03/11/16 03/11/16 06:59 14:59 22:59 06:59 14:59 22:59 Intake Total 120 ml 360 ml 480 ml 480 ml Output Total 800 ml 650 ml 400 ml 800 ml Balance -680 ml -290 ml 80 ml -320 ml Intake Oral 120 ml 360 ml 480 ml 480 ml Output Urine Total 800 ml 650 ml 400 ml 800 ml # Bowel Movements 0 0 0 0 Objective Remarks GENERAL: Well-developed, well-nourished, in no acute distress. alert and orientated HEENT: Head is normocephalic without any lesions or masses noted. Facial features are symmetric. NECK: Trachea midline no deviation. CARDIAC: Regular rhythm, regular rate. S1/S2 are heard. 2/6 ejection murmur, no gallops or rubs. LUNGS: Clear to auscultation bilaterally. No wheeze, rhonchi or rales. No use of accessory muscles on inspiration or expiration. ABDOMEN: Soft, nontender. Nondistended. Bowel sounds heard in all 4 quadrants. No organomegaly or masses. Negative rebound, negative guarding. PEG tube removed EXTREMITIES: No edema, pulses are equal bilaterally. No cyanosis or clubbing NEUROLOGY: Mood and affect appear appropriate. Cranial nerves II through XII grossly intact. Moving all extremities, speech is clear Procedures 12/18/15 EGD with PEG tube placement 02/14/16 Bedside PEG tube removal Urinary Catheter: No Date of Insertion: Jan 12, 2016 Date of Removal: Jan 26, 2016 Vascular Central Line Catheter: No A/P Assessment and Plan 80-year-old male with no known past medical history presented via EMS after being found covered in urine/feces, complaining of generalized weakness and dysphagia. Dysphagia: resulting in severe malnutrition and weight loss. Consulted GI, performed EGD with PEG tube placement. GI signed speech therapy recommending regular diet consistencies Pre-albumin is still 17, continue to follow monthly Calorie count was performed by dietary which indicated patient and likely eating food, PEG tube can be removed GI reconsulted and removed PEG tube 02/14/16 Stage IV pressure ulcers, present on admission on coccyx and right ischium. Specialty bed. Wound care consulted to evaluate patient here at PO. Wound care following the patient, indicates that wound is improving continue with current orders of Santyl daily Gross hematuria/Urinary retention: Resolved Patient has had an indwelling Mena due to advanced stage pressure ulcers. He was having discomfort this morning and RN removed the Mena catheter. Patient was noted to have gross hematuria likely from catheter. Admits to suprapubic pain and dysuria. 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 Rivera evaluated the patient on 02/04 and started patient on Cipro 500 mg po bid. New urine culture 02/04 again with pseudomonas susceptible to Cipro. Continue antibiotics. Patient will likely need outpatient cystoscopy per urology Generalized Weakness: likely secondary to severe malnutrition and chronic deconditioning. 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 We'll check CPK, CK-MB to rule out any rhabdomyolysis Case management consulted. Awaiting placement. DVT Prophylaxis: Lovenox Discharge Planning OT recommends rehabilitation, 3-1 bedside commode, shower bench. PT recommends rehabilitation, wheeled walker, and wheelchair. manpower development specialist manager working on placement. Medicaid pending. 02/26/16 1023 [facility] WAS ABLE TO FIND OUT FROM FAMILY WHO WAS ACTUALLY THE POA AND CONTACT WAS MADE. SHRUTHI CANALES GUILLERMO SATED POA. HE BROUGHT NEEDED BANK STATEMENTS ETC ON 02/25/16. NEEDED TO ASSIST WITH SSI/MEDICAID MANA. IT WAS DENIED FOR OVER ASSETS, WILL F/U FOR UPDATE IF SSI/MEDICAID WILL BE AN OPTION POST EVAL OF PAPERWORK BROUGHT IN. WILL CONT TO FOLLOW FOR D/C NEEDS. SNF VS HOME VIKTORIA BERNSTEIN LPN/CM/CHARGE Perfecto Tamayo Mar 11, 2016 10:13
[2016-03-11] MEDS: ENOXAPARIN SODIUM 40 MG/0.4 ML SYRINGE SQ SCH (16:00)
[2016-03-11 20:00] VITALS: BP 100/56; PULSE 76; RESP 18; TEMP 98; O2SAT 95
[2016-03-12 07:15] VITALS: BP 109/57; PULSE 80; RESP 20; TEMP 98; O2SAT 95
[2016-03-12] MEDS: TAMSULOSIN HCL 0.4 MG CAP PO SCH (08:45)
--- NOTE | 2016-03-12 09:51 | HHI.PR ---
Subjective Remarks Patient seen and examined today. Patient still complains of lower extremity burning and pain after exercise Objective Vitals Vital Signs Date Time Temp Pulse Resp B/P Pulse Ox O2 Delivery O2 Flow Rate FiO2 03/12/16 07:15 98.0 80 20 109/57 95 03/11/16 20:00 98.0 76 18 100/56 95 I/O 03/11/16 03/11/16 03/11/16 03/12/16 03/12/16 03/12/16 07:00 15:00 23:00 07:00 15:00 23:00 Intake Total 480 ml 475 ml 820 ml 860 ml Output Total 800 ml 850 ml 700 ml 585 ml Balance -320 ml -375 ml 120 ml 275 ml Intake Oral 480 ml 475 ml 820 ml 860 ml IV Total 0 ml 0 ml Output Urine Total 800 ml 850 ml 700 ml 585 ml # Bowel Movements 0 1 0 Objective Remarks GENERAL: Well-developed, well-nourished, in no acute distress. alert and orientated HEENT: Head is normocephalic without any lesions or masses noted. Facial features are symmetric. NECK: Trachea midline no deviation. CARDIAC: Regular rhythm, regular rate. S1/S2 are heard. 2/6 ejection murmur, no gallops or rubs. LUNGS: Clear to auscultation bilaterally. No wheeze, rhonchi or rales. No use of accessory muscles on inspiration or expiration. ABDOMEN: Soft, nontender. Nondistended. Bowel sounds heard in all 4 quadrants. No organomegaly or masses. Negative rebound, negative guarding. PEG tube removed EXTREMITIES: No edema, pulses are equal bilaterally. No cyanosis or clubbing NEUROLOGY: Mood and affect appear appropriate. Cranial nerves II through XII grossly intact. Moving all extremities, speech is clear Procedures 12/18/15 EGD with PEG tube placement 02/14/16 Bedside PEG tube removal Urinary Catheter: No Date of Insertion: Jan 12, 2016 Date of Removal: Jan 26, 2016 Vascular Central Line Catheter: No A/P Assessment and Plan 80-year-old male with no known past medical history presented via EMS after being found covered in urine/feces, complaining of generalized weakness and dysphagia. Dysphagia: resulting in severe malnutrition and weight loss. Consulted GI, performed EGD with PEG tube placement. GI signed speech therapy recommending regular diet consistencies Pre-albumin is still 17, continue to follow monthly Calorie count was performed by dietary which indicated patient and likely eating food, PEG tube can be removed GI reconsulted and removed PEG tube 02/14/16 Stage IV pressure ulcers, present on admission on coccyx and right ischium. Specialty bed. Wound care consulted to evaluate patient here at PO. Wound care following the patient, indicates that wound is improving continue with current orders of Santyl daily Gross hematuria/Urinary retention: Resolved Patient has had an indwelling Mena due to advanced stage pressure ulcers. He was having discomfort this morning and RN removed the Mena catheter. Patient was noted to have gross hematuria likely from catheter. Admits to suprapubic pain and dysuria. 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 Rivear evaluated the patient on 02/04 and started patient on Cipro 500 mg po bid. New urine culture 02/04 again with pseudomonas susceptible to Cipro. Continue antibiotics. Patient will likely need outpatient cystoscopy per urology Generalized Weakness: likely secondary to severe malnutrition and chronic deconditioning. 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 Recommending wheeled walker, home with home health care if can be arranged Occupational therapy: Recommending 31 bedside commode, shower bench, home with home health care and family if no family then [facility] Case management consulted. Awaiting placement. DVT Prophylaxis: Lovenox Discharge Planning OT recommends rehabilitation, 3-1 bedside commode, shower bench. Recommending home with home health care in family or [facility] if no family. Physical therapy recommended home with home physical therapy if can be arranged, wheeled walker. biodiesel product manager working on placement. Medicaid pending. 02/26/16 1023 [facility] WAS ABLE TO FIND OUT FROM FAMILY WHO WAS ACTUALLY THE POA AND CONTACT WAS MADE. TO PARKER MIMA SATED POA. HE BROUGHT NEEDED BANK STATEMENTS ETC ON 02/25/16. NEEDED TO ASSIST WITH SSI/MEDICAID MANA. IT WAS DENIED FOR OVER ASSETS, WILL F/U FOR UPDATE IF SSI/MEDICAID WILL BE AN OPTION POST EVAL OF PAPERWORK BROUGHT IN. WILL CONT TO FOLLOW FOR D/C NEEDS. SNF VS HOME VIKTORIA BERNSTEIN LPN/CM/CHARGE Perfecto Tamayo Mar 12, 2016 09:50
[2016-03-12] MEDS: ENOXAPARIN SODIUM 40 MG/0.4 ML SYRINGE SQ SCH (15:40)
[2016-03-12 19:15] VITALS: BP 104/58; PULSE 85; RESP 20; TEMP 97.7; O2SAT 94
[2016-03-13 08:00] VITALS: BP 109/58; PULSE 67; RESP 16; TEMP 97.7; O2SAT 95
--- NOTE | 2016-03-13 08:36 | HHI.PR ---
Subjective Remarks Patient seen and examined today. Patient has any new complaints. No change in clinical status. Objective Vitals Vital Signs Date Time Temp Pulse Resp B/P Pulse Ox O2 Delivery O2 Flow Rate FiO2 03/12/16 19:15 97.7 85 20 104/58 94 I/O 03/12/16 03/12/16 03/12/16 03/13/16 03/13/16 03/13/16 07:00 15:00 23:00 07:00 15:00 23:00 Intake Total 860 ml 900 ml 0 ml 1000 ml Output Total 585 ml 400 ml 1700 ml Balance 275 ml 900 ml -400 ml -700 ml Intake Oral 860 ml 900 ml 1000 ml IV Total 0 ml 0 ml Output Urine Total 585 ml 400 ml 1700 ml # Voids 5 # Bowel Movements 0 1 Objective Remarks GENERAL: Well-developed, well-nourished, in no acute distress. alert and orientated HEENT: Head is normocephalic without any lesions or masses noted. Facial features are symmetric. NECK: Trachea midline no deviation. CARDIAC: Regular rhythm, regular rate. S1/S2 are heard. 2/6 ejection murmur, no gallops or rubs. LUNGS: Clear to auscultation bilaterally. No wheeze, rhonchi or rales. No use of accessory muscles on inspiration or expiration. ABDOMEN: Soft, nontender. Nondistended. Bowel sounds heard in all 4 quadrants. No organomegaly or masses. Negative rebound, negative guarding. PEG tube removed EXTREMITIES: No edema, pulses are equal bilaterally. No cyanosis or clubbing NEUROLOGY: Mood and affect appear appropriate. Cranial nerves II through XII grossly intact. Moving all extremities, speech is clear Procedures 12/18/15 EGD with PEG tube placement 02/14/16 Bedside PEG tube removal Urinary Catheter: No Date of Insertion: Jan 12, 2016 Date of Removal: Jan 26, 2016 Vascular Central Line Catheter: No A/P Assessment and Plan 80-year-old male with no known past medical history presented via EMS after being found covered in urine/feces, complaining of generalized weakness and dysphagia. Dysphagia: resulting in severe malnutrition and weight loss. Consulted GI, performed EGD with PEG tube placement. GI signed speech therapy recommending regular diet consistencies Pre-albumin is still 17, continue to follow monthly Calorie count was performed by dietary which indicated patient and likely eating food, PEG tube can be removed GI reconsulted and removed PEG tube 02/14/16 Stage IV pressure ulcers, present on admission on coccyx and right ischium. Specialty bed. Wound care consulted to evaluate patient here at PO. Wound care following the patient, indicates that wound is improving continue with current orders of Santyl daily Gross hematuria/Urinary retention: Resolved Patient has had an indwelling Mena due to advanced stage pressure ulcers. He was having discomfort this morning and RN removed the Mena catheter. Patient was noted to have gross hematuria likely from catheter. Admits to suprapubic pain and dysuria. 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 Rivera evaluated the patient on 02/04 and started patient on Cipro 500 mg po bid. New urine culture 02/04 again with pseudomonas susceptible to Cipro. Continue antibiotics. Patient will likely need outpatient cystoscopy per urology Generalized Weakness: likely secondary to severe malnutrition and chronic deconditioning. 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 Recommending wheeled walker, home with home health care if can be arranged Occupational therapy: Recommending 31 bedside commode, shower bench, home with home health care and family if no family then [facility] Case management consulted. Awaiting placement. DVT Prophylaxis: Lovenox Discharge Planning OT recommends rehabilitation, 3-1 bedside commode, shower bench. Recommending home with home health care in family or [facility] if no family. Physical therapy recommended home with home physical therapy if can be arranged, wheeled walker. manager perioperative working on placement. Medicaid pending. 02/26/16 1023 [facility] WAS ABLE TO FIND OUT FROM FAMILY WHO WAS ACTUALLY THE POA AND CONTACT WAS MADE. SHRUTHI GUILLERMO SATED POA. HE BROUGHT NEEDED BANK STATEMENTS ETC ON 02/25/16. NEEDED TO ASSIST WITH SSI/MEDICAID MANA. IT WAS DENIED FOR OVER ASSETS, WILL F/U FOR UPDATE IF SSI/MEDICAID WILL BE AN OPTION POST EVAL OF PAPERWORK BROUGHT IN. WILL CONT TO FOLLOW FOR D/C NEEDS. SNF VS HOME VIKTORIA BERNSTEIN LENS COATING TECHNICIAN/CM/CHARGE Perfecto Tamayo Mar 13, 2016 08:35
[2016-03-13] MEDS: TAMSULOSIN HCL 0.4 MG CAP PO SCH (09:14)
[2016-03-13] MEDS: ENOXAPARIN SODIUM 40 MG/0.4 ML SYRINGE SQ SCH (16:28)
[2016-03-13 21:15] VITALS: BP 115/62; PULSE 76; RESP 20; TEMP 97.7; O2SAT 97
[2016-03-14 08:00] VITALS: BP 121/64; PULSE 84; RESP 18; TEMP 96.9; O2SAT 94
[2016-03-14] MEDS: TAMSULOSIN HCL 0.4 MG CAP PO SCH (09:27)
--- NOTE | 2016-03-14 10:16 | HHI.PR ---
Subjective Remarks Patient seen and examined today. Patient denies any new complaints. No change in clinical status. Objective Vitals Vital Signs Date Time Temp Pulse Resp B/P Pulse Ox O2 Delivery O2 Flow Rate FiO2 03/14/16 08:00 96.9 84 18 121/64 94 03/13/16 21:15 97.7 76 20 115/62 97 I/O 03/13/16 03/13/16 03/13/16 03/14/16 03/14/16 03/14/16 07:00 15:00 23:00 07:00 15:00 23:00 Intake Total 1000 ml 630 ml Output Total 1700 ml 500 ml 450 ml 700 ml Balance -700 ml 130 ml -450 ml -700 ml Intake Oral 1000 ml 630 ml Output Urine Total 1700 ml 500 ml 450 ml 700 ml # Bowel Movements 1 Objective Remarks GENERAL: Well-developed, well-nourished, in no acute distress. alert and orientated HEENT: Head is normocephalic without any lesions or masses noted. Facial features are symmetric. NECK: Trachea midline no deviation. CARDIAC: Regular rhythm, regular rate. S1/S2 are heard. 2/6 ejection murmur, no gallops or rubs. LUNGS: Clear to auscultation bilaterally. No wheeze, rhonchi or rales. No use of accessory muscles on inspiration or expiration. ABDOMEN: Soft, nontender. Nondistended. Bowel sounds heard in all 4 quadrants. No organomegaly or masses. Negative rebound, negative guarding. PEG tube removed EXTREMITIES: No edema, pulses are equal bilaterally. No cyanosis or clubbing NEUROLOGY: Mood and affect appear appropriate. Cranial nerves II through XII grossly intact. Moving all extremities, speech is clear Procedures 12/18/15 EGD with PEG tube placement 02/14/16 Bedside PEG tube removal Urinary Catheter: No Date of Insertion: Jan 12, 2016 Date of Removal: Jan 26, 2016 Vascular Central Line Catheter: No A/P Assessment and Plan 80-year-old male with no known past medical history presented via EMS after being found covered in urine/feces, complaining of generalized weakness and dysphagia. Dysphagia: resulting in severe malnutrition and weight loss. Consulted GI, performed EGD with PEG tube placement. GI signed speech therapy recommending regular diet consistencies Pre-albumin is still 17, continue to follow monthly Calorie count was performed by dietary which indicated patient and likely eating food, PEG tube can be removed GI reconsulted and removed PEG tube 02/14/16 Stage IV pressure ulcers, present on admission on coccyx and right ischium. Specialty bed. Wound care consulted to evaluate patient here at PO. Wound care following the patient, indicates that wound is improving continue with current orders of Santyl daily Gross hematuria/Urinary retention: Resolved Patient has had an indwelling Mena due to advanced stage pressure ulcers. He was having discomfort this morning and RN removed the Mena catheter. Patient was noted to have gross hematuria likely from catheter. Admits to suprapubic pain and dysuria. 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 Rivera evaluated the patient on 02/04 and started patient on Cipro 500 mg po bid. New urine culture 02/04 again with pseudomonas susceptible to Cipro. Continue antibiotics. Patient will likely need outpatient cystoscopy per urology Generalized Weakness: likely secondary to severe malnutrition and chronic deconditioning. 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 Recommending wheeled walker, home with home health care if can be arranged Occupational therapy: Recommending 31 bedside commode, shower bench, home with home health care and family if no family then [facility] Case management consulted. Awaiting placement. DVT Prophylaxis: Lovenox Discharge Planning OT recommends rehabilitation, 3-1 bedside commode, shower bench. Recommending home with home health care in family or [facility] if no family. Physical therapy recommended home with home physical therapy if can be arranged, wheeled walker. manager cath lab working on placement. Medicaid pending. 02/26/16 1023 [facility] WAS ABLE TO FIND OUT FROM FAMILY WHO WAS ACTUALLY THE POA AND CONTACT WAS MADE. TO PARKER GUILLERMO SATED POA. HE BROUGHT NEEDED BANK STATEMENTS ETC ON 02/25/16. NEEDED TO ASSIST WITH SSI/MEDICAID MANA. IT WAS DENIED FOR OVER ASSETS, WILL F/U FOR UPDATE IF SSI/MEDICAID WILL BE AN OPTION POST EVAL OF PAPERWORK BROUGHT IN. WILL CONT TO FOLLOW FOR D/C NEEDS. SNF VS HOME VIKTORIA BERNSTEIN WEBSITE DEVELOPER/CM/CHARGE Perfecto Tamayo Mar 14, 2016 10:16
--- NOTE | 2016-03-14 10:18 | OTSOAPIP ---
TIME SESSION COMPLETED: 930 TREATMENT TIME: 0 MINS. CHART REVIEWED. RECEIVED ORDERS FROM ANDRE SETHI - TO PLEASE CONTINUE TO EVALUATE UNTIL YOU CAN INDICATE THAT PT CAN BE DISCHARGE HOME WITHOUT FAMILY. CONSULTED WITH JOSSIE LUCAS TODAY, INFORMING PT WAS SEEN BY OCCUPATIONAL THERAPY FROM 12/17/15 TO 03/09/16. PATIENT IS INDEPENDENT TO MODIFIED INDEPENDENT FOR BASIC SELF CARE SUCH FEEDING, GROOMING, DRESSING AND SHOWERING. THAT SAID PT STILL WILL REQUIRE ASSISTANCE FOR HOUSE CHORES, MEAL PREPARATION AND COMMUNITY ERRANDS. PT WILL ALSO REQUIRE THE NECESSARY HOME EQUIPMENT SUCH SHOWER CHAIR, GARB BARS IN SHOWER, HAND HELD SHOWER HOSE, AND BEDSIDE COMMODE TO PREVENT FALLS AND MAINTAIN INDEPENDENCE. THERE ARE ORGANIZATIONS WHICH CAN ASSIST PT HOWEVER THIS IS THE AREA OF PUMP OPERATOR EXPERTISE. IF PT IS NOT ABLE TO GET HOME ASSISTANCE RECOMMEND DISCHARGE TO AN ADULT LIVING FACILITY OR HEALTH CARE ASSISTANT CARE. INTERDISCIPLINARY COMMUNICATION: ANDRE SETHI Therapist: ERIC REED/Fareed Signature on file
[2016-03-14] MEDS: ENOXAPARIN SODIUM 40 MG/0.4 ML SYRINGE SQ SCH (16:19)
[2016-03-14 20:00] VITALS: BP 99/57; PULSE 80; RESP 16; TEMP 97.6; O2SAT 97
[2016-03-15] MEDS: TAMSULOSIN HCL 0.4 MG CAP PO SCH (07:53)
[2016-03-15 08:00] VITALS: BP 95/60; PULSE 74; RESP 16; TEMP 96.4; O2SAT 92
--- NOTE | 2016-03-15 11:53 | HHI.PR ---
Subjective Remarks Patient seen and examined today. Patient denies any complaints. No change in clinical status. Objective Vitals Vital Signs Date Time Temp Pulse Resp B/P Pulse Ox O2 Delivery O2 Flow Rate FiO2 03/15/16 08:00 96.4 74 16 95/60 92 03/14/16 20:00 97.6 80 16 99/57 97 I/O 03/14/16 03/14/16 03/14/16 03/15/16 03/15/16 03/15/16 07:00 15:00 23:00 07:00 15:00 23:00 Intake Total 1000 ml Output Total 700 ml 500 ml 450 ml 850 ml Balance -700 ml 500 ml -450 ml -850 ml Intake Oral 1000 ml Output Urine Total 700 ml 500 ml 450 ml 850 ml # Bowel Movements 0 1 1 Objective Remarks GENERAL: Well-developed, well-nourished, in no acute distress. alert and orientated HEENT: Head is normocephalic without any lesions or masses noted. Facial features are symmetric. NECK: Trachea midline no deviation. CARDIAC: Regular rhythm, regular rate. S1/S2 are heard. 2/6 ejection murmur, no gallops or rubs. LUNGS: Clear to auscultation bilaterally. No wheeze, rhonchi or rales. No use of accessory muscles on inspiration or expiration. ABDOMEN: Soft, nontender. Nondistended. Bowel sounds heard in all 4 quadrants. No organomegaly or masses. Negative rebound, negative guarding. PEG tube removed EXTREMITIES: No edema, pulses are equal bilaterally. No cyanosis or clubbing NEUROLOGY: Mood and affect appear appropriate. Cranial nerves II through XII grossly intact. Moving all extremities, speech is clear Procedures 12/18/15 EGD with PEG tube placement 02/14/16 Bedside PEG tube removal Urinary Catheter: No Date of Insertion: Jan 12, 2016 Date of Removal: Jan 26, 2016 Vascular Central Line Catheter: No A/P Assessment and Plan 80-year-old male with no known past medical history presented via EMS after being found covered in urine/feces, complaining of generalized weakness and dysphagia. Dysphagia: resulting in severe malnutrition and weight loss. Consulted GI, performed EGD with PEG tube placement. GI signed speech therapy recommending regular diet consistencies Pre-albumin is still 17, continue to follow monthly Calorie count was performed by dietary which indicated patient and likely eating food, PEG tube can be removed GI reconsulted and removed PEG tube 02/14/16 Stage IV pressure ulcers, present on admission on coccyx and right ischium. Specialty bed. Wound care consulted to evaluate patient here at PO. Wound care following the patient, indicates that wound is improving continue with current orders of Santyl daily Gross hematuria/Urinary retention: Resolved Patient has had an indwelling Mena due to advanced stage pressure ulcers. He was having discomfort this morning and RN removed the Mena catheter. Patient was noted to have gross hematuria likely from catheter. Admits to suprapubic pain and dysuria. 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 Rivera evaluated the patient on 02/04 and started patient on Cipro 500 mg po bid. New urine culture 02/04 again with pseudomonas susceptible to Cipro. Continue antibiotics. Patient will likely need outpatient cystoscopy per urology Generalized Weakness: likely secondary to severe malnutrition and chronic deconditioning. 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 Recommending wheeled walker, home with home health care if can be arranged Occupational therapy: Recommending 31 bedside commode, shower bench, home with home health care and family if no family then [facility] Case management consulted. Awaiting placement. DVT Prophylaxis: Lovenox Discharge Planning OT recommends rehabilitation, 3-1 bedside commode, shower bench. Recommending home with home health care in family or [facility] if no family. Physical therapy recommended home with home physical therapy if can be arranged, wheeled walker. database administration manager working on placement. Medicaid pending. 02/26/16 1023 [facility] WAS ABLE TO FIND OUT FROM FAMILY WHO WAS ACTUALLY THE POA AND CONTACT WAS MADE. TO PARKER GUILLERMO SATED POA. HE BROUGHT NEEDED BANK STATEMENTS ETC ON 02/25/16. NEEDED TO ASSIST WITH SSI/MEDICAID MANA. IT WAS DENIED FOR OVER ASSETS, WILL F/U FOR UPDATE IF SSI/MEDICAID WILL BE AN OPTION POST EVAL OF PAPERWORK BROUGHT IN. WILL CONT TO FOLLOW FOR D/C NEEDS. SNF VS HOME VIKTORIA BERNSTEIN CABINET AND TRIM INSTALLER/CM/CHARGE Perfecto Tamayo Mar 15, 2016 11:53
[2016-03-15] MEDS: ENOXAPARIN SODIUM 40 MG/0.4 ML SYRINGE SQ SCH (16:53)
[2016-03-15 20:00] VITALS: BP 112/60; PULSE 81; RESP 20; TEMP 97.8; O2SAT 95
[2016-03-16 08:46] VITALS: BP 102/64; PULSE 79; PULSE 95; RESP 18; TEMP 98.4; O2SAT 79; O2SAT 95
[2016-03-16] MEDS: TAMSULOSIN HCL 0.4 MG CAP PO SCH (09:00)
--- NOTE | 2016-03-16 09:07 | HHI.PR ---
Subjective Remarks No acute complaints. No change in clinical status. Objective Vitals Vital Signs Date Time Temp Pulse Resp B/P Pulse Ox O2 Delivery O2 Flow Rate FiO2 03/16/16 08:46 98.4 79 18 102/64 95 03/15/16 20:00 97.8 81 20 112/60 95 I/O 03/15/16 03/15/16 03/15/16 03/16/16 03/16/16 03/16/16 07:00 15:00 23:00 07:00 15:00 23:00 Intake Total 480 ml 480 ml 480 ml Output Total 850 ml 500 ml 400 ml 300 ml Balance -850 ml -20 ml 80 ml 180 ml Intake Oral 480 ml 480 ml 480 ml Output Urine Total 850 ml 500 ml 400 ml 300 ml # Bowel Movements 1 1 0 0 Objective Remarks GENERAL: Pleasant thin patient in no apparent distress eating breakfast. CARDIOVASCULAR: Regular rate and rhythm. Grade 2 murmur. RESPIRATORY: Limited exam. RR normal. CTAB. GASTROINTESTINAL: Abdomen soft, non-tender, non-distended. NEUROLOGICAL: Awake and alert. Normal speech. PSYCHIATRIC: Normal mood and affect. Procedures 12/18/15 EGD with PEG tube placement 02/14/16 Bedside PEG tube removal Date of Insertion: Jan 12, 2016 Date of Removal: Jan 26, 2016 A/P Problem List: (1) Failure to thrive in adult ICD Code: R62.7 Status: Acute (2) Malnutrition ICD Code: E46 Status: Acute (3) Urinary retention ICD Code: R33.9 Status: Resolved (4) Prerenal azotemia ICD Code: R79.89 Status: Acute (5) Gross hematuria ICD Code: R31.0 Status: Resolved (6) Bilateral lower leg cellulitis ICD Code: L03.116 Status: Resolved (7) Hyponatremia ICD Code: E87.1 Status: Resolved (8) Blurred vision, right eye ICD Code: H53.8 Status: Acute (9) Dysuria ICD Code: R30.0 Status: Acute (10) UTI (urinary tract infection) ICD Code: N39.0 Status: Resolved Assessment and Plan 80-year-old male with no known past medical history presented via EMS after being found covered in urine/feces, complaining of generalized weakness and dysphagia. Dysphagia: resulting in severe malnutrition and weight loss. Consulted GI, performed EGD with PEG tube placement. GI signed off. Pre-albumin is still 17, continue to follow monthly Dietitian indicated patient was eating an adequate amount of kcals. Continue Ensure Enlive tid. GI reconsulted and removed PEG tube on 02/14/16 As of 02/15 Speech therapy recommends regular diet, thin liquids. Pressure ulcers: Stage IV coccyx ulcer is resolved. -Wound care last evaluated 02/02. Coccyx wound now closed. Barrier cream advised. Wound to R posterior shoulder healing. -Specialty bed Gross hematuria/Urinary retention: Resolved. Dysuria improved. Patient has had an indwelling Mena due to advanced stage pressure ulcers. He was having discomfort and RN removed the Mena catheter. Patient was noted to have gross hematuria likely from catheter. Admits to suprapubic pain and dysuria. Experienced retention which has resolved. Continue Flomax 0.4 mg daily UA was obtained which showed infection, final urine culture with Pseudomonas, likely colonized since patient is had recurrent infections and indwelling Mena with same bacteria Urology, Dr. Rivera evaluated the patient on 02/04 and started patient on Cipro 500 mg po bid with New urine culture 02/04 again with pseudomonas. S/p Cipro treatment. Patient will likely need outpatient cystoscopy per urology Generalized Weakness: likely secondary to severe malnutrition and chronic deconditioning. PT/OT following. Blurred vision R eye: -MRI with chronic ischemic demyelinization, but no acute abnormalities. -Ophthalmology evaluated the patient on 01/26. Patient has cataracts in both eyes and can obtain outpatient surgical evaluation. Right Apical Density: seen on AP CXR; PA/Lateral CXR shows findings of COPD. Chest CT 12/18 ordered by GI to evaluate for malignancy; shows bilateral pleural effusions, with common atelectatic changes, small amount of abdominal ascites and mesenteric edema characteristic of right R insufficiency/volume overload. Atherosclerotic calcification of the coronary arteries. -Incentive spirometry DVT Prophylaxis: Lovenox Discharge Planning OT recommends rehabilitation, 3-1 bedside commode, shower bench, showers bars, and handheld shower hose at home. Although the patient is somewhat independent, he still requires assistance with house chores, meal prep, and community errands per OT. If patient is unable to get home assistance he will require placement in [facility]. PT recommends HHC and wheeled walker. SSI/Medicaid denied for over assets. POA brought bank statements. Per [facility], patient's money was taken out of his bank account, and the account was closed. He will have to show spending down of money in order to get placement, but case planner is not hopeful. May need to arrange home care if not family assistance. Attending Statement No acute complaints. No change in clinical status. Vida Carlisle Mar 16, 2016 09:07
[2016-03-16] MEDS: ENOXAPARIN SODIUM 40 MG/0.4 ML SYRINGE SQ SCH (16:18)
[2016-03-16 20:00] VITALS: BP 109/67; PULSE 83; RESP 18; TEMP 98.1; O2SAT 93
[2016-03-17 08:00] VITALS: BP 130/82; PULSE 70; RESP 18; TEMP 96.6; O2SAT 95
[2016-03-17] MEDS: TAMSULOSIN HCL 0.4 MG CAP PO SCH (09:32)
--- NOTE | 2016-03-17 14:25 | HHI.PR ---
Subjective Remarks Patient seen today in follow-up for weakness. Complaining of some lower extremity shakiness and numbness in his feet worse when he ambulates. Objective Vitals Vital Signs Date Time Temp Pulse Resp B/P Pulse Ox O2 Delivery O2 Flow Rate FiO2 03/17/16 08:00 96.6 70 18 130/82 95 03/16/16 20:00 98.1 83 18 109/67 93 I/O 03/16/16 03/16/16 03/16/16 03/17/16 03/17/16 03/17/16 07:00 15:00 23:00 07:00 15:00 23:00 Intake Total 480 ml 620 ml 680 ml Output Total 300 ml 450 ml 150 ml 550 ml Balance 180 ml -450 ml 470 ml 130 ml Intake Oral 480 ml 620 ml 680 ml Output Urine Total 300 ml 450 ml 150 ml 550 ml # Bowel Movements 0 0 1 Objective Remarks GENERAL: This is a well-nourished, well-developed patient, in no apparent distress. CARDIOVASCULAR: Regular rate and rhythm without murmurs, gallops, or rubs. RESPIRATORY: Clear to auscultation. Breath sounds equal bilaterally. No wheezes , rales, or rhonchi. GASTROINTESTINAL: Abdomen soft, non-tender, nondistended. Normal active bowel sounds MUSCULOSKELETAL: Extremities without clubbing, cyanosis, or edema. NEURO: Alert & Oriented x4 to person, place, time, situation. Moves all ext x4 Procedures 12/18/15 EGD with PEG tube placement 02/14/16 Bedside PEG tube removal Date of Insertion: Jan 12, 2016 Date of Removal: Jan 26, 2016 A/P Assessment and Plan Patient complaining of numbness and tingling in his legs which is worse with ambulation. We'll add Neurontin Continue PT for improved strengthening Discharge Planning Case Management aware of barriers to discharge Stephenie Landaverde MD Mar 17, 2016 14:24
[2016-03-17] MEDS: ENOXAPARIN SODIUM 40 MG/0.4 ML SYRINGE SQ SCH (16:22)
[2016-03-17 20:00] VITALS: BP 91/54; PULSE 77; RESP 20; TEMP 96.6; O2SAT 96
[2016-03-17] MEDS: GABAPENTIN 300 MG CAP PO SCH (22:26)
[2016-03-18 08:00] VITALS: BP 112/57; PULSE 76; RESP 16; TEMP 98.7; O2SAT 98
--- NOTE | 2016-03-18 08:59 | HHI.PR ---
Subjective Remarks Follow-up for failure to thrive. Patient eating breakfast. No acute complaints. Objective Vitals Vital Signs Date Time Temp Pulse Resp B/P Pulse Ox O2 Delivery O2 Flow Rate FiO2 03/17/16 20:00 96.6 77 20 91/54 96 I/O 03/17/16 03/17/16 03/17/16 03/18/16 03/18/16 03/18/16 07:00 15:00 23:00 07:00 15:00 23:00 Intake Total 680 ml 480 ml Output Total 550 ml 450 ml 1800 ml Balance 130 ml -450 ml -1320 ml Intake Oral 680 ml 480 ml Output Urine Total 550 ml 450 ml 1800 ml # Bowel Movements 1 0 0 Objective Remarks GENERAL: Pleasant thin patient in no apparent distress eating breakfast. CARDIOVASCULAR: Regular rate and rhythm. Grade 2 murmur. RESPIRATORY: RR normal. CTAB. GASTROINTESTINAL: Normoactive bowel sounds. Abdomen soft, non-tender, non- distended. NEUROLOGICAL: Awake and alert. Normal speech. PSYCHIATRIC: Normal mood and affect. Procedures 12/18/15 EGD with PEG tube placement 02/14/16 Bedside PEG tube removal Urinary Catheter: No Date of Insertion: Jan 12, 2016 Date of Removal: Jan 26, 2016 Vascular Central Line Catheter: No A/P Problem List: (1) Failure to thrive in adult ICD Code: R62.7 Status: Acute (2) Malnutrition ICD Code: E46 Status: Acute (3) Urinary retention ICD Code: R33.9 Status: Resolved (4) Prerenal azotemia ICD Code: R79.89 Status: Acute (5) Gross hematuria ICD Code: R31.0 Status: Resolved (6) Bilateral lower leg cellulitis ICD Code: L03.116 Status: Resolved (7) Hyponatremia ICD Code: E87.1 Status: Resolved (8) Blurred vision, right eye ICD Code: H53.8 Status: Acute (9) Dysuria ICD Code: R30.0 Status: Acute (10) UTI (urinary tract infection) ICD Code: N39.0 Status: Resolved Assessment and Plan 80-year-old male with no known past medical history presented via EMS after being found covered in urine/feces, complaining of generalized weakness and dysphagia. Dysphagia: resulting in severe malnutrition and weight loss. Consulted GI, performed EGD with PEG tube placement. GI signed off. Pre-albumin is still 17, continue to follow monthly Dietitian indicated patient was eating an adequate amount of kcals. Continue Ensure Enlive tid. GI reconsulted and removed PEG tube on 02/14/16 As of 02/15 Speech therapy recommends regular diet, thin liquids. Pressure ulcers: Stage IV coccyx ulcer is resolved. -Wound care last evaluated 02/02. Coccyx wound now closed. Barrier cream advised. Wound to R posterior shoulder healing. -Specialty bed Gross hematuria/Urinary retention: Resolved. Dysuria improved. Patient has had an indwelling Mena due to advanced stage pressure ulcers. He was having discomfort and RN removed the Mena catheter. Patient was noted to have gross hematuria likely from catheter. Admits to suprapubic pain and dysuria. Experienced retention which has resolved. Continue Flomax 0.4 mg daily UA was obtained which showed infection, final urine culture with Pseudomonas, likely colonized since patient is had recurrent infections and indwelling Mena with same bacteria Urology, Dr. Rivera evaluated the patient on 02/04 and started patient on Cipro 500 mg po bid with New urine culture 02/04 again with pseudomonas. S/p Cipro treatment. Patient will likely need outpatient cystoscopy per urology Generalized Weakness: likely secondary to severe malnutrition and chronic deconditioning. PT/OT following. Blurred vision R eye: -MRI with chronic ischemic demyelinization, but no acute abnormalities. -Ophthalmology evaluated the patient on 01/26. Patient has cataracts in both eyes and can obtain outpatient surgical evaluation. Right Apical Density: seen on AP CXR; PA/Lateral CXR shows findings of COPD. Chest CT 12/18 ordered by GI to evaluate for malignancy; shows bilateral pleural effusions, with common atelectatic changes, small amount of abdominal ascites and mesenteric edema characteristic of right R insufficiency/volume overload. Atherosclerotic calcification of the coronary arteries. -Incentive spirometry DVT Prophylaxis: Lovenox Discharge Planning OT recommends rehabilitation, 3-1 bedside commode, shower bench, showers bars, and handheld shower hose at home. Although the patient is somewhat independent, he still requires assistance with house chores, meal prep, and community errands per OT. If patient is unable to get home assistance he will require placement in [facility]. PT recommends HHC and wheeled walker. SSI/Medicaid denied for over assets. POA brought bank statements. Per [facility], patient's money was taken out of his bank account, and the account was closed. He will have to show spending down of money in order to get placement, but counseling case manager is not hopeful. May need to arrange home care if not family assistance. CM following. Vida Carlisle Mar 18, 2016 08:59
[2016-03-18] MEDS: GABAPENTIN 300 MG CAP PO SCH ×2 (09:10→21:03)
[2016-03-18] MEDS: TAMSULOSIN HCL 0.4 MG CAP PO SCH (09:10)
[2016-03-18] MEDS: ENOXAPARIN SODIUM 40 MG/0.4 ML SYRINGE SQ SCH (17:41)
[2016-03-18 20:00] VITALS: BP 107/58; PULSE 75; RESP 20; TEMP 97.9; O2SAT 94
[2016-03-19 08:00] VITALS: BP 111/49; PULSE 77; RESP 18; TEMP 98.7; O2SAT 94
[2016-03-19] MEDS: GABAPENTIN 300 MG CAP PO SCH (09:27)
[2016-03-19] MEDS: TAMSULOSIN HCL 0.4 MG CAP PO SCH (09:27)
--- NOTE | 2016-03-19 11:36 | HHI.FF ---
Face to Face Verification Diagnosis: (1) Failure to thrive in adult (2) Malnutrition (3) Urinary retention (4) Dysuria (5) UTI (urinary tract infection) (6) Gross hematuria (7) Prerenal azotemia (8) Bilateral lower leg cellulitis (9) Hyponatremia (10) Bilateral cataracts Physical Therapy Order: Evaluate and Treat, Improve ambulation, Strength and gait training Home Health Nursing Order: Medical education Medication education-adverse effect Wound care and dressing changes Nursing assessment with vital signs Instructions: Assess buttocks and R shoulder pressure sores; apply barrier cream to buttocks, tegaderm to shoulder Slitter Creaser Slotter Operator Order: To Evaluate: Living conditions/environment I have seen patient Juan Manuel Dixon on 03/19/16. My clinical findings support the need for the requested home health care services because: Limited ability to care for self I certify that my clinical findings support that this patient is homebound because: Unsafe to leave home unassisted Vida Carlisle Mar 19, 2016 11:36 Vida Carlisle Mar 19, 2016 11:36
--- NOTE | 2016-03-19 11:39 | HHI.DCPOC ---
Discharge Care Plan Diagnosis: (1) Failure to thrive in adult (2) Malnutrition (3) Bilateral lower leg cellulitis (4) UTI (urinary tract infection) (5) Gross hematuria (6) Dysuria (7) Urinary retention (8) Hyponatremia (9) Prerenal azotemia (10) Bilateral cataracts Your Health Problems Are: Difficulty with ADL Skin Breakdown Weight Loss Goals to Promote Your Health * To prevent worsening of your condition and complications * To maintain your health at the optimal level Directions to Meet Your Goals Take your medications as prescribed Follow your dietary instruction Follow activity as directed Keep your appointments as scheduled Take your immunizations and boosters as scheduled If your symptoms worsen call your PCP, if no PCP go to Urgent Care Center or Emergency Room Smoking is Dangerous to Your Health. Avoid second hand smoke Call the 24-hour hour crisis hotline for domestic abuse at Vida Carlisle Mar 19, 2016 11:39
[2016-03-19] MEDS ORDERED: NEUR300C PO (12:00)
[2016-03-19] MEDS ORDERED: TAMS5CAP PO (12:00)
--- NOTE | 2016-03-19 12:13 | HHI.PR ---
Subjective Remarks Follow-up for malnutrition, urinary retention. Patient has no acute complaints. Objective Vitals Vital Signs Date Time Temp Pulse Resp B/P Pulse Ox O2 Delivery O2 Flow Rate FiO2 03/19/16 08:00 98.7 77 18 111/49 94 03/18/16 20:00 97.9 75 20 107/58 94 I/O 03/18/16 03/18/16 03/18/16 03/19/16 03/19/16 03/19/16 07:00 15:00 23:00 07:00 15:00 23:00 Intake Total 480 ml 480 ml 240 ml Output Total 1800 ml 600 ml 550 ml 500 ml Balance -1320 ml -120 ml -550 ml -260 ml Intake Oral 480 ml 480 ml 240 ml Output Urine Total 1800 ml 600 ml 550 ml 500 ml # Bowel Movements 0 0 1 0 Objective Remarks GENERAL: Pleasant thin patient in no apparent distress. CARDIOVASCULAR: Regular rate and rhythm. Grade 2 murmur. RESPIRATORY: Limited exam. RR normal. Mildly coarse breath sounds bilaterally. GASTROINTESTINAL: Normoactive bowel sounds. Abdomen soft, non-tender, non- distended. NEUROLOGICAL: Awake and alert. Normal speech. PSYCHIATRIC: Normal mood and affect. Procedures 12/18/15 EGD with PEG tube placement 02/14/16 Bedside PEG tube removal Urinary Catheter: No Date of Insertion: Jan 12, 2016 Date of Removal: Jan 26, 2016 Vascular Central Line Catheter: No A/P Problem List: (1) Failure to thrive in adult ICD Code: R62.7 Status: Acute (2) Malnutrition ICD Code: E46 Status: Acute (3) Urinary retention ICD Code: R33.9 Status: Resolved (4) Prerenal azotemia ICD Code: R79.89 Status: Acute (5) Gross hematuria ICD Code: R31.0 Status: Resolved (6) Bilateral lower leg cellulitis ICD Code: L03.116 Status: Resolved (7) Hyponatremia ICD Code: E87.1 Status: Resolved (8) Blurred vision, right eye ICD Code: H53.8 Status: Acute (9) Dysuria ICD Code: R30.0 Status: Acute (10) UTI (urinary tract infection) ICD Code: N39.0 Status: Resolved Assessment and Plan 80-year-old male with no known past medical history presented via EMS after being found covered in urine/feces, complaining of generalized weakness and dysphagia. Dysphagia: resulting in severe malnutrition and weight loss. Consulted GI, performed EGD with PEG tube placement. GI signed off. Pre-albumin is still 17, continue to follow monthly Dietitian indicated patient was eating an adequate amount of kcals. Continue Ensure Enlive tid. GI reconsulted and removed PEG tube on 02/14/16 As of 02/15 speech therapy recommends regular diet, thin liquids. Pressure ulcers: Stage IV coccyx ulcer is resolved. -Wound care last evaluated 02/02. Coccyx wound now closed. Barrier cream advised. Wound to R posterior shoulder healing and has Tegaderm in place per nurse. -Specialty bed Gross hematuria/Urinary retention: Resolved. Dysuria improved. Patient has had an indwelling Mena due to advanced stage pressure ulcers. He was having discomfort and RN removed the Mena catheter. Patient was noted to have gross hematuria likely from catheter. Admits to suprapubic pain and dysuria. Experienced retention which has resolved. Continue Flomax 0.4 mg daily UA was obtained which showed infection, final urine culture with Pseudomonas, likely colonized since patient is had recurrent infections and indwelling Mena with same bacteria Urology, Dr. Rivera evaluated the patient on 02/04 and started patient on Cipro 500 mg po bid with New urine culture 02/04 again with pseudomonas. S/p Cipro treatment. Patient will likely need outpatient cystoscopy per urology Generalized Weakness: likely secondary to severe malnutrition and chronic deconditioning. PT/OT following. Blurred vision R eye: -MRI with chronic ischemic demyelinization, but no acute abnormalities. -Ophthalmology evaluated the patient on 01/26. Patient has cataracts in both eyes and can obtain outpatient surgical evaluation. Right Apical Density: seen on AP CXR; PA/Lateral CXR shows findings of COPD. Chest CT 12/18 ordered by GI to evaluate for malignancy; shows bilateral pleural effusions, with common atelectatic changes, small amount of abdominal ascites and mesenteric edema characteristic of right R insufficiency/volume overload. Atherosclerotic calcification of the coronary arteries. -Incentive spirometry DVT Prophylaxis: Lovenox Discharge Planning OT recommends rehabilitation, 3-1 bedside commode, shower bench, showers bars, and handheld shower hose at home. Although the patient is somewhat independent, still requires assistance listed below. PT recommends HHC and wheeled walker. SSI/Medicaid denied for over assets. POA brought bank statements. Per [facility], patient's money was taken out of his bank account, and the account was closed. 03/19/16: I discussed discharge with Tera De Guzman, case specialist. He states that the patient's neighbor is his power of telesales manager and can pick the patient up from hospital and take him home. I informed CM that OT indicates patient still requires assistance with house chores, meal prep, and community errands, and Rafael assures me that his POA states he will assist with these things as an aide cannot be arranged. CM to arrange 3-1 bedside commode and walker for patient. [facility] nursing and PT to be arranged. Prescriptions to be transmitted to patient's pharmacy and POA will pick them up. CM tells me [facility] will follow-up at the patient's home. Discharge order placed. Vida Carlisle Mar 19, 2016 12:13
[2016-03-19] MEDS ORDERED: COMMODE 3-IN-11 MIS (15:05)
--- NOTE | 2016-03-19 18:40 | HHI.DS ---
Discharge Summary Admission Date Dec 16, 2015 at 14:14 Discharge Date: Mar 19, 2016 Admitting Diagnosis Dehydration/Failure to thrive (1) Failure to thrive in adult ICD Code: R62.7 Diagnosis: Principal (2) Swallowing dysfunction ICD Code: R13.10 Diagnosis: Principal (3) Malnutrition ICD Code: E46 Diagnosis: Principal (4) Urinary retention ICD Code: R33.9 Diagnosis: Principal (5) Gross hematuria ICD Code: R31.0 Diagnosis: Principal (6) Dysuria ICD Code: R30.0 Diagnosis: Principal (7) UTI (urinary tract infection) ICD Code: N39.0 Diagnosis: Principal (8) Prerenal azotemia ICD Code: R79.89 Diagnosis: Principal (9) Bilateral lower leg cellulitis ICD Code: L03.116 Diagnosis: Principal (10) Hyponatremia ICD Code: E87.1 Diagnosis: Principal (11) Bilateral cataracts ICD Code: H26.9 Diagnosis: Principal (12) Pressure ulcer ICD Code: L89.90 Diagnosis: Principal Procedures 12/18/15 EGD with PEG tube placement 02/14/16 Bedside PEG tube removal Brief History - From Admission 80-year-old male with no known past medical history presents via EMS after being found covered in urine/feces, complaining of generalized weakness and dysphagia. The patient is very soft spoken, difficult to understand, however is awake, alert, oriented. The patient states that he has felt very weak and has not been able to get out of his chair for several days. He was found covered in urine/feces. Patient reports he has had difficulty swallowing, states it has been going on for "quite a while". He reports very minimal oral intake. Denies abdominal pain, nausea, vomiting. He has not seen a doctor in several years, and has never seen a tin tie machine operator automatic for his dysphagia. He lives alone. He states he does have a living brother named Perfecto Dixon however he has not spoken to him in over 2 weeks. Other than feeling weak and with dysphagia, the patient denies any other medical complaints. He denies any fever/chills, lightheadedness, dizziness, chest pain, shortness of breath, or urinary complaints. Imaging Last Impressions Brain MRI 01/25/16 0000 Signed Impressions: Service Date/Time: Monday, January 25, 2016 16:37 - CONCLUSION: 1. Moderate to severe signal abnormality in the white matter most characteristic of chronic ischemic change. No recent infarct identified. Rashaun Lima MD Shoulder X-Ray 12/27/15 0000 Signed Impressions: Service Date/Time: Sunday, December 27, 2015 20:14 - CONCLUSION: Unremarkable limited examination of the left shoulder. Miguel Blanchard MD Chest CT 12/19/15 0000 Signed Impressions: Service Date/Time: Saturday, December 19, 2015 15:10 - CONCLUSION: 1. 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 2. Atherosclerotic calcification of the coronary arteries. Dandy Jett MD Abdomen/Pelvis CT 12/19/15 0000 Signed Impressions: Service Date/Time: Saturday, December 19, 2015 15:10 - CONCLUSION: 1. Bilateral pleural effusions with a small amount of abdominal ascites, generalized anasarca and edema in the mesenteric leaves characteristic of right heart insufficiency. 2. Mild air and fluid distention of the small bowel and colon characteristic of a hypodynamic ileus. No obstruction. Dandy Jett MD Head CT 12/16/15 1145 Signed Impressions: Service Date/Time: Wednesday, December 16, 2015 12:45 - CONCLUSION: Nonspecific white matter changes. No acute intracranial abnormality. Lam Tucker MD Chest X-Ray 12/16/15 1124 Signed Impressions: Service Date/Time: Wednesday, December 16, 2015 11:54 - CONCLUSION: Hyperinflation which can be seen with COPD. Right apical density, PA and lateral views are recommended when patient is stable. Lam Tucker MD PE at Discharge GENERAL: Pleasant thin patient in no apparent distress. CARDIOVASCULAR: Regular rate and rhythm. Grade 2 murmur. RESPIRATORY: Limited exam. RR normal. Mildly coarse breath sounds bilaterally. GASTROINTESTINAL: Normoactive bowel sounds. Abdomen soft, non-tender, non- distended. NEUROLOGICAL: Awake and alert. Normal speech. PSYCHIATRIC: Normal mood and affect. Hospital Course Mr. Dixon is an 80-year-old male who was brought to the hospital after being found in his home covered in urine and feces and complaining of weakness and dysphagia. He additionally had B/L lower extremity cellulitis and hyponatremia on admission which were appropriately treated and resolved. He was evaluated by speech therapy as well as gastroenterology. Patient required a PEG tube for severe malnutrition and was followed by the dietitian. His dysphagia and nutritional status improved and the PEG tube was eventually removed and the patient advanced to a regular diet with nutritional supplements. He required a Mena catheter due to pressure ulceration to his coccyx area. He also had pressure sore to his right shoulder. He was evaluated by wound care. Ulcerations eventually improved and one over coccyx closed. During the time period using the Mena catheter, he experienced suprapubic discomfort and was noted to have gross hematuria after removal. He was found to have a Pseudomonas UTI although likely was colonized but repeat culture after Mena removal showed the same, and considering patient had symptoms of UTI , he was treated with antibiotics. The patient initially had urinary retention after the Mena was removed and he was started on Flomax. Patient's retention resolved but he continued to have dysuria and was treated symptomatically. He was evaluated by urology with recommendation for outpatient cystoscopy. Patient additionally had blurred vision in his right eye which he stated was new and it visual deficit was noted on exam. He was evaluated by ophthalmology who indicated he had bilateral cataracts and will need outpatient surgical evaluation. The patient worked with physical therapy and has been able to use a walker to get around. He was advised to use incentive spirometer while in bed. The patient never appeared to have any cognitive deficits during the time he was under my care and was always very sharp. Patient was unable to be placed at a facility, but case management arrangements were made (see progress note). Patient stable for discharge. DCF was involved and will follow up at patient's home per CM. Pt Condition on Discharge: Stable Discharge Disposition: Discharge Home Discharge Time: > 30 minutes (coordination with case management and nurse, documentation) Discharge Instructions DIET: Follow Instructions for: As Tolerated, No Restrictions Speech Therapy-Diet Recommends: Regular Additional Diet Instructions: Buy and drink Ensure Enlive tid with meals Activities you can perform: Regular-No Restrictions Activities to Avoid: Strenuous Activity, Driving Other Activity Instructions: get assistance when showering. Follow up Referrals: Home Health - Next Day Ophthalmology PCP Follow-up - 1 Week Urology - 1 Week with Escobar Rivera MD New Medications: Commode 3-in-1 (Commode 3-in-1) 1 Mis Mis 1 EA .ROUTE DIRECTED #1 Ref 0 EA Walker with Front Wheels (Walker with Front Wheels) 1 Mis Mis 1 EA .ROUTE DIRECTED #1 Ref 0 EA Gabapentin (Neurontin) 300 Mg Cap 300 MG PO BID neuropathic pain #60 CAP Tamsulosin (Flomax) 0.4 Mg Cap 0.4 MG PO DAILY urinary retention #30 CAP Vida Carlisle Mar 19, 2016 18:39
== END 2016-03-19 16:45 | disposition home or self-care (01) | DRG 602 ==
LOC: NEPE 10:50 → NEDA 14:14 → NEPFCDU 16:14 → N04B 12-19 18:58 → PH5A 01-05 11:30
PROVIDERS: ADMIT Hospitalist; ATTEND Hospitalist
PROC: 0D738ZZ Dilation of Lower Esophagus, Via Natural or Artificial Opening Endoscopic (ICD-10-PCS; 2015-12-18)
PROC: 0DB38ZX Excision of Lower Esophagus, Via Natural or Artificial Opening Endoscopic, Diagnostic (ICD-10-PCS; principal; 2015-12-18 14:45)
PROC: 0DH63UZ Insertion of Feeding Device into Stomach, Percutaneous Approach (ICD-10-PCS; 2015-12-18 14:45)
PROC: 0T9B70Z Drainage of Bladder with Drainage Device, Via Natural or Artificial Opening (ICD-10-PCS; 2016-01-12)
PROC: 0DP6XUZ Removal of Feeding Device from Stomach, External Approach (ICD-10-PCS; 2016-02-14)
DX: L03.115 Cellulitis of right lower limb (principal); E43 Unspecified severe protein-calorie malnutrition; L89.154 Pressure ulcer of sacral region, stage 4; L89.214 Pressure ulcer of right hip, stage 4; J90 Pleural effusion, not elsewhere classified; R18.8 Other ascites; I95.9 Hypotension, unspecified; G37.8 Other specified demyelinating diseases of central nervous system; E87.1 Hypo-osmolality and hyponatremia; Z68.1 Body mass index [BMI] 19.9 or less, adult; J98.11 Atelectasis; L03.116 Cellulitis of left lower limb; J44.9 Chronic obstructive pulmonary disease, unspecified; E86.0 Dehydration; K22.2 Esophageal obstruction; I25.10 Atherosclerotic heart disease of native coronary artery without angina pectoris; H25.13 Age-related nuclear cataract, bilateral; N34.2 Other urethritis; B35.1 Tinea unguium; K20.0 Eosinophilic esophagitis; J06.9 Acute upper respiratory infection, unspecified; M54.9 Dorsalgia, unspecified; G89.29 Other chronic pain; M25.512 Pain in left shoulder; M62.838 Other muscle spasm; R31.0 Gross hematuria; R13.10 Dysphagia, unspecified; R62.7 Adult failure to thrive; B96.5 Pseudomonas (aeruginosa) (mallei) (pseudomallei) as the cause of diseases classified elsewhere; Z66 Do not resuscitate; Z88.6 Allergy status to analgesic agent; Z90.3 Acquired absence of stomach [part of]
CPT/HCPCS: 51702; 70450; 70551; 71010; 71020; 71260; 73030; 74177; 76937; 80048; 80053; 81001; 82550; 83735; 84100; 84134; 84153; 84484; 85025; 85610; 85730; 87077; 87086; 87186; 88305; 88312; 93005; 94150; C1769; G8987-GP; G8988-GP; J0696; J1650; J2270; J2370; J2405; J7040; J7042; Q9963; Q9967